=== PATIENT | female | born 1935 | race Caucasian/White ===

== ENCOUNTER 2017-03-03 17:16 | Inpatient (IN) | payer OTHER ==
[2017-03-03] MEDS ORDERED: SODIUM CHLORIDE 1,000 ML IV STA ×2 (17:24→17:39)
--- NOTE | 2017-03-03 17:29 | PDOC ---
History of Present Illness - General History Source: Patient Exam Limitations: No Limitations - History of Present Illness Initial Comments: 03/03/17 17:52 The patient is an 81 year old female with a significant pmhx Diabetes, CAD, COPD (uses BiPap at night), Asthma, CHF, HTN, HLD, seizures, who presents to the ED sent from [facility] with complaint of fever, diaphoresis, tachycardia and unresponsive. Patient was found to have 103 F fever at the [place] where she was given tylenol. Patient was found to have BG of 88 and 1 IM injection of Glucagon was administered by EMS. Patient still has a fever while in the ED PCP - Dr. Rey <Marquita Mercer - Last Filed: 03/03/17 21:07> - General History Source: EMS, Care Home Records, Old Records Exam Limitations: Dementia <Sharon Guadalupe - Last Filed: 03/09/17 08:47> - General Stated Complaint: PAIN Past History <Marquita Mercer - Last Filed: 03/03/17 21:07> - Past Medical History Anemia: No Asthma: Yes Cancer: No Cardiac Disorders: Yes (CAD) CVA: Yes (2006, TIA) COPD: Yes (uses BIPAP at night) CHF: Yes Dementia: No Diabetes: Yes GI Disorders: Yes (OBESITY) Disorders: No HTN: Yes Hypercholesterolemia: Yes Liver Disease: No Seizures: Yes Thyroid Disease: No - Surgical History Abdominal Surgery: Yes Appendectomy: Yes Cardiac Surgery: Yes (STENTS X 8.) Cholecystectomy: No Lung Surgery: No Neurologic Surgery: Yes Orthopedic Surgery: Yes - Immunization History Td Vaccination: (unknown) TDAP Vaccination: (unknown) Immunization Up to Date: (unknown) - Psycho/Social/Smoking Cessation Hx Anxiety: No Suicidal Ideation: No Smoking Status: No Smoking History: Never smoked Have you smoked in the past 12 months: No Number of Cigarettes Smoked Daily: 0 Cigars Per Day: 0 Hx Alcohol Use: No Drug/Substance Use Hx: No Substance Use Type: None Hx Substance Use Treatment: No <Sharon Guadalupe - Last Filed: 03/09/17 08:47> - Past Medical History Allergies/Adverse Reactions: Allergies Allergy/AdvReac Type Severity Reaction Status Date / Time iodine [Iodine] Allergy Severe Swelling Verified 03/03/17 17:36 aspirin Allergy Mild ABD PAIN Verified 03/03/17 17:36 Home Medications: Ambulatory Orders Aa/Hydrolyzed Collagen, Whey [Lps 15-30 Liquid] 960 ml PO DAILY 03/03/17 Amlodipine Besylate 5 mg PO BID 03/03/17 Atorvastatin Ca [Lipitor] 20 mg PO HS 03/03/17 Carvedilol [Coreg -] 25 mg PO BID 03/03/17 Clonidine-Tts 0.3MG/24Hr Patch [Yunujylr-Ltj-1] 1 patch NR WEEKLY 03/03/17 Cyanocobalamin (Vitamin B-12) [Vitamin B12] 2,500 mcg PO DAILY 03/03/17 Docusate Sodium [Colace -] 300 mg PO BID 03/03/17 Donepezil HCl [Aricept -] 5 mg PO DAILY 03/03/17 Duloxetine HCl [Cymbalta -] 30 mg PO DAILY 03/03/17 Enoxaparin [Lovenox -] 40 mg SQ DAILY 03/03/17 Folic Acid - 400 mcg PO DAILY 03/03/17 Furosemide [Lasix] 40 mg PO DAILY 03/03/17 Insulin (Levemir) [Levemir Vial] 12 unit SQ DAILY 03/03/17 Insulin Regular [NOVOLIN R VIAL *IVPUSH / ER / ICU Only*] 0 units SQ BIDAC 03/03 Isosorbide Mononitrate [Isosorbide Mononitrate ER] 60 mg PO HS 03/03/17 Magnesium Oxide [Mag-Ox -] 400 mg PO BID 03/03/17 Nystatin Cream [Mycostatin] 1 applic TP BID 03/03/17 Omeprazole 40 mg PO DAILY 03/03/17 Ondansetron HCl [Zofran] 4 mg PO TID PRN 03/03/17 Oxycodone HCl 5 mg PO Q4HWA PRN 03/03/17 Ranolazine [Ranexa] 500 mg PO BID 03/03/17 Valsartan [Diovan] 80 mg PO DAILY 03/03/17 Review of Systems - Review of Systems Able to Perform ROS?: Yes Comments:: 03/03/17 18:25 Unable to obtain due to mental status. <Marquita Mercer - Last Filed: 03/03/17 21:07> *Physical Exam - Vital Signs Last Vital Signs Temp Pulse Resp BP Pulse Ox 102.4 F H 84 18 160/66 94 L 03/03/17 17:37 03/03/17 17:37 03/03/17 17:37 03/03/17 17:37 03/03/17 17:37 - Physical Exam Comments: 03/03/17 18:26 GENERAL: The patient is in no acute distress. HEAD: Normal with no signs of trauma. EYES: PERRLA, EOMI, sclera anicteric, conjunctiva clear. ENT: Ears normal, nares patent, oropharynx clear without exudates. Moist mucous membranes. NECK: Normal range of motion, supple without lymphadenopathy, JVD, or masses. LUNGS: Breath sounds equal, clear to auscultation bilaterally. No wheezes, and no crackles. HEART: (+)Regular rate and rhythm murmur 3/6 aortic position, normal S1 and S2, rub or gallop. ABDOMEN: (+)RUQ tenderness. Soft, normoactive bowel sounds. No guarding, no rebound. EXTREMITIES: Normal range of motion, no edema. No clubbing or cyanosis. No erythema, or tenderness. NEUROLOGICAL: Cranial nerves II through XII grossly intact. Normal speech. No focal neurological deficits. MUSCULOSKELETAL: Back nontender to palpation, no CVA tenderness SKIN: No skin breakdown no abscess. Warm, Dry, normal turgor, no rashes or lesions noted. <Marquita Mercer - Last Filed: 03/03/17 21:07> Heart Score/ECG Review #1 ECG reviewed & interpreted by me at: 19:06 03/03/17 19:06 Twelve-lead EKG was performed and reviewed by me. There is normal sinus rhythm with a normal rate of 79 bpm. Left axis deviation. The intervals are normal - pr:156ms, QRS:92ms, QTc:440ms. There are no ST elevations or depressions. T wave flattening <Sharon Guadalupe - Last Filed: 03/09/17 08:47> ED Treatment Course - LABORATORY CBC & Chemistry Diagram: 03/03/17 17:40 03/03/17 17:40 - RADIOLOGY Radiology Studies Ordered: 03/03/17 21:07 THIS IS A PRELIMINARY REPORT FROM IMAGING CENTER MANAGER FINDINGS: The liver is of uniform echogenicity without biliary ductal dilatation , mass or cystic change. It measures 18.1 cm in greatest dimension. A fluid filled gallbladder is present in the right upper quadrant without evidence of cholelithiasis or gallbladder wall thickening. A solitary 0.4 cm echogenic mucosal polyp is seen within the gallbladder. The common bile duct measured 0.3 cm in diameter which is within normal limits. The pancreas demonstrates uniform echogenicity without ductal dilatation, mass or cystic change. The right kidney is not measured. A 3.0 cm simple anechoic cyst was seen centrally. IMPRESSION Limited abdominal ultrasound by prescription. Hepatomegaly. No liver masses. No evidence of cholelithiasis. The gallbladder demonstrates a small echogenic polyp. No follow-up required. No gallbladder wall thickening or biliary ductal dilatation. THIS DOCUMENT HAS BEEN ELECTRONICALLY SIGNED Ayan Aldana M.D. <Marquita Mercer - Last Filed: 03/03/17 21:07> - LABORATORY CBC & Chemistry Diagram: 03/08/17 08:26 03/08/17 08:26 - RADIOLOGY Radiology Studies Ordered: Category Date Time Status CHEST X-RAY PORTABLE* [RAD] Stat Radiology 03/03/17 17:24 Ordered <Sharon Guadalupe - Last Filed: 03/09/17 08:47> Medical Decision Making - Critical Care Time Total Critical Care Time (minutes): 35 Critical Care Statement: The care of this patient involved high complexity decision making to prevent further life threatening deterioration of the patient 's condition and/or to evalute & treat vital organ system(s) failure or risk of failure. - Medical Decision Making 03/03/17 17:27 This pateint is an 81 year old female with significant PMH of Diabetes, CAD, COPD (uses BiPap at night), Asthma, CHF, HTN, HLD, seizures, who presents to ED from [facility] due to altered mentation Pt was found to have a fever of 103 at 3pm Given tylenol Found at 5pm unresponsive and tachycardiac EMS called PT was diaphoretic, tachycardiac Fingerstick 88 Pt given Glucagon Pt more responsive now Will do Sepsis orderset given history of fever 03/03/17 18:41 Rectal temp 102 Will give tylenol IV ( states that she doesn't normally take motrin) Laboratory Tests 03/03/17 03/03/17 03/03/17 17:40 17:40 17:40 WBC 23.9 H D Hgb 16.3 H D Hct 52.0 H D Plt Count 162 D Neutrophils % 79.0 Lymphocytes % 6.0 L D INR 1.20 H Sodium Potassium Chloride Carbon Dioxide BUN Creatinine Random Glucose Creatine Kinase Troponin I Ur Leukocyte Esterase Trace H Urine RBC 27 Urine WBC 99 03/03/17 17:40 WBC Hgb Hct Plt Count Neutrophils % Lymphocytes % INR Sodium 136 Potassium 3.5 D Chloride 97 L D Carbon Dioxide 28 D BUN 13 D Creatinine 0.8 Random Glucose 162 H D Creatine Kinase 16 L Troponin I < 0.02 Ur Leukocyte Esterase Urine RBC Urine WBC WBC elevated Hemoconcentrated Lactate Nml UA (+) Will give Zosyn RUQ tenderness, pt going to US to eval GB 03/03/17 18:[address] Can not scan with contrast Will do CT non contrast 03/03/17 18:45 03/03/17 21:28 US demonstrates no gall bladder wall thickening, no PCCF, no stoned (+) gall bladder polyp Pt hemodynamically stable No fever now case reviewed with Dr rey Will admit to Med Surg CT pending <Sharon Guadalupe - Last Filed: 03/09/17 08:47> *DC/Admit/Observation/Transfer - Attestations Scribe Attestion: 03/03/17 17:53 Documentation prepared by ROSIBEL Astorga, acting as medical records auditor for Sharon Guadalupe MD. <Marquita Mercer - Last Filed: 03/03/17 21:07> - Discharge Dispostion Admit: Yes <Sharon Guadalupe - Last Filed: 03/09/17 08:47> Diagnosis at time of Disposition: UTI (urinary tract infection) Qualifiers: Urinary tract infection type: site unspecified Hematuria presence: without hematuria Qualified Code(s): N39.0 - Urinary tract infection, site not specified Fever Qualifiers: Fever type: due to other condition Qualified Code(s): R50.81 - Fever presenting with conditions classified elsewhere - Discharge Dispostion Condition at time of disposition: Stable - Referrals
[2017-03-03] MEDS ORDERED: ACETAMINOPHEN 1000 MG/100 ML VIAL (NON FORMULARY) IVPB ONE (17:39)
[2017-03-03 17:40] VITALS: BMI 25.6
[2017-03-03 17:55] LABS: MCH 21.4 pg (25.7-33.7); MCHC 31.3 g/dl (32.0-36.0); MEAN CELL VOLUME 68.5 fl (80-96); MEAN PLT VOLUME 10.1 fl (7.5-11.1); RDW 17.3 % (11.6-15.6); WHITE BLOOD COUNT 23.9 K/mm3 (4.0-10.0)
[2017-03-03 17:57] LABS: URINE APPEARANCE CLOUDY; URINE BILIRUBIN NEGATIVE (NEGATIVE); URINE COLOR AMBER; URINE GLUCOSE (UA) 2+ (NEGATIVE); URINE KETONE NEGATIVE (NEGATIVE); URINE NITRITE NEGATIVE (NEGATIVE); URINE UROBILINOGEN NEGATIVE E.U./dl (0.2-1.0)
[2017-03-03 17:58] LABS: URINE BLOOD 1+ (NEGATIVE); URINE LEUK ESTERASE TRACE (NEGATIVE); URINE PROTEIN 3+ (NEGATIVE)
[2017-03-03 18:01] LABS: URINE BACTERIA FEW /hpf (NONE SEEN); URINE HYALINE CAST 5 /lpf; URINE MUCUS RARE; URINE RBC 27 /hpf (0-3); URINE WBC 99 /hpf (3-5); YEAST FEW
[2017-03-03 18:09] LABS: INR 1.2 (0.82-1.09); PROTHROMBIN TIME (PATIENT) 13.2 SEC (9.98-11.88)
[2017-03-03] MEDS ORDERED: ACETAMINOPHEN INJECTION 100 ML IVPB ONE (18:09)
[2017-03-03 18:11] LABS: ACTIVATED PTT 44.5 SECONDS (26.9-34.4)
[2017-03-03 18:22] LABS: ALBUMIN 1.8 g/dl (3.4-5.0); ANION GAP 11 (8-16); BILIRUBIN,TOTAL 0.4 mg/dL (0.2-1.0); CO2 28 mmol/L (21-32); CREATININE 0.8 mg/dL (0.55-1.02); GLUCOSE,RANDOM 162 mg/dL (74-106); SGOT/AST 13 U/L (15-37); SGPT/ALT 13 U/L (12-78); TOT PROT 5.9 g/dl (6.4-8.2)
[2017-03-03 18:24] LABS: ALK PHOS 85 U/L (45-117); TROPONIN I < 0.02 ng/ml (0.00-0.05)
[2017-03-03 18:27] LABS: VENOUS BLOOD GAS HCO3 27.4 meq/L (19-25); VENOUS PH 7.4 (7.32-7.42)
[2017-03-03 18:31] LABS: PLATELET COUNT 162 K/MM3 (134-434); PLATELET ESTIMATE DECREASED (NORMAL)
[2017-03-03 18:32] LABS: ANISOCYTOSIS 1+; MICROCYTOSIS 1+; PLATELET COMMENT2 FEW LARGE PLTS
[2017-03-03] MEDS ORDERED: PIPERACILLIN/TAZOB 4.5 GM 4.5 GM in DEXTROSE 5%-WATER - 100 ML IVPB ONE (18:44)
[2017-03-03] MEDS ORDERED: PIPERACILLIN/TAZOB 3.375 GM 50 ML IVPB ONE (18:45)
[2017-03-03] MEDS ORDERED: PIPERACILLIN/TAZOB 4.5 GM 100 ML IVPB ONE (18:52)
[2017-03-03] MEDS ORDERED: ONDANSETRON 4 MG TABLET PO PRN (23:20)
[2017-03-03] MEDS ORDERED: PATIENT'S OWN MEDICATION (NON-FORMULARY) (Oxycodone Hcl [Oxycodone Hcl] 5 MG) PO PRN (23:20)
[2017-03-03] MEDS ORDERED: ACETAMINOPHEN 325 MG TABLET (FP) PO PRN (23:26)
[2017-03-03] MEDS ORDERED: ALBUTEROL SO4 0.083% IH SOL 2.5 MG/3 ML VIAL.NEB. NEB PRN (23:26)
[2017-03-04] MEDS: PIPERACILLIN/TAZOB 3.375 GM/50 ML PRE-DOCKED IVPB SCH ×2 (01:28→10:07)
[2017-03-04] MEDS ORDERED: PIPERACILLIN/TAZOB 3.375 GM/50 ML PRE-DOCKED IVPB SCH (02:00)
[2017-03-04] MEDS: INSULIN SLIDING SCALE (NOVOLOG) 1 VIAL SQ SCH ×4 (06:27→21:38)
[2017-03-04] MEDS: INSULIN DETEMIR 100 UNITS/ML MDV SQ SCH (06:28)
[2017-03-04] MEDS ORDERED: INSULIN (NOVOLOG) ASPART 100 UNITS/ML 10ML VIAL ONE ×2 (06:29→17:11)
[2017-03-04 08:11] LABS: BASOPHIL 0.1 % (0-2.0); MCH 21.7 pg (25.7-33.7); MCHC 31.1 g/dl (32.0-36.0); MEAN CELL VOLUME 69.7 fl (80-96); MEAN PLT VOLUME 9.1 fl (7.5-11.1); RDW 18.2 % (11.6-15.6); WHITE BLOOD COUNT 26.8 K/mm3 (4.0-10.0)
[2017-03-04 08:20] LABS: ALBUMIN 1.6 g/dl (3.4-5.0); ANION GAP 11 (8-16); CO2 28 mmol/L (21-32); GLUCOSE,RANDOM 160 mg/dL (74-106)
[2017-03-04 08:22] LABS: ALK PHOS 80 U/L (45-117); AMYLASE 18 U/L (25-115); BILIRUBIN,TOTAL 0.4 mg/dL (0.2-1.0); CREATININE 0.8 mg/dL (0.55-1.02); SGOT/AST 13 U/L (15-37); SGPT/ALT 12 U/L (12-78); TOT PROT 5.3 g/dl (6.4-8.2)
[2017-03-04 09:35] LABS: PLATELET COMMENT2 FEW LARGE PLTS; PLATELET COUNT 126 K/MM3 (134-434); PLATELET ESTIMATE ADEQUATE (NORMAL)
[2017-03-04] MEDS ORDERED: PT OWN MED DRAWER 7, Y5N ONE (09:54)
[2017-03-04] MEDS: amLODIPine BESYLATE 10 MG TABLET (FP) PO SCH (10:07)
[2017-03-04] MEDS: DULoxetine HCL 30 MG CAPSULE.DR (FP) PO SCH (10:07)
[2017-03-04] MEDS: DONEPEZIL HCL 5 MG TABLET (FP) PO SCH (10:07)
[2017-03-04] MEDS: CARVEDILOL 25 MG TABLET (FP) PO SCH ×2 (10:07→21:27)
[2017-03-04] MEDS: PANTOPRAZOLE 40 MG TABLET (FP) PO SCH (10:07)
[2017-03-04] MEDS: ENOXAPARIN NA (PORCINE) 40 MG/0.4 ML DISP.SYRIN SQ SCH (10:07)
[2017-03-04] MEDS: FUROSEMIDE 40 MG TABLET (FP) PO SCH (10:07)
[2017-03-04] MEDS: RANOLAZINE E.R. 500 MG TABLET (FP) PO SCH ×2 (10:07→21:38)
--- NOTE | 2017-03-04 10:15 | EKG ---
Test Reason : Blood Pressure : / mmHG Vent. Rate : 079 BPM Atrial Rate : 079 BPM P-R Int : 156 ms QRS Dur : 092 ms QT Int : 384 ms P-R-T Axes : 023 -65 033 degrees QTc Int : 440 ms NORMAL SINUS RHYTHM LEFT AXIS DEVIATION POSSIBLE ANTEROLATERAL INFARCT , AGE UNDETERMINED ABNORMAL ECG Confirmed by JANNETTE KHALIL MD ([id number]) on 03/04/2017 10:14:52 AM Referred By: Confirmed By:JANNETTE KHALIL MD
--- NOTE | 2017-03-04 12:55 | CONSULT ---
Consult Consult Specialty:: infectious diseases Referred by:: Reason for Consultation:: bacteremia,fever - History of Present Illness Chief Complaint: dysuria ,pain while urinating History of Present Illness: 81 year old female with a significant pmhx Diabetes, CAD, COPD (uses BiPap at night), Asthma, CHF, HTN, HLD, seizures, who is admitted from [facility] with complaint of fever, diaphoresis, tachycardia and unresponsive. Patient was found to have 103 F fever at the OR where she was given tylenol. Patient was found to have BG of 88 and 1 IM injection of Glucagon was administered by EMS. 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) Cardio/Vascular: Yes: CAD (s/p multiple prior PCI's--last oct 2013 MICHAEL to mLAD ( prior stents patent)), HTN, Hyperlipdemia Pulmonary: Yes: COPD Renal/: Yes: Renal Inusuff ...: No Endocrine: Yes: Diabetes Mellitus, Other (obesity) - Past Surgical History Past Surgical History: Yes: Appendectomy, Stent - Alcohol/Substance Use Hx Alcohol Use: No History of Substance Use: reports: None - Smoking History Smoking history: Never smoked Have you smoked in the past 12 months: No Aproximately how many cigarettes per day: 0 - Social History Usual Living Arrangement: With Spouse ADL: Family Assistance History of Recent Travel: No Home Medications - Allergies Allergies/Adverse Reactions: Allergies Allergy/AdvReac Type Severity Reaction Status Date / Time iodine [Iodine] Allergy Severe Swelling Verified 03/03/17 17:36 aspirin Allergy Mild ABD PAIN Verified 03/03/17 17:36 - Home Medications Home Medications: Ambulatory Orders Aa/Hydrolyzed Collagen, Whey [Lps 15-30 Liquid] 960 ml PO DAILY 03/03/17 Amlodipine Besylate 5 mg PO BID 03/03/17 Atorvastatin Ca [Lipitor] 20 mg PO HS 03/03/17 Carvedilol [Coreg -] 25 mg PO BID 03/03/17 Clonidine-Tts 0.3MG/24Hr Patch [Glyzsndo-Ypu-3] 1 patch NR WEEKLY 03/03/17 Cyanocobalamin (Vitamin B-12) [Vitamin B12] 2,500 mcg PO DAILY 03/03/17 Docusate Sodium [Colace -] 300 mg PO BID 03/03/17 Donepezil HCl [Aricept -] 5 mg PO DAILY 03/03/17 Duloxetine HCl [Cymbalta -] 30 mg PO DAILY 03/03/17 Enoxaparin [Lovenox -] 40 mg SQ DAILY 03/03/17 Folic Acid - 400 mcg PO DAILY 03/03/17 Furosemide [Lasix] 40 mg PO DAILY 03/03/17 Insulin (Levemir) [Levemir Vial] 12 unit SQ DAILY 03/03/17 Insulin Regular [NOVOLIN R VIAL *IVPUSH / ER / ICU Only*] 0 units SQ BIDAC 03/03 Isosorbide Mononitrate [Isosorbide Mononitrate ER] 60 mg PO HS 03/03/17 Magnesium Oxide [Mag-Ox -] 400 mg PO BID 03/03/17 Nystatin Cream [Mycostatin] 1 applic TP BID 03/03/17 Omeprazole 40 mg PO DAILY 03/03/17 Ondansetron HCl [Zofran] 4 mg PO TID PRN 03/03/17 Oxycodone HCl 5 mg PO Q4HWA PRN 03/03/17 Ranolazine [Ranexa] 500 mg PO BID 03/03/17 Valsartan [Diovan] 80 mg PO DAILY 03/03/17 Review of Systems - Review of Systems Constitutional: reports: Fever, Other Eyes: reports: No Symptoms HENT: reports: No Symptoms Neck: reports: No Symptoms Cardiovascular: reports: No Symptoms Respiratory: reports: No Symptoms Gastrointestinal: reports: No Symptoms Genitourinary: reports: Dysuria, Urgency, Other (burning in urine) Musculoskeletal: reports: No Symptoms Integumentary: reports: No Symptoms Neurological: reports: Weakness, Other Endocrine: reports: No Symptoms Hematology/Lymphatic: reports: No Symptoms Psychiatric: reports: No Symptoms Physical Exam Vital Signs: Vital Signs Temperature 99.1 F 03/04/17 10:00 Pulse Rate 77 03/04/17 10:00 Respiratory Rate 20 03/04/17 10:00 Blood Pressure 157/70 03/04/17 10:00 O2 Sat by Pulse Oximetry (%) 96 03/04/17 09:00 Constitutional: Yes: No Distress, Calm Eyes: Yes: Conjunctiva Clear HENT: Yes: Atraumatic Neck: Yes: Supple Cardiovascular: Yes: S1, S2 Respiratory: Yes: Regular, CTA Bilaterally Gastrointestinal: Yes: Normal Bowel Sounds, Soft Renal/: Yes: Other (suprapubic tenderness). No: CVA Tenderness - Left, CVA Tenderness - Right Musculoskeletal: Yes: WNL Extremities: Yes: WNL Neurological: Yes: Alert Psychiatric: Yes: Alert Labs: CBC, BMP 03/04/17 06:45 03/04/17 06:45 Imaging - Results Chest X-ray: Report Reviewed, Image Reviewed Cat Scan: Image Reviewed Ultrasound: Image Reviewed Assessment/Plan after looking at the patient i have a strong suspicion that urine is the cause of her bacteremia blood cx are positive geo wait for urine cx to be back ct scan images seen await for the results of that and the ultrasound uti bacteremia gm negative frequency fever ams leukocytosis sepsis plan started on zosyn will trend the wbc if going will switch abx await for ct scan result and u/s results hydration monitor blood sugar
[2017-03-04] MEDS: cloNIDine-TTS 0.3 MG /24 HRS PATCH.TDWK TD SCH (13:43)
--- NOTE | 2017-03-04 14:40 | CON.GI ---
Consult Consult Specialty:: GI Referred by:: Dr Rey Reason for Consultation:: Nausea and vomiting with fever and leukocytosis - History of Present Illness Chief Complaint: Nausea and vomiting History of Present Illness: 81 F with h/o DM, CAD, COPD, on BIPAP at home, CHF, HTN, HLD admitted from [facility] with N/V and abdominal pain. D/W Dr Rey who tells me that the N/V has been going on for some time. On arrival to ER the patient had temp of 103, and was tachy and poorly responsive. 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) Cardio/Vascular: Yes: CAD (s/p multiple prior PCI's--last oct 2013 MICHAEL to mLAD ( prior stents patent)), HTN, Hyperlipdemia Pulmonary: Yes: COPD Renal/: Yes: Renal Inusuff ...: No Endocrine: Yes: Diabetes Mellitus, Other (obesity) - Past Surgical History Past Surgical History: Yes: Appendectomy, Stent - Alcohol/Substance Use Hx Alcohol Use: No History of Substance Use: reports: None - Smoking History Smoking history: Never smoked Have you smoked in the past 12 months: No Aproximately how many cigarettes per day: 0 - Social History Usual Living Arrangement: With Spouse ADL: Family Assistance History of Recent Travel: No Home Medications - Allergies Allergies/Adverse Reactions: Allergies Allergy/AdvReac Type Severity Reaction Status Date / Time iodine [Iodine] Allergy Severe Swelling Verified 03/03/17 17:36 aspirin Allergy Mild ABD PAIN Verified 03/03/17 17:36 - Home Medications Home Medications: Ambulatory Orders Aa/Hydrolyzed Collagen, Whey [Lps 15-30 Liquid] 960 ml PO DAILY 03/03/17 Amlodipine Besylate 5 mg PO BID 03/03/17 Atorvastatin Ca [Lipitor] 20 mg PO HS 03/03/17 Carvedilol [Coreg -] 25 mg PO BID 03/03/17 Clonidine-Tts 0.3MG/24Hr Patch [Qcyavnah-Erc-8] 1 patch NR WEEKLY 03/03/17 Cyanocobalamin (Vitamin B-12) [Vitamin B12] 2,500 mcg PO DAILY 03/03/17 Docusate Sodium [Colace -] 300 mg PO BID 03/03/17 Donepezil HCl [Aricept -] 5 mg PO DAILY 03/03/17 Duloxetine HCl [Cymbalta -] 30 mg PO DAILY 03/03/17 Enoxaparin [Lovenox -] 40 mg SQ DAILY 03/03/17 Folic Acid - 400 mcg PO DAILY 03/03/17 Furosemide [Lasix] 40 mg PO DAILY 03/03/17 Insulin (Levemir) [Levemir Vial] 12 unit SQ DAILY 03/03/17 Insulin Regular [NOVOLIN R VIAL *IVPUSH / ER / ICU Only*] 0 units SQ BIDAC 03/03 Isosorbide Mononitrate [Isosorbide Mononitrate ER] 60 mg PO HS 03/03/17 Magnesium Oxide [Mag-Ox -] 400 mg PO BID 03/03/17 Nystatin Cream [Mycostatin] 1 applic TP BID 03/03/17 Omeprazole 40 mg PO DAILY 03/03/17 Ondansetron HCl [Zofran] 4 mg PO TID PRN 03/03/17 Oxycodone HCl 5 mg PO Q4HWA PRN 03/03/17 Ranolazine [Ranexa] 500 mg PO BID 03/03/17 Valsartan [Diovan] 80 mg PO DAILY 03/03/17 Physical Exam-GI Vital Signs: Vital Signs Temperature 99.1 F 03/04/17 10:00 Pulse Rate 77 03/04/17 10:00 Respiratory Rate 20 03/04/17 10:00 Blood Pressure 157/70 03/04/17 10:00 O2 Sat by Pulse Oximetry (%) 96 03/04/17 09:00 Constitutional: Yes: Well Nourished Respiratory: Yes: CTA Bilaterally Gastrointestinal Inspection: Yes: WNL ...Auscultate: Yes: Hyperactive Bowel Sounds ...Palpate: Yes: Soft, Tenderness (mild diffuse) Labs: CBC, BMP 03/04/17 06:45 03/04/17 06:45 INR, PTT INR 1.20 (0.82-1.09) H 03/03/17 17:40 Imaging - Results Cat Scan: Image Reviewed (Await official reading) Assessment/Plan Patient with abdominal pain, N/V for an extended period of time and leukocytosis R/O intragastric problem Will sched EGD likely Tues after medical clearance Would keep NPO Leukocytosis worrisome Cont recommended ab rx
[2017-03-04] MEDS ORDERED: DEXTROSE 5%-0.45% SALINE 1,000 ML IV SCH (15:00)
--- NOTE | 2017-03-04 16:07 | HP ---
Admitting History and Physical - Primary Care Physician PCP: Alexys Rey - Admission Chief Complaint: Fever, vomiting, abdominal pain History of Present Illness: 81 year old female with significant past medical history of hypertension, hyperlipidemia, Diabetes, CAD, COPD (uses BiPap at night), Asthma, CHF, seizures , admitted from [facility] with complaint of fever, vomiting, abdominal pain, diaphoresis, tachycardia and unresponsiveness. Patient was found to have fever of 103 at the [place] where she was given tylenol. Patient was also found to have BG of 88 and 1 IM injection of Glucagon was administered by EMS. Patient has been having 1-2 episodes of vomiting with abdominal pain per week for last 2-3 weeks. She was scheduled to see GI soon. Gives h/o burning of urine for last few days. Denies chest pain, shortness of breath, palpitation or dizziness. 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: Yes: CVA, Dementia (mild) Cardiovascular: Yes: CAD (s/p multiple prior PCI's--last oct 2013 MICHAEL to mLAD ( prior stents patent)), HTN, Hyperlipdemia Pulmonary: Yes: COPD Renal/: Yes: Renal Inusuff ...: No Heme/Onc: Yes: Anemia, Other (MDS) Endocrine: Yes: Diabetes Mellitus, Other (obesity) - Past Surgical History Past Surgical History: Yes: Appendectomy, Stent - Smoking History Smoking history: Never smoked Have you smoked in the past 12 months: No Aproximately how many cigarettes per day: 0 - Alcohol/Substance Use Hx Alcohol Use: No History of Substance Use: reports: None - Social History ADL: Family Assistance History of Recent Travel: No Home Medications - Allergies Allergies/Adverse Reactions: Allergies Allergy/AdvReac Type Severity Reaction Status Date / Time iodine [Iodine] Allergy Severe Swelling Verified 03/03/17 17:36 aspirin Allergy Mild ABD PAIN Verified 03/03/17 17:36 - Home Medications Home Medications: Ambulatory Orders Aa/Hydrolyzed Collagen, Whey [Lps 15-30 Liquid] 960 ml PO DAILY 03/03/17 Amlodipine Besylate 5 mg PO BID 03/03/17 Atorvastatin Ca [Lipitor] 20 mg PO HS 03/03/17 Carvedilol [Coreg -] 25 mg PO BID 03/03/17 Clonidine-Tts 0.3MG/24Hr Patch [[id number]] 1 patch NR WEEKLY 03/03/17 Cyanocobalamin (Vitamin B-12) [Vitamin B12] 2,500 mcg PO DAILY 03/03/17 Docusate Sodium [Colace -] 300 mg PO BID 03/03/17 Donepezil HCl [Aricept -] 5 mg PO DAILY 03/03/17 Duloxetine HCl [Cymbalta -] 30 mg PO DAILY 03/03/17 Enoxaparin [Lovenox -] 40 mg SQ DAILY 03/03/17 Folic Acid - 400 mcg PO DAILY 03/03/17 Furosemide [Lasix] 40 mg PO DAILY 03/03/17 Insulin (Levemir) [Levemir Vial] 12 unit SQ DAILY 03/03/17 Insulin Regular [NOVOLIN R VIAL *IVPUSH / ER / ICU Only*] 0 units SQ BIDAC 03/03 Isosorbide Mononitrate [Isosorbide Mononitrate ER] 60 mg PO HS 03/03/17 Magnesium Oxide [Mag-Ox -] 400 mg PO BID 03/03/17 Nystatin Cream [Mycostatin] 1 applic TP BID 03/03/17 Omeprazole 40 mg PO DAILY 03/03/17 Ondansetron HCl [Zofran] 4 mg PO TID PRN 03/03/17 Oxycodone HCl 5 mg PO Q4HWA PRN 03/03/17 Ranolazine [Ranexa] 500 mg PO BID 03/03/17 Valsartan [Diovan] 80 mg PO DAILY 03/03/17 Review of Systems - Review of Systems Constitutional: reports: Lethargy Eyes: reports: No Symptoms HENT: reports: No Symptoms Neck: reports: No Symptoms Cardiovascular: reports: No Symptoms Respiratory: reports: No Symptoms Gastrointestinal: reports: Abdominal Pain, Nausea, Vomiting Genitourinary: reports: Burning Musculoskeletal: reports: No Symptoms Integumentary: reports: No Symptoms Neurological: reports: Confusion Endocrine: reports: No Symptoms Hematology/Lymphatic: reports: No Symptoms Psychiatric: reports: No Symptoms Physical Examination Vital Signs: Vital Signs Temperature 98.7 F 03/04/17 14:00 Pulse Rate 77 03/04/17 14:00 Respiratory Rate 20 03/04/17 14:00 Blood Pressure 139/58 03/04/17 14:00 O2 Sat by Pulse Oximetry (%) 96 03/04/17 09:00 Constitutional: Yes: Mild Distress Eyes: Yes: Conjunctiva Clear, EOM Intact HENT: Yes: Atraumatic, Normocephalic Cardiovascular: Yes: Regular Rate and Rhythm, S1, S2 Respiratory: Yes: Regular, CTA Bilaterally Gastrointestinal: Yes: Tenderness (Generalized) ...Rectal Exam: Yes: Deferred Renal/: Yes: WNL Musculoskeletal: Yes: WNL Extremities: Yes: WNL Edema: No Peripheral Pulses WNL: Yes Neurological: Yes: Alert, Oriented ...Motor Strength: WNL Psychiatric: Yes: Alert, Oriented Labs: CBC, BMP 03/04/17 06:45 03/04/17 06:45 Imaging - Results Chest X-ray: Report Reviewed Cat Scan: Pending Ultrasound: Pending EKG: Report Reviewed Problem List - Problems (1) Leukocytosis Assessment/Plan: Blood cultures growing gram negative organism Most likely from genitourinary source. Continue zosyn. ID consult appreciated. Code(s): D72.829 - ELEVATED WHITE BLOOD CELL COUNT, UNSPECIFIED (2) UTI (urinary tract infection) Assessment/Plan: Blood cultures growing gram negative. Continue zosyn. ABx as per ID Code(s): N39.0 - URINARY TRACT INFECTION, SITE NOT SPECIFIED Qualifiers: Urinary tract infection type: site unspecified Hematuria presence: without hematuria Qualified Code(s): N39.0 - Urinary tract infection, site not specified (3) Gram-negative bacteremia Assessment/Plan: As mentioned above. Continue zosyn. Code(s): R78.81 - BACTEREMIA (4) Diabetes Assessment/Plan: Reasonable control. 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 Continue current medications. Code(s): I10 - ESSENTIAL (PRIMARY) HYPERTENSION (6) Hyperlipidemia Assessment/Plan: Stable. Continue atorvastatin 20 mg daily. Code(s): E78.5 - HYPERLIPIDEMIA, UNSPECIFIED (7) COPD (chronic obstructive pulmonary disease) Assessment/Plan: Stable. Continue inhaled bronchodilators. Code(s): J44.9 - CHRONIC OBSTRUCTIVE PULMONARY DISEASE, UNSPECIFIED (8) CHF (congestive heart failure) Assessment/Plan: Stable. BNP elevated. Continue lasix 40 mg daily. Monitor lytes. Code(s): I50.9 - HEART FAILURE, UNSPECIFIED
[2017-03-04] MEDS: PIPERACILLIN/TAZOB 3.375 GM 50 ML IVPB SCH (17:15)
[2017-03-04] MEDS ORDERED: POTASSIUM CHLORIDE TABS 20 MEQ TABLET.ER (FP) PO ONE (18:09)
[2017-03-04] MEDS: ATORVASTATIN CA 20 MG TABLET (FP) PO SCH (21:27)
[2017-03-04] MEDS: DOCUSATE SODIUM 100 MG CAPSULE (FP) PO SCH (21:27)
[2017-03-04] MEDS: ISOSORBIDE MONONITRATE 60 MG TAB.SR.24H (FP) PO SCH (21:27)
[2017-03-05] MEDS: PIPERACILLIN/TAZOB 3.375 GM 50 ML IVPB SCH ×3 (01:26→17:48)
[2017-03-05] MEDS: INSULIN SLIDING SCALE (NOVOLOG) 1 VIAL SQ SCH ×4 (06:33→21:27)
[2017-03-05] MEDS: INSULIN DETEMIR 100 UNITS/ML MDV SQ SCH (06:34)
[2017-03-05 07:13] LABS: MCH 21.5 pg (25.7-33.7); MCHC 30.9 g/dl (32.0-36.0); MEAN CELL VOLUME 69.4 fl (80-96); MEAN PLT VOLUME 9.6 fl (7.5-11.1); PLATELET COUNT 120 K/MM3 (134-434); RDW 17.4 % (11.6-15.6); WHITE BLOOD COUNT 28.2 K/mm3 (4.0-10.0)
[2017-03-05 07:38] LABS: ALBUMIN 1.4 g/dl (3.4-5.0); ANION GAP 9 (8-16); CALCIUM 8.7 mg/dL (8.5-10.1); CO2 28 mmol/L (21-32); CREATININE 1.1 mg/dL (0.55-1.02); GLUCOSE,RANDOM 264 mg/dL (74-106); SGOT/AST 10 U/L (15-37); SGPT/ALT 11 U/L (12-78)
[2017-03-05 07:40] LABS: ALK PHOS 78 U/L (45-117); BILIRUBIN,TOTAL 0.6 mg/dL (0.2-1.0); TOT PROT 4.9 g/dl (6.4-8.2)
[2017-03-05] MEDS: ENOXAPARIN NA (PORCINE) 40 MG/0.4 ML DISP.SYRIN SQ SCH (10:01)
[2017-03-05] MEDS: RANOLAZINE E.R. 500 MG TABLET (FP) PO SCH ×2 (10:09→21:27)
[2017-03-05] MEDS: DULoxetine HCL 30 MG CAPSULE.DR (FP) PO SCH (10:09)
[2017-03-05] MEDS: amLODIPine BESYLATE 10 MG TABLET (FP) PO SCH (10:09)
[2017-03-05] MEDS: PANTOPRAZOLE 40 MG TABLET (FP) PO SCH (10:09)
[2017-03-05] MEDS: DONEPEZIL HCL 5 MG TABLET (FP) PO SCH (10:09)
[2017-03-05] MEDS: FUROSEMIDE 40 MG TABLET (FP) PO SCH (10:09)
[2017-03-05] MEDS: CARVEDILOL 25 MG TABLET (FP) PO SCH ×2 (10:09→21:26)
[2017-03-05 11:33] LABS: ANISOCYTOSIS 2+; MICROCYTOSIS 2+; PLATELET COMMENT2 NO CLUMPING NOTED; PLATELET COMMENT3 NO CLOTTING DETECTED; PLATELET ESTIMATE SLT DECREASED (NORMAL); POIKILOCYTOSIS 2+; POLYCHROMASIA 1+
--- NOTE | 2017-03-05 14:56 | PN ---
Physical Exam: SUBJECTIVE: Patient seen and examined for Dr. Rey/Varun OBJECTIVE: Vital Signs Period Temp Pulse Resp BP Sys/Bishop Pulse Ox Last 24 Hr 98.4 F-100.5 F 80-84 20-20 127-133/65-85 96-96 GENERAL: The patient is awake, alert, and fully oriented, in no acute distress. HEAD: Normal with no signs of trauma. NECK: Trachea midline, full range of motion, supple. LUNGS: Breath sounds equal, clear to auscultation bilaterally, no wheezes, no crackles, no accessory muscle use. HEART: Regular rate and rhythm, S1, S2 without murmur, rub or gallop. ABDOMEN: Soft, nontender, nondistended, normoactive bowel sounds, no guarding, no rebound, no hepatosplenomegaly, no masses. EXTREMITIES: 2+ pulses, warm, well-perfused, no edema. NEUROLOGICAL: Cranial nerves II through XII grossly intact. Normal speech, gait not observed. SKIN: Warm, dry, normal turgor, no rashes or lesions noted Laboratory Results - last 24 hr 03/04/17 03/04/17 03/05/17 16:43 21:35 05:35 WBC RBC Hgb Hct MCV MCHC RDW Plt Count MPV Neutrophils % Lymphocytes % Monocytes % Band Neutrophils Reactive Lymphocytes Platelet Estimate Platelet Comment Polychromasia Poikilocytosis Anisocytosis Microcytosis Sodium Potassium Chloride Carbon Dioxide Anion Gap BUN Creatinine Creat Clearance w eGFR POC Glucometer 258 295 261 Random Glucose Calcium Total Bilirubin AST ALT Alkaline Phosphatase Total Protein Albumin 03/05/17 03/05/17 03/05/17 06:20 06:20 11:46 WBC 28.2 H RBC 6.50 H Hgb 13.9 D Hct 45.1 MCV 69.4 L MCHC 30.9 L RDW 17.4 H Plt Count 120 L MPV 9.6 Neutrophils % 80.0 Lymphocytes % 4.0 L Monocytes % 8.0 Band Neutrophils 4.0 Reactive Lymphocytes 4 D Platelet Estimate Slt decreased Platelet Comment No clumping noted Polychromasia 1+ Poikilocytosis 2+ Anisocytosis 2+ Microcytosis 2+ Sodium 132 L Potassium 4.1 D Chloride 95 L Carbon Dioxide 28 Anion Gap 9 BUN 25 H D Creatinine 1.1 H D Creat Clearance w eGFR 47.43 POC Glucometer 251 Random Glucose 264 H D Calcium 8.7 Total Bilirubin 0.6 D AST 10 L D ALT 11 L Alkaline Phosphatase 78 Total Protein 4.9 L Albumin 1.4 L Active Medications Generic Name Dose Route Start Last Admin Trade Name Freq PRN Reason Stop Dose Admin Acetaminophen 650 mg 03/03/17 23:26 Tylenol - PO Q6H PRN FEVER OR PAIN Albuterol Sulfate 1 amp 03/03/17 23:26 Ventolin 0.083% Nebulizer Soln - NEB Q6H PRN SHORT OF BREATH/WHEEZING Amlodipine Besylate 10 mg 03/04/17 10:00 03/05/17 10:09 Norvasc - PO 10 mg DAILY JOSE Administration Atorvastatin Calcium 20 mg 03/04/17 22:00 03/04/17 21:27 Lipitor - PO 20 mg HS JOSE Administration Carvedilol 25 mg 03/04/17 10:00 03/05/17 10:09 Coreg - PO 25 mg BID JOSE Administration Clonidine HCl 0.3 mg 03/04/17 10:00 03/04/17 13:43 Catapres Tts Patch - TD 0.3 mg Q7D@1000 JOSE Administration Docusate Sodium 300 mg 03/04/17 22:00 03/04/17 21:27 Colace - PO 300 mg HS JOSE Administration Donepezil HCl 5 mg 03/04/17 10:00 03/05/17 10:09 Aricept - PO 5 mg DAILY JOSE Administration Duloxetine HCl 30 mg 03/04/17 10:00 03/05/17 10:09 Cymbalta - PO 30 mg DAILY JOSE Administration Enoxaparin Sodium 40 mg 03/04/17 10:00 03/05/17 10:01 Lovenox - SQ 40 mg DAILY JOSE Administration Furosemide 40 mg 03/04/17 10:00 03/05/17 10:09 Lasix - PO 40 mg DAILY JOSE Administration Piperacillin Sod/Tazobactam Sod 50 mls @ 100 mls/hr 03/04/17 18:00 03/05/17 10: 01 Zosyn 3.375gm Ivpb (Pre-Docked) IVPB 100 mls/hr Q8H-IV JOSE Administration Protocol Insulin Aspart 1 vial 03/04/17 07:00 03/05/17 12:01 Novolog Vial Sliding Scale - SQ 6 units ACHS JOSE Administration Protocol Insulin Detemir 12 units 03/04/17 07:00 03/05/17 06:34 Levemir Vial SQ 12 units DAILY@0700 JOSE Administration Isosorbide Mononitrate 60 mg 03/04/17 22:00 03/04/17 21:27 Imdur - PO 60 mg HS JOSE Administration Ondansetron HCl 4 mg 03/03/17 23:20 Zofran - PO Q8H PRN NAUSEA Pantoprazole Sodium 40 mg 03/04/17 10:00 03/05/17 10:09 Protonix - PO 40 mg DAILY JOSE Administration Ranolazine 500 mg 03/04/17 10:00 03/05/17 10:09 Ranexa - PO 500 mg BID JOSE Administration ASSESSMENT/PLAN: This 81 yr old male with leukocytosis, UTI, 1. Leukocytosis ? UTI -continue zosyn -follow ID recommendations -tylenol for fever as needed -follow up with blood culture 2. early cholecystitis on CT -follow up with GI consult -continue with ABT -Full liquid diabetic diet 3. CHF -cont Lasix -strict I and O 4. GI/DVT ppx 5. DM -continue with FS -continue with levemir Problem List - Problems (1) UTI (urinary tract infection) Code(s): N39.0 - URINARY TRACT INFECTION, SITE NOT SPECIFIED Qualifiers: Urinary tract infection type: site unspecified Hematuria presence: without hematuria Qualified Code(s): N39.0 - Urinary tract infection, site not specified (2) Leukocytosis Code(s): D72.829 - ELEVATED WHITE BLOOD CELL COUNT, UNSPECIFIED Visit type - Emergency Visit Emergency Visit: No - New Patient This patient is new to me today: Yes Date on this admission: 03/05/17 - Critical Care Critical Care patient: No - Discharge Referral Referred to [facility] Med P.C.: No
[2017-03-05] MEDS: DEXTROSE 5%-0.45% SALINE 1,000 ML IV SCH (16:25)
--- NOTE | 2017-03-05 18:01 | PN ---
Progress Note, Physician History of Present Illness: patient doing well feeling better - Current Medication List Current Medications: Active Medications Acetaminophen (Tylenol -) 650 mg PO Q6H PRN PRN Reason: FEVER OR PAIN Albuterol Sulfate (Ventolin 0.083% Nebulizer Soln -) 1 amp NEB Q6H PRN PRN Reason: SHORT OF BREATH/WHEEZING Amlodipine Besylate (Norvasc -) 10 mg PO DAILY [facility] Last Admin: 03/05/17 10:09 Dose: 10 mg Atorvastatin Calcium (Lipitor -) 20 mg PO HS [facility] Last Admin: 03/04/17 21:27 Dose: 20 mg Carvedilol (Coreg -) 25 mg PO BID [facility] Last Admin: 03/05/17 10:09 Dose: 25 mg Clonidine HCl (Catapres Tts Patch -) 0.3 mg TD Q7D@1000 [facility] Last Admin: 03/04/17 13:43 Dose: 0.3 mg Docusate Sodium (Colace -) 300 mg PO HS [facility] Last Admin: 03/04/17 21:27 Dose: 300 mg Donepezil HCl (Aricept -) 5 mg PO DAILY [facility] Last Admin: 03/05/17 10:09 Dose: 5 mg Duloxetine HCl (Cymbalta -) 30 mg PO DAILY [facility] Last Admin: 03/05/17 10:09 Dose: 30 mg Enoxaparin Sodium (Lovenox -) 40 mg SQ DAILY [facility] Last Admin: 03/05/17 10:01 Dose: 40 mg Furosemide (Lasix -) 40 mg PO DAILY [facility] Last Admin: 03/05/17 10:09 Dose: 40 mg Piperacillin Sod/Tazobactam Sod (Zosyn 3.375gm Ivpb (Pre-Docked)) 50 mls @ 100 mls/hr IVPB Q8H-IV JOSE PRN Reason: Protocol Last Admin: 03/05/17 17:48 Dose: 100 mls/hr Dextrose/Sodium Chloride (D5-1/2ns -) 1,000 mls @ 75 mls/hr IV ASDIR [facility] Last Admin: 03/05/17 16:25 Dose: 75 mls/hr Insulin Aspart (Novolog Vial Sliding Scale -) 1 vial SQ ACHS JOSE PRN Reason: Protocol Last Admin: 03/05/17 16:59 Dose: 6 units Isosorbide Mononitrate (Imdur -) 60 mg PO HS [facility] Last Admin: 03/04/17 21:27 Dose: 60 mg Ondansetron HCl (Zofran -) 4 mg PO Q8H PRN PRN Reason: NAUSEA Pantoprazole Sodium (Protonix -) 40 mg PO DAILY [facility] Last Admin: 03/05/17 10:09 Dose: 40 mg Ranolazine (Ranexa -) 500 mg PO BID [facility] Last Admin: 03/05/17 10:09 Dose: 500 mg - Objective Vital Signs: Vital Signs Temperature 98.8 F 03/05/17 14:50 Pulse Rate 71 03/05/17 15:45 Respiratory Rate 18 03/05/17 15:45 Blood Pressure 133/49 03/05/17 15:45 O2 Sat by Pulse Oximetry (%) 96 03/05/17 09:00 Constitutional: Yes: No Distress, Calm Cardiovascular: Yes: Regular Rate and Rhythm Respiratory: Yes: Regular, CTA Bilaterally Gastrointestinal: Yes: Normal Bowel Sounds, Soft Musculoskeletal: Yes: WNL Extremities: Yes: WNL Neurological: Yes: Alert Psychiatric: Yes: Alert Labs: CBC, BMP 03/05/17 06:20 03/05/17 06:20 INR, PTT INR 1.20 (0.82-1.09) H 03/03/17 17:40 Assessment/Plan uti bacteremia gm negative frequency fever ams leukocytosis sepsis patient showing improvement plan continue zosyn repeat blood cx tomorrow
--- NOTE | 2017-03-05 19:30 | PN ---
GI Progress Note Subjective: no nausea and vomiting, has gram negative bacteremia associated with WBC of 28, 000 - Objective Vital Signs: Vital Signs Temperature 98.8 F 03/05/17 14:50 Pulse Rate 71 03/05/17 15:45 Respiratory Rate 18 03/05/17 15:45 Blood Pressure 133/49 03/05/17 15:45 O2 Sat by Pulse Oximetry (%) 96 03/05/17 09:00 Constitutional: Well Nourished Eyes: Yes: Conjunctiva Clear HENT: Yes: Atraumatic Neck: Yes: Supple Cardiovascular: Yes: Regular Rate and Rhythm Respiratory: Yes: CTA Bilaterally ...Palpate: Yes: Firm/Rigid, Soft, Splenomegaly, Tenderness, Epigastium. No: Guarding, Hepatomegaly, Mass, Pulsatile Mass, Tenderness Labs: CBC, BMP 03/05/17 06:20 03/05/17 06:20 INR, PTT INR 1.20 (0.82-1.09) H 03/03/17 17:40 Problem List - Problems (1) Gastroparesis Assessment/Plan: R>continue Protonix 40mg daily Reglan 5mg 30 min ac Code(s): K31.84 - GASTROPARESIS
[2017-03-05] MEDS: ISOSORBIDE MONONITRATE 60 MG TAB.SR.24H (FP) PO SCH (21:26)
[2017-03-05] MEDS: DOCUSATE SODIUM 100 MG CAPSULE (FP) PO SCH (21:26)
[2017-03-05] MEDS: ATORVASTATIN CA 20 MG TABLET (FP) PO SCH (21:26)
[2017-03-06] MEDS: PIPERACILLIN/TAZOB 3.375 GM 50 ML IVPB SCH ×3 (02:37→17:33)
[2017-03-06] MEDS: METOCLOPRAMIDE HCL 10 MG TABLET (FP) PO SCH ×3 (06:07→16:24)
[2017-03-06] MEDS: DEXTROSE 5%-0.45% SALINE 1,000 ML IV SCH (06:09)
[2017-03-06] MEDS: INSULIN SLIDING SCALE (NOVOLOG) 1 VIAL SQ SCH ×4 (06:27→21:55)
[2017-03-06 08:06] LABS: MCH 21.6 pg (25.7-33.7); MCHC 31.4 g/dl (32.0-36.0); MEAN CELL VOLUME 68.7 fl (80-96); MEAN PLT VOLUME 9.7 fl (7.5-11.1); PLATELET COUNT 128 K/MM3 (134-434); RDW 17.5 % (11.6-15.6); WHITE BLOOD COUNT 21.4 K/mm3 (4.0-10.0)
[2017-03-06 08:34] LABS: INR 1.09 (0.82-1.09)
[2017-03-06 10:24] LABS: HYPOCHROMIA 1+; MICROCYTOSIS 1+; PLATELET ESTIMATE SLT DECREASED (NORMAL)
[2017-03-06] MEDS: RANOLAZINE E.R. 500 MG TABLET (FP) PO SCH ×2 (10:32→21:56)
[2017-03-06] MEDS: DONEPEZIL HCL 5 MG TABLET (FP) PO SCH (10:32)
[2017-03-06] MEDS: PANTOPRAZOLE 40 MG TABLET (FP) PO SCH (10:32)
[2017-03-06] MEDS: DULoxetine HCL 30 MG CAPSULE.DR (FP) PO SCH (10:32)
[2017-03-06] MEDS: FUROSEMIDE 40 MG TABLET (FP) PO SCH (10:32)
[2017-03-06] MEDS: amLODIPine BESYLATE 10 MG TABLET (FP) PO SCH (10:32)
[2017-03-06] MEDS: CARVEDILOL 25 MG TABLET (FP) PO SCH ×2 (10:32→21:56)
[2017-03-06] MEDS: ENOXAPARIN NA (PORCINE) 40 MG/0.4 ML DISP.SYRIN SQ SCH (10:33)
[2017-03-06 10:58] LABS: ALBUMIN 1.2 g/dl (3.4-5.0); ANION GAP 9 (8-16); BILIRUBIN,TOTAL 0.3 mg/dL (0.2-1.0); CALCIUM 8.6 mg/dL (8.5-10.1); CO2 27 mmol/L (21-32); CREATININE 1.2 mg/dL (0.55-1.02); SGOT/AST 12 U/L (15-37); SGPT/ALT 11 U/L (12-78); TOT PROT 4.7 g/dl (6.4-8.2)
[2017-03-06 10:59] LABS: ALK PHOS 87 U/L (45-117)
[2017-03-06 11:13] LABS: GLUCOSE,RANDOM 356 mg/dL (74-106)
[2017-03-06] MEDS ORDERED: INSULIN (NOVOLOG) ASPART 100 UNITS/ML 10ML VIAL ONE ×2 (11:47→21:53)
--- NOTE | 2017-03-06 15:13 | PN ---
Physical Exam: SUBJECTIVE: Patient seen and examined Pt still reports mils abdominal discomfort,denies N/V/D, fever, chills, cp, sob or palpitations. OBJECTIVE: Vital Signs Period Temp Pulse Resp BP Sys/Bishop Pulse Ox Last 24 Hr 98.5 F-99.6 F 69-90 18-20 125-153/48-75 96-97 GENERAL: The patient is awake, alert, and fully oriented, in no acute distress. HEAD: Normal with no signs of trauma. EYES: PERRL, extranuclear movements intact, sclera anicteric, conjunctiva clear. No ptosis. ENT: Ears normal, nares patent, oropharynx clear without exudates, moist mucous membranes. NECK: Trachea midline, full range of motion, supple. LUNGS: Breath sounds equal, clear to auscultation bilaterally, no wheezes, no crackles, no accessory muscle use. HEART: Regular rate and rhythm, S1, S2 without murmur, rub or gallop. ABDOMEN: Soft, + RUQ and epigastric tenderness nondistended, normoactive bowel sounds, no guarding, no rebound, no hepatosplenomegaly, no masses. EXTREMITIES: 2+ pulses, warm, well-perfused, 1+ edema RLE NEUROLOGICAL: Cranial nerves II through XII grossly intact. Normal speech, gait not observed. PSYCH: Normal mood, normal affect. SKIN: Warm, dry, normal turgor, no rashes or lesions noted Laboratory Results - last 24 hr 03/05/17 03/05/17 03/06/17 16:55 21:24 05:32 WBC RBC Hgb Hct MCV MCHC RDW Plt Count MPV Platelet Estimate Platelet Comment Hypochromic-Microcytic Microcytosis INR Sodium Potassium Chloride Carbon Dioxide Anion Gap BUN Creatinine Creat Clearance w eGFR POC Glucometer 267 334 285 Random Glucose Calcium Total Bilirubin AST ALT Alkaline Phosphatase Total Protein Albumin 03/06/17 03/06/17 03/06/17 07:00 07:00 07:00 WBC 21.4 H RBC 6.10 H Hgb 13.2 Hct 41.9 MCV 68.7 L MCHC 31.4 L RDW 17.5 H Plt Count 128 L MPV 9.7 Platelet Estimate Slt decreased Platelet Comment Mod large plts Hypochromic-Microcytic 1+ Microcytosis 1+ INR 1.09 Sodium Cancelled Potassium Cancelled Chloride Cancelled Carbon Dioxide Cancelled Anion Gap Cancelled BUN Cancelled Creatinine Cancelled Creat Clearance w eGFR Cancelled POC Glucometer Random Glucose Cancelled Calcium Cancelled Total Bilirubin Cancelled AST Cancelled ALT Cancelled Alkaline Phosphatase Cancelled Total Protein Cancelled Albumin Cancelled 03/06/17 03/06/17 10:21 12:00 WBC RBC Hgb Hct MCV MCHC RDW Plt Count MPV Platelet Estimate Platelet Comment Hypochromic-Microcytic Microcytosis INR Sodium 131 L Potassium 3.9 Chloride 95 L Carbon Dioxide 27 Anion Gap 9 BUN 26 H Creatinine 1.2 H Creat Clearance w eGFR 42.90 POC Glucometer 359 Random Glucose 356 H* D Calcium 8.6 Total Bilirubin 0.3 D AST 12 L ALT 11 L Alkaline Phosphatase 87 Total Protein 4.7 L Albumin 1.2 L Active Medications Generic Name Dose Route Start Last Admin Trade Name Freq PRN Reason Stop Dose Admin Acetaminophen 650 mg 03/03/17 23:26 Tylenol - PO Q6H PRN FEVER OR PAIN Albuterol Sulfate 1 amp 03/03/17 23:26 Ventolin 0.083% Nebulizer Soln - NEB Q6H PRN SHORT OF BREATH/WHEEZING Amlodipine Besylate 10 mg 03/04/17 10:00 03/06/17 10:32 Norvasc - PO 10 mg DAILY JOSE Administration Atorvastatin Calcium 20 mg 03/04/17 22:00 03/05/17 21:26 Lipitor - PO 20 mg HS JOSE Administration Carvedilol 25 mg 03/04/17 10:00 03/06/17 10:32 Coreg - PO 25 mg BID JOSE Administration Clonidine HCl 0.3 mg 03/04/17 10:00 03/04/17 13:43 Catapres Tts Patch - TD 0.3 mg Q7D@1000 JOSE Administration Docusate Sodium 300 mg 03/04/17 22:00 03/05/17 21:26 Colace - PO 300 mg HS JOSE Administration Donepezil HCl 5 mg 03/04/17 10:00 03/06/17 10:32 Aricept - PO 5 mg DAILY JOSE Administration Duloxetine HCl 30 mg 03/04/17 10:00 03/06/17 10:32 Cymbalta - PO 30 mg DAILY JOSE Administration Enoxaparin Sodium 40 mg 03/04/17 10:00 03/06/17 10:33 Lovenox - SQ 40 mg DAILY JOSE Administration Furosemide 40 mg 03/04/17 10:00 03/06/17 10:32 Lasix - PO 40 mg DAILY JOSE Administration Piperacillin Sod/Tazobactam Sod 50 mls @ 100 mls/hr 03/04/17 18:00 03/06/17 10: 32 Zosyn 3.375gm Ivpb (Pre-Docked) IVPB 100 mls/hr Q8H-IV JOSE Administration Protocol Insulin Aspart 1 vial 03/04/17 07:00 03/06/17 12:03 Novolog Vial Sliding Scale - SQ 10 units ACHS JOSE Administration Protocol Isosorbide Mononitrate 60 mg 03/04/17 22:00 03/05/17 21:26 Imdur - PO 60 mg HS JOSE Administration Metoclopramide HCl 5 mg 03/06/17 07:00 03/06/17 11:56 Reglan - PO 5 mg TIDAC JOSE Administration Ondansetron HCl 4 mg 03/03/17 23:20 Zofran - PO Q8H PRN NAUSEA Pantoprazole Sodium 40 mg 03/04/17 10:00 03/06/17 10:32 Protonix - PO 40 mg DAILY JOSE Administration Ranolazine 500 mg 03/04/17 10:00 03/06/17 10:32 Ranexa - PO 500 mg BID JOSE Administration ASSESSMENT/PLAN: This is an 81 year old female with significant past medical history of hypertension, hyperlipidemia, Diabetes, CAD, COPD (uses BiPap at night), Asthma , CHF, seizures, admitted from [facility] with complaint of fever, vomiting, abdominal pain, diaphoresis, tachycardia and unresponsiveness. Patient was found to have fever of 103 at the [place] where she was given tylenol. Patient was also found to have BG of 88 and 1 IM injection of Glucagon was administered by EMS. * Leukocytosis,likely secondary to UTI vs cholecystitis -Blood cultures growing gram negative organism -Continue zosyn. -ID consult appreciated. - Rpt BC pending - afebrile now, leukocytosis slowly trending down *UTI - Urine culture positive -Continue zosyn. ABx as per ID * Diabetes- BS uncontrolled - will restart on Levemir - will cont on Insulin sliding scale - diabetic diet - FS AC& HS * Abdominal pain , N/V - GI input appreciated - will cont on PPI, Reglan - will cont on Full liquid diet - LFT's -wnl *Hypertension- BP stable -Continue current medications. *Hyperlipidemia -Continue atorvastatin 20 mg daily. *COPD - stable - uses BIPAP at night Continue inhaled bronchodilators. *CHF- stable -BNP elevated. -Continue lasix 40 mg daily - daily weight and monitor I&O's * Hyponatremia ? due to diuretic use - will check urine and serum osmolality - will f/u on Crew Leader Gluing * VTE prophylaxis - Lovenox *GI prophylaxis - PPI Dispo: DC back to [place] once medically stable Visit type - Emergency Visit Emergency Visit: Yes ED Registration Date: 03/03/17 Care time: The patient presented to the Emergency Department on the above date and was hospitalized for further evaluation of their emergent condition. - New Patient This patient is new to me today: Yes Date on this admission: 03/06/17 - Critical Care Critical Care patient: No
--- NOTE | 2017-03-06 16:37 | PN ---
Progress Note, Physician History of Present Illness: patient doing well feeling better much more awake grand daughter in the room - Current Medication List Current Medications: Active Medications Acetaminophen (Tylenol -) 650 mg PO Q6H PRN PRN Reason: FEVER OR PAIN Albuterol Sulfate (Ventolin 0.083% Nebulizer Soln -) 1 amp NEB Q6H PRN PRN Reason: SHORT OF BREATH/WHEEZING Amlodipine Besylate (Norvasc -) 10 mg PO DAILY [facility] Last Admin: 03/06/17 10:32 Dose: 10 mg Atorvastatin Calcium (Lipitor -) 20 mg PO HS [facility] Last Admin: 03/05/17 21:26 Dose: 20 mg Carvedilol (Coreg -) 25 mg PO BID [facility] Last Admin: 03/06/17 10:32 Dose: 25 mg Clonidine HCl (Catapres Tts Patch -) 0.3 mg TD Q7D@1000 [facility] Last Admin: 03/04/17 13:43 Dose: 0.3 mg Docusate Sodium (Colace -) 300 mg PO HS [facility] Last Admin: 03/05/17 21:26 Dose: 300 mg Donepezil HCl (Aricept -) 5 mg PO DAILY [facility] Last Admin: 03/06/17 10:32 Dose: 5 mg Duloxetine HCl (Cymbalta -) 30 mg PO DAILY [facility] Last Admin: 03/06/17 10:32 Dose: 30 mg Enoxaparin Sodium (Lovenox -) 40 mg SQ DAILY [facility] Last Admin: 03/06/17 10:33 Dose: 40 mg Furosemide (Lasix -) 40 mg PO DAILY [facility] Last Admin: 03/06/17 10:32 Dose: 40 mg Piperacillin Sod/Tazobactam Sod (Zosyn 3.375gm Ivpb (Pre-Docked)) 50 mls @ 100 mls/hr IVPB Q8H-IV [facility] PRN Reason: Protocol Last Admin: 03/06/17 10:32 Dose: 100 mls/hr Insulin Aspart (Novolog Vial Sliding Scale -) 1 vial SQ ACHS [facility] PRN Reason: Protocol Last Admin: 03/06/17 16:31 Dose: 10 units Insulin Detemir (Levemir Vial) 10 units SQ BID [facility] Isosorbide Mononitrate (Imdur -) 60 mg PO HS [facility] Last Admin: 03/05/17 21:26 Dose: 60 mg Metoclopramide HCl (Reglan -) 5 mg PO TIDAC [facility] Last Admin: 03/06/17 16:24 Dose: 5 mg Ondansetron HCl (Zofran -) 4 mg PO Q8H PRN PRN Reason: NAUSEA Pantoprazole Sodium (Protonix -) 40 mg PO DAILY [facility] Last Admin: 03/06/17 10:32 Dose: 40 mg Ranolazine (Ranexa -) 500 mg PO BID [facility] Last Admin: 03/06/17 10:32 Dose: 500 mg - Objective Vital Signs: Vital Signs Temperature 99.1 F 03/06/17 14:00 Pulse Rate 75 03/06/17 14:00 Respiratory Rate 20 03/06/17 14:00 Blood Pressure 126/54 03/06/17 14:00 O2 Sat by Pulse Oximetry (%) 97 03/06/17 09:00 Constitutional: Yes: No Distress, Calm Cardiovascular: Yes: Regular Rate and Rhythm Respiratory: Yes: Regular, CTA Bilaterally Gastrointestinal: Yes: Normal Bowel Sounds, Soft Musculoskeletal: Yes: WNL Extremities: Yes: WNL Neurological: Yes: Alert, Other Psychiatric: Yes: Alert Labs: CBC, BMP 03/06/17 07:00 03/06/17 10:21 INR, PTT INR 1.09 (0.82-1.09) 03/06/17 07:00 Assessment/Plan uti bacteremia gm negative frequency fever ams leukocytosis sepsis improving plan continue zosyn repeat cx noted continue supportive measures rest as per primary
[2017-03-06] MEDS: INSULIN DETEMIR 100 UNITS/ML MDV SQ SCH (21:55)
[2017-03-06] MEDS: ATORVASTATIN CA 20 MG TABLET (FP) PO SCH (21:56)
[2017-03-06] MEDS: ISOSORBIDE MONONITRATE 60 MG TAB.SR.24H (FP) PO SCH (21:56)
[2017-03-06] MEDS: DOCUSATE SODIUM 100 MG CAPSULE (FP) PO SCH (21:56)
[2017-03-07] MEDS: PIPERACILLIN/TAZOB 3.375 GM 50 ML IVPB SCH ×3 (01:52→17:21)
[2017-03-07] MEDS: INSULIN SLIDING SCALE (NOVOLOG) 1 VIAL SQ SCH ×4 (06:09→22:04)
[2017-03-07] MEDS: METOCLOPRAMIDE HCL 10 MG TABLET (FP) PO SCH ×3 (06:09→16:08)
[2017-03-07] MEDS ORDERED: INSULIN (NOVOLOG) ASPART 100 UNITS/ML 10ML VIAL ONE ×3 (06:22→15:59)
[2017-03-07 07:09] LABS: MCH 21.9 pg (25.7-33.7); MCHC 31.6 g/dl (32.0-36.0); MEAN CELL VOLUME 69.2 fl (80-96); MEAN PLT VOLUME 9.7 fl (7.5-11.1); PLATELET COUNT 152 K/MM3 (134-434); RDW 17.4 % (11.6-15.6); WHITE BLOOD COUNT 17.6 K/mm3 (4.0-10.0)
[2017-03-07 07:40] LABS: ANION GAP 8 (8-16); CALCIUM 8.7 mg/dL (8.5-10.1); CO2 29 mmol/L (21-32); CREATININE 1.1 mg/dL (0.55-1.02); GLUCOSE,RANDOM 253 mg/dL (74-106)
[2017-03-07] MEDS: INSULIN DETEMIR 100 UNITS/ML MDV SQ SCH ×2 (10:07→22:03)
[2017-03-07] MEDS: DULoxetine HCL 30 MG CAPSULE.DR (FP) PO SCH (10:07)
[2017-03-07] MEDS: PANTOPRAZOLE 40 MG TABLET (FP) PO SCH (10:08)
[2017-03-07] MEDS: FUROSEMIDE 40 MG TABLET (FP) PO SCH (10:08)
[2017-03-07] MEDS: amLODIPine BESYLATE 10 MG TABLET (FP) PO SCH (10:08)
[2017-03-07] MEDS: DONEPEZIL HCL 5 MG TABLET (FP) PO SCH (10:08)
[2017-03-07] MEDS: RANOLAZINE E.R. 500 MG TABLET (FP) PO SCH ×2 (10:08→22:04)
[2017-03-07] MEDS: ENOXAPARIN NA (PORCINE) 40 MG/0.4 ML DISP.SYRIN SQ SCH (10:09)
[2017-03-07] MEDS: CARVEDILOL 25 MG TABLET (FP) PO SCH ×2 (10:09→22:04)
[2017-03-07 11:00] LABS: METAMYELOCYTE 2 % (0-2)
[2017-03-07 11:02] LABS: ANISOCYTOSIS 2+; HYPOCHROMIA 1+; MICROCYTOSIS 1+; TARGET CELLS FEW
--- NOTE | 2017-03-07 15:18 | PN ---
Progress Note, Physician History of Present Illness: stable much better - Current Medication List Current Medications: Active Medications Acetaminophen (Tylenol -) 650 mg PO Q6H PRN PRN Reason: FEVER OR PAIN Albuterol Sulfate (Ventolin 0.083% Nebulizer Soln -) 1 amp NEB Q6H PRN PRN Reason: SHORT OF BREATH/WHEEZING Amlodipine Besylate (Norvasc -) 10 mg PO DAILY [facility] Last Admin: 03/07/17 10:08 Dose: 10 mg Atorvastatin Calcium (Lipitor -) 20 mg PO HS [facility] Last Admin: 03/06/17 21:56 Dose: 20 mg Carvedilol (Coreg -) 25 mg PO BID [facility] Last Admin: 03/07/17 10:09 Dose: 25 mg Clonidine HCl (Catapres Tts Patch -) 0.3 mg TD Q7D@1000 [facility] Last Admin: 03/04/17 13:43 Dose: 0.3 mg Docusate Sodium (Colace -) 300 mg PO HS [facility] Last Admin: 03/06/17 21:56 Dose: 300 mg Donepezil HCl (Aricept -) 5 mg PO DAILY [facility] Last Admin: 03/07/17 10:08 Dose: 5 mg Duloxetine HCl (Cymbalta -) 30 mg PO DAILY [facility] Last Admin: 03/07/17 10:07 Dose: 30 mg Enoxaparin Sodium (Lovenox -) 40 mg SQ DAILY [facility] Last Admin: 03/07/17 10:09 Dose: 40 mg Furosemide (Lasix -) 40 mg PO DAILY [facility] Last Admin: 03/07/17 10:08 Dose: 40 mg Piperacillin Sod/Tazobactam Sod (Zosyn 3.375gm Ivpb (Pre-Docked)) 50 mls @ 100 mls/hr IVPB Q8H-IV [facility] PRN Reason: Protocol Last Admin: 03/07/17 10:09 Dose: 100 mls/hr Insulin Aspart (Novolog Vial Sliding Scale -) 1 vial SQ ACHS [facility] PRN Reason: Protocol Last Admin: 03/07/17 11:23 Dose: 6 units Insulin Detemir (Levemir Vial) 10 units SQ BID [facility] Last Admin: 03/07/17 10:07 Dose: 10 units Isosorbide Mononitrate (Imdur -) 60 mg PO HS [facility] Last Admin: 03/06/17 21:56 Dose: 60 mg Metoclopramide HCl (Reglan -) 5 mg PO TIDAC [facility] Last Admin: 03/07/17 11:23 Dose: 5 mg Ondansetron HCl (Zofran -) 4 mg PO Q8H PRN PRN Reason: NAUSEA Pantoprazole Sodium (Protonix -) 40 mg PO DAILY [facility] Last Admin: 03/07/17 10:08 Dose: 40 mg Ranolazine (Ranexa -) 500 mg PO BID [facility] Last Admin: 03/07/17 10:08 Dose: 500 mg - Objective Vital Signs: Vital Signs Temperature 99.4 F 03/07/17 13:36 Pulse Rate 79 03/07/17 13:36 Respiratory Rate 20 03/07/17 08:00 Blood Pressure 144/66 03/07/17 13:36 O2 Sat by Pulse Oximetry (%) 97 03/07/17 09:00 Constitutional: Yes: No Distress, Calm Cardiovascular: Yes: Regular Rate and Rhythm Respiratory: Yes: Regular, CTA Bilaterally Gastrointestinal: Yes: Normal Bowel Sounds, Soft Musculoskeletal: Yes: WNL Extremities: Yes: WNL Neurological: Yes: Alert Psychiatric: Yes: Alert, Other Labs: CBC, BMP 03/07/17 06:15 03/07/17 06:15 INR, PTT INR 1.09 (0.82-1.09) 03/06/17 07:00 Assessment/Plan uti bacteremia gm negative frequency fever ams leukocytosis sepsis improving plan continue zosyn supportive measures
--- NOTE | 2017-03-07 15:28 | PN ---
Progress Note, Physician Chief Complaint: Mrs Hampton complains of difficulty swallowing but minimal. No cp, sob, n/v. - Current Medication List Current Medications: Active Medications Acetaminophen (Tylenol -) 650 mg PO Q6H PRN PRN Reason: FEVER OR PAIN Albuterol Sulfate (Ventolin 0.083% Nebulizer Soln -) 1 amp NEB Q6H PRN PRN Reason: SHORT OF BREATH/WHEEZING Amlodipine Besylate (Norvasc -) 10 mg PO DAILY [facility] Last Admin: 03/07/17 10:08 Dose: 10 mg Atorvastatin Calcium (Lipitor -) 20 mg PO HS [facility] Last Admin: 03/06/17 21:56 Dose: 20 mg Carvedilol (Coreg -) 25 mg PO BID [facility] Last Admin: 03/07/17 10:09 Dose: 25 mg Clonidine HCl (Catapres Tts Patch -) 0.3 mg TD Q7D@1000 [facility] Last Admin: 03/04/17 13:43 Dose: 0.3 mg Docusate Sodium (Colace -) 300 mg PO HS [facility] Last Admin: 03/06/17 21:56 Dose: 300 mg Donepezil HCl (Aricept -) 5 mg PO DAILY [facility] Last Admin: 03/07/17 10:08 Dose: 5 mg Duloxetine HCl (Cymbalta -) 30 mg PO DAILY [facility] Last Admin: 03/07/17 10:07 Dose: 30 mg Enoxaparin Sodium (Lovenox -) 40 mg SQ DAILY [facility] Last Admin: 03/07/17 10:09 Dose: 40 mg Furosemide (Lasix -) 40 mg PO DAILY [facility] Last Admin: 03/07/17 10:08 Dose: 40 mg Piperacillin Sod/Tazobactam Sod (Zosyn 3.375gm Ivpb (Pre-Docked)) 50 mls @ 100 mls/hr IVPB Q8H-IV [facility] PRN Reason: Protocol Last Admin: 03/07/17 10:09 Dose: 100 mls/hr Insulin Aspart (Novolog Vial Sliding Scale -) 1 vial SQ ACHS [facility] PRN Reason: Protocol Last Admin: 03/07/17 11:23 Dose: 6 units Insulin Detemir (Levemir Vial) 10 units SQ BID [facility] Last Admin: 03/07/17 10:07 Dose: 10 units Isosorbide Mononitrate (Imdur -) 60 mg PO HS [facility] Last Admin: 03/06/17 21:56 Dose: 60 mg Metoclopramide HCl (Reglan -) 5 mg PO TIDAC [facility] Last Admin: 03/07/17 11:23 Dose: 5 mg Ondansetron HCl (Zofran -) 4 mg PO Q8H PRN PRN Reason: NAUSEA Pantoprazole Sodium (Protonix -) 40 mg PO DAILY [facility] Last Admin: 03/07/17 10:08 Dose: 40 mg Ranolazine (Ranexa -) 500 mg PO BID [facility] Last Admin: 03/07/17 10:08 Dose: 500 mg - Objective Vital Signs: Vital Signs Temperature 99.4 F 03/07/17 13:36 Pulse Rate 79 03/07/17 13:36 Respiratory Rate 20 03/07/17 08:00 Blood Pressure 144/66 03/07/17 13:36 O2 Sat by Pulse Oximetry (%) 97 03/07/17 09:00 Constitutional: Yes: No Distress, Calm, Obese Cardiovascular: Yes: Regular Rate and Rhythm. No: Gallop, Murmur, Rub Respiratory: Yes: Regular, CTA Bilaterally. No: Rales, Rhonchi, Wheezes Gastrointestinal: Yes: Normal Bowel Sounds, Soft. No: Distention, Tenderness Extremities: Yes: WNL Edema: No Labs: CBC, BMP 03/07/17 06:15 03/07/17 06:15 INR, PTT INR 1.09 (0.82-1.09) 03/06/17 07:00 Problem List - Problems (1) Gram-negative bacteremia Assessment/Plan: -secondary to UTI -blood cultures growing klebsiella -ID following -continue zosyn Code(s): R78.81 - BACTEREMIA (2) UTI (urinary tract infection) Assessment/Plan: -as above Code(s): N39.0 - URINARY TRACT INFECTION, SITE NOT SPECIFIED Qualifiers: Urinary tract infection type: site unspecified Hematuria presence: without hematuria Qualified Code(s): N39.0 - Urinary tract infection, site not specified (3) COPD (chronic obstructive pulmonary disease) Assessment/Plan: -not in exacerbation -continue albuterol Code(s): J44.9 - CHRONIC OBSTRUCTIVE PULMONARY DISEASE, UNSPECIFIED (4) Hyperlipidemia Assessment/Plan: -continue lipitor Code(s): E78.5 - HYPERLIPIDEMIA, UNSPECIFIED (5) Hypertension Assessment/Plan: -controlled -continue coreg, clonidine, and imdur Code(s): I10 - ESSENTIAL (PRIMARY) HYPERTENSION (6) Diabetes Assessment/Plan: -continue levemir and SSI -may need adjustment Code(s): E11.9 - TYPE 2 DIABETES MELLITUS WITHOUT COMPLICATIONS Qualifiers: Diabetes mellitus type: type 2 Diabetes mellitus complication status: without complication Diabetes mellitus exterminator termite insulin use: with skilled nursing use Qualified Code(s): E11.9 - Type 2 diabetes mellitus without complications (7) CHF (congestive heart failure) Assessment/Plan: -continue lasix Code(s): I50.9 - HEART FAILURE, UNSPECIFIED Qualifiers: Congestive heart failure type: systolic Congestive heart failure chronicity: chronic Qualified Code(s): I50.22 - Chronic systolic ( congestive) heart failure (8) Gastroparesis Assessment/Plan: -continue reglan -will need EGD for difficulty swallowing after infection clears Code(s): K31.84 - GASTROPARESIS
[2017-03-07] MEDS: ATORVASTATIN CA 20 MG TABLET (FP) PO SCH (22:04)
[2017-03-07] MEDS: DOCUSATE SODIUM 100 MG CAPSULE (FP) PO SCH (22:04)
[2017-03-07] MEDS: ISOSORBIDE MONONITRATE 60 MG TAB.SR.24H (FP) PO SCH (22:04)
[2017-03-08] MEDS: PIPERACILLIN/TAZOB 3.375 GM 50 ML IVPB SCH ×3 (01:45→17:19)
[2017-03-08] MEDS: INSULIN SLIDING SCALE (NOVOLOG) 1 VIAL SQ SCH ×4 (06:09→21:10)
[2017-03-08] MEDS: METOCLOPRAMIDE HCL 10 MG TABLET (FP) PO SCH ×3 (06:10→16:08)
[2017-03-08 08:40] LABS: MCH 21.7 pg (25.7-33.7); MCHC 31.4 g/dl (32.0-36.0); MEAN CELL VOLUME 69.1 fl (80-96); MEAN PLT VOLUME 9.6 fl (7.5-11.1); PLATELET COUNT 172 K/MM3 (134-434); WHITE BLOOD COUNT 18.8 K/mm3 (4.0-10.0)
[2017-03-08 09:06] LABS: ANION GAP 9 (8-16); CALCIUM 9.1 mg/dL (8.5-10.1); CO2 28 mmol/L (21-32); CREATININE 0.7 mg/dL (0.55-1.02); GLUCOSE,RANDOM 85 mg/dL (74-106); MAGNESIUM 1.7 mg/dL (1.8-2.4); PHOSPHOROUS 2.2 mg/dL (2.5-4.9)
[2017-03-08 09:56] LABS: ANISOCYTOSIS 1+; METAMYELOCYTE 1 % (0-2); PLATELET COMMENT2 FEW GIANT PLTS; PLATELET ESTIMATE a (NORMAL)
[2017-03-08] MEDS ORDERED: PT OWN MED DRAWER 7, Y5N ONE (10:19)
[2017-03-08] MEDS: ENOXAPARIN NA (PORCINE) 40 MG/0.4 ML DISP.SYRIN SQ SCH (10:22)
[2017-03-08] MEDS: DONEPEZIL HCL 5 MG TABLET (FP) PO SCH (10:22)
[2017-03-08] MEDS: DULoxetine HCL 30 MG CAPSULE.DR (FP) PO SCH (10:22)
[2017-03-08] MEDS: RANOLAZINE E.R. 500 MG TABLET (FP) PO SCH ×2 (10:22→21:09)
[2017-03-08] MEDS: amLODIPine BESYLATE 10 MG TABLET (FP) PO SCH (10:22)
[2017-03-08] MEDS: PANTOPRAZOLE 40 MG TABLET (FP) PO SCH (10:23)
[2017-03-08] MEDS: FUROSEMIDE 40 MG TABLET (FP) PO SCH (10:23)
[2017-03-08] MEDS: CARVEDILOL 25 MG TABLET (FP) PO SCH ×2 (10:24→21:09)
[2017-03-08] MEDS: INSULIN DETEMIR 100 UNITS/ML MDV SQ SCH ×2 (10:24→21:09)
--- NOTE | 2017-03-08 14:29 | PN ---
Progress Note, Physician History of Present Illness: stable no new issues - Current Medication List Current Medications: Active Medications Acetaminophen (Tylenol -) 650 mg PO Q6H PRN PRN Reason: FEVER OR PAIN Albuterol Sulfate (Ventolin 0.083% Nebulizer Soln -) 1 amp NEB Q6H PRN PRN Reason: SHORT OF BREATH/WHEEZING Amlodipine Besylate (Norvasc -) 10 mg PO DAILY [facility] Last Admin: 03/08/17 10:22 Dose: 10 mg Atorvastatin Calcium (Lipitor -) 20 mg PO HS [facility] Last Admin: 03/07/17 22:04 Dose: 20 mg Carvedilol (Coreg -) 25 mg PO BID [facility] Last Admin: 03/08/17 10:24 Dose: 25 mg Clonidine HCl (Catapres Tts Patch -) 0.3 mg TD Q7D@1000 [facility] Last Admin: 03/04/17 13:43 Dose: 0.3 mg Docusate Sodium (Colace -) 300 mg PO HS [facility] Last Admin: 03/07/17 22:04 Dose: 300 mg Donepezil HCl (Aricept -) 5 mg PO DAILY [facility] Last Admin: 03/08/17 10:22 Dose: 5 mg Duloxetine HCl (Cymbalta -) 30 mg PO DAILY [facility] Last Admin: 03/08/17 10:22 Dose: 30 mg Enoxaparin Sodium (Lovenox -) 40 mg SQ DAILY [facility] Last Admin: 03/08/17 10:22 Dose: 40 mg Furosemide (Lasix -) 40 mg PO DAILY [facility] Last Admin: 03/08/17 10:23 Dose: 40 mg Piperacillin Sod/Tazobactam Sod (Zosyn 3.375gm Ivpb (Pre-Docked)) 50 mls @ 100 mls/hr IVPB Q8H-IV [facility] PRN Reason: Protocol Last Admin: 03/08/17 10:23 Dose: 100 mls/hr Insulin Aspart (Novolog Vial Sliding Scale -) 1 vial SQ ACHS [facility] PRN Reason: Protocol Last Admin: 03/08/17 10:23 Dose: Not Given Insulin Detemir (Levemir Vial) 10 units SQ BID [facility] Last Admin: 03/08/17 10:24 Dose: 10 units Isosorbide Mononitrate (Imdur -) 60 mg PO HS [facility] Last Admin: 03/07/17 22:04 Dose: 60 mg Metoclopramide HCl (Reglan -) 5 mg PO TIDAC [facility] Last Admin: 03/08/17 10:23 Dose: 5 mg Ondansetron HCl (Zofran -) 4 mg PO Q8H PRN PRN Reason: NAUSEA Pantoprazole Sodium (Protonix -) 40 mg PO DAILY [facility] Last Admin: 03/08/17 10:23 Dose: 40 mg Ranolazine (Ranexa -) 500 mg PO BID [facility] Last Admin: 03/08/17 10:22 Dose: 500 mg - Objective Vital Signs: Vital Signs Temperature 99.3 F 03/08/17 13:02 Pulse Rate 84 03/08/17 13:02 Respiratory Rate 20 03/08/17 13:02 Blood Pressure 154/63 03/08/17 13:02 O2 Sat by Pulse Oximetry (%) 97 03/07/17 21:00 Constitutional: Yes: No Distress, Calm Eyes: Yes: Conjunctiva Clear Neck: Yes: Supple Cardiovascular: Yes: Regular Rate and Rhythm Respiratory: Yes: Regular, CTA Bilaterally Gastrointestinal: Yes: Normal Bowel Sounds, Soft Musculoskeletal: Yes: WNL Extremities: Yes: Other Neurological: Yes: Alert, Other Psychiatric: Yes: Other Labs: CBC, BMP 03/08/17 08:26 03/08/17 08:26 INR, PTT INR 1.09 (0.82-1.09) 03/06/17 07:00 Assessment/Plan uti bacteremia gm negative frequency fever ams leukocytosis sepsis improving plan continue zosyn supportive measures will complete 7 days of abx repeat cx negative
[2017-03-08] MEDS ORDERED: MAGNESIUM SULF 50% (8.12 MEQ/2 ML-1 GM VIAL) IVPB ONE (14:42)
--- NOTE | 2017-03-08 16:23 | PN ---
Progress Note, Physician Chief Complaint: Mrs Hampton says she is doing well today. No cp, sob, n/v. Says she is not having trouble swallowing. - Current Medication List Current Medications: Active Medications Acetaminophen (Tylenol -) 650 mg PO Q6H PRN PRN Reason: FEVER OR PAIN Albuterol Sulfate (Ventolin 0.083% Nebulizer Soln -) 1 amp NEB Q6H PRN PRN Reason: SHORT OF BREATH/WHEEZING Amlodipine Besylate (Norvasc -) 10 mg PO DAILY [facility] Last Admin: 03/08/17 10:22 Dose: 10 mg Atorvastatin Calcium (Lipitor -) 20 mg PO HS [facility] Last Admin: 03/07/17 22:04 Dose: 20 mg Carvedilol (Coreg -) 25 mg PO BID [facility] Last Admin: 03/08/17 10:24 Dose: 25 mg Clonidine HCl (Catapres Tts Patch -) 0.3 mg TD Q7D@1000 [facility] Last Admin: 03/04/17 13:43 Dose: 0.3 mg Docusate Sodium (Colace -) 300 mg PO HS [facility] Last Admin: 03/07/17 22:04 Dose: 300 mg Donepezil HCl (Aricept -) 5 mg PO DAILY [facility] Last Admin: 03/08/17 10:22 Dose: 5 mg Duloxetine HCl (Cymbalta -) 30 mg PO DAILY [facility] Last Admin: 03/08/17 10:22 Dose: 30 mg Enoxaparin Sodium (Lovenox -) 40 mg SQ DAILY [facility] Last Admin: 03/08/17 10:22 Dose: 40 mg Furosemide (Lasix -) 40 mg PO DAILY [facility] Last Admin: 03/08/17 10:23 Dose: 40 mg Piperacillin Sod/Tazobactam Sod (Zosyn 3.375gm Ivpb (Pre-Docked)) 50 mls @ 100 mls/hr IVPB Q8H-IV [facility] PRN Reason: Protocol Last Admin: 03/08/17 10:23 Dose: 100 mls/hr Insulin Aspart (Novolog Vial Sliding Scale -) 1 vial SQ ACHS [facility] PRN Reason: Protocol Last Admin: 03/08/17 10:23 Dose: Not Given Insulin Detemir (Levemir Vial) 10 units SQ BID [facility] Last Admin: 03/08/17 10:24 Dose: 10 units Isosorbide Mononitrate (Imdur -) 60 mg PO HS [facility] Last Admin: 03/07/17 22:04 Dose: 60 mg Metoclopramide HCl (Reglan -) 5 mg PO TIDAC [facility] Last Admin: 03/08/17 16:08 Dose: 5 mg Nystatin (Nystatin Oral Suspension -) 500,000 units PO Q6HPO [facility] Ondansetron HCl (Zofran -) 4 mg PO Q8H PRN PRN Reason: NAUSEA Pantoprazole Sodium (Protonix -) 40 mg PO DAILY [facility] Last Admin: 03/08/17 10:23 Dose: 40 mg Ranolazine (Ranexa -) 500 mg PO BID [facility] Last Admin: 03/08/17 10:22 Dose: 500 mg - Objective Vital Signs: Vital Signs Temperature 99.3 F 03/08/17 13:02 Pulse Rate 84 03/08/17 13:02 Respiratory Rate 20 03/08/17 13:02 Blood Pressure 154/63 03/08/17 13:02 O2 Sat by Pulse Oximetry (%) 97 03/07/17 21:00 Constitutional: Yes: Well Nourished, No Distress, Calm HENT: Yes: Other (beefy red tongue with white plaques) Cardiovascular: Yes: Regular Rate and Rhythm. No: Gallop, Murmur, Rub Respiratory: Yes: Regular, CTA Bilaterally. No: Rales, Rhonchi, Wheezes Gastrointestinal: Yes: Normal Bowel Sounds, Soft. No: Distention, Tenderness Extremities: Yes: WNL Edema: No Labs: CBC, BMP 03/08/17 08:26 03/08/17 08:26 INR, PTT INR 1.09 (0.82-1.09) 03/06/17 07:00 Problem List - Problems (1) Gram-negative bacteremia Code(s): R78.81 - BACTEREMIA (2) UTI (urinary tract infection) Code(s): N39.0 - URINARY TRACT INFECTION, SITE NOT SPECIFIED Qualifiers: Urinary tract infection type: site unspecified Hematuria presence: without hematuria Qualified Code(s): N39.0 - Urinary tract infection, site not specified (3) COPD (chronic obstructive pulmonary disease) Code(s): J44.9 - CHRONIC OBSTRUCTIVE PULMONARY DISEASE, UNSPECIFIED (4) Hyperlipidemia Code(s): E78.5 - HYPERLIPIDEMIA, UNSPECIFIED (5) Hypertension Code(s): I10 - ESSENTIAL (PRIMARY) HYPERTENSION (6) Diabetes Code(s): E11.9 - TYPE 2 DIABETES MELLITUS WITHOUT COMPLICATIONS Qualifiers: Diabetes mellitus type: type 2 Diabetes mellitus complication status: without complication Diabetes mellitus long term care phlebotomist insulin use: with long term care phlebotomist use Qualified Code(s): E11.9 - Type 2 diabetes mellitus without complications (7) CHF (congestive heart failure) Code(s): I50.9 - HEART FAILURE, UNSPECIFIED Qualifiers: Congestive heart failure type: systolic Congestive heart failure chronicity: chronic Qualified Code(s): I50.22 - Chronic systolic ( congestive) heart failure (8) Gastroparesis Code(s): K31.84 - GASTROPARESIS Assessment/Plan (1) Gram-negative bacteremia Assessment/Plan: -case d/w Dr Martinez -continue zosyn for 7 days total -day 4 Code(s): R78.81 - BACTEREMIA (2) UTI (urinary tract infection) Assessment/Plan: -cause of sepsis -as above Code(s): N39.0 - URINARY TRACT INFECTION, SITE NOT SPECIFIED Qualifiers: Urinary tract infection type: site unspecified Hematuria presence: without hematuria Qualified Code(s): N39.0 - Urinary tract infection, site not specified (3) COPD (chronic obstructive pulmonary disease) Assessment/Plan: -not in exacerbation -continue albuterol Code(s): J44.9 - CHRONIC OBSTRUCTIVE PULMONARY DISEASE, UNSPECIFIED (4) Hyperlipidemia Assessment/Plan: -continue lipitor Code(s): E78.5 - HYPERLIPIDEMIA, UNSPECIFIED (5) Hypertension Assessment/Plan: -controlled -continue coreg, clonidine, and imdur Code(s): I10 - ESSENTIAL (PRIMARY) HYPERTENSION (6) Diabetes Assessment/Plan: -continue levemir and SSI -controlled Code(s): E11.9 - TYPE 2 DIABETES MELLITUS WITHOUT COMPLICATIONS Qualifiers: Diabetes mellitus type: type 2 Diabetes mellitus complication status: without complication Diabetes mellitus long term care phlebotomist insulin use: with long term care phlebotomist use Qualified Code(s): E11.9 - Type 2 diabetes mellitus without complications (7) CHF (congestive heart failure) Assessment/Plan: -continue lasix Code(s): I50.9 - HEART FAILURE, UNSPECIFIED Qualifiers: Congestive heart failure type: systolic Congestive heart failure chronicity: chronic Qualified Code(s): I50.22 - Chronic systolic ( congestive) heart failure (8) Gastroparesis Assessment/Plan: -continue reglan -will need EGD for difficulty swallowing after infection clears Code(s): K31.84 - GASTROPARESIS (9) Thrush -start nystatin swish and swallow -observe if it improves swallowing -day 1
[2017-03-08] MEDS: NYSTATIN 500,000 UNITS/5 ML SUSPENSION PO SCH (17:18)
[2017-03-08] MEDS: ATORVASTATIN CA 20 MG TABLET (FP) PO SCH (21:08)
[2017-03-08] MEDS: DOCUSATE SODIUM 100 MG CAPSULE (FP) PO SCH (21:08)
[2017-03-08] MEDS: ISOSORBIDE MONONITRATE 60 MG TAB.SR.24H (FP) PO SCH (21:09)
[2017-03-08] MEDS: NAPH,MB-DB/K PH,MBDB POWDER PACKET PO SCH (21:09)
[2017-03-09] MEDS: NYSTATIN 500,000 UNITS/5 ML SUSPENSION PO SCH ×5 (00:34→23:20)
[2017-03-09] MEDS: PIPERACILLIN/TAZOB 3.375 GM 50 ML IVPB SCH ×3 (02:35→17:08)
[2017-03-09] MEDS: METOCLOPRAMIDE HCL 10 MG TABLET (FP) PO SCH ×3 (06:04→17:06)
[2017-03-09] MEDS: INSULIN SLIDING SCALE (NOVOLOG) 1 VIAL SQ SCH ×4 (06:34→21:48)
[2017-03-09] MEDS ORDERED: INSULIN (NOVOLOG) ASPART 100 UNITS/ML 10ML VIAL ONE ×2 (06:41→17:16)
[2017-03-09 08:47] LABS: MCH 21.6 pg (25.7-33.7); MEAN CELL VOLUME 69.7 fl (80-96); MEAN PLT VOLUME 9.6 fl (7.5-11.1); PLATELET COUNT 210 K/MM3 (134-434); RDW 17.8 % (11.6-15.6); WHITE BLOOD COUNT 18.3 K/mm3 (4.0-10.0)
[2017-03-09 09:06] LABS: ANION GAP 8 (8-16); CALCIUM 9.1 mg/dL (8.5-10.1); CO2 30 mmol/L (21-32); GLUCOSE,RANDOM 97 mg/dL (74-106)
[2017-03-09 09:09] LABS: CREATININE 0.6 mg/dL (0.55-1.02); PHOSPHOROUS 2.3 mg/dL (2.5-4.9)
[2017-03-09] MEDS: FUROSEMIDE 40 MG TABLET (FP) PO SCH (10:18)
[2017-03-09] MEDS: amLODIPine BESYLATE 10 MG TABLET (FP) PO SCH (10:18)
[2017-03-09] MEDS: PANTOPRAZOLE 40 MG TABLET (FP) PO SCH (10:18)
[2017-03-09] MEDS: DULoxetine HCL 30 MG CAPSULE.DR (FP) PO SCH (10:18)
[2017-03-09] MEDS: RANOLAZINE E.R. 500 MG TABLET (FP) PO SCH ×2 (10:18→21:47)
[2017-03-09] MEDS: CARVEDILOL 25 MG TABLET (FP) PO SCH ×2 (10:18→21:47)
[2017-03-09] MEDS: DONEPEZIL HCL 5 MG TABLET (FP) PO SCH (10:18)
[2017-03-09] MEDS: NAPH,MB-DB/K PH,MBDB POWDER PACKET PO SCH ×2 (10:19→21:48)
[2017-03-09] MEDS: INSULIN DETEMIR 100 UNITS/ML MDV SQ SCH ×2 (10:19→21:48)
[2017-03-09 10:23] LABS: METAMYELOCYTE 2 % (0-2)
[2017-03-09 10:24] LABS: PLATELET ESTIMATE ADEQUATE (NORMAL)
[2017-03-09] MEDS: ENOXAPARIN NA (PORCINE) 40 MG/0.4 ML DISP.SYRIN SQ SCH (11:39)
--- NOTE | 2017-03-09 14:57 | PN ---
Progress Note, Physician History of Present Illness: patient very sleepy was awake in the morning - Current Medication List Current Medications: Active Medications Acetaminophen (Tylenol -) 650 mg PO Q6H PRN PRN Reason: FEVER OR PAIN Albuterol Sulfate (Ventolin 0.083% Nebulizer Soln -) 1 amp NEB Q6H PRN PRN Reason: SHORT OF BREATH/WHEEZING Amlodipine Besylate (Norvasc -) 10 mg PO DAILY [facility] Last Admin: 03/09/17 10:18 Dose: 10 mg Atorvastatin Calcium (Lipitor -) 20 mg PO HS [facility] Last Admin: 03/08/17 21:08 Dose: 20 mg Carvedilol (Coreg -) 25 mg PO BID [facility] Last Admin: 03/09/17 10:18 Dose: 25 mg Clonidine HCl (Catapres Tts Patch -) 0.3 mg TD Q7D@1000 [facility] Last Admin: 03/04/17 13:43 Dose: 0.3 mg Docusate Sodium (Colace -) 300 mg PO HS [facility] Last Admin: 03/08/17 21:08 Dose: 300 mg Donepezil HCl (Aricept -) 5 mg PO DAILY [facility] Last Admin: 03/09/17 10:18 Dose: 5 mg Duloxetine HCl (Cymbalta -) 30 mg PO DAILY [facility] Last Admin: 03/09/17 10:18 Dose: 30 mg Enoxaparin Sodium (Lovenox -) 40 mg SQ DAILY [facility] Last Admin: 03/09/17 11:39 Dose: 40 mg Furosemide (Lasix -) 40 mg PO DAILY [facility] Last Admin: 03/09/17 10:18 Dose: 40 mg Piperacillin Sod/Tazobactam Sod (Zosyn 3.375gm Ivpb (Pre-Docked)) 50 mls @ 100 mls/hr IVPB Q8H-IV [facility] PRN Reason: Protocol Last Admin: 03/09/17 10:18 Dose: 100 mls/hr Insulin Aspart (Novolog Vial Sliding Scale -) 1 vial SQ ACHS [facility] PRN Reason: Protocol Last Admin: 03/09/17 11:37 Dose: 2 units Insulin Detemir (Levemir Vial) 10 units SQ BID [facility] Last Admin: 03/09/17 10:19 Dose: 10 units Isosorbide Mononitrate (Imdur -) 60 mg PO HS [facility] Last Admin: 03/08/17 21:09 Dose: 60 mg Metoclopramide HCl (Reglan -) 5 mg PO TIDAC [facility] Last Admin: 03/09/17 10:18 Dose: 5 mg Nystatin (Nystatin Oral Suspension -) 500,000 units PO Q6HPO [facility] Last Admin: 03/09/17 11:39 Dose: 500,000 units Ondansetron HCl (Zofran -) 4 mg PO Q8H PRN PRN Reason: NAUSEA Pantoprazole Sodium (Protonix -) 40 mg PO DAILY [facility] Last Admin: 03/09/17 10:18 Dose: 40 mg Potassium Phos/Sodium Phos (Phos-Nak Packet -) 1 packet PO BID [facility] Last Admin: 03/09/17 10:19 Dose: 1 packet Ranolazine (Ranexa -) 500 mg PO BID [facility] Last Admin: 03/09/17 10:18 Dose: 500 mg - Objective Vital Signs: Vital Signs Temperature 98.8 F 03/09/17 13:41 Pulse Rate 84 03/09/17 13:41 Respiratory Rate 18 03/09/17 13:41 Blood Pressure 152/73 03/09/17 13:41 O2 Sat by Pulse Oximetry (%) 97 03/09/17 09:00 Constitutional: Yes: No Distress, Calm Cardiovascular: Yes: Regular Rate and Rhythm Respiratory: Yes: Regular, CTA Bilaterally Gastrointestinal: Yes: Normal Bowel Sounds, Soft Musculoskeletal: Yes: Other Extremities: Yes: Other (bilateral lymph edema) Neurological: Yes: Alert, Other Labs: CBC, BMP 03/09/17 08:15 03/09/17 08:15 INR, PTT INR 1.09 (0.82-1.09) 03/06/17 07:00 Assessment/Plan uti bacteremia gm negative frequency fever ams leukocytosis sepsis improving plan continue zosyn supportive measures once 7 days are done can stop abx repeat cx negative
--- NOTE | 2017-03-09 15:02 | PN ---
Progress Note, Physician Chief Complaint: Mrs Hampton is sleeping today and difficult to arouse. When she wakes up is very groggy and unable to give subjective - Current Medication List Current Medications: Active Medications Acetaminophen (Tylenol -) 650 mg PO Q6H PRN PRN Reason: FEVER OR PAIN Albuterol Sulfate (Ventolin 0.083% Nebulizer Soln -) 1 amp NEB Q6H PRN PRN Reason: SHORT OF BREATH/WHEEZING Amlodipine Besylate (Norvasc -) 10 mg PO DAILY [facility] Last Admin: 03/09/17 10:18 Dose: 10 mg Atorvastatin Calcium (Lipitor -) 20 mg PO HS [facility] Last Admin: 03/08/17 21:08 Dose: 20 mg Carvedilol (Coreg -) 25 mg PO BID [facility] Last Admin: 03/09/17 10:18 Dose: 25 mg Clonidine HCl (Catapres Tts Patch -) 0.3 mg TD Q7D@1000 [facility] Last Admin: 03/04/17 13:43 Dose: 0.3 mg Docusate Sodium (Colace -) 300 mg PO HS [facility] Last Admin: 03/08/17 21:08 Dose: 300 mg Donepezil HCl (Aricept -) 5 mg PO DAILY [facility] Last Admin: 03/09/17 10:18 Dose: 5 mg Duloxetine HCl (Cymbalta -) 30 mg PO DAILY [facility] Last Admin: 03/09/17 10:18 Dose: 30 mg Enoxaparin Sodium (Lovenox -) 40 mg SQ DAILY [facility] Last Admin: 03/09/17 11:39 Dose: 40 mg Furosemide (Lasix -) 40 mg PO DAILY [facility] Last Admin: 03/09/17 10:18 Dose: 40 mg Piperacillin Sod/Tazobactam Sod (Zosyn 3.375gm Ivpb (Pre-Docked)) 50 mls @ 100 mls/hr IVPB Q8H-IV JOSE PRN Reason: Protocol Last Admin: 03/09/17 10:18 Dose: 100 mls/hr Insulin Aspart (Novolog Vial Sliding Scale -) 1 vial SQ ACHS JOSE PRN Reason: Protocol Last Admin: 03/09/17 11:37 Dose: 2 units Insulin Detemir (Levemir Vial) 10 units SQ BID [facility] Last Admin: 03/09/17 10:19 Dose: 10 units Isosorbide Mononitrate (Imdur -) 60 mg PO HS [facility] Last Admin: 03/08/17 21:09 Dose: 60 mg Metoclopramide HCl (Reglan -) 5 mg PO TIDAC [facility] Last Admin: 03/09/17 10:18 Dose: 5 mg Nystatin (Nystatin Oral Suspension -) 500,000 units PO Q6HPO [facility] Last Admin: 03/09/17 11:39 Dose: 500,000 units Ondansetron HCl (Zofran -) 4 mg PO Q8H PRN PRN Reason: NAUSEA Pantoprazole Sodium (Protonix -) 40 mg PO DAILY [facility] Last Admin: 03/09/17 10:18 Dose: 40 mg Potassium Phos/Sodium Phos (Phos-Nak Packet -) 1 packet PO BID [facility] Last Admin: 03/09/17 10:19 Dose: 1 packet Ranolazine (Ranexa -) 500 mg PO BID [facility] Last Admin: 03/09/17 10:18 Dose: 500 mg - Objective Vital Signs: Vital Signs Temperature 98.8 F 03/09/17 13:41 Pulse Rate 84 03/09/17 13:41 Respiratory Rate 18 03/09/17 13:41 Blood Pressure 152/73 03/09/17 13:41 O2 Sat by Pulse Oximetry (%) 97 03/09/17 09:00 Constitutional: Yes: No Distress, Other (lethargic) Cardiovascular: Yes: Regular Rate and Rhythm. No: Gallop, Murmur, Rub Respiratory: Yes: Regular, CTA Bilaterally. No: Rales, Rhonchi, Wheezes Gastrointestinal: Yes: Normal Bowel Sounds, Soft. No: Distention, Tenderness Extremities: Yes: WNL Edema: No Labs: CBC, BMP 03/09/17 08:15 03/09/17 08:15 INR, PTT INR 1.09 (0.82-1.09) 03/06/17 07:00 Problem List - Problems (1) Gram-negative bacteremia Code(s): R78.81 - BACTEREMIA (2) UTI (urinary tract infection) Code(s): N39.0 - URINARY TRACT INFECTION, SITE NOT SPECIFIED Qualifiers: Urinary tract infection type: site unspecified Hematuria presence: without hematuria Qualified Code(s): N39.0 - Urinary tract infection, site not specified (3) COPD (chronic obstructive pulmonary disease) Code(s): J44.9 - CHRONIC OBSTRUCTIVE PULMONARY DISEASE, UNSPECIFIED (4) Hyperlipidemia Code(s): E78.5 - HYPERLIPIDEMIA, UNSPECIFIED (5) Hypertension Code(s): I10 - ESSENTIAL (PRIMARY) HYPERTENSION (6) Diabetes Code(s): E11.9 - TYPE 2 DIABETES MELLITUS WITHOUT COMPLICATIONS Qualifiers: Diabetes mellitus type: type 2 Diabetes mellitus complication status: without complication Diabetes mellitus shelter insulin use: with termite control technician use Qualified Code(s): E11.9 - Type 2 diabetes mellitus without complications (7) CHF (congestive heart failure) Code(s): I50.9 - HEART FAILURE, UNSPECIFIED Qualifiers: Congestive heart failure type: systolic Congestive heart failure chronicity: chronic Qualified Code(s): I50.22 - Chronic systolic ( congestive) heart failure (8) Gastroparesis Code(s): K31.84 - GASTROPARESIS Assessment/Plan (1) Gram-negative bacteremia Assessment/Plan: -case d/w Dr Martinez -continue zosyn for 7 days total -day 5 Code(s): R78.81 - BACTEREMIA (2) UTI (urinary tract infection) Assessment/Plan: -cause of sepsis -as above Code(s): N39.0 - URINARY TRACT INFECTION, SITE NOT SPECIFIED Qualifiers: Urinary tract infection type: site unspecified Hematuria presence: without hematuria Qualified Code(s): N39.0 - Urinary tract infection, site not specified (3) COPD (chronic obstructive pulmonary disease) Assessment/Plan: -not in exacerbation -continue albuterol Code(s): J44.9 - CHRONIC OBSTRUCTIVE PULMONARY DISEASE, UNSPECIFIED (4) Hyperlipidemia Assessment/Plan: -continue lipitor Code(s): E78.5 - HYPERLIPIDEMIA, UNSPECIFIED (5) Hypertension Assessment/Plan: -controlled -continue coreg, clonidine, and imdur Code(s): I10 - ESSENTIAL (PRIMARY) HYPERTENSION (6) Diabetes Assessment/Plan: -continue levemir and SSI -controlled Code(s): E11.9 - TYPE 2 DIABETES MELLITUS WITHOUT COMPLICATIONS Qualifiers: Diabetes mellitus type: type 2 Diabetes mellitus complication status: without complication Diabetes mellitus shelter insulin use: with termite control technician use Qualified Code(s): E11.9 - Type 2 diabetes mellitus without complications (7) CHF (congestive heart failure) Assessment/Plan: -continue lasix Code(s): I50.9 - HEART FAILURE, UNSPECIFIED Qualifiers: Congestive heart failure type: systolic Congestive heart failure chronicity: chronic Qualified Code(s): I50.22 - Chronic systolic ( congestive) heart failure (8) Gastroparesis Assessment/Plan: -continue reglan -will need EGD for difficulty swallowing after infection clears Code(s): K31.84 - GASTROPARESIS (9) Thrush -start nystatin swish and swallow -observe if it improves swallowing -day 2 (10) Lethargy -monitor, do not want patient to begin to -PT consult, attempt to keep patient more active
[2017-03-09] MEDS: ISOSORBIDE MONONITRATE 60 MG TAB.SR.24H (FP) PO SCH (21:47)
[2017-03-09] MEDS: ATORVASTATIN CA 20 MG TABLET (FP) PO SCH (21:47)
[2017-03-09] MEDS: DOCUSATE SODIUM 100 MG CAPSULE (FP) PO SCH (21:47)
[2017-03-10] MEDS: PIPERACILLIN/TAZOB 3.375 GM 50 ML IVPB SCH ×3 (02:43→17:12)
[2017-03-10] MEDS: NYSTATIN 500,000 UNITS/5 ML SUSPENSION PO SCH ×3 (06:14→17:12)
[2017-03-10] MEDS: METOCLOPRAMIDE HCL 10 MG TABLET (FP) PO SCH ×3 (06:14→17:13)
[2017-03-10] MEDS: INSULIN SLIDING SCALE (NOVOLOG) 1 VIAL SQ SCH ×4 (06:14→21:35)
[2017-03-10] MEDS: CARVEDILOL 25 MG TABLET (FP) PO SCH ×2 (09:36→21:30)
[2017-03-10] MEDS: amLODIPine BESYLATE 10 MG TABLET (FP) PO SCH (09:36)
[2017-03-10] MEDS: FUROSEMIDE 40 MG TABLET (FP) PO SCH (09:36)
[2017-03-10] MEDS: PANTOPRAZOLE 40 MG TABLET (FP) PO SCH (09:36)
[2017-03-10] MEDS: DULoxetine HCL 30 MG CAPSULE.DR (FP) PO SCH (09:36)
[2017-03-10] MEDS: DONEPEZIL HCL 5 MG TABLET (FP) PO SCH (09:36)
[2017-03-10] MEDS: RANOLAZINE E.R. 500 MG TABLET (FP) PO SCH ×2 (09:36→21:30)
[2017-03-10] MEDS: INSULIN DETEMIR 100 UNITS/ML MDV SQ SCH ×2 (09:37→21:31)
[2017-03-10] MEDS: ENOXAPARIN NA (PORCINE) 40 MG/0.4 ML DISP.SYRIN SQ SCH (09:37)
[2017-03-10] MEDS: NAPH,MB-DB/K PH,MBDB POWDER PACKET PO SCH ×2 (09:38→21:30)
[2017-03-10] MEDS ORDERED: INSULIN (NOVOLOG) ASPART 100 UNITS/ML 10ML VIAL ONE ×2 (11:34→22:37)
--- NOTE | 2017-03-10 13:17 | PN ---
Physical Exam: SUBJECTIVE: Patient seen and examined at the bedside. Resting comfortable without any distress but easy to arouse. WBC trending downward. OBJECTIVE: Constitutional: Yes: Well Nourished, No Distress, Calm HENT: Yes: Other (beefy red tongue with white plaques continues) Cardiovascular: Yes: Regular Rate and Rhythm. No: Gallop, Murmur, Rub Respiratory: Yes: Regular, CTA Bilaterally. No: Rales, Rhonchi, Wheezes Gastrointestinal: Yes: Normal Bowel Sounds, Soft. No: Distention, Tenderness Extremities: Yes: WNL Edema: No Labs: Vital Signs Period Temp Pulse Resp BP Sys/Bishop Pulse Ox Last 24 Hr 98.4 F-99.1 F 69-84 18-21 137-152/68-74 97-99 Laboratory Results - last 24 hr 03/09/17 03/09/17 03/10/17 17:12 20:56 05:20 POC Glucometer 199 200 143 03/10/17 11:32 POC Glucometer 263 Active Medications Generic Name Dose Route Start Last Admin Trade Name Freq PRN Reason Stop Dose Admin Acetaminophen 650 mg 03/03/17 23:26 Tylenol - PO Q6H PRN FEVER OR PAIN Albuterol Sulfate 1 amp 03/03/17 23:26 Ventolin 0.083% Nebulizer Soln - NEB Q6H PRN SHORT OF BREATH/WHEEZING Amlodipine Besylate 10 mg 03/04/17 10:00 03/10/17 09:36 Norvasc - PO 10 mg DAILY JOSE Administration Atorvastatin Calcium 20 mg 03/04/17 22:00 03/09/17 21:47 Lipitor - PO 20 mg HS JOSE Administration Carvedilol 25 mg 03/04/17 10:00 03/10/17 09:36 Coreg - PO 25 mg BID JOSE Administration Clonidine HCl 0.3 mg 03/04/17 10:00 03/04/17 13:43 Catapres Tts Patch - TD 0.3 mg Q7D@1000 JOSE Administration Docusate Sodium 300 mg 03/04/17 22:00 03/09/17 21:47 Colace - PO 300 mg HS JOSE Administration Donepezil HCl 5 mg 03/04/17 10:00 03/10/17 09:36 Aricept - PO 5 mg DAILY JOSE Administration Duloxetine HCl 30 mg 03/04/17 10:00 03/10/17 09:36 Cymbalta - PO 30 mg DAILY [facility] Administration Enoxaparin Sodium 40 mg 03/04/17 10:00 03/10/17 09:37 Lovenox - SQ 40 mg DAILY [facility] Administration Furosemide 40 mg 03/04/17 10:00 03/10/17 09:36 Lasix - PO 40 mg DAILY [facility] Administration Piperacillin Sod/Tazobactam Sod 50 mls @ 100 mls/hr 03/04/17 18:00 03/10/17 09: 37 Zosyn 3.375gm Ivpb (Pre-Docked) IVPB 100 mls/hr Q8H-IV JOSE Administration Protocol Insulin Aspart 1 vial 03/04/17 07:00 03/10/17 11:38 Novolog Vial Sliding Scale - SQ 6 units ACHS JOSE Administration Protocol Insulin Detemir 10 units 03/06/17 22:00 03/10/17 09:37 Levemir Vial SQ 10 units BID JOSE Administration Isosorbide Mononitrate 60 mg 03/04/17 22:00 03/09/17 21:47 Imdur - PO 60 mg HS JOSE Administration Metoclopramide HCl 5 mg 03/06/17 07:00 03/10/17 11:38 Reglan - PO 5 mg TIDAC JOSE Administration Nystatin 500,000 units 03/08/17 18:00 03/10/17 11:38 Nystatin Oral Suspension - PO 500,000 units Q6HPO JOSE Administration Ondansetron HCl 4 mg 03/03/17 23:20 Zofran - PO Q8H PRN NAUSEA Pantoprazole Sodium 40 mg 03/04/17 10:00 03/10/17 09:36 Protonix - PO 40 mg DAILY [facility] Administration Potassium Phos/Sodium Phos 1 packet 03/08/17 22:00 03/10/17 09:38 Phos-Nak Packet - PO 1 packet BID JOSE Administration Ranolazine 500 mg 03/04/17 10:00 03/10/17 09:36 Ranexa - PO 500 mg BID JOSE Administration ASSESSMENT/PLAN: Problem List - Problems (1) UTI (urinary tract infection) Assessment/Plan: -appreciate ID following pt -continuing zosyn -wbc trending down Code(s): N39.0 - URINARY TRACT INFECTION, SITE NOT SPECIFIED Qualifiers: Urinary tract infection type: site unspecified Hematuria presence: without hematuria Qualified Code(s): N39.0 - Urinary tract infection, site not specified (2) Leukocytosis Assessment/Plan: -trending down on ABT Code(s): D72.829 - ELEVATED WHITE BLOOD CELL COUNT, UNSPECIFIED (3) Diabetes Assessment/Plan: -continue full liquid diabetic diet -weigh pt -strict i and o -fingerstick with sliding scale Code(s): E11.9 - TYPE 2 DIABETES MELLITUS WITHOUT COMPLICATIONS Qualifiers: Diabetes mellitus type: type 2 Diabetes mellitus complication status: without complication Diabetes mellitus long term care administrator insulin use: with long term care administrator use Qualified Code(s): E11.9 - Type 2 diabetes mellitus without complications (4) Prophylactic measure Assessment/Plan: -DVT/GI ppx Lovenox protonix Code(s): Z29.9 - ENCOUNTER FOR PROPHYLACTIC MEASURES, UNSPECIFIED Visit type - Emergency Visit Emergency Visit: No - New Patient This patient is new to me today: No - Critical Care Critical Care patient: No - Discharge Referral Referred to [facility] Med P.C.: No
--- NOTE | 2017-03-10 13:51 | PN ---
Progress Note, Physician History of Present Illness: patient more awake talking with her family - Current Medication List Current Medications: Active Medications Acetaminophen (Tylenol -) 650 mg PO Q6H PRN PRN Reason: FEVER OR PAIN Albuterol Sulfate (Ventolin 0.083% Nebulizer Soln -) 1 amp NEB Q6H PRN PRN Reason: SHORT OF BREATH/WHEEZING Amlodipine Besylate (Norvasc -) 10 mg PO DAILY [facility] Last Admin: 03/10/17 09:36 Dose: 10 mg Atorvastatin Calcium (Lipitor -) 20 mg PO HS [facility] Last Admin: 03/09/17 21:47 Dose: 20 mg Carvedilol (Coreg -) 25 mg PO BID [facility] Last Admin: 03/10/17 09:36 Dose: 25 mg Clonidine HCl (Catapres Tts Patch -) 0.3 mg TD Q7D@1000 [facility] Last Admin: 03/04/17 13:43 Dose: 0.3 mg Docusate Sodium (Colace -) 300 mg PO HS [facility] Last Admin: 03/09/17 21:47 Dose: 300 mg Donepezil HCl (Aricept -) 5 mg PO DAILY [facility] Last Admin: 03/10/17 09:36 Dose: 5 mg Duloxetine HCl (Cymbalta -) 30 mg PO DAILY [facility] Last Admin: 03/10/17 09:36 Dose: 30 mg Enoxaparin Sodium (Lovenox -) 40 mg SQ DAILY [facility] Last Admin: 03/10/17 09:37 Dose: 40 mg Furosemide (Lasix -) 40 mg PO DAILY [facility] Last Admin: 03/10/17 09:36 Dose: 40 mg Piperacillin Sod/Tazobactam Sod (Zosyn 3.375gm Ivpb (Pre-Docked)) 50 mls @ 100 mls/hr IVPB Q8H-IV JOSE PRN Reason: Protocol Last Admin: 03/10/17 09:37 Dose: 100 mls/hr Insulin Aspart (Novolog Vial Sliding Scale -) 1 vial SQ ACHS [facility] PRN Reason: Protocol Last Admin: 03/10/17 11:38 Dose: 6 units Insulin Detemir (Levemir Vial) 10 units SQ BID [facility] Last Admin: 03/10/17 09:37 Dose: 10 units Isosorbide Mononitrate (Imdur -) 60 mg PO HS [facility] Last Admin: 03/09/17 21:47 Dose: 60 mg Metoclopramide HCl (Reglan -) 5 mg PO TIDAC [facility] Last Admin: 03/10/17 11:38 Dose: 5 mg Nystatin (Nystatin Oral Suspension -) 500,000 units PO Q6HPO [facility] Last Admin: 03/10/17 11:38 Dose: 500,000 units Ondansetron HCl (Zofran -) 4 mg PO Q8H PRN PRN Reason: NAUSEA Pantoprazole Sodium (Protonix -) 40 mg PO DAILY [facility] Last Admin: 03/10/17 09:36 Dose: 40 mg Potassium Phos/Sodium Phos (Phos-Nak Packet -) 1 packet PO BID [facility] Last Admin: 03/10/17 09:38 Dose: 1 packet Ranolazine (Ranexa -) 500 mg PO BID [facility] Last Admin: 03/10/17 09:36 Dose: 500 mg - Objective Vital Signs: Vital Signs Temperature 98.4 F 03/10/17 12:00 Pulse Rate 84 03/10/17 12:00 Respiratory Rate 20 03/10/17 12:00 Blood Pressure 137/74 03/10/17 12:00 O2 Sat by Pulse Oximetry (%) 99 03/10/17 09:00 Constitutional: Yes: No Distress, Calm Respiratory: Yes: Regular, CTA Bilaterally Gastrointestinal: Yes: Normal Bowel Sounds, Soft Musculoskeletal: Yes: WNL Extremities: Yes: WNL Neurological: Yes: Alert Psychiatric: Yes: Alert Labs: CBC, BMP 03/09/17 08:15 03/09/17 08:15 INR, PTT INR 1.09 (0.82-1.09) 03/06/17 07:00 Assessment/Plan uti bacteremia gm negative frequency fever ams leukocytosis sepsis improving plan continue zosyn supportive measures patient stable
[2017-03-10 16:29] LABS: BASOPHIL 0.5 % (0-2.0); EOSINOPHIL 0.3 % (0-4.5); MCH 21.5 pg (25.7-33.7); MCHC 30.7 g/dl (32.0-36.0); MEAN CELL VOLUME 69.9 fl (80-96); MEAN PLT VOLUME 10.3 fl (7.5-11.1); NEUTROPHILS 74.6 % (42.8-82.8); PLATELET COUNT 291 K/MM3 (134-434); RDW 17.6 % (11.6-15.6); WHITE BLOOD COUNT 15.4 K/mm3 (4.0-10.0)
[2017-03-10 18:03] LABS: ANION GAP 8 (8-16); CALCIUM 8.9 mg/dL (8.5-10.1); CO2 31 mmol/L (21-32); CREATININE 0.7 mg/dL (0.55-1.02); GLUCOSE,RANDOM 292 mg/dL (74-106); PHOSPHOROUS 2.4 mg/dL (2.5-4.9)
[2017-03-10 18:24] LABS: MAGNESIUM 1.7 mg/dL (1.8-2.4)
[2017-03-10] MEDS: DOCUSATE SODIUM 100 MG CAPSULE (FP) PO SCH (21:30)
[2017-03-10] MEDS: ATORVASTATIN CA 20 MG TABLET (FP) PO SCH (21:30)
[2017-03-10] MEDS: ISOSORBIDE MONONITRATE 60 MG TAB.SR.24H (FP) PO SCH (21:30)
[2017-03-10] MEDS ORDERED: INSULIN DETEMIR 100 UNITS/ML MDV SQ ONE (22:37)
[2017-03-11] MEDS: NYSTATIN 500,000 UNITS/5 ML SUSPENSION PO SCH ×4 (01:00→17:47)
[2017-03-11] MEDS: PIPERACILLIN/TAZOB 3.375 GM 50 ML IVPB SCH ×3 (01:42→17:47)
[2017-03-11] MEDS: INSULIN SLIDING SCALE (NOVOLOG) 1 VIAL SQ SCH ×4 (06:19→21:48)
[2017-03-11] MEDS: METOCLOPRAMIDE HCL 10 MG TABLET (FP) PO SCH ×3 (06:20→17:47)
[2017-03-11 09:36] LABS: MCH 21.8 pg (25.7-33.7); MCHC 31.6 g/dl (32.0-36.0); MEAN CELL VOLUME 69.1 fl (80-96); MEAN PLT VOLUME 9.8 fl (7.5-11.1); PLATELET COUNT 323 K/MM3 (134-434); RDW 18.1 % (11.6-15.6); WHITE BLOOD COUNT 18.2 K/mm3 (4.0-10.0)
[2017-03-11] MEDS: FUROSEMIDE 40 MG TABLET (FP) PO SCH (09:56)
[2017-03-11] MEDS: RANOLAZINE E.R. 500 MG TABLET (FP) PO SCH ×2 (09:56→21:47)
[2017-03-11] MEDS: CARVEDILOL 25 MG TABLET (FP) PO SCH ×2 (09:57→21:47)
[2017-03-11] MEDS: ENOXAPARIN NA (PORCINE) 40 MG/0.4 ML DISP.SYRIN SQ SCH (09:57)
[2017-03-11] MEDS: amLODIPine BESYLATE 10 MG TABLET (FP) PO SCH (09:57)
[2017-03-11] MEDS: INSULIN DETEMIR 100 UNITS/ML MDV SQ SCH ×2 (09:57→21:47)
[2017-03-11] MEDS: DULoxetine HCL 30 MG CAPSULE.DR (FP) PO SCH (09:57)
[2017-03-11] MEDS: PANTOPRAZOLE 40 MG TABLET (FP) PO SCH (09:57)
[2017-03-11] MEDS: NAPH,MB-DB/K PH,MBDB POWDER PACKET PO SCH ×2 (09:58→21:48)
[2017-03-11] MEDS: DONEPEZIL HCL 5 MG TABLET (FP) PO SCH (09:59)
[2017-03-11 10:05] LABS: ALBUMIN 1.5 g/dl (3.4-5.0); ANION GAP 7 (8-16); BILIRUBIN,TOTAL 0.3 mg/dL (0.2-1.0); CALCIUM 9.2 mg/dL (8.5-10.1); CO2 32 mmol/L (21-32); CREATININE 0.7 mg/dL (0.55-1.02); GLUCOSE,RANDOM 97 mg/dL (74-106); PHOSPHOROUS 2.8 mg/dL (2.5-4.9); SGOT/AST 16 U/L (15-37); SGPT/ALT 9 U/L (12-78); TOT PROT 5.9 g/dl (6.4-8.2)
[2017-03-11 10:07] LABS: ALK PHOS 94 U/L (45-117)
[2017-03-11 11:06] LABS: ANISOCYTOSIS 1+; HYPOCHROMIA 1+; METAMYELOCYTE 1 % (0-2); PLATELET COMMENT2 FEW GIANT PLTS; PLATELET ESTIMATE ADEQUATE (NORMAL)
[2017-03-11 11:07] LABS: MICROCYTOSIS 1+
[2017-03-11] MEDS: cloNIDine-TTS 0.3 MG /24 HRS PATCH.TDWK TD SCH (11:15)
[2017-03-11] MEDS ORDERED: INSULIN DETEMIR 100 UNITS/ML MDV SQ ONE (11:23)
--- NOTE | 2017-03-11 16:15 | PN ---
Physical Exam: Hospitalist covering for Dr. Bond SUBJECTIVE: Patient seen and examined. Opens eyes to voice but not at all verbally responsive. OBJECTIVE: Hospital day #8 for this 81 year old female with a history of HTN, HLD, IDDM, CAD, COPD/asthma (uses BiPap at night), CHF, dementia, and seizures, admitted from [facility] on 03/03 with fever, tachycardia, and unresponsiveness, preceded by several days of n/v. Blood and urine cultures + Klebsiella pneumoniae. Vital Signs Period Temp Pulse Resp BP Sys/Bishop Pulse Ox Last 24 Hr 97.7 F-99.3 F 70-84 20-20 149-159/68-84 98-99 GENERAL: The patient is sleeping but arousable, in no acute distress. HEAD: Normal with no signs of trauma. EYES: PERRL, extraocular movements intact, sclera anicteric, conjunctiva clear. No ptosis. ENT: Ears normal, nares patent, oropharynx clear without exudates, moist mucous membranes. NECK: Trachea midline, full range of motion, supple. LUNGS: Breath sounds equal, clear to auscultation bilaterally, no wheezes, no crackles, no accessory muscle use. HEART: Regular rate and rhythm, S1, S2 without murmur, rub or gallop. ABDOMEN: Soft, nontender, nondistended, normoactive bowel sounds, no guarding, no rebound, no hepatosplenomegaly, no masses. EXTREMITIES: 2+ pulses, warm, well-perfused, no edema. NEUROLOGICAL: Cranial nerves II through XII grossly intact. Nonverbal, gait not observed. SKIN: Warm, dry, normal turgor, no rashes or lesions noted Laboratory Results - last 24 hr 03/10/17 03/10/17 03/10/17 16:21 16:30 16:52 WBC 15.4 H RBC 6.11 H Hgb 13.1 Hct 42.7 MCV 69.9 L MCHC 30.7 L RDW 17.6 H Plt Count 291 D MPV 10.3 Neutrophils % 74.6 Lymphocytes % 11.5 D Monocytes % 13.1 H Eosinophils % 0.3 D Basophils % 0.5 Band Neutrophils Metamyelocytes Myelocytes Platelet Estimate Platelet Comment Hypochromic-Microcytic Anisocytosis Microcytosis Sodium 139 Potassium 4.7 D Chloride 100 Carbon Dioxide 31 Anion Gap 8 BUN 12 Creatinine 0.7 Creat Clearance w eGFR POC Glucometer 267 Random Glucose 292 H D Calcium 8.9 Phosphorus 2.4 L Magnesium 1.7 L Total Bilirubin AST ALT Alkaline Phosphatase Total Protein Albumin 03/10/17 03/11/17 03/11/17 21:01 06:03 09:00 WBC 18.2 H RBC 6.48 H Hgb 14.1 Hct 44.7 MCV 69.1 L MCHC 31.6 L RDW 18.1 H Plt Count 323 MPV 9.8 Neutrophils % 70.0 Lymphocytes % 10.0 Monocytes % 11.0 H Eosinophils % 2.0 D Basophils % Band Neutrophils 5.0 D Metamyelocytes 1 D Myelocytes 1 D Platelet Estimate Adequate Platelet Comment Few giant plts Hypochromic-Microcytic 1+ Anisocytosis 1+ Microcytosis 1+ Sodium Potassium Chloride Carbon Dioxide Anion Gap BUN Creatinine Creat Clearance w eGFR POC Glucometer 231 96 Random Glucose Calcium Phosphorus Magnesium Total Bilirubin AST ALT Alkaline Phosphatase Total Protein Albumin 03/11/17 03/11/17 09:00 11:27 WBC RBC Hgb Hct MCV MCHC RDW Plt Count MPV Neutrophils % Lymphocytes % Monocytes % Eosinophils % Basophils % Band Neutrophils Metamyelocytes Myelocytes Platelet Estimate Platelet Comment Hypochromic-Microcytic Anisocytosis Microcytosis Sodium 141 Potassium 4.3 Chloride 102 Carbon Dioxide 32 Anion Gap 7 L BUN 9 D Creatinine 0.7 Creat Clearance w eGFR > 60 POC Glucometer 127 Random Glucose 97 D Calcium 9.2 Phosphorus 2.8 Magnesium Total Bilirubin 0.3 AST 16 D ALT 9 L Alkaline Phosphatase 94 Total Protein 5.9 L D Albumin 1.5 L D Active Medications Generic Name Dose Route Start Last Admin Trade Name Garyq PRN Reason Stop Dose Admin Acetaminophen 650 mg 03/03/17 23:26 Tylenol - PO Q6H PRN FEVER OR PAIN Albuterol Sulfate 1 amp 03/03/17 23:26 Ventolin 0.083% Nebulizer Soln - NEB Q6H PRN SHORT OF BREATH/WHEEZING Amlodipine Besylate 10 mg 03/04/17 10:00 03/11/17 09:57 Norvasc - PO 10 mg DAILY JOSE Administration Atorvastatin Calcium 20 mg 03/04/17 22:00 03/10/17 21:30 Lipitor - PO 20 mg HS JOSE Administration Carvedilol 25 mg 03/04/17 10:00 03/11/17 09:57 Coreg - PO 25 mg BID JOSE Administration Clonidine HCl 0.3 mg 03/04/17 10:00 03/11/17 11:15 Catapres Tts Patch - TD 0.3 mg Q7D@1000 JOSE Administration Docusate Sodium 300 mg 03/04/17 22:00 03/10/17 21:30 Colace - PO 300 mg HS JOSE Administration Donepezil HCl 5 mg 03/04/17 10:00 03/11/17 09:59 Aricept - PO 5 mg DAILY JOSE Administration Duloxetine HCl 30 mg 03/04/17 10:00 03/11/17 09:57 Cymbalta - PO 30 mg DAILY [facility]SE Administration Enoxaparin Sodium 40 mg 03/04/17 10:00 03/11/17 09:57 Lovenox - SQ 40 mg DAILY JOSE Administration Furosemide 40 mg 03/04/17 10:00 03/11/17 09:56 Lasix - PO 40 mg DAILY JOSE Administration Piperacillin Sod/Tazobactam Sod 50 mls @ 100 mls/hr 03/04/17 18:00 03/11/17 09: 56 Zosyn 3.375gm Ivpb (Pre-Docked) IVPB 100 mls/hr Q8H-IV JOSE Administration Protocol Insulin Aspart 1 vial 03/04/17 07:00 03/11/17 11:28 Novolog Vial Sliding Scale - SQ Not Given ACHS [facility] Protocol Insulin Detemir 10 units 03/06/17 22:00 03/11/17 09:57 Levemir Vial SQ 10 units BID JOSE Administration Isosorbide Mononitrate 60 mg 03/04/17 22:00 03/10/17 21:30 Imdur - PO 60 mg HS JOSE Administration Metoclopramide HCl 5 mg 03/06/17 07:00 03/11/17 11:28 Reglan - PO 5 mg TIDAC JOSE Administration Nystatin 500,000 units 03/08/17 18:00 03/11/17 11:28 Nystatin Oral Suspension - PO 500,000 units Q6HPO JOSE Administration Ondansetron HCl 4 mg 03/03/17 23:20 Zofran - PO Q8H PRN NAUSEA Pantoprazole Sodium 40 mg 03/04/17 10:00 03/11/17 09:57 Protonix - PO 40 mg DAILY JOSE Administration Potassium Phos/Sodium Phos 1 packet 03/08/17 22:00 03/11/17 09:58 Phos-Nak Packet - PO 1 packet BID JOSE Administration Ranolazine 500 mg 03/04/17 10:00 03/11/17 09:56 Ranexa - PO 500 mg BID JOSE Administration ASSESSMENT/PLAN: 81 year old female with sepsis secondary to Klebsiella pneumoniae UTI/bacteremia. 1. UTI/bacteremia -Continuing Zosyn, consider narrowing as per sensitivity -Afebrile since 03/04 -WBC has trended down form arrival but remains elevated at 18.2 2. N/v -Likely secondary to gastroparesis -Continue Reglan -For EGD when infection cleared 3. HTN -Sightly above goal -Continue Norvasc, Lasix, Coreg, Clonidine -Follow 4. HLD -Continue Atorvastatin 5. DM -Tolerating full liquid diabetic diet -FSACHS -ISS, Levemir 6. Hypothyroidism -Continue Synthroid 7. Dementia -Continue Aricept 8. COPD -No active issues -Albuterol nebs prn 9. CAD -No active issues -Continue Ranexa, Isosorbide 10. Ppx -Lovenox DISPO: Requires inpatient services (3) Diabetes Assessment/Plan: -continue full liquid diabetic diet -weigh pt -strict i and o -fingerstick with sliding scale Code(s): E11.9 - TYPE 2 DIABETES MELLITUS WITHOUT COMPLICATIONS Qualifiers: Diabetes mellitus type: type 2 Diabetes mellitus complication status: without complication Diabetes mellitus intermediate teacher insulin use: with shelter use Qualified Code(s): E11.9 - Type 2 diabetes mellitus without complications (4) Prophylactic measure Assessment/Plan: -DVT/GI ppx Lovenox protonix Code(s): Z29.9 - ENCOUNTER FOR PROPHYLACTIC MEASURES, UNSPECIFIED Visit type - Emergency Visit Emergency Visit: Yes ED Registration Date: 03/03/17 Care time: The patient presented to the Emergency Department on the above date and was hospitalized for further evaluation of their emergent condition. - New Patient This patient is new to me today: Yes Date on this admission: 03/11/17 - Critical Care Critical Care patient: No - Discharge Referral Referred to [facility] Med P.C.: No
[2017-03-11] MEDS: ISOSORBIDE MONONITRATE 60 MG TAB.SR.24H (FP) PO SCH (21:47)
[2017-03-11] MEDS: ATORVASTATIN CA 20 MG TABLET (FP) PO SCH (21:47)
[2017-03-11] MEDS: DOCUSATE SODIUM 100 MG CAPSULE (FP) PO SCH (21:47)
[2017-03-12] MEDS: NYSTATIN 500,000 UNITS/5 ML SUSPENSION PO SCH ×4 (00:16→18:09)
[2017-03-12] MEDS: PIPERACILLIN/TAZOB 3.375 GM/50 ML PRE-DOCKED IVPB SCH ×3 (03:20→18:09)
[2017-03-12] MEDS: INSULIN SLIDING SCALE (NOVOLOG) 1 VIAL SQ SCH ×4 (06:05→22:13)
[2017-03-12] MEDS: METOCLOPRAMIDE HCL 10 MG TABLET (FP) PO SCH ×3 (06:13→16:21)
[2017-03-12 08:52] LABS: ANION GAP 7 (8-16); CALCIUM 9.2 mg/dL (8.5-10.1); CO2 34 mmol/L (21-32); CREATININE 0.6 mg/dL (0.55-1.02); GLUCOSE,RANDOM 110 mg/dL (74-106); MAGNESIUM 1.5 mg/dL (1.8-2.4)
[2017-03-12 08:59] LABS: MCH 21.8 pg (25.7-33.7); MCHC 31.3 g/dl (32.0-36.0); MEAN CELL VOLUME 69.6 fl (80-96); MEAN PLT VOLUME 9.6 fl (7.5-11.1); PLATELET COUNT 323 K/MM3 (134-434); RDW 17.6 % (11.6-15.6)
[2017-03-12] MEDS: ENOXAPARIN NA (PORCINE) 40 MG/0.4 ML DISP.SYRIN SQ SCH (10:46)
[2017-03-12] MEDS: CARVEDILOL 25 MG TABLET (FP) PO SCH ×2 (10:46→22:12)
[2017-03-12] MEDS: DONEPEZIL HCL 5 MG TABLET (FP) PO SCH (10:47)
[2017-03-12] MEDS: RANOLAZINE E.R. 500 MG TABLET (FP) PO SCH ×2 (10:47→22:12)
[2017-03-12] MEDS: NAPH,MB-DB/K PH,MBDB POWDER PACKET PO SCH ×2 (10:47→22:13)
[2017-03-12] MEDS: INSULIN DETEMIR 100 UNITS/ML MDV SQ SCH ×2 (10:47→22:13)
[2017-03-12] MEDS: amLODIPine BESYLATE 10 MG TABLET (FP) PO SCH (10:47)
[2017-03-12] MEDS: PANTOPRAZOLE 40 MG TABLET (FP) PO SCH (10:47)
[2017-03-12] MEDS: FUROSEMIDE 40 MG TABLET (FP) PO SCH (10:47)
[2017-03-12] MEDS: DULoxetine HCL 30 MG CAPSULE.DR (FP) PO SCH (10:47)
--- NOTE | 2017-03-12 11:34 | PN ---
Progress Note, Physician Chief Complaint: Mrs Hampton says she is feeling better today. Is not having trouble swallowing. No cp, sob, n/v. RN says tolerating diet, but on liquid diet still. - Current Medication List Current Medications: Active Medications Acetaminophen (Tylenol -) 650 mg PO Q6H PRN PRN Reason: FEVER OR PAIN Last Admin: 03/11/17 21:54 Dose: 650 mg Albuterol Sulfate (Ventolin 0.083% Nebulizer Soln -) 1 amp NEB Q6H PRN PRN Reason: SHORT OF BREATH/WHEEZING Amlodipine Besylate (Norvasc -) 10 mg PO DAILY [facility] Last Admin: 03/12/17 10:47 Dose: 10 mg Atorvastatin Calcium (Lipitor -) 20 mg PO HS [facility] Last Admin: 03/11/17 21:47 Dose: 20 mg Carvedilol (Coreg -) 25 mg PO BID [facility] Last Admin: 03/12/17 10:46 Dose: 25 mg Clonidine HCl (Catapres Tts Patch -) 0.3 mg TD Q7D@1000 [facility] Last Admin: 03/11/17 11:15 Dose: 0.3 mg Docusate Sodium (Colace -) 300 mg PO HS [facility] Last Admin: 03/11/17 21:47 Dose: 300 mg Donepezil HCl (Aricept -) 5 mg PO DAILY [facility] Last Admin: 03/12/17 10:47 Dose: 5 mg Duloxetine HCl (Cymbalta -) 30 mg PO DAILY [facility] Last Admin: 03/12/17 10:47 Dose: 30 mg Enoxaparin Sodium (Lovenox -) 40 mg SQ DAILY [facility] Last Admin: 03/12/17 10:46 Dose: 40 mg Furosemide (Lasix -) 40 mg PO DAILY [facility] Last Admin: 03/12/17 10:47 Dose: 40 mg Insulin Aspart (Novolog Vial Sliding Scale -) 1 vial SQ ACHS [facility] PRN Reason: Protocol Last Admin: 03/12/17 06:05 Dose: Not Given Insulin Detemir (Levemir Vial) 10 units SQ BID [facility] Last Admin: 03/12/17 10:47 Dose: 10 units Isosorbide Mononitrate (Imdur -) 60 mg PO HS [facility] Last Admin: 03/11/17 21:47 Dose: 60 mg Metoclopramide HCl (Reglan -) 5 mg PO TIDAC [facility] Last Admin: 03/12/17 10:47 Dose: 5 mg Nystatin (Nystatin Oral Suspension -) 500,000 units PO Q6HPO [facility] Last Admin: 03/12/17 05:31 Dose: 500,000 units Ondansetron HCl (Zofran -) 4 mg PO Q8H PRN PRN Reason: NAUSEA Pantoprazole Sodium (Protonix -) 40 mg PO DAILY [facility] Last Admin: 03/12/17 10:47 Dose: 40 mg Piperacillin Sod/Tazobactam Sod (Zosyn 3.375gm Ivpb (Pre-Docked)) 3.375 gm IVPB Q8H-IV [facility] PRN Reason: Protocol Last Admin: 03/12/17 10:47 Dose: 3.375 gm Potassium Phos/Sodium Phos (Phos-Nak Packet -) 1 packet PO BID [facility] Last Admin: 03/12/17 10:47 Dose: 1 packet Ranolazine (Ranexa -) 500 mg PO BID [facility] Last Admin: 03/12/17 10:47 Dose: 500 mg - Objective Vital Signs: Vital Signs Temperature 98.1 F 03/12/17 10:00 Pulse Rate 78 03/12/17 10:00 Respiratory Rate 20 03/12/17 10:00 Blood Pressure 178/75 03/12/17 10:00 O2 Sat by Pulse Oximetry (%) 98 03/11/17 21:00 Constitutional: Yes: Well Nourished, No Distress, Calm Cardiovascular: Yes: Regular Rate and Rhythm. No: Gallop, Murmur, Rub Respiratory: Yes: Regular, CTA Bilaterally. No: Rales, Rhonchi, Wheezes Gastrointestinal: Yes: Normal Bowel Sounds, Soft. No: Distention, Tenderness Extremities: Yes: WNL Edema: No Labs: CBC, BMP 03/12/17 08:45 03/12/17 07:25 INR, PTT INR 1.09 (0.82-1.09) 03/06/17 07:00 Problem List - Problems (1) Gram-negative bacteremia Code(s): R78.81 - BACTEREMIA (2) UTI (urinary tract infection) Code(s): N39.0 - URINARY TRACT INFECTION, SITE NOT SPECIFIED Qualifiers: Urinary tract infection type: site unspecified Hematuria presence: without hematuria Qualified Code(s): N39.0 - Urinary tract infection, site not specified (3) COPD (chronic obstructive pulmonary disease) Code(s): J44.9 - CHRONIC OBSTRUCTIVE PULMONARY DISEASE, UNSPECIFIED (4) Hyperlipidemia Code(s): E78.5 - HYPERLIPIDEMIA, UNSPECIFIED (5) Hypertension Code(s): I10 - ESSENTIAL (PRIMARY) HYPERTENSION (6) Diabetes Code(s): E11.9 - TYPE 2 DIABETES MELLITUS WITHOUT COMPLICATIONS Qualifiers: Diabetes mellitus type: type 2 Diabetes mellitus complication status: without complication Diabetes mellitus rodent exterminator insulin use: with rodent exterminator use Qualified Code(s): E11.9 - Type 2 diabetes mellitus without complications (7) CHF (congestive heart failure) Code(s): I50.9 - HEART FAILURE, UNSPECIFIED Qualifiers: Congestive heart failure type: systolic Congestive heart failure chronicity: chronic Qualified Code(s): I50.22 - Chronic systolic ( congestive) heart failure (8) Gastroparesis Code(s): K31.84 - GASTROPARESIS Assessment/Plan (1) Gram-negative bacteremia Assessment/Plan: -on zosyn -still with leukocytosis -day 8 of zosyn -will defer to Dr Martinez about further antibiotics Code(s): R78.81 - BACTEREMIA (2) UTI (urinary tract infection) Assessment/Plan: -cause of sepsis -as above Code(s): N39.0 - URINARY TRACT INFECTION, SITE NOT SPECIFIED Qualifiers: Urinary tract infection type: site unspecified Hematuria presence: without hematuria Qualified Code(s): N39.0 - Urinary tract infection, site not specified (3) COPD (chronic obstructive pulmonary disease) Assessment/Plan: -not in exacerbation -continue albuterol Code(s): J44.9 - CHRONIC OBSTRUCTIVE PULMONARY DISEASE, UNSPECIFIED (4) Hyperlipidemia Assessment/Plan: -continue lipitor Code(s): E78.5 - HYPERLIPIDEMIA, UNSPECIFIED (5) Hypertension Assessment/Plan: -elevated -will monitor, if still consistently elevated will add another agent -continue coreg, clonidine, imdur, and lasix -consider adding ACEI or ARB to regimen Code(s): I10 - ESSENTIAL (PRIMARY) HYPERTENSION (6) Diabetes Assessment/Plan: -continue levemir and SSI -controlled Code(s): E11.9 - TYPE 2 DIABETES MELLITUS WITHOUT COMPLICATIONS Qualifiers: Diabetes mellitus type: type 2 Diabetes mellitus complication status: without complication Diabetes mellitus senior living insulin use: with senior living use Qualified Code(s): E11.9 - Type 2 diabetes mellitus without complications (7) CHF (congestive heart failure) Assessment/Plan: -continue lasix Code(s): I50.9 - HEART FAILURE, UNSPECIFIED Qualifiers: Congestive heart failure type: systolic Congestive heart failure chronicity: chronic Qualified Code(s): I50.22 - Chronic systolic ( congestive) heart failure (8) Gastroparesis Assessment/Plan: -patient without complaint -will advance diet and see how she tolerates Code(s): K31.84 - GASTROPARESIS (9) Thrush -patient no longer complaining of difficulty swallowing -will advance diet -if tolerates, may be able to avoid EGD -day 5 (10) Hypomagnesemia -replete
[2017-03-12] MEDS ORDERED: INSULIN (NOVOLOG) ASPART 100 UNITS/ML 10ML VIAL ONE ×3 (11:52→22:06)
--- NOTE | 2017-03-12 12:58 | PN ---
Progress Note, Physician History of Present Illness: patient more awake awake and alert - Current Medication List Current Medications: Active Medications Acetaminophen (Tylenol -) 650 mg PO Q6H PRN PRN Reason: FEVER OR PAIN Last Admin: 03/11/17 21:54 Dose: 650 mg Albuterol Sulfate (Ventolin 0.083% Nebulizer Soln -) 1 amp NEB Q6H PRN PRN Reason: SHORT OF BREATH/WHEEZING Amlodipine Besylate (Norvasc -) 10 mg PO DAILY [facility] Last Admin: 03/12/17 10:47 Dose: 10 mg Atorvastatin Calcium (Lipitor -) 20 mg PO HS [facility] Last Admin: 03/11/17 21:47 Dose: 20 mg Carvedilol (Coreg -) 25 mg PO BID [facility] Last Admin: 03/12/17 10:46 Dose: 25 mg Clonidine HCl (Catapres Tts Patch -) 0.3 mg TD Q7D@1000 [facility] Last Admin: 03/11/17 11:15 Dose: 0.3 mg Docusate Sodium (Colace -) 300 mg PO HS [facility] Last Admin: 03/11/17 21:47 Dose: 300 mg Donepezil HCl (Aricept -) 5 mg PO DAILY [facility] Last Admin: 03/12/17 10:47 Dose: 5 mg Duloxetine HCl (Cymbalta -) 30 mg PO DAILY [facility] Last Admin: 03/12/17 10:47 Dose: 30 mg Enoxaparin Sodium (Lovenox -) 40 mg SQ DAILY [facility] Last Admin: 03/12/17 10:46 Dose: 40 mg Furosemide (Lasix -) 40 mg PO DAILY [facility] Last Admin: 03/12/17 10:47 Dose: 40 mg Insulin Aspart (Novolog Vial Sliding Scale -) 1 vial SQ ACHS [facility] PRN Reason: Protocol Last Admin: 03/12/17 11:55 Dose: 6 units Insulin Detemir (Levemir Vial) 10 units SQ BID [facility] Last Admin: 03/12/17 10:47 Dose: 10 units Isosorbide Mononitrate (Imdur -) 60 mg PO HS [facility] Last Admin: 03/11/17 21:47 Dose: 60 mg Magnesium Sulfate (Magnesium Sulfate) 2 gm IVPB ONCE ONE Stop: 03/12/17 13:01 Metoclopramide HCl (Reglan -) 5 mg PO TIDAC [facility] Last Admin: 03/12/17 10:47 Dose: 5 mg Nystatin (Nystatin Oral Suspension -) 500,000 units PO Q6HPO [facility] Last Admin: 03/12/17 11:57 Dose: 500,000 units Ondansetron HCl (Zofran -) 4 mg PO Q8H PRN PRN Reason: NAUSEA Pantoprazole Sodium (Protonix -) 40 mg PO DAILY [facility] Last Admin: 03/12/17 10:47 Dose: 40 mg Piperacillin Sod/Tazobactam Sod (Zosyn 3.375gm Ivpb (Pre-Docked)) 3.375 gm IVPB Q8H-IV [facility] PRN Reason: Protocol Last Admin: 03/12/17 10:47 Dose: 3.375 gm Potassium Phos/Sodium Phos (Phos-Nak Packet -) 1 packet PO BID [facility] Last Admin: 03/12/17 10:47 Dose: 1 packet Ranolazine (Ranexa -) 500 mg PO BID [facility] Last Admin: 03/12/17 10:47 Dose: 500 mg - Objective Vital Signs: Vital Signs Temperature 98.1 F 03/12/17 10:00 Pulse Rate 78 03/12/17 10:00 Respiratory Rate 20 03/12/17 10:00 Blood Pressure 178/75 03/12/17 10:00 O2 Sat by Pulse Oximetry (%) 98 03/11/17 21:00 Constitutional: Yes: No Distress, Calm Cardiovascular: Yes: Regular Rate and Rhythm Respiratory: Yes: Regular, CTA Bilaterally Gastrointestinal: Yes: Normal Bowel Sounds, Soft Musculoskeletal: Yes: WNL Extremities: Yes: WNL Integumentary: Yes: WNL Neurological: Yes: Alert, Oriented Psychiatric: Yes: Alert, Oriented Labs: CBC, BMP 03/12/17 08:45 03/12/17 07:25 INR, PTT INR 1.09 (0.82-1.09) 03/06/17 07:00 Assessment/Plan uti bacteremia gm negative frequency fever ams leukocytosis sepsis improving plan continue zosyn supportive measures patient stable wbc still on the higher side can stop zosyn after 7 days
[2017-03-12] MEDS ORDERED: MAGNESIUM SULF 50% (8.12 MEQ/2 ML-1 GM VIAL) IVPB ONE (13:00)
[2017-03-12 14:12] LABS: ANISOCYTOSIS 1+; PLATELET ESTIMATE ADEQUATE (NORMAL); TARGET CELLS FEW
[2017-03-12] MEDS: ATORVASTATIN CA 20 MG TABLET (FP) PO SCH (22:12)
[2017-03-12] MEDS: ISOSORBIDE MONONITRATE 60 MG TAB.SR.24H (FP) PO SCH (22:12)
[2017-03-12] MEDS: DOCUSATE SODIUM 100 MG CAPSULE (FP) PO SCH (22:12)
[2017-03-13] MEDS: NYSTATIN 500,000 UNITS/5 ML SUSPENSION PO SCH ×4 (00:10→17:22)
[2017-03-13] MEDS: PIPERACILLIN/TAZOB 3.375 GM/50 ML PRE-DOCKED IVPB SCH ×3 (01:51→17:22)
[2017-03-13] MEDS: METOCLOPRAMIDE HCL 10 MG TABLET (FP) PO SCH ×3 (06:11→17:21)
[2017-03-13] MEDS: INSULIN SLIDING SCALE (NOVOLOG) 1 VIAL SQ SCH ×4 (06:22→22:26)
[2017-03-13 09:22] LABS: ANION GAP 7 (8-16); CALCIUM 8.7 mg/dL (8.5-10.1); CO2 30 mmol/L (21-32); GLUCOSE,RANDOM 84 mg/dL (74-106)
[2017-03-13 09:25] LABS: CREATININE 0.6 mg/dL (0.55-1.02)
[2017-03-13] MEDS: INSULIN DETEMIR 100 UNITS/ML MDV SQ SCH ×2 (10:11→22:26)
[2017-03-13] MEDS: ENOXAPARIN NA (PORCINE) 40 MG/0.4 ML DISP.SYRIN SQ SCH (10:13)
[2017-03-13] MEDS: NAPH,MB-DB/K PH,MBDB POWDER PACKET PO SCH ×2 (10:14→22:27)
[2017-03-13] MEDS: amLODIPine BESYLATE 10 MG TABLET (FP) PO SCH (10:14)
[2017-03-13] MEDS: DONEPEZIL HCL 5 MG TABLET (FP) PO SCH (10:14)
[2017-03-13] MEDS: DULoxetine HCL 30 MG CAPSULE.DR (FP) PO SCH (10:14)
[2017-03-13] MEDS: CARVEDILOL 25 MG TABLET (FP) PO SCH ×2 (10:14→22:26)
[2017-03-13] MEDS: RANOLAZINE E.R. 500 MG TABLET (FP) PO SCH ×2 (10:14→22:26)
[2017-03-13] MEDS: FUROSEMIDE 40 MG TABLET (FP) PO SCH (10:14)
[2017-03-13] MEDS: PANTOPRAZOLE 40 MG TABLET (FP) PO SCH (10:14)
[2017-03-13 11:07] LABS: MCH 21.5 pg (25.7-33.7); MEAN CELL VOLUME 69.2 fl (80-96); MEAN PLT VOLUME 9.8 fl (7.5-11.1); PLATELET COUNT 366 K/MM3 (134-434); WHITE BLOOD COUNT 18.9 K/mm3 (4.0-10.0)
[2017-03-13 11:41] LABS: METAMYELOCYTE 5 % (0-2)
[2017-03-13] MEDS ORDERED: INSULIN (NOVOLOG) ASPART 100 UNITS/ML 10ML VIAL ONE ×2 (11:41→17:04)
[2017-03-13 11:42] LABS: ANISOCYTOSIS 1+; MICROCYTOSIS 1+; PLATELET ESTIMATE ADEQUATE (NORMAL)
[2017-03-13 13:03] LABS: MAGNESIUM 1.8 mg/dL (1.8-2.4)
--- NOTE | 2017-03-13 13:36 | PN ---
Progress Note, Physician Chief Complaint: Mrs Hampton says she is feeling good today. Says she is not having trouble swallowing, no pain. No cp, sob, n/v. Spoke with RN who says patient has decreased intake but is not having difficulty swallowing or complaining of pain. - Current Medication List Current Medications: Active Medications Acetaminophen (Tylenol -) 650 mg PO Q6H PRN PRN Reason: FEVER OR PAIN Last Admin: 03/11/17 21:54 Dose: 650 mg Albuterol Sulfate (Ventolin 0.083% Nebulizer Soln -) 1 amp NEB Q6H PRN PRN Reason: SHORT OF BREATH/WHEEZING Amlodipine Besylate (Norvasc -) 10 mg PO DAILY [facility] Last Admin: 03/13/17 10:14 Dose: 10 mg Atorvastatin Calcium (Lipitor -) 20 mg PO HS [facility] Last Admin: 03/12/17 22:12 Dose: 20 mg Carvedilol (Coreg -) 25 mg PO BID [facility] Last Admin: 03/13/17 10:14 Dose: 25 mg Clonidine HCl (Catapres Tts Patch -) 0.3 mg TD Q7D@1000 [facility] Last Admin: 03/11/17 11:15 Dose: 0.3 mg Docusate Sodium (Colace -) 300 mg PO HS [facility] Last Admin: 03/12/17 22:12 Dose: 300 mg Donepezil HCl (Aricept -) 5 mg PO DAILY [facility] Last Admin: 03/13/17 10:14 Dose: 5 mg Duloxetine HCl (Cymbalta -) 30 mg PO DAILY [facility] Last Admin: 03/13/17 10:14 Dose: 30 mg Enoxaparin Sodium (Lovenox -) 40 mg SQ DAILY [facility] Last Admin: 03/13/17 10:13 Dose: 40 mg Furosemide (Lasix -) 40 mg PO DAILY [facility] Last Admin: 03/13/17 10:14 Dose: 40 mg Insulin Aspart (Novolog Vial Sliding Scale -) 1 vial SQ ACHS [facility] PRN Reason: Protocol Last Admin: 03/13/17 11:50 Dose: 2 units Insulin Detemir (Levemir Vial) 10 units SQ BID [facility] Last Admin: 03/13/17 10:11 Dose: 10 units Isosorbide Mononitrate (Imdur -) 60 mg PO HS [facility] Last Admin: 03/12/17 22:12 Dose: 60 mg Metoclopramide HCl (Reglan -) 5 mg PO TIDAC [facility] Last Admin: 03/13/17 11:00 Dose: 5 mg Nystatin (Nystatin Oral Suspension -) 500,000 units PO Q6HPO [facility] Last Admin: 03/13/17 06:11 Dose: 500,000 units Ondansetron HCl (Zofran -) 4 mg PO Q8H PRN PRN Reason: NAUSEA Pantoprazole Sodium (Protonix -) 40 mg PO DAILY [facility] Last Admin: 03/13/17 10:14 Dose: 40 mg Piperacillin Sod/Tazobactam Sod (Zosyn 3.375gm Ivpb (Pre-Docked)) 3.375 gm IVPB Q8H-IV [facility] PRN Reason: Protocol Last Admin: 03/13/17 10:12 Dose: 3.375 gm Potassium Phos/Sodium Phos (Phos-Nak Packet -) 1 packet PO BID [facility] Last Admin: 03/13/17 10:14 Dose: 1 packet Ranolazine (Ranexa -) 500 mg PO BID [facility] Last Admin: 03/13/17 10:14 Dose: 500 mg - Objective Vital Signs: Vital Signs Temperature 98.8 F 03/13/17 10:00 Pulse Rate 80 03/13/17 10:00 Respiratory Rate 20 03/13/17 10:00 Blood Pressure 159/100 03/13/17 10:00 O2 Sat by Pulse Oximetry (%) 97 03/12/17 21:00 Constitutional: Yes: Well Nourished, No Distress, Calm Cardiovascular: Yes: Regular Rate and Rhythm. No: Gallop, Murmur, Rub Respiratory: Yes: Regular, CTA Bilaterally. No: Rales, Rhonchi, Wheezes Gastrointestinal: Yes: Normal Bowel Sounds, Soft. No: Distention, Tenderness Extremities: Yes: WNL Edema: No Labs: CBC, BMP 03/13/17 09:05 03/13/17 07:20 INR, PTT INR 1.09 (0.82-1.09) 03/06/17 07:00 Problem List - Problems (1) Gram-negative bacteremia Code(s): R78.81 - BACTEREMIA (2) UTI (urinary tract infection) Code(s): N39.0 - URINARY TRACT INFECTION, SITE NOT SPECIFIED Qualifiers: Urinary tract infection type: site unspecified Hematuria presence: without hematuria Qualified Code(s): N39.0 - Urinary tract infection, site not specified (3) COPD (chronic obstructive pulmonary disease) Code(s): J44.9 - CHRONIC OBSTRUCTIVE PULMONARY DISEASE, UNSPECIFIED (4) Hyperlipidemia Code(s): E78.5 - HYPERLIPIDEMIA, UNSPECIFIED (5) Hypertension Code(s): I10 - ESSENTIAL (PRIMARY) HYPERTENSION (6) Diabetes Code(s): E11.9 - TYPE 2 DIABETES MELLITUS WITHOUT COMPLICATIONS Qualifiers: Diabetes mellitus type: type 2 Diabetes mellitus complication status: without complication Diabetes mellitus terminal gauger supervisor insulin use: with mcc use Qualified Code(s): E11.9 - Type 2 diabetes mellitus without complications (7) CHF (congestive heart failure) Code(s): I50.9 - HEART FAILURE, UNSPECIFIED Qualifiers: Congestive heart failure type: systolic Congestive heart failure chronicity: chronic Qualified Code(s): I50.22 - Chronic systolic ( congestive) heart failure (8) Gastroparesis Code(s): K31.84 - GASTROPARESIS Assessment/Plan (1) Gram-negative bacteremia Assessment/Plan: -on zosyn -still with leukocytosis -day 9 of zosyn -will defer to Dr Martinez about further antibiotics Code(s): R78.81 - BACTEREMIA (2) UTI (urinary tract infection) Assessment/Plan: -cause of sepsis -as above Code(s): N39.0 - URINARY TRACT INFECTION, SITE NOT SPECIFIED Qualifiers: Urinary tract infection type: site unspecified Hematuria presence: without hematuria Qualified Code(s): N39.0 - Urinary tract infection, site not specified (3) COPD (chronic obstructive pulmonary disease) Assessment/Plan: -not in exacerbation -continue albuterol Code(s): J44.9 - CHRONIC OBSTRUCTIVE PULMONARY DISEASE, UNSPECIFIED (4) Hyperlipidemia Assessment/Plan: -continue lipitor Code(s): E78.5 - HYPERLIPIDEMIA, UNSPECIFIED (5) Hypertension Assessment/Plan: -elevated but stable -will monitor, if still consistently elevated will add another agent -continue coreg, clonidine, imdur, and lasix -consider adding ACEI or ARB to regimen if elevates Code(s): I10 - ESSENTIAL (PRIMARY) HYPERTENSION (6) Diabetes Assessment/Plan: -continue levemir and SSI -controlled Code(s): E11.9 - TYPE 2 DIABETES MELLITUS WITHOUT COMPLICATIONS Qualifiers: Diabetes mellitus type: type 2 Diabetes mellitus complication status: without complication Diabetes mellitus terminal gauger supervisor insulin use: with terminal gauger supervisor use Qualified Code(s): E11.9 - Type 2 diabetes mellitus without complications (7) CHF (congestive heart failure) Assessment/Plan: -continue lasix Code(s): I50.9 - HEART FAILURE, UNSPECIFIED Qualifiers: Congestive heart failure type: systolic Congestive heart failure chronicity: chronic Qualified Code(s): I50.22 - Chronic systolic ( congestive) heart failure (8) Gastroparesis Assessment/Plan: -tolerating soft diet Code(s): K31.84 - GASTROPARESIS (9) Thrush -patient no longer complaining of difficulty swallowing -tolerating diet -day 6 (10) Hypomagnesemia -repleted
[2017-03-13] MEDS: DOCUSATE SODIUM 100 MG CAPSULE (FP) PO SCH (22:26)
[2017-03-13] MEDS: ATORVASTATIN CA 20 MG TABLET (FP) PO SCH (22:26)
[2017-03-13] MEDS: ISOSORBIDE MONONITRATE 60 MG TAB.SR.24H (FP) PO SCH (22:26)
[2017-03-14] MEDS: NYSTATIN 500,000 UNITS/5 ML SUSPENSION PO SCH ×4 (01:29→18:40)
[2017-03-14] MEDS: PIPERACILLIN/TAZOB 3.375 GM/50 ML PRE-DOCKED IVPB SCH ×2 (01:30→09:18)
[2017-03-14] MEDS: METOCLOPRAMIDE HCL 10 MG TABLET (FP) PO SCH ×3 (06:13→16:45)
[2017-03-14] MEDS: INSULIN SLIDING SCALE (NOVOLOG) 1 VIAL SQ SCH ×4 (06:14→21:32)
[2017-03-14 09:13] LABS: MCH 21.9 pg (25.7-33.7); MCHC 31.7 g/dl (32.0-36.0); MEAN PLT VOLUME 9.6 fl (7.5-11.1); RDW 18.2 % (11.6-15.6); WHITE BLOOD COUNT 19.1 K/mm3 (4.0-10.0)
[2017-03-14] MEDS: CARVEDILOL 25 MG TABLET (FP) PO SCH ×2 (09:19→21:27)
[2017-03-14] MEDS: DULoxetine HCL 30 MG CAPSULE.DR (FP) PO SCH (09:19)
[2017-03-14] MEDS: DONEPEZIL HCL 5 MG TABLET (FP) PO SCH (09:19)
[2017-03-14] MEDS: INSULIN DETEMIR 100 UNITS/ML MDV SQ SCH ×2 (09:20→21:27)
[2017-03-14] MEDS: ENOXAPARIN NA (PORCINE) 40 MG/0.4 ML DISP.SYRIN SQ SCH (09:20)
[2017-03-14] MEDS: FUROSEMIDE 40 MG TABLET (FP) PO SCH (09:20)
[2017-03-14] MEDS: PANTOPRAZOLE 40 MG TABLET (FP) PO SCH (09:21)
[2017-03-14] MEDS: NAPH,MB-DB/K PH,MBDB POWDER PACKET PO SCH ×2 (09:21→21:28)
[2017-03-14] MEDS: amLODIPine BESYLATE 10 MG TABLET (FP) PO SCH (09:21)
[2017-03-14] MEDS: RANOLAZINE E.R. 500 MG TABLET (FP) PO SCH ×2 (09:22→21:27)
[2017-03-14 11:27] LABS: PLATELET COUNT 378 K/MM3 (134-434)
[2017-03-14 11:29] LABS: PLATELET ESTIMATE ADEQUATE (NORMAL)
[2017-03-14 11:30] LABS: ANISOCYTOSIS 1+; HYPOCHROMIA 2+; OVALOCYTES FEW; POIKILOCYTOSIS 2+; TARGET CELLS 1+
--- NOTE | 2017-03-14 12:26 | PN ---
Progress Note, Physician Chief Complaint: Mrs Hampton says she is feeling a little better today. Denies cp, sob, n/v. Cannot explain if she is feeling bad. - Current Medication List Current Medications: Active Medications Acetaminophen (Tylenol -) 650 mg PO Q6H PRN PRN Reason: FEVER OR PAIN Last Admin: 03/11/17 21:54 Dose: 650 mg Amlodipine Besylate (Norvasc -) 10 mg PO DAILY [facility] Last Admin: 03/14/17 09:21 Dose: 10 mg Atorvastatin Calcium (Lipitor -) 20 mg PO HS [facility] Last Admin: 03/13/17 22:26 Dose: 20 mg Carvedilol (Coreg -) 25 mg PO BID [facility] Last Admin: 03/14/17 09:19 Dose: 25 mg Clonidine HCl (Catapres Tts Patch -) 0.3 mg TD Q7D@1000 [facility] Last Admin: 03/11/17 11:15 Dose: 0.3 mg Docusate Sodium (Colace -) 300 mg PO HS [facility] Last Admin: 03/13/17 22:26 Dose: 300 mg Donepezil HCl (Aricept -) 5 mg PO DAILY [facility] Last Admin: 03/14/17 09:19 Dose: 5 mg Duloxetine HCl (Cymbalta -) 30 mg PO DAILY [facility] Last Admin: 03/14/17 09:19 Dose: 30 mg Enoxaparin Sodium (Lovenox -) 40 mg SQ DAILY [facility] Last Admin: 03/14/17 09:20 Dose: 40 mg Furosemide (Lasix -) 40 mg PO DAILY [facility] Last Admin: 03/14/17 09:20 Dose: 40 mg Insulin Aspart (Novolog Vial Sliding Scale -) 1 vial SQ ACHS [facility] PRN Reason: Protocol Last Admin: 03/14/17 11:56 Dose: 2 units Insulin Detemir (Levemir Vial) 10 units SQ BID [facility] Last Admin: 03/14/17 09:20 Dose: 10 units Isosorbide Mononitrate (Imdur -) 60 mg PO HS [facility] Last Admin: 03/13/17 22:26 Dose: 60 mg Metoclopramide HCl (Reglan -) 5 mg PO TIDAC [facility] Last Admin: 03/14/17 11:57 Dose: 5 mg Nystatin (Nystatin Oral Suspension -) 500,000 units PO Q6HPO [facility] Last Admin: 03/14/17 12:19 Dose: 500,000 units Ondansetron HCl (Zofran -) 4 mg PO Q8H PRN PRN Reason: NAUSEA Pantoprazole Sodium (Protonix -) 40 mg PO DAILY [facility] Last Admin: 03/14/17 09:21 Dose: 40 mg Potassium Phos/Sodium Phos (Phos-Nak Packet -) 1 packet PO BID [facility] Last Admin: 03/14/17 09:21 Dose: 1 packet Ranolazine (Ranexa -) 500 mg PO BID [facility] Last Admin: 03/14/17 09:22 Dose: 500 mg - Objective Vital Signs: Vital Signs Temperature 98.3 F 03/14/17 09:46 Pulse Rate 78 03/14/17 09:46 Respiratory Rate 18 03/14/17 09:46 Blood Pressure 198/86 03/14/17 09:46 O2 Sat by Pulse Oximetry (%) 97 03/12/17 21:00 Constitutional: Yes: Well Nourished, No Distress, Calm Cardiovascular: Yes: Regular Rate and Rhythm. No: Gallop, Murmur, Rub Respiratory: Yes: Regular, CTA Bilaterally. No: Rales, Rhonchi, Wheezes Gastrointestinal: Yes: Normal Bowel Sounds, Soft. No: Distention, Tenderness Extremities: Yes: WNL Edema: No Labs: CBC, BMP 03/14/17 08:35 03/13/17 07:20 INR, PTT INR 1.09 (0.82-1.09) 03/06/17 07:00 Problem List - Problems (1) Gram-negative bacteremia Code(s): R78.81 - BACTEREMIA (2) UTI (urinary tract infection) Code(s): N39.0 - URINARY TRACT INFECTION, SITE NOT SPECIFIED Qualifiers: Urinary tract infection type: site unspecified Hematuria presence: without hematuria Qualified Code(s): N39.0 - Urinary tract infection, site not specified (3) COPD (chronic obstructive pulmonary disease) Code(s): J44.9 - CHRONIC OBSTRUCTIVE PULMONARY DISEASE, UNSPECIFIED (4) Hyperlipidemia Code(s): E78.5 - HYPERLIPIDEMIA, UNSPECIFIED (5) Hypertension Code(s): I10 - ESSENTIAL (PRIMARY) HYPERTENSION (6) Diabetes Code(s): E11.9 - TYPE 2 DIABETES MELLITUS WITHOUT COMPLICATIONS Qualifiers: Diabetes mellitus type: type 2 Diabetes mellitus complication status: without complication Diabetes mellitus longterm insulin use: with longterm use Qualified Code(s): E11.9 - Type 2 diabetes mellitus without complications (7) CHF (congestive heart failure) Code(s): I50.9 - HEART FAILURE, UNSPECIFIED Qualifiers: Congestive heart failure type: systolic Congestive heart failure chronicity: chronic Qualified Code(s): I50.22 - Chronic systolic ( congestive) heart failure (8) Gastroparesis Code(s): K31.84 - GASTROPARESIS Assessment/Plan (1) Gram-negative bacteremia Assessment/Plan: -will stop zosyn today -repeat blood cultures negative so far -ID following Code(s): R78.81 - BACTEREMIA (2) UTI (urinary tract infection) Assessment/Plan: -cause of sepsis -as above Code(s): N39.0 - URINARY TRACT INFECTION, SITE NOT SPECIFIED Qualifiers: Urinary tract infection type: site unspecified Hematuria presence: without hematuria Qualified Code(s): N39.0 - Urinary tract infection, site not specified (3) COPD (chronic obstructive pulmonary disease) Assessment/Plan: -not in exacerbation -continue albuterol Code(s): J44.9 - CHRONIC OBSTRUCTIVE PULMONARY DISEASE, UNSPECIFIED (4) Hyperlipidemia Assessment/Plan: -continue lipitor Code(s): E78.5 - HYPERLIPIDEMIA, UNSPECIFIED (5) Hypertension Assessment/Plan: -was elevated this am, but before receiving medications -will follow up, do not want to bottom out blood pressure -will monitor, if still consistently elevated will add another agent -continue coreg, clonidine, imdur, and lasix -consider adding ACEI or ARB to regimen if elevates Code(s): I10 - ESSENTIAL (PRIMARY) HYPERTENSION (6) Diabetes Assessment/Plan: -continue levemir and SSI -controlled Code(s): E11.9 - TYPE 2 DIABETES MELLITUS WITHOUT COMPLICATIONS Qualifiers: Diabetes mellitus type: type 2 Diabetes mellitus complication status: without complication Diabetes mellitus terminal operations supervisor insulin use: with longterm use Qualified Code(s): E11.9 - Type 2 diabetes mellitus without complications (7) CHF (congestive heart failure) Assessment/Plan: -continue lasix Code(s): I50.9 - HEART FAILURE, UNSPECIFIED Qualifiers: Congestive heart failure type: systolic Congestive heart failure chronicity: chronic Qualified Code(s): I50.22 - Chronic systolic ( congestive) heart failure (8) Gastroparesis Assessment/Plan: -tolerating soft diet Code(s): K31.84 - GASTROPARESIS (9) Thrush -patient no longer complaining of difficulty swallowing -tolerating diet -day 7 -can stop after final dose today (10) Hypomagnesemia -repleted Dispo -possible discharge tomorrow
--- NOTE | 2017-03-14 14:31 | PN ---
Progress Note, Physician History of Present Illness: stable no complaints - Current Medication List Current Medications: Active Medications Acetaminophen (Tylenol -) 650 mg PO Q6H PRN PRN Reason: FEVER OR PAIN Last Admin: 03/11/17 21:54 Dose: 650 mg Amlodipine Besylate (Norvasc -) 10 mg PO DAILY [facility] Last Admin: 03/14/17 09:21 Dose: 10 mg Atorvastatin Calcium (Lipitor -) 20 mg PO HS [facility] Last Admin: 03/13/17 22:26 Dose: 20 mg Carvedilol (Coreg -) 25 mg PO BID [facility] Last Admin: 03/14/17 09:19 Dose: 25 mg Clonidine HCl (Catapres Tts Patch -) 0.3 mg TD Q7D@1000 [facility] Last Admin: 03/11/17 11:15 Dose: 0.3 mg Docusate Sodium (Colace -) 300 mg PO HS [facility] Last Admin: 03/13/17 22:26 Dose: 300 mg Donepezil HCl (Aricept -) 5 mg PO DAILY [facility] Last Admin: 03/14/17 09:19 Dose: 5 mg Duloxetine HCl (Cymbalta -) 30 mg PO DAILY [facility] Last Admin: 03/14/17 09:19 Dose: 30 mg Enoxaparin Sodium (Lovenox -) 40 mg SQ DAILY [facility] Last Admin: 03/14/17 09:20 Dose: 40 mg Furosemide (Lasix -) 40 mg PO DAILY [facility] Last Admin: 03/14/17 09:20 Dose: 40 mg Insulin Aspart (Novolog Vial Sliding Scale -) 1 vial SQ ACHS [facility] PRN Reason: Protocol Last Admin: 03/14/17 11:56 Dose: 2 units Insulin Detemir (Levemir Vial) 10 units SQ BID [facility] Last Admin: 03/14/17 09:20 Dose: 10 units Isosorbide Mononitrate (Imdur -) 60 mg PO HS [facility] Last Admin: 03/13/17 22:26 Dose: 60 mg Metoclopramide HCl (Reglan -) 5 mg PO TIDAC [facility] Last Admin: 03/14/17 11:57 Dose: 5 mg Nystatin (Nystatin Oral Suspension -) 500,000 units PO Q6HPO [facility] Last Admin: 03/14/17 12:19 Dose: 500,000 units Ondansetron HCl (Zofran -) 4 mg PO Q8H PRN PRN Reason: NAUSEA Pantoprazole Sodium (Protonix -) 40 mg PO DAILY [facility] Last Admin: 03/14/17 09:21 Dose: 40 mg Potassium Phos/Sodium Phos (Phos-Nak Packet -) 1 packet PO BID [facility] Last Admin: 03/14/17 09:21 Dose: 1 packet Ranolazine (Ranexa -) 500 mg PO BID [facility] Last Admin: 03/14/17 09:22 Dose: 500 mg - Objective Vital Signs: Vital Signs Temperature 98.3 F 03/14/17 09:46 Pulse Rate 78 03/14/17 09:46 Respiratory Rate 18 03/14/17 09:46 Blood Pressure 198/86 03/14/17 09:46 O2 Sat by Pulse Oximetry (%) 97 03/12/17 21:00 Constitutional: Yes: No Distress, Calm Respiratory: Yes: Regular, CTA Bilaterally Gastrointestinal: Yes: Normal Bowel Sounds, Soft Musculoskeletal: Yes: Other Extremities: Yes: Other Neurological: Yes: Alert, Oriented Psychiatric: Yes: Alert Labs: CBC, BMP 03/14/17 08:35 03/13/17 07:20 INR, PTT INR 1.09 (0.82-1.09) 03/06/17 07:00 Assessment/Plan uti bacteremia gm negative frequency fever ams leukocytosis sepsis improving plan continue zosyn supportive measures patient stable wbc increasing i am going to add iv flagyl and see
[2017-03-14] MEDS: METRONIDAZOLE 500 MG PREMIXED 100 ML IVPB SCH ×2 (16:36→19:13)
[2017-03-14] MEDS ORDERED: INSULIN DETEMIR 100 UNITS/ML MDV SQ ONE (19:39)
[2017-03-14] MEDS ORDERED: INSULIN (NOVOLOG) ASPART 100 UNITS/ML 10ML VIAL ONE ×2 (19:39→21:31)
[2017-03-14] MEDS: ISOSORBIDE MONONITRATE 60 MG TAB.SR.24H (FP) PO SCH (21:27)
[2017-03-14] MEDS: ATORVASTATIN CA 20 MG TABLET (FP) PO SCH (21:27)
[2017-03-14] MEDS: DOCUSATE SODIUM 100 MG CAPSULE (FP) PO SCH (21:27)
[2017-03-15] MEDS: NYSTATIN 500,000 UNITS/5 ML SUSPENSION PO SCH ×3 (00:20→12:00)
[2017-03-15] MEDS: METRONIDAZOLE 500 MG PREMIXED 100 ML IVPB SCH ×3 (01:33→17:36)
[2017-03-15] MEDS: METOCLOPRAMIDE HCL 10 MG TABLET (FP) PO SCH ×3 (06:01→17:36)
[2017-03-15] MEDS: INSULIN SLIDING SCALE (NOVOLOG) 1 VIAL SQ SCH ×4 (06:02→21:31)
[2017-03-15] MEDS: amLODIPine BESYLATE 10 MG TABLET (FP) PO SCH (11:17)
[2017-03-15] MEDS: ENOXAPARIN NA (PORCINE) 40 MG/0.4 ML DISP.SYRIN SQ SCH (11:17)
[2017-03-15] MEDS: PANTOPRAZOLE 40 MG TABLET (FP) PO SCH (11:17)
[2017-03-15] MEDS: FUROSEMIDE 40 MG TABLET (FP) PO SCH (11:18)
[2017-03-15] MEDS: NAPH,MB-DB/K PH,MBDB POWDER PACKET PO SCH ×2 (11:18→21:31)
[2017-03-15] MEDS: RANOLAZINE E.R. 500 MG TABLET (FP) PO SCH ×2 (11:18→21:30)
[2017-03-15] MEDS: DONEPEZIL HCL 5 MG TABLET (FP) PO SCH (11:19)
[2017-03-15] MEDS: CARVEDILOL 25 MG TABLET (FP) PO SCH ×2 (11:19→21:30)
[2017-03-15] MEDS: DULoxetine HCL 30 MG CAPSULE.DR (FP) PO SCH (11:19)
[2017-03-15] MEDS: INSULIN DETEMIR 100 UNITS/ML MDV SQ SCH ×2 (11:23→21:30)
--- NOTE | 2017-03-15 16:02 | PN ---
Progress Note, Physician Chief Complaint: Mrs Hampton complains of pain in her knees, began after PT moved her around. No cp, sob, n/v. Tolerating diet. - Current Medication List Current Medications: Active Medications Acetaminophen (Tylenol -) 650 mg PO Q6H PRN PRN Reason: FEVER OR PAIN Last Admin: 03/11/17 21:54 Dose: 650 mg Amlodipine Besylate (Norvasc -) 10 mg PO DAILY [facility] Last Admin: 03/15/17 11:17 Dose: 10 mg Atorvastatin Calcium (Lipitor -) 20 mg PO HS [facility] Last Admin: 03/14/17 21:27 Dose: 20 mg Carvedilol (Coreg -) 25 mg PO BID [facility] Last Admin: 03/15/17 11:19 Dose: 25 mg Clonidine HCl (Catapres Tts Patch -) 0.3 mg TD Q7D@1000 [facility] Last Admin: 03/11/17 11:15 Dose: 0.3 mg Docusate Sodium (Colace -) 300 mg PO HS [facility] Last Admin: 03/14/17 21:27 Dose: 300 mg Donepezil HCl (Aricept -) 5 mg PO DAILY [facility] Last Admin: 03/15/17 11:19 Dose: 5 mg Duloxetine HCl (Cymbalta -) 30 mg PO DAILY [facility] Last Admin: 03/15/17 11:19 Dose: 30 mg Enoxaparin Sodium (Lovenox -) 40 mg SQ DAILY [facility] Last Admin: 03/15/17 11:17 Dose: 40 mg Furosemide (Lasix -) 40 mg PO DAILY [facility] Last Admin: 03/15/17 11:18 Dose: 40 mg Metronidazole (Flagyl 500mg Premixed Ivpb -) 100 mls @ 100 mls/hr IVPB Q8H-IV [facility] Last Admin: 03/15/17 11:17 Dose: 100 mls/hr Insulin Aspart (Novolog Vial Sliding Scale -) 1 vial SQ ACHS [facility] PRN Reason: Protocol Last Admin: 03/15/17 11:52 Dose: 4 units Insulin Detemir (Levemir Vial) 10 units SQ BID [facility] Last Admin: 03/15/17 11:23 Dose: 10 units Isosorbide Mononitrate (Imdur -) 60 mg PO HS [facility] Last Admin: 03/14/17 21:27 Dose: 60 mg Metoclopramide HCl (Reglan -) 5 mg PO TIDAC [facility] Last Admin: 03/15/17 11:18 Dose: 5 mg Nystatin (Nystatin Oral Suspension -) 500,000 units PO Q6HPO [facility] Last Admin: 03/15/17 12:00 Dose: 500,000 units Ondansetron HCl (Zofran -) 4 mg PO Q8H PRN PRN Reason: NAUSEA Pantoprazole Sodium (Protonix -) 40 mg PO DAILY [facility] Last Admin: 03/15/17 11:17 Dose: 40 mg Potassium Phos/Sodium Phos (Phos-Nak Packet -) 1 packet PO BID [facility] Last Admin: 03/15/17 11:18 Dose: 1 packet Ranolazine (Ranexa -) 500 mg PO BID [facility] Last Admin: 03/15/17 11:18 Dose: 500 mg - Objective Vital Signs: Vital Signs Temperature 99.1 F 03/15/17 14:27 Pulse Rate 85 03/15/17 14:27 Respiratory Rate 20 03/15/17 14:27 Blood Pressure 154/67 03/15/17 14:27 O2 Sat by Pulse Oximetry (%) 96 03/14/17 20:23 Constitutional: Yes: Well Nourished, No Distress, Calm Cardiovascular: Yes: Regular Rate and Rhythm. No: Gallop, Murmur, Rub Respiratory: Yes: Regular, CTA Bilaterally. No: Rales, Rhonchi, Wheezes Gastrointestinal: Yes: Normal Bowel Sounds, Soft. No: Distention, Tenderness Extremities: Yes: WNL Edema: No Labs: CBC, BMP 03/14/17 08:35 03/13/17 07:20 INR, PTT INR 1.09 (0.82-1.09) 03/06/17 07:00 Problem List - Problems (1) Gram-negative bacteremia Code(s): R78.81 - BACTEREMIA (2) UTI (urinary tract infection) Code(s): N39.0 - URINARY TRACT INFECTION, SITE NOT SPECIFIED Qualifiers: Urinary tract infection type: site unspecified Hematuria presence: without hematuria Qualified Code(s): N39.0 - Urinary tract infection, site not specified (3) COPD (chronic obstructive pulmonary disease) Code(s): J44.9 - CHRONIC OBSTRUCTIVE PULMONARY DISEASE, UNSPECIFIED (4) Hyperlipidemia Code(s): E78.5 - HYPERLIPIDEMIA, UNSPECIFIED (5) Hypertension Code(s): I10 - ESSENTIAL (PRIMARY) HYPERTENSION (6) Diabetes Code(s): E11.9 - TYPE 2 DIABETES MELLITUS WITHOUT COMPLICATIONS Qualifiers: Diabetes mellitus type: type 2 Diabetes mellitus complication status: without complication Diabetes mellitus halfway insulin use: with halfway use Qualified Code(s): E11.9 - Type 2 diabetes mellitus without complications (7) CHF (congestive heart failure) Code(s): I50.9 - HEART FAILURE, UNSPECIFIED Qualifiers: Congestive heart failure type: systolic Congestive heart failure chronicity: chronic Qualified Code(s): I50.22 - Chronic systolic ( congestive) heart failure (8) Gastroparesis Code(s): K31.84 - GASTROPARESIS Assessment/Plan (1) Gram-negative bacteremia Assessment/Plan: -repeat cultures negative Code(s): R78.81 - BACTEREMIA (2) UTI (urinary tract infection) Assessment/Plan: -cultures currently negative Code(s): N39.0 - URINARY TRACT INFECTION, SITE NOT SPECIFIED Qualifiers: Urinary tract infection type: site unspecified Hematuria presence: without hematuria Qualified Code(s): N39.0 - Urinary tract infection, site not specified (3) COPD (chronic obstructive pulmonary disease) Assessment/Plan: -not in exacerbation -continue albuterol Code(s): J44.9 - CHRONIC OBSTRUCTIVE PULMONARY DISEASE, UNSPECIFIED (4) Hyperlipidemia Assessment/Plan: -continue lipitor Code(s): E78.5 - HYPERLIPIDEMIA, UNSPECIFIED (5) Hypertension Assessment/Plan: -was elevated this am, but before receiving medications -will follow up, do not want to bottom out blood pressure -will monitor, if still consistently elevated will add another agent -continue coreg, clonidine, imdur, and lasix -will write to give antihypertensives at 8am Code(s): I10 - ESSENTIAL (PRIMARY) HYPERTENSION (6) Diabetes Assessment/Plan: -continue levemir and SSI -controlled Code(s): E11.9 - TYPE 2 DIABETES MELLITUS WITHOUT COMPLICATIONS Qualifiers: Diabetes mellitus type: type 2 Diabetes mellitus complication status: without complication Diabetes mellitus halfway insulin use: with 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 terminal 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 Qualified Code(s): E11.9 - Type 2 diabetes mellitus without complications (7) CHF (congestive heart failure) Assessment/Plan: -continue lasix Code(s): I50.9 - HEART FAILURE, UNSPECIFIED Qualifiers: Congestive heart failure type: systolic Congestive heart failure chronicity: chronic Qualified Code(s): I50.22 - Chronic systolic ( congestive) heart failure (8) Gastroparesis Assessment/Plan: -tolerating soft diet Code(s): K31.84 - GASTROPARESIS (9) Thrush -patient no longer complaining of difficulty swallowing -tolerating diet -day 7 -fully treated (10) Leukocytosis -remains elevated, but unclear source -patient does not appear septic -zosyn stopped since finished 7 day course per ID note, however yesterday wrote to continue -will defer to ID about restarting zosyn -IV flagyl added, monitor
--- NOTE | 2017-03-15 16:57 | PN ---
Progress Note, Physician History of Present Illness: stable no new issues worked with pt some knee pain - Current Medication List Current Medications: Active Medications Acetaminophen (Tylenol -) 650 mg PO Q6H PRN PRN Reason: FEVER OR PAIN Last Admin: 03/11/17 21:54 Dose: 650 mg Amlodipine Besylate (Norvasc -) 10 mg PO DAILY [facility] Last Admin: 03/15/17 11:17 Dose: 10 mg Atorvastatin Calcium (Lipitor -) 20 mg PO HS [facility] Last Admin: 03/14/17 21:27 Dose: 20 mg Carvedilol (Coreg -) 25 mg PO BID [facility] Last Admin: 03/15/17 11:19 Dose: 25 mg Clonidine HCl (Catapres Tts Patch -) 0.3 mg TD Q7D@1000 [facility] Last Admin: 03/11/17 11:15 Dose: 0.3 mg Docusate Sodium (Colace -) 300 mg PO HS [facility] Last Admin: 03/14/17 21:27 Dose: 300 mg Donepezil HCl (Aricept -) 5 mg PO DAILY [facility] Last Admin: 03/15/17 11:19 Dose: 5 mg Duloxetine HCl (Cymbalta -) 30 mg PO DAILY [facility] Last Admin: 03/15/17 11:19 Dose: 30 mg Enoxaparin Sodium (Lovenox -) 40 mg SQ DAILY [facility] Last Admin: 03/15/17 11:17 Dose: 40 mg Furosemide (Lasix -) 40 mg PO DAILY [facility] Last Admin: 03/15/17 11:18 Dose: 40 mg Metronidazole (Flagyl 500mg Premixed Ivpb -) 100 mls @ 100 mls/hr IVPB Q8H-IV [facility] Last Admin: 03/15/17 11:17 Dose: 100 mls/hr Insulin Aspart (Novolog Vial Sliding Scale -) 1 vial SQ ACHS [facility] PRN Reason: Protocol Last Admin: 03/15/17 11:52 Dose: 4 units Insulin Detemir (Levemir Vial) 10 units SQ BID [facility] Last Admin: 03/15/17 11:23 Dose: 10 units Isosorbide Mononitrate (Imdur -) 60 mg PO HS [facility] Last Admin: 03/14/17 21:27 Dose: 60 mg Metoclopramide HCl (Reglan -) 5 mg PO TIDAC [facility] Last Admin: 03/15/17 11:18 Dose: 5 mg Ondansetron HCl (Zofran -) 4 mg PO Q8H PRN PRN Reason: NAUSEA Pantoprazole Sodium (Protonix -) 40 mg PO DAILY [facility] Last Admin: 03/15/17 11:17 Dose: 40 mg Potassium Phos/Sodium Phos (Phos-Nak Packet -) 1 packet PO BID [facility] Last Admin: 03/15/17 11:18 Dose: 1 packet Ranolazine (Ranexa -) 500 mg PO BID [facility] Last Admin: 03/15/17 11:18 Dose: 500 mg - Objective Vital Signs: Vital Signs Temperature 99.1 F 03/15/17 14:27 Pulse Rate 85 03/15/17 14:27 Respiratory Rate 20 03/15/17 14:27 Blood Pressure 154/67 03/15/17 14:27 O2 Sat by Pulse Oximetry (%) 100 03/15/17 09:00 Constitutional: Yes: No Distress, Calm Cardiovascular: Yes: Regular Rate and Rhythm Respiratory: Yes: Regular, CTA Bilaterally Musculoskeletal: Yes: WNL Extremities: Yes: WNL Neurological: Yes: Alert, Other Psychiatric: Yes: Other Labs: CBC, BMP 03/14/17 08:35 03/13/17 07:20 INR, PTT INR 1.09 (0.82-1.09) 03/06/17 07:00 Assessment/Plan uti bacteremia gm negative frequency fever ams leukocytosis sepsis improving plan continue to monitor off zosyn supportive measures patient stable will check wbc tomorrow
[2017-03-15] MEDS: ATORVASTATIN CA 20 MG TABLET (FP) PO SCH (21:30)
[2017-03-15] MEDS: DOCUSATE SODIUM 100 MG CAPSULE (FP) PO SCH (21:30)
[2017-03-15] MEDS: ISOSORBIDE MONONITRATE 60 MG TAB.SR.24H (FP) PO SCH (21:30)
[2017-03-16] MEDS: METRONIDAZOLE 500 MG PREMIXED 100 ML IVPB SCH ×3 (02:39→17:43)
[2017-03-16] MEDS: INSULIN SLIDING SCALE (NOVOLOG) 1 VIAL SQ SCH ×4 (05:59→21:22)
[2017-03-16] MEDS: METOCLOPRAMIDE HCL 10 MG TABLET (FP) PO SCH ×3 (06:03→17:43)
[2017-03-16 08:13] LABS: MCH 21.9 pg (25.7-33.7); MCHC 31.2 g/dl (32.0-36.0); MEAN PLT VOLUME 10.1 fl (7.5-11.1); PLATELET COUNT 409 K/MM3 (134-434); RDW 18.8 % (11.6-15.6); WHITE BLOOD COUNT 18.1 K/mm3 (4.0-10.0)
[2017-03-16 08:23] LABS: ANION GAP 7 (8-16); CALCIUM 8.8 mg/dL (8.5-10.1); CO2 32 mmol/L (21-32); CREATININE 0.6 mg/dL (0.55-1.02); GLUCOSE,RANDOM 97 mg/dL (74-106); MAGNESIUM 1.5 mg/dL (1.8-2.4); PHOSPHOROUS 2.5 mg/dL (2.5-4.9)
[2017-03-16] MEDS: PANTOPRAZOLE 40 MG TABLET (FP) PO SCH (11:15)
[2017-03-16] MEDS: DULoxetine HCL 30 MG CAPSULE.DR (FP) PO SCH (11:15)
[2017-03-16] MEDS: DONEPEZIL HCL 5 MG TABLET (FP) PO SCH (11:15)
[2017-03-16] MEDS: CARVEDILOL 25 MG TABLET (FP) PO SCH ×2 (11:15→21:22)
[2017-03-16] MEDS: FUROSEMIDE 40 MG TABLET (FP) PO SCH (11:15)
[2017-03-16] MEDS: amLODIPine BESYLATE 10 MG TABLET (FP) PO SCH (11:15)
[2017-03-16] MEDS: ENOXAPARIN NA (PORCINE) 40 MG/0.4 ML DISP.SYRIN SQ SCH (11:16)
[2017-03-16] MEDS: RANOLAZINE E.R. 500 MG TABLET (FP) PO SCH ×2 (11:16→21:21)
[2017-03-16] MEDS: NAPH,MB-DB/K PH,MBDB POWDER PACKET PO SCH ×2 (11:16→21:22)
[2017-03-16] MEDS: INSULIN DETEMIR 100 UNITS/ML MDV SQ SCH ×2 (11:17→21:22)
[2017-03-16] MEDS ORDERED: INSULIN DETEMIR 100 UNITS/ML MDV SQ ONE (11:25)
--- NOTE | 2017-03-16 11:59 | PN ---
Progress Note, Physician Chief Complaint: Mrs Hampton is without complaint today. No cp, sob, n/v. - Current Medication List Current Medications: Active Medications Acetaminophen (Tylenol -) 650 mg PO Q6H PRN PRN Reason: FEVER OR PAIN Last Admin: 03/11/17 21:54 Dose: 650 mg Amlodipine Besylate (Norvasc -) 10 mg PO DAILY [facility] Last Admin: 03/16/17 11:15 Dose: 10 mg Atorvastatin Calcium (Lipitor -) 20 mg PO HS [facility] Last Admin: 03/15/17 21:30 Dose: 20 mg Carvedilol (Coreg -) 25 mg PO BID [facility] Last Admin: 03/16/17 11:15 Dose: 25 mg Clonidine HCl (Catapres Tts Patch -) 0.3 mg TD Q7D@1000 [facility] Last Admin: 03/11/17 11:15 Dose: 0.3 mg Docusate Sodium (Colace -) 300 mg PO HS [facility] Last Admin: 03/15/17 21:30 Dose: 300 mg Donepezil HCl (Aricept -) 5 mg PO DAILY [facility] Last Admin: 03/16/17 11:15 Dose: 5 mg Duloxetine HCl (Cymbalta -) 30 mg PO DAILY [facility] Last Admin: 03/16/17 11:15 Dose: 30 mg Enoxaparin Sodium (Lovenox -) 40 mg SQ DAILY [facility] Last Admin: 03/16/17 11:16 Dose: 40 mg Furosemide (Lasix -) 40 mg PO DAILY [facility] Last Admin: 03/16/17 11:15 Dose: 40 mg Metronidazole (Flagyl 500mg Premixed Ivpb -) 100 mls @ 100 mls/hr IVPB Q8H-IV [facility] Last Admin: 03/16/17 11:15 Dose: 100 mls/hr Insulin Aspart (Novolog Vial Sliding Scale -) 1 vial SQ ACHS [facility] PRN Reason: Protocol Last Admin: 03/16/17 05:59 Dose: Not Given Insulin Detemir (Levemir Vial) 10 units SQ BID [facility] Last Admin: 03/16/17 11:17 Dose: 10 units Isosorbide Mononitrate (Imdur -) 60 mg PO HS [facility] Last Admin: 03/15/17 21:30 Dose: 60 mg Metoclopramide HCl (Reglan -) 5 mg PO TIDAC [facility] Last Admin: 03/16/17 11:15 Dose: 5 mg Ondansetron HCl (Zofran -) 4 mg PO Q8H PRN PRN Reason: NAUSEA Pantoprazole Sodium (Protonix -) 40 mg PO DAILY [facility] Last Admin: 03/16/17 11:15 Dose: 40 mg Potassium Phos/Sodium Phos (Phos-Nak Packet -) 1 packet PO BID [facility] Last Admin: 03/16/17 11:16 Dose: 1 packet Ranolazine (Ranexa -) 500 mg PO BID [facility] Last Admin: 03/16/17 11:16 Dose: 500 mg - Objective Vital Signs: Vital Signs Temperature 98.2 F 03/16/17 05:43 Pulse Rate 66 03/16/17 05:43 Respiratory Rate 18 03/16/17 05:43 Blood Pressure 150/67 03/16/17 05:43 O2 Sat by Pulse Oximetry (%) 96 03/15/17 21:00 Constitutional: Yes: Well Nourished, No Distress, Calm Cardiovascular: Yes: Regular Rate and Rhythm. No: Gallop, Murmur, Rub Respiratory: Yes: Regular, CTA Bilaterally. No: Rales, Rhonchi, Wheezes Gastrointestinal: Yes: Normal Bowel Sounds, Soft. No: Distention, Tenderness Extremities: Yes: WNL Edema: No Labs: CBC, BMP 03/16/17 06:50 03/16/17 06:50 INR, PTT INR 1.09 (0.82-1.09) 03/06/17 07:00 Problem List - Problems (1) Gram-negative bacteremia Code(s): R78.81 - BACTEREMIA (2) UTI (urinary tract infection) Code(s): N39.0 - URINARY TRACT INFECTION, SITE NOT SPECIFIED Qualifiers: Urinary tract infection type: site unspecified Hematuria presence: without hematuria Qualified Code(s): N39.0 - Urinary tract infection, site not specified (3) COPD (chronic obstructive pulmonary disease) Code(s): J44.9 - CHRONIC OBSTRUCTIVE PULMONARY DISEASE, UNSPECIFIED (4) Hyperlipidemia Code(s): E78.5 - HYPERLIPIDEMIA, UNSPECIFIED (5) Hypertension Code(s): I10 - ESSENTIAL (PRIMARY) HYPERTENSION (6) Diabetes Code(s): E11.9 - TYPE 2 DIABETES MELLITUS WITHOUT COMPLICATIONS Qualifiers: Diabetes mellitus type: type 2 Diabetes mellitus complication status: without complication Diabetes mellitus 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-term insulin 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: with 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 Qualified Code(s): E11.9 - Type 2 diabetes mellitus without complications (7) CHF (congestive heart failure) Code(s): I50.9 - HEART FAILURE, UNSPECIFIED Qualifiers: Congestive heart failure type: systolic Congestive heart failure chronicity: chronic Qualified Code(s): I50.22 - Chronic systolic ( congestive) heart failure (8) Gastroparesis Code(s): K31.84 - GASTROPARESIS Assessment/Plan (1) Gram-negative bacteremia Assessment/Plan: -repeat cultures negative Code(s): R78.81 - BACTEREMIA (2) UTI (urinary tract infection) Assessment/Plan: -cultures currently negative Code(s): N39.0 - URINARY TRACT INFECTION, SITE NOT SPECIFIED Qualifiers: Urinary tract infection type: site unspecified Hematuria presence: without hematuria Qualified Code(s): N39.0 - Urinary tract infection, site not specified (3) COPD (chronic obstructive pulmonary disease) Assessment/Plan: -not in exacerbation -continue albuterol Code(s): J44.9 - CHRONIC OBSTRUCTIVE PULMONARY DISEASE, UNSPECIFIED (4) Hyperlipidemia Assessment/Plan: -continue lipitor Code(s): E78.5 - HYPERLIPIDEMIA, UNSPECIFIED (5) Hypertension Assessment/Plan: -controlled today -continue current management -if SBP elevates above 159, will add another agent Code(s): I10 - ESSENTIAL (PRIMARY) HYPERTENSION (6) Diabetes Assessment/Plan: -continue levemir and SSI -controlled Code(s): E11.9 - TYPE 2 DIABETES MELLITUS WITHOUT COMPLICATIONS Qualifiers: Diabetes mellitus type: type 2 Diabetes mellitus complication status: without complication Diabetes mellitus long-term insulin use: with long-term use Qualified Code(s): E11.9 - Type 2 diabetes mellitus without complications (7) CHF (congestive heart failure) Assessment/Plan: -continue lasix Code(s): I50.9 - HEART FAILURE, UNSPECIFIED Qualifiers: Congestive heart failure type: systolic Congestive heart failure chronicity: chronic Qualified Code(s): I50.22 - Chronic systolic ( congestive) heart failure (8) Gastroparesis Assessment/Plan: -tolerating soft diet Code(s): K31.84 - GASTROPARESIS (9) Thrush -fully treated (10) Leukocytosis -remains elevated, but unclear source -possible leukomoid reaction -continue IV flagyl -ID following
[2017-03-16] MEDS ORDERED: INSULIN (NOVOLOG) ASPART 100 UNITS/ML 10ML VIAL ONE (12:06)
[2017-03-16 12:23] LABS: METAMYELOCYTE 1 % (0-2); PLATELET ESTIMATE ADEQUATE (NORMAL)
[2017-03-16 12:29] LABS: HYPOCHROMIA 2+; TARGET CELLS 1+
[2017-03-16] MEDS ORDERED: MAGNESIUM SULF 50% (8.12 MEQ/2 ML-1 GM VIAL) IVPB ONE (12:30)
--- NOTE | 2017-03-16 14:24 | PN ---
Progress Note, Physician History of Present Illness: clinically patient is doing well no new issues - Current Medication List Current Medications: Active Medications Acetaminophen (Tylenol -) 650 mg PO Q6H PRN PRN Reason: FEVER OR PAIN Last Admin: 03/11/17 21:54 Dose: 650 mg Amlodipine Besylate (Norvasc -) 10 mg PO DAILY [facility] Last Admin: 03/16/17 11:15 Dose: 10 mg Atorvastatin Calcium (Lipitor -) 20 mg PO HS [facility] Last Admin: 03/15/17 21:30 Dose: 20 mg Carvedilol (Coreg -) 25 mg PO BID [facility] Last Admin: 03/16/17 11:15 Dose: 25 mg Clonidine HCl (Catapres Tts Patch -) 0.3 mg TD Q7D@1000 [facility] Last Admin: 03/11/17 11:15 Dose: 0.3 mg Docusate Sodium (Colace -) 300 mg PO HS [facility] Last Admin: 03/15/17 21:30 Dose: 300 mg Donepezil HCl (Aricept -) 5 mg PO DAILY [facility] Last Admin: 03/16/17 11:15 Dose: 5 mg Duloxetine HCl (Cymbalta -) 30 mg PO DAILY [facility] Last Admin: 03/16/17 11:15 Dose: 30 mg Enoxaparin Sodium (Lovenox -) 40 mg SQ DAILY [facility] Last Admin: 03/16/17 11:16 Dose: 40 mg Furosemide (Lasix -) 40 mg PO DAILY [facility] Last Admin: 03/16/17 11:15 Dose: 40 mg Metronidazole (Flagyl 500mg Premixed Ivpb -) 100 mls @ 100 mls/hr IVPB Q8H-IV [facility] Last Admin: 03/16/17 11:15 Dose: 100 mls/hr Insulin Aspart (Novolog Vial Sliding Scale -) 1 vial SQ ACHS [facility] PRN Reason: Protocol Last Admin: 03/16/17 12:24 Dose: 2 units Insulin Detemir (Levemir Vial) 10 units SQ BID [facility] Last Admin: 03/16/17 11:17 Dose: 10 units Isosorbide Mononitrate (Imdur -) 60 mg PO HS [facility] Last Admin: 03/15/17 21:30 Dose: 60 mg Metoclopramide HCl (Reglan -) 5 mg PO TIDAC [facility] Last Admin: 03/16/17 11:15 Dose: 5 mg Ondansetron HCl (Zofran -) 4 mg PO Q8H PRN PRN Reason: NAUSEA Pantoprazole Sodium (Protonix -) 40 mg PO DAILY [facility] Last Admin: 03/16/17 11:15 Dose: 40 mg Potassium Phos/Sodium Phos (Phos-Nak Packet -) 1 packet PO BID [facility] Last Admin: 03/16/17 11:16 Dose: 1 packet Ranolazine (Ranexa -) 500 mg PO BID [facility] Last Admin: 03/16/17 11:16 Dose: 500 mg - Objective Vital Signs: Vital Signs Temperature 98.2 F 03/16/17 05:43 Pulse Rate 66 03/16/17 05:43 Respiratory Rate 18 03/16/17 05:43 Blood Pressure 150/67 03/16/17 05:43 O2 Sat by Pulse Oximetry (%) 96 03/15/17 21:00 Constitutional: Yes: No Distress, Calm Cardiovascular: Yes: Regular Rate and Rhythm Respiratory: Yes: Regular, CTA Bilaterally Gastrointestinal: Yes: Soft Musculoskeletal: Yes: WNL Extremities: Yes: WNL Neurological: Yes: Alert, Oriented Psychiatric: Yes: Alert, Oriented Labs: CBC, BMP 03/16/17 06:50 03/16/17 06:50 INR, PTT INR 1.09 (0.82-1.09) 03/06/17 07:00 Assessment/Plan uti bacteremia gm negative frequency fever ams leukocytosis sepsis improving plan continue current mgmt patients high wbc might be leukmoid reaction clinically patient is stable rest as per primary if patients wbc remains stable then can switch to oral flagyl for couple of days
[2017-03-16] MEDS: DOCUSATE SODIUM 100 MG CAPSULE (FP) PO SCH (21:21)
[2017-03-16] MEDS: ATORVASTATIN CA 20 MG TABLET (FP) PO SCH (21:21)
[2017-03-16] MEDS: ISOSORBIDE MONONITRATE 60 MG TAB.SR.24H (FP) PO SCH (21:22)
[2017-03-17] MEDS: METRONIDAZOLE 500 MG PREMIXED 100 ML IVPB SCH ×3 (02:39→17:26)
[2017-03-17] MEDS: INSULIN SLIDING SCALE (NOVOLOG) 1 VIAL SQ SCH ×4 (06:12→21:46)
[2017-03-17] MEDS: METOCLOPRAMIDE HCL 10 MG TABLET (FP) PO SCH ×3 (06:23→17:26)
--- NOTE | 2017-03-17 08:35 | PN ---
Progress Note (short form) - Note Progress Note: PATIENT RESTING COMFORTABLY IN BED . IN NO DISTRESS / ON I.V AB. ID FOLLOWUP APPRECIATED ++[email or web address] . Selected Entries 03/17/17 06:00 Temperature 98.6 F Pulse Rate 71 Respiratory 18 Rate Blood Pressure 145/67 Blood Pressure 93 Mean Laboratory Tests 03/16/17 03/16/17 03/17/17 06:50 06:50 06:11 WBC 18.1 H RBC 6.18 H Hgb 13.5 Hct 43.3 Plt Count 409 Sodium 141 Potassium 4.1 Chloride 102 Carbon Dioxide 32 Anion Gap 7 L BUN 10 Creatinine 0.6 POC Glucometer 143 Calcium 8.8 Phosphorus 2.5 Magnesium 1.5 L P/E <> AWAKE / NO DISTRESS HEENT <> NECK SUPPLE / CAROTIDS 2 + COR <> S 1 S 2 NO M / NO G CHEST <> FEW SCATTERED RHONCHI ABD <> SOFT NONTENDER EXT <> NO CALF TENDERNESS. IMP : UTI COPD HTN HYPERLIPIDEMIA DIABETES CHF ASHD LEUKOCYTOSIS PLAN : CONTINUE IV AB PER ID FOLLOW LABS. MONITOR CBC . MONITOR LYTES. CONTINUE CARDIAC MEDS. MONITOR BGMS. NO CHANGE IN MEDS.
[2017-03-17 09:04] LABS: BASOPHIL 0.6 % (0-2.0); EOSINOPHIL 0.3 % (0-4.5); MCH 21.8 pg (25.7-33.7); MCHC 31.2 g/dl (32.0-36.0); MEAN PLT VOLUME 10.2 fl (7.5-11.1); NEUTROPHILS 76.4 % (42.8-82.8); PLATELET COUNT 441 K/MM3 (134-434); RDW 18.2 % (11.6-15.6); WHITE BLOOD COUNT 14.7 K/mm3 (4.0-10.0)
[2017-03-17 09:28] LABS: ANION GAP 7 (8-16); CALCIUM 8.8 mg/dL (8.5-10.1); CO2 32 mmol/L (21-32); GLUCOSE,RANDOM 213 mg/dL (74-106); MAGNESIUM 1.8 mg/dL (1.8-2.4)
[2017-03-17 09:29] LABS: CREATININE 0.6 mg/dL (0.55-1.02)
[2017-03-17] MEDS: amLODIPine BESYLATE 10 MG TABLET (FP) PO SCH (10:22)
[2017-03-17] MEDS: RANOLAZINE E.R. 500 MG TABLET (FP) PO SCH ×2 (10:22→21:45)
[2017-03-17] MEDS: FUROSEMIDE 40 MG TABLET (FP) PO SCH (10:22)
[2017-03-17] MEDS: PANTOPRAZOLE 40 MG TABLET (FP) PO SCH (10:22)
[2017-03-17] MEDS: DONEPEZIL HCL 5 MG TABLET (FP) PO SCH (10:22)
[2017-03-17] MEDS: DULoxetine HCL 30 MG CAPSULE.DR (FP) PO SCH (10:22)
[2017-03-17] MEDS: INSULIN DETEMIR 100 UNITS/ML MDV SQ SCH ×2 (10:23→21:46)
[2017-03-17] MEDS: NAPH,MB-DB/K PH,MBDB POWDER PACKET PO SCH ×2 (10:23→21:47)
[2017-03-17] MEDS: ENOXAPARIN NA (PORCINE) 40 MG/0.4 ML DISP.SYRIN SQ SCH (10:26)
[2017-03-17] MEDS: CARVEDILOL 25 MG TABLET (FP) PO SCH ×2 (10:27→21:45)
[2017-03-17] MEDS ORDERED: INSULIN DETEMIR 100 UNITS/ML MDV SQ ONE (10:35)
[2017-03-17] MEDS ORDERED: INSULIN (NOVOLOG) ASPART 100 UNITS/ML 10ML VIAL ONE (17:20)
--- NOTE | 2017-03-17 17:25 | PN ---
Progress Note, Physician History of Present Illness: stable awake and doing well wbc has decreased - Current Medication List Current Medications: Active Medications Acetaminophen (Tylenol -) 650 mg PO Q6H PRN PRN Reason: FEVER OR PAIN Last Admin: 03/11/17 21:54 Dose: 650 mg Amlodipine Besylate (Norvasc -) 10 mg PO DAILY [facility] Last Admin: 03/17/17 10:22 Dose: 10 mg Atorvastatin Calcium (Lipitor -) 20 mg PO HS [facility] Last Admin: 03/16/17 21:21 Dose: 20 mg Carvedilol (Coreg -) 25 mg PO BID [facility] Last Admin: 03/17/17 10:27 Dose: 25 mg Clonidine HCl (Catapres Tts Patch -) 0.3 mg TD Q7D@1000 [facility] Last Admin: 03/11/17 11:15 Dose: 0.3 mg Docusate Sodium (Colace -) 300 mg PO HS [facility] Last Admin: 03/16/17 21:21 Dose: 300 mg Donepezil HCl (Aricept -) 5 mg PO DAILY [facility] Last Admin: 03/17/17 10:22 Dose: 5 mg Duloxetine HCl (Cymbalta -) 30 mg PO DAILY [facility] Last Admin: 03/17/17 10:22 Dose: 30 mg Enoxaparin Sodium (Lovenox -) 40 mg SQ DAILY [facility] Last Admin: 03/17/17 10:26 Dose: 40 mg Furosemide (Lasix -) 40 mg PO DAILY [facility] Last Admin: 03/17/17 10:22 Dose: 40 mg Metronidazole (Flagyl 500mg Premixed Ivpb -) 100 mls @ 100 mls/hr IVPB Q8H-IV [facility] Last Admin: 03/17/17 10:22 Dose: 100 mls/hr Insulin Aspart (Novolog Vial Sliding Scale -) 1 vial SQ ACHS [facility] PRN Reason: Protocol Last Admin: 03/17/17 11:30 Dose: 4 units Insulin Detemir (Levemir Vial) 10 units SQ BID [facility] Last Admin: 03/17/17 10:23 Dose: 10 units Isosorbide Mononitrate (Imdur -) 60 mg PO HS [facility] Last Admin: 03/16/17 21:22 Dose: 60 mg Metoclopramide HCl (Reglan -) 5 mg PO TIDAC [facility] Last Admin: 03/17/17 10:22 Dose: 5 mg Ondansetron HCl (Zofran -) 4 mg PO Q8H PRN PRN Reason: NAUSEA Pantoprazole Sodium (Protonix -) 40 mg PO DAILY [facility] Last Admin: 03/17/17 10:22 Dose: 40 mg Potassium Phos/Sodium Phos (Phos-Nak Packet -) 1 packet PO BID [facility] Last Admin: 03/17/17 10:23 Dose: 1 packet Ranolazine (Ranexa -) 500 mg PO BID [facility] Last Admin: 03/17/17 10:22 Dose: 500 mg - Objective Vital Signs: Vital Signs Temperature 98.3 F 03/17/17 15:48 Pulse Rate 75 03/17/17 15:48 Respiratory Rate 18 03/17/17 15:48 Blood Pressure 120/64 03/17/17 15:48 O2 Sat by Pulse Oximetry (%) 98 03/17/17 09:00 Constitutional: Yes: No Distress, Calm Cardiovascular: Yes: Regular Rate and Rhythm Respiratory: Yes: Regular, CTA Bilaterally Gastrointestinal: Yes: Normal Bowel Sounds, Soft Musculoskeletal: Yes: WNL Extremities: Yes: Other Edema: LLE: Trace, RLE: Trace Neurological: Yes: Alert, Oriented Psychiatric: Yes: Alert, Oriented Labs: CBC, BMP 03/17/17 07:45 03/17/17 07:45 INR, PTT INR 1.09 (0.82-1.09) 03/06/17 07:00 Assessment/Plan uti bacteremia gm negative frequency fever ams leukocytosis sepsis improving plan wbc trending down continue current mgmt
[2017-03-17] MEDS: ATORVASTATIN CA 20 MG TABLET (FP) PO SCH (21:45)
[2017-03-17] MEDS: DOCUSATE SODIUM 100 MG CAPSULE (FP) PO SCH (21:45)
[2017-03-17] MEDS: ISOSORBIDE MONONITRATE 60 MG TAB.SR.24H (FP) PO SCH (21:45)
[2017-03-18] MEDS: METRONIDAZOLE 500 MG PREMIXED 100 ML IVPB SCH ×3 (01:50→18:05)
[2017-03-18] MEDS: INSULIN SLIDING SCALE (NOVOLOG) 1 VIAL SQ SCH ×4 (06:19→21:53)
[2017-03-18] MEDS: METOCLOPRAMIDE HCL 10 MG TABLET (FP) PO SCH ×3 (06:19→18:07)
--- NOTE | 2017-03-18 08:32 | PN ---
Progress Note (short form) - Note Progress Note: PATIENT EATING BREAKFAST . COMFORTABLE . DENIES ANY CP / SOB / ABDOMINAL PAIN. Selected Entries Selected Entries 03/18/17 06:00 Temperature 98.3 F Pulse Rate 69 Respiratory 16 Rate Blood Pressure 151/73 Weight 138 lb 1.6 oz Laboratory Tests P/E <> ALERT / NO RESPIRATORY / NO CARDIAC DISTRESS HEENT <> NECK SUPPLE / CAROTIDS 2 + / NO BRUITS. COR <> S 1 S 2 NO MURMURS / NO GALLOPS / NSR. CHEST <> CLEAR P & A . ABD <> SOFT NONTENDER EXT <> NO CALF TENDERNESS / NO STASIS EDEMA. IMP : UTI LEUKOCYTOSIS COPD HTN HYPERLIPIDEMIA DIABETES CHF ASHD PLAN : PER I.D. <> I.V. FLAGYL CBC PENDING . YESTERDAY WBC DOWN 14 . CARDIAC STABLE <> SAME MEDS. CONTINUE TO MONITOR BGMS.
[2017-03-18 08:39] LABS: MCH 22.1 pg (25.7-33.7); MCHC 31.4 g/dl (32.0-36.0); MEAN CELL VOLUME 70.4 fl (80-96); MEAN PLT VOLUME 9.9 fl (7.5-11.1); PLATELET COUNT 410 K/MM3 (134-434); RDW 18.7 % (11.6-15.6); WHITE BLOOD COUNT 14.2 K/mm3 (4.0-10.0)
[2017-03-18 09:07] LABS: ALBUMIN 1.7 g/dl (3.4-5.0); ALK PHOS 80 U/L (45-117); ANION GAP 7 (8-16); BILIRUBIN,TOTAL 0.2 mg/dL (0.2-1.0); CALCIUM 8.6 mg/dL (8.5-10.1); CO2 32 mmol/L (21-32); CREATININE 0.6 mg/dL (0.55-1.02); GLUCOSE,RANDOM 114 mg/dL (74-106); SGOT/AST 16 U/L (15-37); SGPT/ALT 10 U/L (12-78); TOT PROT 5.5 g/dl (6.4-8.2)
[2017-03-18] MEDS: CARVEDILOL 25 MG TABLET (FP) PO SCH ×2 (10:19→21:56)
[2017-03-18] MEDS: PANTOPRAZOLE 40 MG TABLET (FP) PO SCH (10:19)
[2017-03-18] MEDS: amLODIPine BESYLATE 10 MG TABLET (FP) PO SCH (10:20)
[2017-03-18] MEDS: DONEPEZIL HCL 5 MG TABLET (FP) PO SCH (10:20)
[2017-03-18] MEDS: INSULIN DETEMIR 100 UNITS/ML MDV SQ SCH ×2 (10:20→21:54)
[2017-03-18] MEDS: FUROSEMIDE 40 MG TABLET (FP) PO SCH (10:22)
[2017-03-18] MEDS: ENOXAPARIN NA (PORCINE) 40 MG/0.4 ML DISP.SYRIN SQ SCH (10:22)
[2017-03-18] MEDS: NAPH,MB-DB/K PH,MBDB POWDER PACKET PO SCH ×2 (10:23→21:56)
[2017-03-18] MEDS: DULoxetine HCL 30 MG CAPSULE.DR (FP) PO SCH (10:24)
[2017-03-18] MEDS: RANOLAZINE E.R. 500 MG TABLET (FP) PO SCH ×2 (10:26→21:56)
[2017-03-18 11:08] LABS: PLATELET ESTIMATE ADEQUATE (NORMAL)
[2017-03-18] MEDS: cloNIDine-TTS 0.3 MG /24 HRS PATCH.TDWK TD SCH (12:39)
--- NOTE | 2017-03-18 16:21 | PN ---
Progress Note, Physician History of Present Illness: patient doing well awake and alert daughter in room - Current Medication List Current Medications: Active Medications Acetaminophen (Tylenol -) 650 mg PO Q6H PRN PRN Reason: FEVER OR PAIN Last Admin: 03/11/17 21:54 Dose: 650 mg Amlodipine Besylate (Norvasc -) 10 mg PO DAILY [facility] Last Admin: 03/18/17 10:20 Dose: 10 mg Atorvastatin Calcium (Lipitor -) 20 mg PO HS [facility] Last Admin: 03/17/17 21:45 Dose: 20 mg Carvedilol (Coreg -) 25 mg PO BID [facility] Last Admin: 03/18/17 10:19 Dose: 25 mg Clonidine HCl (Catapres Tts Patch -) 0.3 mg TD Q7D@1000 [facility] Last Admin: 03/18/17 12:39 Dose: 0.3 mg Docusate Sodium (Colace -) 300 mg PO HS [facility] Last Admin: 03/17/17 21:45 Dose: 300 mg Donepezil HCl (Aricept -) 5 mg PO DAILY [facility] Last Admin: 03/18/17 10:20 Dose: 5 mg Duloxetine HCl (Cymbalta -) 30 mg PO DAILY [facility] Last Admin: 03/18/17 10:24 Dose: 30 mg Enoxaparin Sodium (Lovenox -) 40 mg SQ DAILY [facility] Last Admin: 03/18/17 10:22 Dose: 40 mg Furosemide (Lasix -) 40 mg PO DAILY [facility] Last Admin: 03/18/17 10:22 Dose: 40 mg Metronidazole (Flagyl 500mg Premixed Ivpb -) 100 mls @ 100 mls/hr IVPB Q8H-IV [facility] Last Admin: 03/18/17 10:20 Dose: 100 mls/hr Insulin Aspart (Novolog Vial Sliding Scale -) 1 vial SQ ACHS [facility] PRN Reason: Protocol Last Admin: 03/18/17 12:40 Dose: 4 units Insulin Detemir (Levemir Vial) 10 units SQ BID [facility] Last Admin: 03/18/17 10:20 Dose: 10 units Isosorbide Mononitrate (Imdur -) 60 mg PO HS [facility] Last Admin: 03/17/17 21:45 Dose: 60 mg Metoclopramide HCl (Reglan -) 5 mg PO TIDAC [facility] Last Admin: 03/18/17 10:19 Dose: 5 mg Ondansetron HCl (Zofran -) 4 mg PO Q8H PRN PRN Reason: NAUSEA Pantoprazole Sodium (Protonix -) 40 mg PO DAILY [facility] Last Admin: 03/18/17 10:19 Dose: 40 mg Potassium Phos/Sodium Phos (Phos-Nak Packet -) 1 packet PO BID [facility] Last Admin: 03/18/17 10:23 Dose: 1 packet Ranolazine (Ranexa -) 500 mg PO BID [facility] Last Admin: 03/18/17 10:26 Dose: 500 mg - Objective Vital Signs: Vital Signs Temperature 98.1 F 03/18/17 14:54 Pulse Rate 70 03/18/17 14:54 Respiratory Rate 16 03/18/17 14:54 Blood Pressure 152/65 03/18/17 14:54 O2 Sat by Pulse Oximetry (%) 98 03/18/17 09:00 Constitutional: Yes: No Distress, Calm Cardiovascular: Yes: Regular Rate and Rhythm Respiratory: Yes: Regular, CTA Bilaterally Gastrointestinal: Yes: Normal Bowel Sounds, Soft Musculoskeletal: Yes: WNL Extremities: Yes: Other Edema: LLE: Trace, RLE: Trace Integumentary: Yes: WNL Neurological: Yes: Alert, Oriented Psychiatric: Yes: Alert Labs: CBC, BMP 03/18/17 07:50 03/18/17 06:30 INR, PTT INR 1.09 (0.82-1.09) 03/06/17 07:00 Assessment/Plan uti bacteremia gm negative frequency fever ams leukocytosis sepsis improving plan wbc trending down we can switch to oral falgyl when ready to discharge i will give her a total of 14 days of flagyl orally we will continue to monitor wbc physio
[2017-03-18] MEDS: DOCUSATE SODIUM 100 MG CAPSULE (FP) PO SCH (21:56)
[2017-03-18] MEDS: ISOSORBIDE MONONITRATE 60 MG TAB.SR.24H (FP) PO SCH (21:56)
[2017-03-18] MEDS: ATORVASTATIN CA 20 MG TABLET (FP) PO SCH (21:56)
[2017-03-18] MEDS ORDERED: NYSTATIN 100,000 UNIT/GM TOPICAL CREAM 15 GM TUBE TP SCH (23:45)
[2017-03-19] MEDS: METRONIDAZOLE 500 MG PREMIXED 100 ML IVPB SCH ×3 (01:40→18:06)
[2017-03-19] MEDS: METOCLOPRAMIDE HCL 10 MG TABLET (FP) PO SCH ×3 (06:08→17:20)
[2017-03-19] MEDS: INSULIN SLIDING SCALE (NOVOLOG) 1 VIAL SQ SCH ×4 (06:08→21:19)
[2017-03-19] MEDS: NYSTATIN 100,000 UNIT/GM TOPICAL CREAM 15 GM TUBE TP SCH ×2 (11:19→21:20)
[2017-03-19] MEDS: FUROSEMIDE 40 MG TABLET (FP) PO SCH (11:32)
[2017-03-19] MEDS: amLODIPine BESYLATE 10 MG TABLET (FP) PO SCH (11:33)
[2017-03-19] MEDS: PANTOPRAZOLE 40 MG TABLET (FP) PO SCH (11:33)
[2017-03-19] MEDS: DULoxetine HCL 30 MG CAPSULE.DR (FP) PO SCH (11:33)
[2017-03-19] MEDS: RANOLAZINE E.R. 500 MG TABLET (FP) PO SCH ×2 (11:33→21:19)
[2017-03-19] MEDS: DONEPEZIL HCL 5 MG TABLET (FP) PO SCH (11:33)
[2017-03-19] MEDS: CARVEDILOL 25 MG TABLET (FP) PO SCH ×2 (11:33→21:19)
[2017-03-19] MEDS: ENOXAPARIN NA (PORCINE) 40 MG/0.4 ML DISP.SYRIN SQ SCH (11:34)
[2017-03-19] MEDS: INSULIN DETEMIR 100 UNITS/ML MDV SQ SCH ×2 (11:34→21:19)
[2017-03-19] MEDS: NAPH,MB-DB/K PH,MBDB POWDER PACKET PO SCH ×2 (11:35→21:19)
[2017-03-19] MEDS ORDERED: INSULIN (NOVOLOG) ASPART 100 UNITS/ML 10ML VIAL ONE (11:39)
--- NOTE | 2017-03-19 13:41 | PN ---
Progress Note, Physician Chief Complaint: Mrs Hampton is without complaint today. No cp, sob, n/v. - Current Medication List Current Medications: Active Medications Acetaminophen (Tylenol -) 650 mg PO Q6H PRN PRN Reason: FEVER OR PAIN Last Admin: 03/11/17 21:54 Dose: 650 mg Amlodipine Besylate (Norvasc -) 10 mg PO DAILY [facility] Last Admin: 03/19/17 11:33 Dose: 10 mg Atorvastatin Calcium (Lipitor -) 20 mg PO HS [facility] Last Admin: 03/18/17 21:56 Dose: 20 mg Carvedilol (Coreg -) 25 mg PO BID [facility] Last Admin: 03/19/17 11:33 Dose: 25 mg Clonidine HCl (Catapres Tts Patch -) 0.3 mg TD Q7D@1000 [facility] Last Admin: 03/18/17 12:39 Dose: 0.3 mg Docusate Sodium (Colace -) 300 mg PO HS [facility] Last Admin: 03/18/17 21:56 Dose: 300 mg Donepezil HCl (Aricept -) 5 mg PO DAILY [facility] Last Admin: 03/19/17 11:33 Dose: 5 mg Duloxetine HCl (Cymbalta -) 30 mg PO DAILY [facility] Last Admin: 03/19/17 11:33 Dose: 30 mg Enoxaparin Sodium (Lovenox -) 40 mg SQ DAILY [facility] Last Admin: 03/19/17 11:34 Dose: 40 mg Furosemide (Lasix -) 40 mg PO DAILY [facility] Last Admin: 03/19/17 11:32 Dose: 40 mg Metronidazole (Flagyl 500mg Premixed Ivpb -) 100 mls @ 100 mls/hr IVPB Q8H-IV [facility] Last Admin: 03/19/17 11:34 Dose: 100 mls/hr Insulin Aspart (Novolog Vial Sliding Scale -) 1 vial SQ ACHS [facility] PRN Reason: Protocol Last Admin: 03/19/17 11:51 Dose: 2 units Insulin Detemir (Levemir Vial) 10 units SQ BID [facility] Last Admin: 03/19/17 11:34 Dose: 10 units Isosorbide Mononitrate (Imdur -) 60 mg PO HS [facility] Last Admin: 03/18/17 21:56 Dose: 60 mg Metoclopramide HCl (Reglan -) 5 mg PO TIDAC [facility] Last Admin: 03/19/17 11:33 Dose: 5 mg Nystatin (Mycostatin Cream -) 1 applic TP BID [facility] Ondansetron HCl (Zofran -) 4 mg PO Q8H PRN PRN Reason: NAUSEA Pantoprazole Sodium (Protonix -) 40 mg PO DAILY [facility] Last Admin: 03/19/17 11:33 Dose: 40 mg Potassium Phos/Sodium Phos (Phos-Nak Packet -) 1 packet PO BID [facility] Last Admin: 03/19/17 11:35 Dose: 1 packet Ranolazine (Ranexa -) 500 mg PO BID [facility] Last Admin: 03/19/17 11:33 Dose: 500 mg - Objective Vital Signs: Vital Signs Temperature 97.7 F 03/19/17 08:48 Pulse Rate 71 03/19/17 08:48 Respiratory Rate 16 03/19/17 08:48 Blood Pressure 197/71 03/19/17 08:48 O2 Sat by Pulse Oximetry (%) 96 03/18/17 21:00 Constitutional: Yes: Well Nourished, No Distress, Calm Cardiovascular: Yes: Regular Rate and Rhythm. No: Gallop, Murmur, Rub Respiratory: Yes: Regular, CTA Bilaterally. No: Rales, Rhonchi, Wheezes Gastrointestinal: Yes: Normal Bowel Sounds, Soft. No: Distention, Tenderness Extremities: Yes: WNL Edema: No Labs: CBC, BMP 03/18/17 07:50 03/18/17 06:30 INR, PTT INR 1.09 (0.82-1.09) 03/06/17 07:00 Problem List - Problems (1) Gram-negative bacteremia Code(s): R78.81 - BACTEREMIA (2) UTI (urinary tract infection) Code(s): N39.0 - URINARY TRACT INFECTION, SITE NOT SPECIFIED Qualifiers: Urinary tract infection type: site unspecified Hematuria presence: without hematuria Qualified Code(s): N39.0 - Urinary tract infection, site not specified (3) COPD (chronic obstructive pulmonary disease) Code(s): J44.9 - CHRONIC OBSTRUCTIVE PULMONARY DISEASE, UNSPECIFIED (4) Hyperlipidemia Code(s): E78.5 - HYPERLIPIDEMIA, UNSPECIFIED (5) Hypertension Code(s): I10 - ESSENTIAL (PRIMARY) HYPERTENSION (6) Diabetes Code(s): E11.9 - TYPE 2 DIABETES MELLITUS WITHOUT COMPLICATIONS Qualifiers: Diabetes mellitus type: type 2 Diabetes mellitus complication status: without complication Diabetes mellitus hyster driver insulin use: with hyster driver use Qualified Code(s): E11.9 - Type 2 diabetes mellitus without complications (7) CHF (congestive heart failure) Code(s): I50.9 - HEART FAILURE, UNSPECIFIED Qualifiers: Congestive heart failure type: systolic Congestive heart failure chronicity: chronic Qualified Code(s): I50.22 - Chronic systolic ( congestive) heart failure (8) Gastroparesis Code(s): K31.84 - GASTROPARESIS Assessment/Plan (1) Gram-negative bacteremia Assessment/Plan: -repeat cultures negative Code(s): R78.81 - BACTEREMIA (2) UTI (urinary tract infection) Assessment/Plan: -cultures currently negative Code(s): N39.0 - URINARY TRACT INFECTION, SITE NOT SPECIFIED Qualifiers: Urinary tract infection type: site unspecified Hematuria presence: without hematuria Qualified Code(s): N39.0 - Urinary tract infection, site not specified (3) COPD (chronic obstructive pulmonary disease) Assessment/Plan: -not in exacerbation -continue albuterol Code(s): J44.9 - CHRONIC OBSTRUCTIVE PULMONARY DISEASE, UNSPECIFIED (4) Hyperlipidemia Assessment/Plan: -continue lipitor Code(s): E78.5 - HYPERLIPIDEMIA, UNSPECIFIED (5) Hypertension Assessment/Plan: -elevated today -will change hypertensive medications to 0800 -if remains elevated, may need to add another agent Code(s): I10 - ESSENTIAL (PRIMARY) HYPERTENSION (6) Diabetes Assessment/Plan: -continue levemir and SSI -controlled Code(s): E11.9 - TYPE 2 DIABETES MELLITUS WITHOUT COMPLICATIONS Qualifiers: Diabetes mellitus type: type 2 Diabetes mellitus complication status: without complication Diabetes mellitus prison insulin use: with hyster driver use Qualified Code(s): E11.9 - Type 2 diabetes mellitus without complications (7) CHF (congestive heart failure) Assessment/Plan: -continue lasix Code(s): I50.9 - HEART FAILURE, UNSPECIFIED Qualifiers: Congestive heart failure type: systolic Congestive heart failure chronicity: chronic Qualified Code(s): I50.22 - Chronic systolic ( congestive) heart failure (8) Gastroparesis Assessment/Plan: -tolerating soft diet Code(s): K31.84 - GASTROPARESIS (9) Thrush -fully treated (10) Leukocytosis -case d/w ID -continue IV flagyl -plan to transition to oral when ready for discharge
--- NOTE | 2017-03-19 14:25 | PN ---
Progress Note, Physician History of Present Illness: patient says she does not feel as good as yesterday clinically stable - Current Medication List Current Medications: Active Medications Acetaminophen (Tylenol -) 650 mg PO Q6H PRN PRN Reason: FEVER OR PAIN Last Admin: 03/11/17 21:54 Dose: 650 mg Amlodipine Besylate (Norvasc -) 10 mg PO DAILY [facility] Last Admin: 03/19/17 11:33 Dose: 10 mg Atorvastatin Calcium (Lipitor -) 20 mg PO HS [facility] Last Admin: 03/18/17 21:56 Dose: 20 mg Carvedilol (Coreg -) 25 mg PO BID [facility] Last Admin: 03/19/17 11:33 Dose: 25 mg Clonidine HCl (Catapres Tts Patch -) 0.3 mg TD Q7D@1000 [facility] Last Admin: 03/18/17 12:39 Dose: 0.3 mg Docusate Sodium (Colace -) 300 mg PO HS [facility] Last Admin: 03/18/17 21:56 Dose: 300 mg Donepezil HCl (Aricept -) 5 mg PO DAILY [facility] Last Admin: 03/19/17 11:33 Dose: 5 mg Duloxetine HCl (Cymbalta -) 30 mg PO DAILY [facility] Last Admin: 03/19/17 11:33 Dose: 30 mg Enoxaparin Sodium (Lovenox -) 40 mg SQ DAILY [facility] Last Admin: 03/19/17 11:34 Dose: 40 mg Furosemide (Lasix -) 40 mg PO DAILY [facility] Last Admin: 03/19/17 11:32 Dose: 40 mg Metronidazole (Flagyl 500mg Premixed Ivpb -) 100 mls @ 100 mls/hr IVPB Q8H-IV [facility] Last Admin: 03/19/17 11:34 Dose: 100 mls/hr Insulin Aspart (Novolog Vial Sliding Scale -) 1 vial SQ ACHS [facility] PRN Reason: Protocol Last Admin: 03/19/17 11:51 Dose: 2 units Insulin Detemir (Levemir Vial) 10 units SQ BID [facility] Last Admin: 03/19/17 11:34 Dose: 10 units Isosorbide Mononitrate (Imdur -) 60 mg PO HS [facility] Last Admin: 03/18/17 21:56 Dose: 60 mg Metoclopramide HCl (Reglan -) 5 mg PO TIDAC [facility] Last Admin: 03/19/17 11:33 Dose: 5 mg Nystatin (Mycostatin Cream -) 1 applic TP BID [facility] Ondansetron HCl (Zofran -) 4 mg PO Q8H PRN PRN Reason: NAUSEA Pantoprazole Sodium (Protonix -) 40 mg PO DAILY [facility] Last Admin: 03/19/17 11:33 Dose: 40 mg Potassium Phos/Sodium Phos (Phos-Nak Packet -) 1 packet PO BID [facility] Last Admin: 03/19/17 11:35 Dose: 1 packet Ranolazine (Ranexa -) 500 mg PO BID [facility] Last Admin: 03/19/17 11:33 Dose: 500 mg - Objective Vital Signs: Vital Signs Temperature 97.7 F 03/19/17 08:48 Pulse Rate 71 03/19/17 08:48 Respiratory Rate 16 03/19/17 08:48 Blood Pressure 197/71 03/19/17 08:48 O2 Sat by Pulse Oximetry (%) 96 03/18/17 21:00 Constitutional: Yes: No Distress, Calm Cardiovascular: Yes: Regular Rate and Rhythm Respiratory: Yes: Regular, CTA Bilaterally Gastrointestinal: Yes: Normal Bowel Sounds, Soft Musculoskeletal: Yes: WNL Extremities: Yes: Other Neurological: Yes: Alert, Oriented Psychiatric: Yes: Alert, Oriented Labs: CBC, BMP 03/18/17 07:50 03/18/17 06:30 INR, PTT INR 1.09 (0.82-1.09) 03/06/17 07:00 Assessment/Plan uti bacteremia gm negative frequency fever ams leukocytosis sepsis improving plan continue current mgmt rest as per primary
[2017-03-19] MEDS: DOCUSATE SODIUM 100 MG CAPSULE (FP) PO SCH (21:18)
[2017-03-19] MEDS: ISOSORBIDE MONONITRATE 60 MG TAB.SR.24H (FP) PO SCH (21:19)
[2017-03-19] MEDS: ATORVASTATIN CA 20 MG TABLET (FP) PO SCH (21:19)
[2017-03-20] MEDS: METRONIDAZOLE 500 MG PREMIXED 100 ML IVPB SCH ×3 (01:12→17:15)
[2017-03-20] MEDS: METOCLOPRAMIDE HCL 10 MG TABLET (FP) PO SCH ×3 (06:08→16:44)
[2017-03-20] MEDS: INSULIN SLIDING SCALE (NOVOLOG) 1 VIAL SQ SCH ×4 (06:08→21:55)
[2017-03-20] MEDS ORDERED: INSULIN (NOVOLOG) ASPART 100 UNITS/ML 10ML VIAL ONE ×2 (06:32→11:54)
[2017-03-20 07:26] LABS: MCH 22.1 pg (25.7-33.7); MCHC 31.4 g/dl (32.0-36.0); MEAN CELL VOLUME 70.3 fl (80-96); MEAN PLT VOLUME 9.7 fl (7.5-11.1); PLATELET COUNT 397 K/MM3 (134-434); RDW 18.8 % (11.6-15.6); WHITE BLOOD COUNT 14.7 K/mm3 (4.0-10.0)
[2017-03-20 07:50] LABS: ANION GAP 9 (8-16); CALCIUM 8.5 mg/dL (8.5-10.1); CO2 30 mmol/L (21-32); GLUCOSE,RANDOM 112 mg/dL (74-106); MAGNESIUM 1.5 mg/dL (1.8-2.4)
[2017-03-20 07:51] LABS: CREATININE 0.6 mg/dL (0.55-1.02); PHOSPHOROUS 2.5 mg/dL (2.5-4.9)
--- NOTE | 2017-03-20 07:59 | PN ---
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 I.D NOTE APPRECIATED . SHE REMAINS ON IV FLAGYL WITH LEUKOCYTOSIS. Selected Entries Selected Entries 03/20/17 06:24 Temperature 98.5 F Pulse Rate 70 Respiratory 18 Rate Blood Pressure 132/77 Laboratory Tests 03/20/17 06:05 WBC 14.7 H RBC 5.81 H Hgb 12.8 Hct 40.8 Plt Count 397 Laboratory Tests P/E <> AWAKE / NO RESPIRATORY DISTRESS HEENT <> NECK SUPPLE / CAROTIDS 2 + COR <> S 1 S 2 NO M / NO G CHEST <>CLEAR P & A . ABD <> SOFT NONTENDER / NO REBOUND / NO GUARDING EXT <> NO CALF TENDERNESS. IMP : UTI COPD HTN HYPERLIPIDEMIA DIABETES CHF ASHD LEUKOCYTOSIS PLAN : CONTINUE IV FLAGYL PER I.D . FOLLOW CBC . CARDIAC STABLE . CONTINUE SAME CARDIAC MEDS.
[2017-03-20] MEDS ORDERED: MAGNESIUM SULF 50% (8.12 MEQ/2 ML-1 GM VIAL) IVPB ONE (09:00)
[2017-03-20] MEDS: PANTOPRAZOLE 40 MG TABLET (FP) PO SCH (10:22)
[2017-03-20] MEDS: FUROSEMIDE 40 MG TABLET (FP) PO SCH (10:22)
[2017-03-20] MEDS: RANOLAZINE E.R. 500 MG TABLET (FP) PO SCH ×2 (10:22→21:54)
[2017-03-20] MEDS: CARVEDILOL 25 MG TABLET (FP) PO SCH ×2 (10:22→21:54)
[2017-03-20] MEDS: DULoxetine HCL 30 MG CAPSULE.DR (FP) PO SCH (10:22)
[2017-03-20] MEDS: amLODIPine BESYLATE 10 MG TABLET (FP) PO SCH (10:22)
[2017-03-20] MEDS: DONEPEZIL HCL 5 MG TABLET (FP) PO SCH (10:23)
[2017-03-20] MEDS: INSULIN DETEMIR 100 UNITS/ML MDV SQ SCH ×2 (10:23→21:56)
[2017-03-20] MEDS: NAPH,MB-DB/K PH,MBDB POWDER PACKET PO SCH ×2 (10:23→21:54)
[2017-03-20] MEDS: ENOXAPARIN NA (PORCINE) 40 MG/0.4 ML DISP.SYRIN SQ SCH (11:42)
[2017-03-20] MEDS: NYSTATIN 100,000 UNIT/GM TOPICAL CREAM 15 GM TUBE TP SCH ×2 (11:42→21:56)
[2017-03-20 12:10] LABS: ANISOCYTOSIS 1+; METAMYELOCYTE 1 % (0-2); PLATELET COMMENT2 MOD GIANT PLTS; PLATELET ESTIMATE ADEQUATE (NORMAL)
[2017-03-20] MEDS: DOCUSATE SODIUM 100 MG CAPSULE (FP) PO SCH (21:54)
[2017-03-20] MEDS: ISOSORBIDE MONONITRATE 60 MG TAB.SR.24H (FP) PO SCH (21:54)
[2017-03-20] MEDS: ATORVASTATIN CA 20 MG TABLET (FP) PO SCH (21:54)
[2017-03-21] MEDS: METRONIDAZOLE 500 MG PREMIXED 100 ML IVPB SCH ×2 (01:25→10:52)
[2017-03-21] MEDS ORDERED: DEXTROSE 50%-WATER - 25 GM/50 ML VIAL IVPUSH ONE (05:42)
[2017-03-21] MEDS ORDERED: DEXTROSE 50%-WATER 50 ML DISP.SYRIN ONE (05:44)
--- NOTE | 2017-03-21 05:44 | HOSP ---
Subjective - Review of Symptoms Subjective: BS 44, No symtpoms Dextrose 50 IV push Physical Examination Vital Signs: Vital Signs Temperature 98.8 F 03/20/17 21:51 Pulse Rate 69 03/20/17 21:51 Respiratory Rate 20 03/20/17 21:51 Blood Pressure 170/75 03/20/17 21:51 O2 Sat by Pulse Oximetry (%) 96 03/20/17 21:00 Labs: CBC, BMP 03/20/17 06:05 03/20/17 06:05
[2017-03-21] MEDS: INSULIN SLIDING SCALE (NOVOLOG) 1 VIAL SQ SCH ×4 (06:05→22:19)
[2017-03-21] MEDS: METOCLOPRAMIDE HCL 10 MG TABLET (FP) PO SCH ×3 (06:06→17:00)
[2017-03-21] MEDS ORDERED: PT OWN MED DRAWER 7, Y5N ONE (10:35)
[2017-03-21] MEDS: INSULIN DETEMIR 100 UNITS/ML MDV SQ SCH ×2 (10:51→22:17)
[2017-03-21] MEDS: RANOLAZINE E.R. 500 MG TABLET (FP) PO SCH ×2 (10:52→22:16)
[2017-03-21] MEDS: CARVEDILOL 25 MG TABLET (FP) PO SCH ×2 (10:52→22:16)
[2017-03-21] MEDS: DONEPEZIL HCL 5 MG TABLET (FP) PO SCH (10:52)
[2017-03-21] MEDS: DULoxetine HCL 30 MG CAPSULE.DR (FP) PO SCH (10:52)
[2017-03-21] MEDS: NAPH,MB-DB/K PH,MBDB POWDER PACKET PO SCH ×2 (10:53→22:19)
[2017-03-21] MEDS: FUROSEMIDE 40 MG TABLET (FP) PO SCH (10:53)
[2017-03-21] MEDS: NYSTATIN 100,000 UNIT/GM TOPICAL CREAM 15 GM TUBE TP SCH ×2 (10:53→22:17)
[2017-03-21] MEDS: PANTOPRAZOLE 40 MG TABLET (FP) PO SCH (10:54)
--- NOTE | 2017-03-21 13:24 | PN ---
Progress Note, Physician Chief Complaint: Mrs Hampton says she is not feeling good today, hurting all over. Otherwise cannot give further subjective - Current Medication List Current Medications: Active Medications Acetaminophen (Tylenol -) 650 mg PO Q6H PRN PRN Reason: FEVER OR PAIN Last Admin: 03/11/17 21:54 Dose: 650 mg Amlodipine Besylate (Norvasc -) 10 mg PO DAILY [facility] Last Admin: 03/20/17 10:22 Dose: 10 mg Atorvastatin Calcium (Lipitor -) 20 mg PO HS [facility] Last Admin: 03/20/17 21:54 Dose: 20 mg Carvedilol (Coreg -) 25 mg PO BID [facility] Last Admin: 03/21/17 10:52 Dose: 25 mg Clonidine HCl (Catapres Tts Patch -) 0.3 mg TD Q7D@1000 [facility] Last Admin: 03/18/17 12:39 Dose: 0.3 mg Docusate Sodium (Colace -) 300 mg PO [facility] Last Admin: 03/20/17 21:54 Dose: 300 mg Donepezil HCl (Aricept -) 5 mg PO DAILY [facility] Last Admin: 03/21/17 10:52 Dose: 5 mg Duloxetine HCl (Cymbalta -) 30 mg PO DAILY [facility] Last Admin: 03/21/17 10:52 Dose: 30 mg Enoxaparin Sodium (Lovenox -) 40 mg SQ DAILY [facility] Last Admin: 03/20/17 11:42 Dose: 40 mg Furosemide (Lasix -) 40 mg PO DAILY [facility] Last Admin: 03/21/17 10:53 Dose: 40 mg Insulin Aspart (Novolog Vial Sliding Scale -) 1 vial SQ [facility] PRN Reason: Protocol Last Admin: 03/21/17 06:05 Dose: Not Given Insulin Detemir (Levemir Vial) 10 units SQ BID [facility] Last Admin: 03/21/17 10:51 Dose: 10 units Isosorbide Mononitrate (Imdur -) 60 mg PO [facility] Last Admin: 03/20/17 21:54 Dose: 60 mg Metoclopramide HCl (Reglan -) 5 mg PO TIDAC [facility] Last Admin: 03/21/17 10:52 Dose: 5 mg Metronidazole (Flagyl -) 500 mg PO TID [facility] Nystatin (Mycostatin Cream -) 1 applic TP BID [facility] Last Admin: 03/21/17 10:53 Dose: 1 applic Ondansetron HCl (Zofran -) 4 mg PO Q8H PRN PRN Reason: NAUSEA Pantoprazole Sodium (Protonix -) 40 mg PO DAILY [facility] Last Admin: 03/21/17 10:54 Dose: 40 mg Potassium Phos/Sodium Phos (Phos-Nak Packet -) 1 packet PO BID [facility] Last Admin: 03/21/17 10:53 Dose: 1 packet Ranolazine (Ranexa -) 500 mg PO BID [facility] Last Admin: 03/21/17 10:52 Dose: 500 mg - Objective Vital Signs: Vital Signs Temperature 97.0 F L 03/21/17 08:52 Pulse Rate 65 03/21/17 08:52 Respiratory Rate 16 03/21/17 08:52 Blood Pressure 187/75 03/21/17 08:52 O2 Sat by Pulse Oximetry (%) 96 03/20/17 21:00 Constitutional: Yes: No Distress, Calm, Obese Cardiovascular: Yes: Regular Rate and Rhythm. No: Gallop, Murmur, Rub Respiratory: Yes: Regular, CTA Bilaterally. No: Rales, Rhonchi, Wheezes Gastrointestinal: Yes: Normal Bowel Sounds, Soft. No: Distention, Tenderness Extremities: Yes: WNL Edema: No Labs: CBC, BMP 03/20/17 06:05 03/21/17 06:00 INR, PTT INR 1.09 (0.82-1.09) 03/06/17 07:00 Problem List - Problems (1) Gram-negative bacteremia Code(s): R78.81 - BACTEREMIA (2) UTI (urinary tract infection) Code(s): N39.0 - URINARY TRACT INFECTION, SITE NOT SPECIFIED Qualifiers: Urinary tract infection type: site unspecified Hematuria presence: without hematuria Qualified Code(s): N39.0 - Urinary tract infection, site not specified (3) COPD (chronic obstructive pulmonary disease) Code(s): J44.9 - CHRONIC OBSTRUCTIVE PULMONARY DISEASE, UNSPECIFIED (4) Hyperlipidemia Code(s): E78.5 - HYPERLIPIDEMIA, UNSPECIFIED (5) Hypertension Code(s): I10 - ESSENTIAL (PRIMARY) HYPERTENSION (6) Diabetes Code(s): E11.9 - TYPE 2 DIABETES MELLITUS WITHOUT COMPLICATIONS Qualifiers: Diabetes mellitus type: type 2 Diabetes mellitus complication status: without complication Diabetes mellitus mcfp insulin use: with adjunct faculty for medical terminology use Qualified Code(s): E11.9 - Type 2 diabetes mellitus without complications (7) CHF (congestive heart failure) Code(s): I50.9 - HEART FAILURE, UNSPECIFIED Qualifiers: Congestive heart failure type: systolic Congestive heart failure chronicity: chronic Qualified Code(s): I50.22 - Chronic systolic ( congestive) heart failure (8) Gastroparesis Code(s): K31.84 - GASTROPARESIS Assessment/Plan (1) Gram-negative bacteremia Assessment/Plan: -repeat cultures negative Code(s): R78.81 - BACTEREMIA (2) UTI (urinary tract infection) Assessment/Plan: -cultures currently negative Code(s): N39.0 - URINARY TRACT INFECTION, SITE NOT SPECIFIED Qualifiers: Urinary tract infection type: site unspecified Hematuria presence: without hematuria Qualified Code(s): N39.0 - Urinary tract infection, site not specified (3) COPD (chronic obstructive pulmonary disease) Assessment/Plan: -not in exacerbation -continue albuterol Code(s): J44.9 - CHRONIC OBSTRUCTIVE PULMONARY DISEASE, UNSPECIFIED (4) Hyperlipidemia Assessment/Plan: -continue lipitor Code(s): E78.5 - HYPERLIPIDEMIA, UNSPECIFIED (5) Hypertension Assessment/Plan: -elevated today -add lisinopril Code(s): I10 - ESSENTIAL (PRIMARY) HYPERTENSION (6) Diabetes Assessment/Plan: -continue levemir and SSI -had episode of hypoglycemia this am -monitor Code(s): E11.9 - TYPE 2 DIABETES MELLITUS WITHOUT COMPLICATIONS Qualifiers: Diabetes mellitus type: type 2 Diabetes mellitus complication status: without complication Diabetes mellitus mcfp insulin use: with adjunct faculty for medical terminology use Qualified Code(s): E11.9 - Type 2 diabetes mellitus without complications (7) CHF (congestive heart failure) Assessment/Plan: -continue lasix Code(s): I50.9 - HEART FAILURE, UNSPECIFIED Qualifiers: Congestive heart failure type: systolic Congestive heart failure chronicity: chronic Qualified Code(s): I50.22 - Chronic systolic ( congestive) heart failure (8) Gastroparesis Assessment/Plan: -tolerating soft diet Code(s): K31.84 - GASTROPARESIS (9) Thrush -fully treated (10) Leukocytosis -change to oral flagyl today -if tolerates, discharge tomorrow
[2017-03-21] MEDS: ENOXAPARIN NA (PORCINE) 40 MG/0.4 ML DISP.SYRIN SQ SCH (14:34)
--- NOTE | 2017-03-21 15:25 | PN ---
Progress Note, Physician History of Present Illness: events noted patient became hypoglycemic still a little bit lethargic looks comfortable - Current Medication List Current Medications: Active Medications Acetaminophen (Tylenol -) 650 mg PO Q6H PRN PRN Reason: FEVER OR PAIN Last Admin: 03/11/17 21:54 Dose: 650 mg Amlodipine Besylate (Norvasc -) 10 mg PO DAILY [facility] Last Admin: 03/20/17 10:22 Dose: 10 mg Atorvastatin Calcium (Lipitor -) 20 mg PO HS [facility] Last Admin: 03/20/17 21:54 Dose: 20 mg Carvedilol (Coreg -) 25 mg PO BID [facility] Last Admin: 03/21/17 10:52 Dose: 25 mg Clonidine HCl (Catapres Tts Patch -) 0.3 mg TD Q7D@1000 [facility] Last Admin: 03/18/17 12:39 Dose: 0.3 mg Docusate Sodium (Colace -) 300 mg PO HS [facility] Last Admin: 03/20/17 21:54 Dose: 300 mg Donepezil HCl (Aricept -) 5 mg PO DAILY [facility] Last Admin: 03/21/17 10:52 Dose: 5 mg Duloxetine HCl (Cymbalta -) 30 mg PO DAILY [facility] Last Admin: 03/21/17 10:52 Dose: 30 mg Enoxaparin Sodium (Lovenox -) 40 mg SQ DAILY [facility] Last Admin: 03/21/17 14:34 Dose: Not Given Furosemide (Lasix -) 40 mg PO DAILY [facility] Last Admin: 03/21/17 10:53 Dose: 40 mg Insulin Aspart (Novolog Vial Sliding Scale -) 1 vial SQ ACHS [facility] PRN Reason: Protocol Last Admin: 03/21/17 11:34 Dose: Not Given Insulin Detemir (Levemir Vial) 10 units SQ BID [facility] Last Admin: 03/21/17 10:51 Dose: 10 units Isosorbide Mononitrate (Imdur -) 60 mg PO HS [facility] Last Admin: 03/20/17 21:54 Dose: 60 mg Metoclopramide HCl (Reglan -) 5 mg PO TIDAC [facility] Last Admin: 03/21/17 10:52 Dose: 5 mg Metronidazole (Flagyl -) 500 mg PO TID [facility] Nystatin (Mycostatin Cream -) 1 applic TP BID [facility] Last Admin: 03/21/17 10:53 Dose: 1 applic Ondansetron HCl (Zofran -) 4 mg PO Q8H PRN PRN Reason: NAUSEA Pantoprazole Sodium (Protonix -) 40 mg PO DAILY [facility] Last Admin: 03/21/17 10:54 Dose: 40 mg Potassium Phos/Sodium Phos (Phos-Nak Packet -) 1 packet PO BID [facility] Last Admin: 03/21/17 10:53 Dose: 1 packet Ranolazine (Ranexa -) 500 mg PO BID [facility] Last Admin: 03/21/17 10:52 Dose: 500 mg - Objective Vital Signs: Vital Signs Temperature 98.5 F 03/21/17 14:38 Pulse Rate 69 03/21/17 14:38 Respiratory Rate 16 03/21/17 14:38 Blood Pressure 188/73 03/21/17 14:38 O2 Sat by Pulse Oximetry (%) 96 03/20/17 21:00 Constitutional: Yes: No Distress, Calm Cardiovascular: Yes: Regular Rate and Rhythm, S1, S2 Respiratory: Yes: Regular, CTA Bilaterally Gastrointestinal: Yes: Normal Bowel Sounds, Soft Musculoskeletal: Yes: Other Edema: LLE: 1+, RLE: 1+ Neurological: Yes: Lethargy Psychiatric: Yes: Other Labs: CBC, BMP 03/20/17 06:05 03/21/17 06:00 INR, PTT INR 1.09 (0.82-1.09) 03/06/17 07:00 Assessment/Plan uti bacteremia gm negative frequency fever ams leukocytosis sepsis improving plan patient to continue flagyl rest continue to monitor
[2017-03-21] MEDS: amLODIPine BESYLATE 10 MG TABLET (FP) PO SCH (15:58)
[2017-03-21] MEDS: metroNIDAZOLE 250 MG TABLET PO SCH ×2 (15:58→22:16)
[2017-03-21] MEDS: LISINOPRIL 10 MG TABLET (FP) PO SCH (17:39)
[2017-03-21] MEDS: DOCUSATE SODIUM 100 MG CAPSULE (FP) PO SCH (22:16)
[2017-03-21] MEDS: ISOSORBIDE MONONITRATE 60 MG TAB.SR.24H (FP) PO SCH (22:16)
[2017-03-21] MEDS: ATORVASTATIN CA 20 MG TABLET (FP) PO SCH (22:16)
[2017-03-22] MEDS: METOCLOPRAMIDE HCL 10 MG TABLET (FP) PO SCH ×2 (06:12→10:11)
[2017-03-22] MEDS: INSULIN SLIDING SCALE (NOVOLOG) 1 VIAL SQ SCH ×2 (06:13→11:16)
[2017-03-22] MEDS: metroNIDAZOLE 250 MG TABLET PO SCH ×2 (06:13→13:43)
[2017-03-22 06:55] LABS: MCH 22.3 pg (25.7-33.7); MCHC 31.7 g/dl (32.0-36.0); MEAN CELL VOLUME 70.4 fl (80-96); MEAN PLT VOLUME 9.9 fl (7.5-11.1); PLATELET COUNT 403 K/MM3 (134-434); RDW 19.6 % (11.6-15.6); WHITE BLOOD COUNT 15.1 K/mm3 (4.0-10.0)
[2017-03-22 07:18] LABS: ANION GAP 7 (8-16); CALCIUM 8.6 mg/dL (8.5-10.1); CO2 33 mmol/L (21-32); CREATININE 0.6 mg/dL (0.55-1.02); GLUCOSE,RANDOM 124 mg/dL (74-106); MAGNESIUM 1.6 mg/dL (1.8-2.4); PHOSPHOROUS 2.8 mg/dL (2.5-4.9)
[2017-03-22 08:44] LABS: ANISOCYTOSIS 1+; MICROCYTOSIS 1+; PLATELET COMMENT2 NO CLOTTING DETECTED; PLATELET COMMENT3 FEW GIANT PLTS; PLATELET ESTIMATE SLT INCREASED (NORMAL); POIKILOCYTOSIS 1+; POLYCHROMASIA 1+; SMUDGE CELLS FEW
[2017-03-22] MEDS ORDERED: PT OWN MED DRAWER 7, Y5N ONE (09:41)
[2017-03-22] MEDS: PANTOPRAZOLE 40 MG TABLET (FP) PO SCH (10:11)
[2017-03-22] MEDS: DULoxetine HCL 30 MG CAPSULE.DR (FP) PO SCH (10:12)
[2017-03-22] MEDS: NAPH,MB-DB/K PH,MBDB POWDER PACKET PO SCH (10:12)
[2017-03-22] MEDS: LISINOPRIL 10 MG TABLET (FP) PO SCH (10:12)
[2017-03-22] MEDS: DONEPEZIL HCL 5 MG TABLET (FP) PO SCH (10:12)
[2017-03-22] MEDS: amLODIPine BESYLATE 10 MG TABLET (FP) PO SCH (10:12)
[2017-03-22] MEDS: FUROSEMIDE 40 MG TABLET (FP) PO SCH (10:12)
[2017-03-22] MEDS: RANOLAZINE E.R. 500 MG TABLET (FP) PO SCH (10:12)
[2017-03-22] MEDS: CARVEDILOL 25 MG TABLET (FP) PO SCH (10:12)
[2017-03-22] MEDS: NYSTATIN 100,000 UNIT/GM TOPICAL CREAM 15 GM TUBE TP SCH (10:13)
[2017-03-22] MEDS ORDERED: INSULIN (NOVOLOG) ASPART 100 UNITS/ML 10ML VIAL ONE (11:15)
[2017-03-22] MEDS: INSULIN DETEMIR 100 UNITS/ML MDV SQ SCH (11:23)
--- NOTE | 2017-03-22 12:42 | DS ---
Physical Examination Vital Signs: Vital Signs Temperature 98.2 F 03/22/17 08:23 Pulse Rate 62 03/22/17 08:23 Respiratory Rate 18 03/22/17 08:23 Blood Pressure 145/60 03/22/17 08:23 O2 Sat by Pulse Oximetry (%) 96 03/21/17 21:00 Constitutional: Yes: Well Nourished, No Distress, Calm Cardiovascular: Yes: Regular Rate and Rhythm. No: Gallop, Murmur, Rub Respiratory: Yes: Regular, CTA Bilaterally. No: Rales, Rhonchi, Wheezes Gastrointestinal: Yes: Normal Bowel Sounds, Soft. No: Distention, Tenderness Extremities: Yes: WNL Edema: No Labs: CBC, BMP 03/22/17 05:50 03/22/17 05:50 Discharge Summary Reason For Visit: URINARY TRACT INFECTION, FEVER Current Active Problems CHF (congestive heart failure) (Acute) COPD (chronic obstructive pulmonary disease) (Acute) Fever (Acute) Gastroparesis (Acute) Gram-negative bacteremia (Acute) Hyperlipidemia (Acute) Hypertension (Acute) Leukocytosis (Acute) Prophylactic measure (Acute) UTI (urinary tract infection) (Acute) Hospital Course: (1) Gram-negative bacteremia Code(s): R78.81 - BACTEREMIA (2) UTI (urinary tract infection) Code(s): N39.0 - URINARY TRACT INFECTION, SITE NOT SPECIFIED Qualifiers: Urinary tract infection type: site unspecified Hematuria presence: without hematuria Qualified Code(s): N39.0 - Urinary tract infection, site not specified (3) COPD (chronic obstructive pulmonary disease) Code(s): J44.9 - CHRONIC OBSTRUCTIVE PULMONARY DISEASE, UNSPECIFIED (4) Hyperlipidemia Code(s): E78.5 - HYPERLIPIDEMIA, UNSPECIFIED (5) Hypertension Code(s): I10 - ESSENTIAL (PRIMARY) HYPERTENSION (6) Diabetes Code(s): E11.9 - TYPE 2 DIABETES MELLITUS WITHOUT COMPLICATIONS Qualifiers: Diabetes mellitus type: type 2 Diabetes mellitus complication status: without complication Diabetes mellitus intermediate frame tender insulin use: with intermediate frame tender use Qualified Code(s): E11.9 - Type 2 diabetes mellitus without complications (7) CHF (congestive heart failure) Code(s): I50.9 - HEART FAILURE, UNSPECIFIED Qualifiers: Congestive heart failure type: systolic Congestive heart failure chronicity: chronic Qualified Code(s): I50.22 - Chronic systolic ( congestive) heart failure (8) Gastroparesis Code(s): K31.84 - GASTROPARESIS (9) Thrush (10) Leukocytosis Mrs Hampton is a very pleasant 81 year old female who came in with UTI causing sepsis/gram negative bacteremia. She was admitted and seen by ID. She finished a full course of antibiotics. She still had leukocytosis and was transitioned to flagyl. She tolerated this well and should be continued for 7 days at the SNF. She was having pain on swallowing and was found to have thrush, she finished a full course of nystatin and this resolved. Currently she is doing well and is without complaint. She is safe for discharge back to SNF. 37 minutes spent in preparation of this discharge Condition: Stable - Instructions Diet, Activity, Other Instructions: diabetic soft diet. Up with assistance, further activity per PT at SNF. Continue flagyl for 7 days Referrals: Thee Martinez MD [Staff Physician] - Alexys Rey MD [Primary Care Provider] - Disposition: HALFWAY FACILITY - Home Medications Comprehensive Discharge Medication List: Ambulatory Orders Aa/Hydrolyzed Collagen, Whey [Lps 15-30 Liquid] 960 ml PO DAILY 03/03/17 Amlodipine Besylate 5 mg PO BID 03/03/17 Atorvastatin Ca [Lipitor] 20 mg PO HS 03/03/17 Carvedilol [Coreg -] 25 mg PO BID 03/03/17 Clonidine-Tts 0.3MG/24Hr Patch [Gwlohkyk-Trt-4] 1 patch NR WEEKLY 03/03/17 Cyanocobalamin (Vitamin B-12) [Vitamin B12] 2,500 mcg PO DAILY 03/03/17 Docusate Sodium [Colace -] 300 mg PO BID 03/03/17 Donepezil HCl [Aricept -] 5 mg PO DAILY 03/03/17 Duloxetine HCl [Cymbalta -] 30 mg PO DAILY 03/03/17 Enoxaparin [Lovenox -] 40 mg SQ DAILY 03/03/17 Folic Acid - 400 mcg PO DAILY 03/03/17 Furosemide [Lasix] 40 mg PO DAILY 03/03/17 Insulin (Levemir) [Levemir Vial] 12 unit SQ DAILY 03/03/17 Insulin Regular [Novolin R Vial -] 0 units SQ BIDAC 03/03/17 Isosorbide Mononitrate [Isosorbide Mononitrate ER] 60 mg PO HS 03/03/17 Magnesium Oxide [Mag-Ox -] 400 mg PO BID 03/03/17 Nystatin Cream [Mycostatin Cream -] 1 applic TP BID 03/03/17 Omeprazole 40 mg PO DAILY 03/03/17 Ondansetron HCl [Zofran] 4 mg PO TID PRN 03/03/17 Ranolazine [Ranexa] 500 mg PO BID 03/03/17 Valsartan [Diovan] 80 mg PO DAILY 03/03/17 Metoclopramide HCl [Reglan -] 5 mg PO TIDAC tablet 03/22/17 Metronidazole [Flagyl -] 500 mg PO TID tablet 03/22/17
[2017-03-22] MEDS: ENOXAPARIN NA (PORCINE) 40 MG/0.4 ML DISP.SYRIN SQ SCH (13:42)
[2017-03-22 13:49] VITALS: BP 135/59; PULSE 64; TEMP 97.9
--- NOTE | 2017-03-22 16:35 | PN ---
Progress Note, Physician History of Present Illness: events noted patient became hypoglycemic still a little bit lethargic looks comfortable - Objective Vital Signs: Vital Signs Temperature 97.9 F 03/22/17 13:48 Pulse Rate 64 03/22/17 13:48 Respiratory Rate 18 03/22/17 08:23 Blood Pressure 135/59 03/22/17 13:48 O2 Sat by Pulse Oximetry (%) 97 03/22/17 09:00 Constitutional: Yes: No Distress, Calm Cardiovascular: Yes: Regular Rate and Rhythm Respiratory: Yes: Regular, CTA Bilaterally Gastrointestinal: Yes: Normal Bowel Sounds, Soft Neurological: Yes: Alert, Oriented Psychiatric: Yes: Alert Labs: CBC, BMP 03/22/17 05:50 03/22/17 05:50 INR, PTT INR 1.09 (0.82-1.09) 03/06/17 07:00 Assessment/Plan uti bacteremia gm negative frequency fever ams leukocytosis sepsis improving plan patient to continue flagyl as planned rest continue to monitor
== END 2017-03-22 16:30 | DRG 872 ==
LOC: JER 17:16 → JERBED 22:24 → J6S 03-04 00:05
PROVIDERS: ADMIT Internal Medicine Geriatric Medicine; ATTEND Registered Nurse Emergency
DX: A41.9 Sepsis, unspecified organism (principal); N39.0 Urinary tract infection, site not specified; E87.1 Hypo-osmolality and hyponatremia; I50.22 Chronic systolic (congestive) heart failure; E78.5 Hyperlipidemia, unspecified; J44.9 Chronic obstructive pulmonary disease, unspecified; B37.9 Candidiasis, unspecified; R56.9 Unspecified convulsions; I25.10 Atherosclerotic heart disease of native coronary artery without angina pectoris; Z95.5 Presence of coronary angioplasty implant and graft; K82.4 Cholesterolosis of gallbladder; Z86.73 Personal history of transient ischemic attack (TIA), and cerebral infarction without residual deficits; F03.90 Unspecified dementia, unspecified severity, without behavioral disturbance, psychotic disturbance, mood disturbance, and anxiety; E11.43 Type 2 diabetes mellitus with diabetic autonomic (poly)neuropathy; K31.84 Gastroparesis; E11.65 Type 2 diabetes mellitus with hyperglycemia; Z79.4 Long term (current) use of insulin; D72.829 Elevated white blood cell count, unspecified; I11.0 Hypertensive heart disease with heart failure; B96.1 Klebsiella pneumoniae [K. pneumoniae] as the cause of diseases classified elsewhere; E83.42 Hypomagnesemia
CPT/HCPCS: 36415; 71010-TC; 74176-TC; 76705-TC; 80048; 80053; 81003; 81015; 82150; 82550; 82803; 82947; 83605; 83690; 83735; 83880; 83930; 84100; 84484; 85025; 85027; 85610; 85730; 86850; 86900; 86901; 87040; 87086; 87186; 87324; 87449; 93005; 93010; 93306-TC; 97116-GP; 97161-GP; 99283-25

== ENCOUNTER 2019-02-08 19:59 | Emergency (ER) | payer OTHER | END 2019-02-09 00:02 | disposition home or self-care (01) | LOC: JER 02-09 00:02 | DX: S40.012A Contusion of left shoulder, initial encounter (principal); M13.812 Other specified arthritis, left shoulder; W18.39XA Other fall on same level, initial encounter; Y93.89 Activity, other specified; Y92.128 Other place in nursing home as the place of occurrence of the external cause; Y99.8 Other external cause status; I25.10 Atherosclerotic heart disease of native coronary artery without angina pectoris; I11.0 Hypertensive heart disease with heart failure; I50.9 Heart failure, unspecified; J45.909 Unspecified asthma, uncomplicated; J44.9 Chronic obstructive pulmonary disease, unspecified; G40.909 Epilepsy, unspecified, not intractable, without status epilepticus; Z99.89 Dependence on other enabling machines and devices ==

== ENCOUNTER 2019-05-04 17:18 | Inpatient (IN) | payer OTHER ==
[2019-05-04 18:18] LABS: BASO % 0.9 % (0-2.0); EOS % 0.1 % (0-4.5); HEMATOCRIT 48.5 % (32.4-45.2); HEMOGLOBIN 15.2 GM/dL (10.7-15.3); LYMPH % 6.8 % (8-40); MCH 23.3 pg (25.7-33.7); MCHC 31.3 g/dl (32.0-36.0); MEAN CELL VOLUME 74.3 fl (80-96); MEAN PLT VOLUME 10.1 fl (7.5-11.1); MONO % 6.8 % (3.8-10.2); NEUT % 85.4 % (42.8-82.8); PLATELET COUNT 166 K/MM3 (134-434); RBC 6.52 M/mm3 (3.60-5.2); RDW 19.8 % (11.6-15.6)
[2019-05-04 18:37] LABS: INR 0.99 (0.83-1.09); PROTHROMBIN TIME (PATIENT) 11.7 SEC (9.7-13.0)
[2019-05-04 18:39] LABS: ACTIVATED PTT 54.4 SECONDS (25.2-36.5)
[2019-05-04 18:41] LABS: PH,URINE 6.5 (5.0-8.0); URINE APPEARANCE Clear; URINE BILIRUBIN Negative (NEGATIVE); URINE COLOR Yellow; URINE GLUCOSE (UA) Trace (NEGATIVE); URINE KETONE Negative (NEGATIVE); URINE LEUK ESTERASE 3+ (NEGATIVE); URINE NITRITE Negative (NEGATIVE); URINE PROTEIN 3+ (NEGATIVE); URINE UROBILINOGEN 0.2 mg/dL (0.2-1.0)
[2019-05-04] MEDS ORDERED: morphine CARPU-JECT 2 MG/1 ML DISP.SYRIN IVPUSH ONE (18:42)
[2019-05-04] MEDS ORDERED: MORPHINE SULFATE 2 MG/ML VIAL ONE (18:46)
[2019-05-04 18:55] LABS: EPI CELLS 12.1 /HPF (0-5/HPF); HYALINE CASTS 63.2 /lpf (0-8); URINE BACTERIA 4096 /hpf (NEGATIVE); URINE RBC 18.1 /hpf (0-4); URINE WBC 1454.3 /hpf (0-5)
[2019-05-04 18:58] LABS: ALBUMIN 2.3 g/dl (3.4-5.0); BILIRUBIN,TOTAL 0.5 mg/dL (0.2-1); BLOOD UREA NITROGEN 34.6 mg/dL (7-18); CALCIUM 9.2 mg/dL (8.5-10.1); CREATININE 1.4 mg/dL (0.55-1.3); TOT PROT 6.7 g/dl (6.4-8.2)
--- NOTE | 2019-05-04 19:00 | PDOC ---
History of Present Illness - General Chief Complaint: Revisit,Radiology Variance Stated Complaint: LEFT SHOULDER FRACTURE Time Seen by Provider: 05/04/19 17:39 - History of Present Illness Initial Comments: 05/04/19 18:40 83f from [facility] with pmh HTN, HLD, CAD, COPD, CHF, Asthma, Seizure and dementia found with severe L shoulder pain, found to have L humeral neck fracture on xray. [facility] vitals: 121/72 63 14 97.5F 98% Was given Tylenol 650mg at 3:30PM Not DNR... According to [place], family opted to discontinue order. Patient is laying in bed, not responding appropriately, right leg is externally rotated. Past History - Past Medical History Allergies/Adverse Reactions: Allergies Allergy/AdvReac Type Severity Reaction Status Date / Time iodine [Iodine] Allergy Severe Swelling Verified 02/08/19 22:03 aspirin Allergy Mild ABD PAIN Verified 02/08/19 22:03 Home Medications: Ambulatory Orders Aa/Hydrolyzed Collagen, Whey [Lps 15-30 Liquid] 960 ml PO DAILY 03/03/17 Amlodipine Besylate 5 mg PO BID 03/03/17 Atorvastatin Ca [Lipitor] 20 mg PO HS 03/03/17 Carvedilol [Coreg -] 25 mg PO BID 03/03/17 Clonidine-Tts 0.3MG/24Hr Patch [Mhhzgvwv-Awj-2] 1 patch NR WEEKLY 03/03/17 Cyanocobalamin (Vitamin B-12) [Vitamin B12] 2,500 mcg PO DAILY 03/03/17 Docusate Sodium [Colace -] 300 mg PO BID 03/03/17 Donepezil HCl [Aricept -] 5 mg PO DAILY 03/03/17 Duloxetine HCl [Cymbalta -] 30 mg PO DAILY 03/03/17 Enoxaparin [Lovenox -] 40 mg SQ DAILY 03/03/17 Folic Acid - 400 mcg PO DAILY 03/03/17 Furosemide [Lasix] 40 mg PO DAILY 03/03/17 Insulin (Levemir) [Levemir Vial] 12 unit SQ DAILY 03/03/17 Insulin Regular [Novolin R Vial -] 0 units SQ BIDAC 03/03/17 Isosorbide Mononitrate [Isosorbide Mononitrate ER] 60 mg PO HS 03/03/17 Magnesium Oxide [Mag-Ox -] 400 mg PO BID 03/03/17 Nystatin Cream [Mycostatin Cream -] 1 applic TP BID 03/03/17 Omeprazole 40 mg PO DAILY 03/03/17 Ondansetron HCl [Zofran] 4 mg PO TID PRN 03/03/17 Ranolazine [Ranexa] 500 mg PO BID 03/03/17 Valsartan [Diovan] 80 mg PO DAILY 03/03/17 Metoclopramide HCl [Reglan -] 5 mg PO TIDAC tablet 03/22/17 metroNIDAZOLE [Flagyl -] 500 mg PO TID tablet 03/22/17 Anemia: No Asthma: Yes Cancer: No Cardiac Disorders: Yes (CAD) CVA: Yes (2006, TIA) COPD: Yes (uses BIPAP at night) CHF: Yes Dementia: No Diabetes: Yes GI Disorders: Yes Disorders: No HTN: Yes Hypercholesterolemia: Yes Liver Disease: No Seizures: Yes Thyroid Disease: No - Surgical History Abdominal Surgery: Yes Appendectomy: Yes Cardiac Surgery: Yes (STENTS X 8.) Cholecystectomy: No Lung Surgery: No Neurologic Surgery: Yes Orthopedic Surgery: Yes - Immunization History Td Vaccination: (unknown) TDAP Vaccination: (unknown) Immunization Up to Date: (unknown) - Suicide/Smoking/Psychosocial Hx Smoking Status: No Smoking History: Never smoked Have you smoked in the past 12 months: No Number of Cigarettes Smoked Daily: 0 Cigars Per Day: 0 Information on smoking cessation initiated: No Hx Alcohol Use: No Drug/Substance Use Hx: No Substance Use Type: None Hx Substance Use Treatment: No Review of Systems - Review of Systems Able to Perform ROS?: No (Exquisitely Demented) *Physical Exam - Vital Signs Last Vital Signs Temp Pulse Resp BP Pulse Ox 97.7 F 67 16 145/53 L 100 05/04/19 17:25 05/04/19 17:25 05/04/19 17:25 05/04/19 17:25 05/04/19 17:25 - Physical Exam General Appearance: Yes: Nourished, Appropriately Dressed. No: Apparent Distress HEENT: positive: EOMI, AILYN, Normal ENT Inspection Respiratory/Chest: positive: Lungs Clear, Normal Breath Sounds. negative: Chest Tender, Respiratory Distress Cardiovascular: positive: Regular Rhythm, Regular Rate, S1, S2 Gastrointestinal/Abdominal: positive: Normal Bowel Sounds, Flat, Soft. negative : Tender Extremity: positive: Other (tender, painful ROM of the left shoulder and right hip. ) Integumentary: positive: Normal Color, Dry, Warm Neurologic: positive: Confused, Disoriented. negative: Fully Oriented ED Treatment Course - LABORATORY CBC & Chemistry Diagram: 05/04/19 18:08 05/04/19 18:08 - ADDITIONAL ORDERS Additional order review: Laboratory Results 05/04/19 18:08 PT with INR 11.70 INR 0.99 PTT (Actin FS) 54.4 H 05/04/19 18:08 RBC 6.52 H MCV 74.3 L MCHC 31.3 L RDW 19.8 H MPV 10.1 Neutrophils % 85.4 H Lymphocytes % 6.8 L D Monocytes % 6.8 Eosinophils % 0.1 D Basophils % 0.9 - RADIOLOGY Radiology Studies Ordered: Category Date Time Status CHEST PA & LAT [RAD] Stat Radiology 05/04/19 17:51 Ordered HIP & PELVIS-RIGHT [RAD] Stat Radiology 05/04/19 18:38 Ordered HUMERUS-LEFT [RAD] Stat Radiology 05/04/19 17:49 Ordered SHOULDER-LEFT [RAD] Stat Radiology 05/04/19 17:49 Ordered Medical Decision Making - Medical Decision Making 05/04/19 19:11 83f from [facility] with diagnoses left shoulder fracture, suspected right hip fracture and UTI. Patient has UTi on UA, will treat with Ceftriaxone, previous culture grew Klebsiella sensitive to it. Elevated WBC Pending Xrays, shoulder and hip, head and cervical neck. Admission to med surg very likely. 05/04/19 19:17 Patient signed out to Dr. Krueger. *DC/Admit/Observation/Transfer Diagnosis at time of Disposition: Unwitnessed fall, UTI (urinary tract infection) - Referrals - Patient Instructions - Post Discharge Activity
--- NOTE | 2019-05-04 19:12 | PDOC ---
Documentation entered by Suzie John SCRIBE, acting as scribe for Donta Pappas MD. Donta Pappas MD: This documentation has been prepared by the Alvaro rm Sammi, SCRIBE, under my direction and personally reviewed by me in its entirety. I confirm that the documentation accurately reflects all work, treatment, procedures, and medical decision making performed by me. Attending Attestation - Resident Resident Name: Shaq Valdovinos - ED Attending Attestation I have performed the following: I have examined & evaluated the patient, The case was reviewed & discussed with the resident, I agree w/resident's findings & plan, Exceptions are as noted - HPI HPI: 05/04/19 18:26 The patient is an 83 year old female, with a significant PMH of dementia, HTN, COPD, CHF, asthma, seizure, who presents to the emergency department from [facility] for evaluation of left upper extremity pain s/p unwitnessed fall. [facility] reports taking xrays and noticing a left humerus fracture. The patient is a poor historian due to the dementia, notes that sh ehas pain in the L arm and R leg, but does not remember falling. denies any current cp, headache, back pain, numbnes/tingling/weakness. Allergies: iodine, aspirin - Physicial Exam PE: 05/04/19 20:01 GENERAL: The patient is awake, alert, oriented x 1 (knows self and that she is in hospital but unable to name hospital) HEAD: Normocephalic, atraumatic. EYES: extraocular movements intact, sclera anicteric, conjunctiva clear. ENT: Normal voice, Moist mucous membranes. NECK: Normal range of motion, supple LUNGS: Breath sounds equal, clear to auscultation bilaterally. No wheezes, no rhonchi, no rales. HEART: Regular rate and rhythm ABDOMEN: Soft, nontender, No guarding, no rebound. EXTREMITIES: +ttp on LUE, sensation intact throughout and symmetric on UE, + pain with ROM of RLE, more discomfort iwth rom of R knee NEUROLOGICAL: No facial assymetry, Normal speech, PSYCH: Normal mood, normal affect. SKIN: Warm, Dry, normal turgor, - Medical Decision Making 05/04/19 20:05 xrays of hip/knee, shoulder/humerus will ck basic labs due to limited history 05/04/19 20:08 p0ts labs reviewed noted for significant leukcotysos, likely from UTI 05/05/19 01:43 pts imaging reviewed humerus noted for surgical neck fx -pt was placed in a sling earlier knee xray, hip/pelvis neg for acute fx geo ladmit for further mangement of uti/fx Heart Score/ECG Review - ECG Impressions Comment:: 05/04/19 20:17 Twelve-lead EKG was performed and reviewed by me. There is normal sinus rhythm with a normal rate. rate of 71 left anterior fascicular block
--- NOTE | 2019-05-04 19:22 | PDOC ---
*Physical Exam - Vital Signs Last Vital Signs Temp Pulse Resp BP Pulse Ox 97.7 F 67 16 145/53 L 100 05/04/19 17:25 05/04/19 17:25 05/04/19 17:25 05/04/19 17:25 05/04/19 17:25 - Physical Exam Respiratory/Chest: positive: Lungs Clear, Normal Breath Sounds. negative: Respiratory Distress, Decreased Breath Sounds Cardiovascular: positive: Regular Rhythm, Regular Rate Gastrointestinal/Abdominal: positive: Normal Bowel Sounds, Soft ED Treatment Course - LABORATORY CBC & Chemistry Diagram: 05/04/19 18:08 05/04/19 18:08 - ADDITIONAL ORDERS Additional order review: Laboratory Results 05/04/19 05/04/19 05/04/19 18:25 18:08 18:08 PT with INR INR PTT (Actin FS) Sodium 134 L Potassium 5.0 Chloride 100 Carbon Dioxide 27 Anion Gap 7 L BUN 34.6 H Creatinine 1.4 H Est GFR (CKD-EPI)AfAm 39.61 Est GFR (CKD-EPI)NonAf 34.18 Random Glucose 122 H Calcium 9.2 Total Bilirubin 0.5 AST 34 ALT 17 Alkaline Phosphatase 114 Troponin I < 0.02 Total Protein 6.7 Albumin 2.3 L Urine Color Yellow Urine Appearance Clear Urine pH 6.5 D Ur Specific [place] 1.025 Urine Protein 3+ H Urine Glucose (UA) Trace Urine Ketones Negative Urine Blood 2+ H Urine Nitrite Negative Urine Bilirubin Negative Urine Urobilinogen 0.2 Ur Leukocyte Esterase 3+ H Urine WBC (Auto) 1454.3 Urine RBC (Auto) 18.1 Urine Casts (Auto) 63.2 U Epithel Cells (Auto) 12.1 Urine Bacteria (Auto) 4096 05/04/19 18:08 PT with INR 11.70 INR 0.99 PTT (Actin FS) 54.4 H Sodium Potassium Chloride Carbon Dioxide Anion Gap BUN Creatinine Est GFR (CKD-EPI)AfAm Est GFR (CKD-EPI)NonAf Random Glucose Calcium Total Bilirubin AST ALT Alkaline Phosphatase Troponin I Total Protein Albumin Urine Color Urine Appearance Urine pH Ur Specific [place] Urine Protein Urine Glucose (UA) Urine Ketones Urine Blood Urine Nitrite Urine Bilirubin Urine Urobilinogen Ur Leukocyte Esterase Urine WBC (Auto) Urine RBC (Auto) Urine Casts (Auto) U Epithel Cells (Auto) Urine Bacteria (Auto) 05/04/19 18:08 RBC 6.52 H MCV 74.3 L MCHC 31.3 L RDW 19.8 H MPV 10.1 Neutrophils % 85.4 H Lymphocytes % 6.8 L D Monocytes % 6.8 Eosinophils % 0.1 D Basophils % 0.9 Medical Decision Making - Medical Decision Making 05/04/19 19:18 Signed out to me by Dr. Valdovinos. Patient is a resident at [facility] and has history of severe dementia. Sent to ED for concern broken shoulder. Per physical exam, high concern for R hip fracture as well given external rotation and pain with movement. XR of L shoulder/humerus , CXR, and pelvis XR pending. CT head and neck ordered for concern traumatic fall given other injuries. UA shows UTI, started on ceftriaxone given prior sensitivities. Greatly elevated WBC consistent with this as well. EKG pending. Given multiple injuries and UTI, low threshold for admission for fractures and florid UTI management. Ordered XR R knee for further evaluation of her leg injury. 05/04/19 22:19 CXR grossly normal. XR L shoulder and humerus shows a humeral surgical neck fracture, displacement hard to quantify with existing imaging. Pelvic XR shows IM nail with femoral head screw in place, no obvious signs of new fractures or deformities. Patient resting comfortably in bed. 05/05/19 02:[address] Ray with Aleah. *DC/Admit/Observation/Transfer Diagnosis at time of Disposition: Unwitnessed fall, UTI (urinary tract infection) Humerus surgical neck fracture Qualifiers: Encounter type: initial encounter Fracture type: closed Laterality: left - Discharge Dispostion Decision to Admit order: Yes - Referrals - Patient Instructions - Post Discharge Activity
[2019-05-04 19:48] LABS: ANISOCYTOSIS 2+; MACROCYTOSIS 1+; PLATELET ESTIMATE NORMAL; TARGET CELLS 1+
[2019-05-04] MEDS ORDERED: CEFTRIAXONE 1 GM/50 ML BAG ONE (20:16)
[2019-05-04] MEDS ORDERED: CEFTRIAXONE 1,000 MG in DEXTROSE 5%-WATER - 50 ML IVPB ONE (20:16)
--- NOTE | 2019-05-05 02:50 | PN ---
Teaching Attending Note Name of Resident: Aleah Vail ATTENDING PHYSICIAN STATEMENT I saw and evaluated the patient. I reviewed the resident's note and discussed the case with the resident. I agree with the resident's findings and plan as documented. SUBJECTIVE: Patient is an 83 year old woman with a PMH of Dementia, HTN, COPD, CHF, Asthma and Seizure, who presents to the ER from [facility] for evaluation of left upper extremity pain after an unwitnessed fall. [facility] reports taking xrays and noticing a left humerus fracture. The patient is a poor historian due to the dementia. Notes that she has pain in the L arm and R leg, but does not remember falling. Denies any current chest pain, dysuria, headache, back pain, numbness, tingling or weakness. OBJECTIVE: Alert Vital Signs Period Temp Pulse Resp BP Sys/Bishop Pulse Ox Last 24 Hr 97.6 F-97.7 F 67-75 16-17 145-188/53-81 95-100 HEENT: No Jaundice, eye redness or discharge, PERRLA, EOMI. Normocephalic, atraumatic. External ears are normal and hearing is grossly intact. No nasal discharge. Neck: Supple, nontender. No palpable adenopathy or thyromegaly. No JVD Chest: Good effort. Clear to auscultation and percussion. Heart: Regular. No S3, rub or murmur Abdomen: Not distended, soft, nontender and no HSM. No rebound or guarding. Normal bowel sounds. Ext: Peripheral pulses intact. Left shoulder tender and left arm in a sling. Right leg shorter and externally rotated. Tender right hip. No leg edema. Skin: Warm and dry. No petechiae, rash or ecchymosis. Neuro: Alert. Oriented to place. CN 2-12 grossly intact. Sensation grossly intact in all four extremities. Psych: Appropriate mood and affect. Current Medications Generic Name Dose Route Start Last Admin Trade Name Freq PRN Reason Stop Dose Admin Acetaminophen 650 mg 05/05/19 04:09 Tylenol - PO Q4H PRN PAIN Amlodipine Besylate 5 mg 05/05/19 10:00 Norvasc - PO BID JOSE Atorvastatin Calcium 20 mg 05/05/19 22:00 Lipitor - PO HS JOSE Carvedilol 25 mg 05/05/19 10:00 Coreg - PO BID JOSE Donepezil HCl 5 mg 05/05/19 10:00 Aricept - PO DAILY JOSE Duloxetine HCl 30 mg 05/05/19 10:00 Cymbalta - PO DAILY JOSE Sodium Chloride 1,000 mls @ 42 mls/hr 05/05/19 04:15 Normal Saline - IV ASDIR JOSE Piperacillin Sod/Tazobactam 50 mls @ 100 mls/hr 05/05/19 04:19 Sod 3.375 gm/ Dextrose IVPB Q6H-IV JOSE Protocol Piperacillin Sod/Tazobactam 50 mls @ 100 mls/hr 05/05/19 10:00 Sod 3.375 gm/ Dextrose IVPB 05/06/19 02:29 Q8H-IV JOSE Insulin Aspart 0 vial 05/05/19 07:00 Novolog Vial Sliding Scale - SQ ACHS JOSE Protocol Home Medications Medication Instructions Recorded Aa/Hydrolyzed Collagen, Whey [Lps 960 ml PO DAILY 03/03/17 15-30 Liquid] Amlodipine Besylate 5 mg PO BID 03/03/17 Atorvastatin Ca [Lipitor] 20 mg PO HS 03/03/17 Carvedilol [Coreg -] 25 mg PO BID 03/03/17 Clonidine-Tts 0.3MG/24Hr Patch 1 patch NR WEEKLY 03/03/17 [[id number]] Cyanocobalamin (Vitamin B-12) 2,500 mcg PO DAILY 03/03/17 [Vitamin B12] Docusate Sodium [Colace -] 300 mg PO BID 03/03/17 Donepezil HCl [Aricept -] 5 mg PO DAILY 03/03/17 Duloxetine HCl [Cymbalta -] 30 mg PO DAILY 03/03/17 Enoxaparin [Lovenox -] 40 mg SQ DAILY 03/03/17 Folic Acid - 400 mcg PO DAILY 03/03/17 Furosemide [Lasix] 40 mg PO DAILY 03/03/17 Insulin (Levemir) [Levemir Vial] 12 unit SQ DAILY 03/03/17 Insulin Regular [Novolin R Vial -] 0 units SQ BIDAC 03/03/17 Isosorbide Mononitrate [Isosorbide 60 mg PO HS 03/03/17 Mononitrate ER] Magnesium Oxide [Mag-Ox -] 400 mg PO BID 03/03/17 Nystatin Cream [Mycostatin Cream -] 1 applic TP BID 03/03/17 Omeprazole 40 mg PO DAILY 03/03/17 Ondansetron HCl [Zofran] 4 mg PO TID PRN 03/03/17 Ranolazine [Ranexa] 500 mg PO BID 03/03/17 Valsartan [Diovan] 80 mg PO DAILY 03/03/17 Metoclopramide HCl [Reglan -] 5 mg PO TIDAC tablet 03/22/17 metroNIDAZOLE [Flagyl -] 500 mg PO TID tablet 03/22/17 Abnormal Lab Results 05/04/19 05/04/19 05/04/19 18:08 18:08 18:08 WBC 23.0 H RBC 6.52 H Hct 48.5 H D MCV 74.3 L MCH 23.3 L MCHC 31.3 L RDW 19.8 H Absolute Neuts (auto) 19.6 H Neutrophils % 85.4 H Neutrophils % (Manual) 88.8 H Lymphocytes % 6.8 L D Lymphocytes % (Manual) 4.1 L PTT (Actin FS) 54.4 H Sodium 134 L Anion Gap 7 L BUN 34.6 H Creatinine 1.4 H Random Glucose 122 H Albumin 2.3 L Urine Protein Urine Blood Ur Leukocyte Esterase 05/04/19 18:25 WBC RBC Hct MCV MCH MCHC RDW Absolute Neuts (auto) Neutrophils % Neutrophils % (Manual) Lymphocytes % Lymphocytes % (Manual) PTT (Actin FS) Sodium Anion Gap BUN Creatinine Random Glucose Albumin Urine Protein 3+ H Urine Blood 2+ H Ur Leukocyte Esterase 3+ H ASSESSMENT AND PLAN: 1. UTI/Fall - Fall may be a consequence of encephalopathy due to UTI. No acute pathology on head CT and CXR. Xray shows left humerus fracture. Will get CT of right hip to rule out fracture and consult Ortho. Get lactic acid level, EKG and treat healthcare-associated UTI with Zosyn. Implement strict fall precautions. Consult ID. 2. Hypoalbuminemia - Possibly due to combined effects of proteinuria, malnutrition and inflammation associated with comorbid chronic conditions. Will ensure adequate dietary protein intake and also consult auto mechanic supervisor. 3. DM For now, we will hold the home diabetes drugs and implement sliding scale insulin regimen. Provide comprehensive diabetes care with patient teaching and counseling about the importance of adherence to prescribed diabetes regimen, euglycemia, eye care and foot care. 4. CKD with superimposed CYN - Has features of dehydration and hemoconcentration. Will hold lasix and hydrate gently and monitor urine output. Avoid nephrotoxic agents such as NSAIDS, aminoglycosides, contrast dyes and certain Alternative medicine products. 5. Uncontrolled hypertension - Restart suitable outpatient antihypertensive drugs when clinically appropriate. Revise regimen to ensure [id number] excellent BP control and counselor camp patient on the injurious effects of uncontrolled hypertension. Nonpharmacologic measures to control hypertension like weight loss, salt restriction and exercise discussed. Importance of adherence to treatment regimen and attainment of normotension emphasized. 6. DVT prophylaxis - SCD for now since she may be going for surgery. 7. Advance directives - Full code
[2019-05-05] MEDS ORDERED: SODIUM CHLORIDE 1,000 ML IV SCH (04:15)
[2019-05-05] MEDS ORDERED: PIPERACILLIN/TAZOB 3.375 GM 3.375 GM in DEXTROSE 5%-WATER - 50 ML IVPB SCH ×2 (04:19→10:00)
--- NOTE | 2019-05-05 06:00 | HP ---
CHIEF COMPLAINT: left upper extremity pain s/p fall PCP: HISTORY OF PRESENT ILLNESS: 83 y/o F, pmh of dementia, htn, dm, hld, cad, COPD, is BIBA from [facility] to the ED for upper left extremity pain s/p fall. Pt has dementia and is a poor historian. As per ED, pt's arm was put in a sling and transported to the ED. As per ED, pt's UA came back positive for UTI and was started on Ceftriaxone. Pt has a history of k[place]se[place] sensitive to ceftriaxone. Pt denies fevers, chills, n/v, sob, headaches, chest pain, abdominal pain, dysuria, melena. ER course was notable for: (1) UCx-pending (2) CT head negative (3) Ceftriaxone 1gm given Recent Travel: n/a PAST MEDICAL HISTORY: dementia, htn, dm, hld, cad, COPD on bipap PAST SURGICAL HISTORY: right hip surgery Social History: Smoking: n/a Alcohol: n/a Drugs: n/a Family History: Allergies iodine [Iodine] Allergy (Severe, Verified 02/08/19 22:03) Swelling aspirin Allergy (Mild, Verified 02/08/19 22:03) ABD PAIN HOME MEDICATIONS: Home Medications Medication Instructions Recorded Aa/Hydrolyzed Collagen, Whey [Lps 960 ml PO DAILY 03/03/17 15-30 Liquid] Amlodipine Besylate 5 mg PO BID 03/03/17 Atorvastatin Ca [Lipitor] 20 mg PO HS 03/03/17 Carvedilol [Coreg -] 25 mg PO BID 03/03/17 Clonidine-Tts 0.3MG/24Hr Patch 1 patch NR WEEKLY 03/03/17 [[id number]-9] Cyanocobalamin (Vitamin B-12) 2,500 mcg PO DAILY 03/03/17 [Vitamin B12] Docusate Sodium [Colace -] 300 mg PO BID 03/03/17 Donepezil HCl [Aricept -] 5 mg PO DAILY 03/03/17 Duloxetine HCl [Cymbalta -] 30 mg PO DAILY 03/03/17 Enoxaparin [Lovenox -] 40 mg SQ DAILY 03/03/17 Folic Acid - 400 mcg PO DAILY 03/03/17 Furosemide [Lasix] 40 mg PO DAILY 03/03/17 Insulin (Levemir) [Levemir Vial] 12 unit SQ DAILY 03/03/17 Insulin Regular [Novolin R Vial -] 0 units SQ BIDAC 03/03/17 Isosorbide Mononitrate [Isosorbide 60 mg PO HS 03/03/17 Mononitrate ER] Magnesium Oxide [Mag-Ox -] 400 mg PO BID 03/03/17 Nystatin Cream [Mycostatin Cream -] 1 applic TP BID 03/03/17 Omeprazole 40 mg PO DAILY 03/03/17 Ondansetron HCl [Zofran] 4 mg PO TID PRN 03/03/17 Ranolazine [Ranexa] 500 mg PO BID 03/03/17 Valsartan [Diovan] 80 mg PO DAILY 03/03/17 Metoclopramide HCl [Reglan -] 5 mg PO TIDAC tablet 03/22/17 metroNIDAZOLE [Flagyl -] 500 mg PO TID tablet 03/22/17 REVIEW OF SYSTEMS CONSTITUTIONAL: Absent: fever, chills, diaphoresis, HEENT: Absent: eye pain, visual changes CARDIOVASCULAR: Absent: chest pain, syncope, RESPIRATORY: Absent: cough, shortness of breath GASTROINTESTINAL: Absent: abdominal pain, nausea, vomiting, diarrhea, GENITOURINARY: Absent: dysuria, MUSCULOSKELETAL: Absent: back pain, neck pain NEUROLOGIC: Absent: headache, bladder or bowel incontinence PHYSICAL EXAMINATION Vital Signs - 24 hr Last Vital Signs Temp Pulse Resp BP Pulse Ox 97.6 F 74 16 156/67 95 05/05/19 03:37 05/05/19 04:30 05/05/19 04:30 05/05/19 04:30 05/05/19 04:30 GENERAL: AOx1, does not remember her name or what happened. Not in acute distress EYES: Pupils equal, round and reactive to light, extraocular movements intact, EARS, NOSE, THROAT: oropharynx clear without exudates. Moist mucous membranes. NECK: supple without lymphadenopathy, JVD, or masses. LUNGS: Breath sounds equal, clear to auscultation bilaterally. No wheezes, and no crackles. HEART: Irregular rhythm, normal S1 and S2 without murmur, rub or gallop. ABDOMEN: Soft, nontender, not distended, normoactive bowel sounds, no guarding, no rebound, no masses. UPPER EXTREMITIES: 2+ pulses, warm, well-perfused. No cyanosis. No peripheral edema. LOWER EXTREMITIES: 2+ pulses, warm, well-perfused. No peripheral edema. NEUROLOGICAL: Unable to perform, pt confused PSYCHIATRIC: Cooperative. Good eye contact. Laboratory Results - last 24 hr CBC, BMP 05/04/19 18:08 05/04/19 18:08 ASSESSMENT/PLAN: 83 y/o F, pmh of dementia, htn, dm, hld, cad, COPD, is BIBA to the ED for upper left extremity pain s/p fall #Fall 2/ to UTI UA positive for infxn WBC elevated Switch abx to Zosyn-Stat - for coverage of healthcare associated infxn due to pt 's stay at [facility] f/u UCx for more targeted abx therapy Lactic acid ordered F/u labs Trend WBC count IVF NS at 42 #Left extremity pain X-ray shows fracture at neck of the left humerus pain control w/ Tylenol for now If pt c/o of pain- consider alternative consult ortho #Right hip fracture Right hip is external rotated X-ray evident for possible fracture CT right hip- f/u results Consult Ortho #CAD New EKG ordered- f/u- for irregular rhythm or rate #HLD continue home meds- atorvastatin #HTN continue home meds-Carvedilol, amlodipine #DM BGM ACHS ISS #Alzheimer continue home meds- Donepezil #DVT ppx SCDs FEN: NPO Dispo: f/u white count and UCx, pain control, f/u ortho for intervention Visit type - Emergency Visit Emergency Visit: Yes ED Registration Date: 05/05/19 Care time: The patient presented to the Emergency Department on the above date and was hospitalized for further evaluation of their emergent condition. - New Patient This patient is new to me today: Yes Date on this admission: 05/05/19 - Critical Care Critical Care patient: No ATTENDING PHYSICIAN STATEMENT I saw and evaluated the patient. I reviewed the resident's note and discussed the case with the resident. I agree with the resident's findings and plan as documented. SUBJECTIVE: OBJECTIVE: ASSESSMENT AND PLAN:
[2019-05-05] MEDS ORDERED: INSULIN SLIDING SCALE (NOVOLOG) 1 VIAL SQ SCH (07:00)
--- NOTE | 2019-05-05 07:17 | PN ---
Physical Exam: SUBJECTIVE: Patient seen and examined presented from residential , left shoulder in sling , right LE externally rotated , alerto oriented x2 place and self , not able to provide story OBJECTIVE: Vital Signs Period Temp Pulse Resp BP Sys/Bishop Pulse Ox Last 24 Hr 97.6 F-97.7 F 67-75 16-17 145-188/53-81 95-100 GENERAL: AOx2, in NAD EYES: LEV, EOMI , extraocular movements intact, NECK: supple LUNGS: Breath sounds equal, clear to auscultation bilaterally. No wheezes, and no crackles. HEART: Irregular rhythm, normal S1 and S2 without murmur, rub or gallop. ABDOMEN: Soft, ND.NT , normoactive bowel sounds, UPPER EXTREMITIES: 2+ pulses, warm, well-perfused. No cyanosis. No peripheral edema. LOWER EXTREMITIES: 2+ pulses, warm, well-perfused. No peripheral edema. right LE externally rotated and shorter than left NEUROLOGICAL: Unable to perform, pt confused PSYCHIATRIC: Cooperative. Laboratory Results - last 24 hr 05/04/19 05/04/19 05/04/19 18:08 18:08 18:08 WBC 23.0 H RBC 6.52 H Hgb 15.2 Hct 48.5 H D MCV 74.3 L MCH 23.3 L MCHC 31.3 L RDW 19.8 H Plt Count 166 D MPV 10.1 Absolute Neuts (auto) 19.6 H Total Counted 100 Neutrophils % 85.4 H Neutrophils % (Manual) 88.8 H Band Neutrophils % 3.0 Lymphocytes % 6.8 L D Lymphocytes % (Manual) 4.1 L Monocytes % 6.8 Monocytes % (Manual) 4 Eosinophils % 0.1 D Eosinophils % (Manual) 0.0 Basophils % 0.9 Basophils % (Manual) 0.0 Myelocytes % (Man) 0 Promyelocytes % (Man) 0 Blast Cells % (Manual) 0 Nucleated RBC % 0 Metamyelocytes 0 Hypochromia 1+ Platelet Estimate Normal Platelet Comment Polychromasia 1+ Poikilocytosis 1+ Anisocytosis 2+ Microcytosis 1+ Macrocytosis 1+ Spherocytes 1+ Target Cells 1+ PT with INR 11.70 INR 0.99 PTT (Actin FS) 54.4 H Sodium 134 L Potassium 5.0 Chloride 100 Carbon Dioxide 27 Anion Gap 7 L BUN 34.6 H Creatinine 1.4 H Est GFR (CKD-EPI)AfAm 39.61 Est GFR (CKD-EPI)NonAf 34.18 Random Glucose 122 H Calcium 9.2 Total Bilirubin 0.5 AST 34 ALT 17 Alkaline Phosphatase 114 Troponin I Total Protein 6.7 Albumin 2.3 L Urine Color Urine Appearance Urine pH Ur Specific [place] Urine Protein Urine Glucose (UA) Urine Ketones Urine Blood Urine Nitrite Urine Bilirubin Urine Urobilinogen Ur Leukocyte Esterase Urine WBC (Auto) Urine RBC (Auto) Urine Casts (Auto) U Epithel Cells (Auto) Urine Bacteria (Auto) Blood Type Antibody Screen 05/04/19 05/04/19 05/04/19 18:08 18:08 18:25 WBC RBC Hgb Hct MCV MCH MCHC RDW Plt Count MPV Absolute Neuts (auto) Total Counted Neutrophils % Neutrophils % (Manual) Band Neutrophils % Lymphocytes % Lymphocytes % (Manual) Monocytes % Monocytes % (Manual) Eosinophils % Eosinophils % (Manual) Basophils % Basophils % (Manual) Myelocytes % (Man) Promyelocytes % (Man) Blast Cells % (Manual) Nucleated RBC % Metamyelocytes Hypochromia Platelet Estimate Platelet Comment Polychromasia Poikilocytosis Anisocytosis Microcytosis Macrocytosis Spherocytes Target Cells PT with INR INR PTT (Actin FS) Sodium Potassium Chloride Carbon Dioxide Anion Gap BUN Creatinine Est GFR (CKD-EPI)AfAm Est GFR (CKD-EPI)NonAf Random Glucose Calcium Total Bilirubin AST ALT Alkaline Phosphatase Troponin I < 0.02 Total Protein Albumin Urine Color Yellow Urine Appearance Clear Urine pH 6.5 D Ur Specific [place] 1.025 Urine Protein 3+ H Urine Glucose (UA) Trace Urine Ketones Negative Urine Blood 2+ H Urine Nitrite Negative Urine Bilirubin Negative Urine Urobilinogen 0.2 Ur Leukocyte Esterase 3+ H Urine WBC (Auto) 1454.3 Urine RBC (Auto) 18.1 Urine Casts (Auto) 63.2 U Epithel Cells (Auto) 12.1 Urine Bacteria (Auto) 4096 Blood Type O POSITIVE Antibody Screen Negative Active Medications Generic Name Dose Route Start Last Admin Trade Name Freq PRN Reason Stop Dose Admin Acetaminophen 650 mg 05/05/19 04:09 Tylenol - PO Q4H PRN PAIN Amlodipine Besylate 5 mg 05/05/19 10:00 Norvasc - PO BID JOSE Atorvastatin Calcium 20 mg 05/05/19 22:00 Lipitor - PO HS JOSE Carvedilol 25 mg 05/05/19 10:00 Coreg - PO BID JOSE Donepezil HCl 5 mg 05/05/19 10:00 Aricept - PO DAILY JOSE Duloxetine HCl 30 mg 05/05/19 10:00 Cymbalta - PO DAILY JOSE Sodium Chloride 1,000 mls @ 42 mls/hr 05/05/19 04:15 05/05/19 05:15 Normal Saline - IV 42 mls/hr ASDIR JOSE Administration Piperacillin Sod/Tazobactam 50 mls @ 100 mls/hr 05/05/19 04:19 Sod 3.375 gm/ Dextrose IVPB Q6H-IV JOSE Protocol Piperacillin Sod/Tazobactam 50 mls @ 100 mls/hr 05/05/19 10:00 Sod 3.375 gm/ Dextrose IVPB 05/06/19 02:29 Q8H-IV JOSE Insulin Aspart 0 vial 05/05/19 07:00 Novolog Vial Sliding Scale - SQ ACHS JOSE Protocol CBC, BMP 05/05/19 10:45 05/05/19 10:45 ASSESSMENT/PLAN: 83 y/o F, pmh of dementia, htn, dm, hld, cad, COPD, is BIBA to the ED for upper left extremity pain s/p fall #Fall 2/2 syncope 2/2 to UTI * UA positive for infiction n,WBC elevated * IV ceftriaxone * f/u UCx for more targeted abx therapy * IVF NS at 75 cc/hr # left humerus fx * X-ray shows fracture at neck of the left humerus * pain control w/ Tylenol for now * consult ortho recommend sling for now #Right hip fracture * Right hip is external rotated and shorter than left LE * X-ray evident for possible fracture * CT right hip reviewd * Consult Ortho Dr Hughes, follow recommendation #CAD * No EKG changes * stable * cont ranexa #HLD * continue atorvastatin #HTN * continue Carvedilol, amlodipine #DM * BGM ACHS * ISS #Alzheimer * continue home meds- Donepezil #DVT ppx * SCDs * Hep TID SQ # FEN: Dysphagia puree diet * Dispo:M/S * f/u white count and UCx, pain control, * f/u ortho recommendations # DNR/DNI discussed with Daughter Betty priest witnessed by Dr Mesa. Visit type - Emergency Visit Emergency Visit: Yes ED Registration Date: 05/05/19 Care time: The patient presented to the Emergency Department on the above date and was hospitalized for further evaluation of their emergent condition. - New Patient This patient is new to me today: Yes Date on this admission: 05/05/19 - Critical Care Critical Care patient: No ATTENDING PHYSICIAN STATEMENT I saw and evaluated the patient. I reviewed the resident's note and discussed the case with the resident. I agree with the resident's findings and plan as documented. SUBJECTIVE: OBJECTIVE: ASSESSMENT AND PLAN:
[2019-05-05] MEDS ORDERED: PIPERACILLIN/TAZOBACTAM 3.375 GM VIAL IVPB ONE (09:20)
[2019-05-05] MEDS ORDERED: DEXTROSE 5%-WATER - 50 ML IVPB ONE ×2 (09:20→13:14)
[2019-05-05] MEDS: DONEPEZIL HCL 5 MG TABLET (FP) PO SCH (10:27)
[2019-05-05] MEDS: CARVEDILOL 25 MG TABLET (FP) PO SCH ×2 (10:27→21:48)
[2019-05-05] MEDS: DULoxetine HCL 30 MG CAPSULE.DR PO SCH (10:27)
[2019-05-05] MEDS: amLODIPine BESYLATE 5 MG TABLET (FP) PO SCH ×2 (10:27→21:48)
--- NOTE | 2019-05-05 10:55 | EKG ---
Test Reason : Blood Pressure : / mmHG Vent. Rate : 076 BPM Atrial Rate : 076 BPM P-R Int : 170 ms QRS Dur : 092 ms QT Int : 400 ms P-R-T Axes : 054 -56 055 degrees QTc Int : 450 ms NORMAL SINUS RHYTHM INCOMPLETE RIGHT BUNDLE BRANCH BLOCK LEFT ANTERIOR FASCICULAR BLOCK CANNOT RULE OUT INFERIOR INFARCT (CITED ON OR BEFORE 04-MAY-2019) ABNORMAL ECG WHEN COMPARED WITH ECG OF 04-MAY-2019 19:47, INCOMPLETE RIGHT BUNDLE BRANCH BLOCK IS NOW PRESENT Confirmed by ADAM LOPEZ MD ([id number]) on 05/05/2019 10:54:35 AM Referred By: Confirmed By:ADAM LOPEZ MD
--- NOTE | 2019-05-05 11:07 | EKG ---
Test Reason : Blood Pressure : / mmHG Vent. Rate : 071 BPM Atrial Rate : 071 BPM P-R Int : 166 ms QRS Dur : 094 ms QT Int : 406 ms P-R-T Axes : 037 -51 047 degrees QTc Int : 441 ms NORMAL SINUS RHYTHM LEFT ANTERIOR FASCICULAR BLOCK CANNOT RULE OUT INFERIOR INFARCT (MASKED BY FASCICULAR BLOCK?) , AGE UNDETERMINED CANNOT RULE OUT ANTERIOR INFARCT (CITED ON OR BEFORE 03-MAR-2017) ABNORMAL ECG WHEN COMPARED WITH ECG OF 03-MAR-2017 18:00, QUESTIONABLE CHANGE IN INITIAL FORCES OF LATERAL LEADS NONSPECIFIC T WAVE ABNORMALITY NO LONGER EVIDENT IN ANTERIOR LEADS Confirmed by ADAM LOPEZ MD ([id number]) on 05/05/2019 11:07:51 AM Referred By: Confirmed By:ADAM LOPEZ MD
--- NOTE | 2019-05-05 11:07 | CON.ORTH ---
Consult Consult Specialty:: Ortho Reason for Consultation:: left shoulder fx, right hip s/p long gamma nail - Past Medical History COMPLIANCE OFFICER: Yes: CVA, Dementia (mild) Cardio/Vascular: Yes: CAD (s/p multiple prior PCI's--last oct 2013 MICHAEL to mLAD ( prior stents patent)), HTN, Hyperlipdemia Pulmonary: Yes: COPD Renal/: Yes: Renal Inusuff Endocrine: Yes: Diabetes Mellitus, Other (obesity) - Past Surgical History Past Surgical History: Yes: Appendectomy, Stent - Alcohol/Substance Use Hx Alcohol Use: No History of Substance Use: reports: None - Smoking History Smoking history: Never smoked Have you smoked in the past 12 months: No Aproximately how many cigarettes per day: 0 - Social History Usual Living Arrangement: With Spouse ADL: Family Assistance History of Recent Travel: No Home Medications - Allergies Allergies/Adverse Reactions: Allergies Allergy/AdvReac Type Severity Reaction Status Date / Time iodine [Iodine] Allergy Severe Swelling Verified 02/08/19 22:03 aspirin Allergy Mild ABD PAIN Verified 02/08/19 22:03 - Home Medications Home Medications: Ambulatory Orders Aa/Hydrolyzed Collagen, Whey [Lps 15-30 Liquid] 960 ml PO DAILY 03/03/17 Amlodipine Besylate 5 mg PO BID 03/03/17 Atorvastatin Ca [Lipitor] 20 mg PO HS 03/03/17 Carvedilol [Coreg -] 25 mg PO BID 03/03/17 Clonidine-Tts 0.3MG/24Hr Patch [Cdoenlms-Lxv-6] 1 patch NR WEEKLY 03/03/17 Cyanocobalamin (Vitamin B-12) [Vitamin B12] 2,500 mcg PO DAILY 03/03/17 Docusate Sodium [Colace -] 300 mg PO BID 03/03/17 Donepezil HCl [Aricept -] 5 mg PO DAILY 03/03/17 Duloxetine HCl [Cymbalta -] 30 mg PO DAILY 03/03/17 Enoxaparin [Lovenox -] 40 mg SQ DAILY 03/03/17 Folic Acid - 400 mcg PO DAILY 03/03/17 Furosemide [Lasix] 40 mg PO DAILY 03/03/17 Insulin (Levemir) [Levemir Vial] 12 unit SQ DAILY 03/03/17 Insulin Regular [Novolin R Vial -] 0 units SQ BIDAC 03/03/17 Isosorbide Mononitrate [Isosorbide Mononitrate ER] 60 mg PO HS 03/03/17 Magnesium Oxide [Mag-Ox -] 400 mg PO BID 03/03/17 Nystatin Cream [Mycostatin Cream -] 1 applic TP BID 03/03/17 Omeprazole 40 mg PO DAILY 03/03/17 Ondansetron HCl [Zofran] 4 mg PO TID PRN 03/03/17 Ranolazine [Ranexa] 500 mg PO BID 03/03/17 Valsartan [Diovan] 80 mg PO DAILY 03/03/17 Metoclopramide HCl [Reglan -] 5 mg PO TIDAC tablet 03/22/17 metroNIDAZOLE [Flagyl -] 500 mg PO TID tablet 03/22/17 Physical Exam for Ortho Vital Signs: Vital Signs Temperature 97.6 F 05/05/19 03:37 Pulse Rate 74 05/05/19 04:30 Respiratory Rate 16 05/05/19 04:30 Blood Pressure 156/67 05/05/19 04:30 O2 Sat by Pulse Oximetry (%) 95 05/05/19 04:30 Labs: CBC, BMP 05/04/19 18:08 05/04/19 18:08 INR, PTT INR 0.99 (0.83-1.09) 05/04/19 18:08 - Upper Extremity Shoulder: Yes: Left, Limited ROM, Pain, Swelling, Tenderness, Other (nvi) - Lower Extremity Hip: Yes: Right, Pain, Swelling, Other (nvi) Imaging - Results X-ray: Report Reviewed, Image Reviewed Assessment/Plan 83 y/o F, pmh of dementia, htn, dm, hld, cad, COPD, is BIBA from [facility] to the ED for upper left extremity pain s/p fall. Pt has dementia and is a poor historian. As per ED, pt's arm was put in a sling and transported to the ED. As per ED, pt's UA came back positive for UTI and was started on Ceftriaxone. Pt has a history of klebseilla sensitive to ceftriaxone. Pt denies fevers, chills, n/v, sob, headaches, chest pain, abdominal pain, dysuria, melena. a/p left proximal humerus fx, right hip pain s/p long IM gamma nail approx [address] scan of right hip pending No surgical intervention at this time left shoulder-- sling, NWB will advise further in regards to right hip after CT d/w Dr. Quintana
[2019-05-05 11:19] LABS: BASO % 0.4 % (0-2.0); EOS % 0.2 % (0-4.5); HEMATOCRIT 48.9 % (32.4-45.2); HEMOGLOBIN 15.2 GM/dL (10.7-15.3); LYMPH % 7.6 % (8-40); MCH 23.4 pg (25.7-33.7); MCHC 31.2 g/dl (32.0-36.0); MEAN PLT VOLUME 10.6 fl (7.5-11.1); MONO % 7.5 % (3.8-10.2); NEUT % 84.3 % (42.8-82.8); PLATELET COUNT 156 K/MM3 (134-434); RBC 6.51 M/mm3 (3.60-5.2); RDW 19.6 % (11.6-15.6)
[2019-05-05 11:50] LABS: ALBUMIN 2.4 g/dl (3.4-5.0); BILIRUBIN,TOTAL 0.4 mg/dL (0.2-1); BLOOD UREA NITROGEN 32.7 mg/dL (7-18); CALCIUM 9.4 mg/dL (8.5-10.1); CREATININE 1.4 mg/dL (0.55-1.3); POTASSIUM 4.2 mmol/L (3.5-5.1); TOT PROT 6.9 g/dl (6.4-8.2)
[2019-05-05 12:36] LABS: MAGNESIUM 3.2 mg/dL (1.8-2.4); PHOSPHOROUS 3.8 mg/dL (2.5-4.9)
[2019-05-05] MEDS ORDERED: cefTRIAXone SODIUM 1 GM VIAL ONE (13:14)
[2019-05-05] MEDS: CEFTRIAXONE 1 GM in DEXTROSE 5%-WATER - 50 ML IVPB SCH (13:16)
--- NOTE | 2019-05-05 14:35 | PN ---
Teaching Attending Note Name of Resident: Alfred Tse ATTENDING PHYSICIAN STATEMENT I saw and evaluated the patient. I reviewed the resident's note and discussed the case with the resident. I agree with the resident's findings and plan as documented with exceptions below. SUBJECTIVE: Patient seen and examined. responds to name. reports abdominal pain but limited ROS. OBJECTIVE: Vital Signs Period Temp Pulse Resp BP Sys/Bishop Pulse Ox Last 24 Hr 97.6 F-98.8 F 67-84 16-20 145-188/53-81 95-100 Intake & Output 05/02/19 05/03/19 05/04/19 05/05/19 23:59 23:59 23:59 23:59 Weight 140 lb 122 lb 3 oz General: lying in bed in no acute distress, dry skin and mucous membrane Neck: soft, supple, no JVD Chest: poor effort, no rales or wheezing appreciated Extremities: LUE sling, pos pulses, RLE shortened/abducted/externally rotated, pain when attempting to move, pos pulses, CVS:S1S2 regular Home Medications Medication Instructions Recorded Aa/Hydrolyzed Collagen, Whey [Lps 960 ml PO DAILY 03/03/17 15-30 Liquid] Amlodipine Besylate 5 mg PO BID 03/03/17 Atorvastatin Ca [Lipitor] 20 mg PO HS 03/03/17 Carvedilol [Coreg -] 25 mg PO BID 03/03/17 Clonidine-Tts 0.3MG/24Hr Patch 1 patch NR WEEKLY 03/03/17 [Ezfzaeru-Wyj-8] Cyanocobalamin (Vitamin B-12) 2,500 mcg PO DAILY 03/03/17 [Vitamin B12] Docusate Sodium [Colace -] 300 mg PO BID 03/03/17 Donepezil HCl [Aricept -] 5 mg PO DAILY 03/03/17 Duloxetine HCl [Cymbalta -] 30 mg PO DAILY 03/03/17 Enoxaparin [Lovenox -] 40 mg SQ DAILY 03/03/17 Folic Acid - 400 mcg PO DAILY 03/03/17 Furosemide [Lasix] 40 mg PO DAILY 03/03/17 Insulin (Levemir) [Levemir Vial] 12 unit SQ DAILY 03/03/17 Insulin Regular [Novolin R Vial -] 0 units SQ BIDAC 03/03/17 Isosorbide Mononitrate [Isosorbide 60 mg PO HS 03/03/17 Mononitrate ER] Magnesium Oxide [Mag-Ox -] 400 mg PO BID 03/03/17 Nystatin Cream [Mycostatin Cream -] 1 applic TP BID 03/03/17 Omeprazole 40 mg PO DAILY 03/03/17 Ondansetron HCl [Zofran] 4 mg PO TID PRN 03/03/17 Ranolazine [Ranexa] 500 mg PO BID 03/03/17 Valsartan [Diovan] 80 mg PO DAILY 03/03/17 Metoclopramide HCl [Reglan -] 5 mg PO TIDAC tablet 03/22/17 metroNIDAZOLE [Flagyl -] 500 mg PO TID tablet 03/22/17 Active Medications Acetaminophen (Tylenol -) 650 mg PO Q4H PRN PRN Reason: PAIN Amlodipine Besylate (Norvasc -) 5 mg PO BID [facility] Last Admin: 05/05/19 10:27 Dose: Not Given Atorvastatin Calcium (Lipitor -) 20 mg PO [facility] Carvedilol (Coreg -) 25 mg PO BID [facility] Last Admin: 05/05/19 10:27 Dose: Not Given Donepezil HCl (Aricept -) 5 mg PO DAILY [facility] Last Admin: 05/05/19 10:27 Dose: Not Given Duloxetine HCl (Cymbalta -) 30 mg PO DAILY [facility] Last Admin: 05/05/19 10:27 Dose: Not Given Sodium Chloride (Normal Saline -) 1,000 mls @ 42 mls/hr IV ASDIR [facility] Last Admin: 05/05/19 05:15 Dose: 42 mls/hr Piperacillin Sod/Tazobactam (Sod 3.375 gm/ Dextrose) 50 mls @ 100 mls/hr IVPB Q6H-IV [facility]; Protocol Ceftriaxone Sodium 1 gm/ (Dextrose) 50 mls @ 100 mls/hr IVPB DAILY [facility]; Protocol Last Admin: 05/05/19 13:16 Dose: 100 mls/hr Insulin Aspart (Novolog Vial Sliding Scale -) 0 vial SQ ACHS [facility]; Protocol Laboratory Results - last 24 hr 05/04/19 05/04/19 05/04/19 18:08 18:08 18:08 WBC 23.0 H RBC 6.52 H Hgb 15.2 Hct 48.5 H D MCV 74.3 L MCH 23.3 L MCHC 31.3 L RDW 19.8 H Plt Count 166 D MPV 10.1 Absolute Neuts (auto) 19.6 H Total Counted 100 Neutrophils % 85.4 H Neutrophils % (Manual) 88.8 H Band Neutrophils % 3.0 Lymphocytes % 6.8 L D Lymphocytes % (Manual) 4.1 L Monocytes % 6.8 Monocytes % (Manual) 4 Eosinophils % 0.1 D Eosinophils % (Manual) 0.0 Basophils % 0.9 Basophils % (Manual) 0.0 Myelocytes % (Man) 0 Promyelocytes % (Man) 0 Blast Cells % (Manual) 0 Nucleated RBC % 0 Metamyelocytes 0 Hypochromia 1+ Platelet Estimate Normal Platelet Comment Polychromasia 1+ Poikilocytosis 1+ Anisocytosis 2+ Microcytosis 1+ Macrocytosis 1+ Spherocytes 1+ Target Cells 1+ PT with INR 11.70 INR 0.99 PTT (Actin FS) 54.4 H Sodium 134 L Potassium 5.0 Chloride 100 Carbon Dioxide 27 Anion Gap 7 L BUN 34.6 H Creatinine 1.4 H Est GFR (CKD-EPI)AfAm 39.61 Est GFR (CKD-EPI)NonAf 34.18 Random Glucose 122 H Calcium 9.2 Phosphorus Magnesium Total Bilirubin 0.5 AST 34 ALT 17 Alkaline Phosphatase 114 Troponin I Total Protein 6.7 Albumin 2.3 L Urine Color Urine Appearance Urine pH Ur Specific [place] Urine Protein Urine Glucose (UA) Urine Ketones Urine Blood Urine Nitrite Urine Bilirubin Urine Urobilinogen Ur Leukocyte Esterase Urine WBC (Auto) Urine RBC (Auto) Urine Casts (Auto) U Epithel Cells (Auto) Urine Bacteria (Auto) Blood Type Antibody Screen 05/04/19 05/04/19 05/04/19 18:08 18:08 18:25 WBC RBC Hgb Hct MCV MCH MCHC RDW Plt Count MPV Absolute Neuts (auto) Total Counted Neutrophils % Neutrophils % (Manual) Band Neutrophils % Lymphocytes % Lymphocytes % (Manual) Monocytes % Monocytes % (Manual) Eosinophils % Eosinophils % (Manual) Basophils % Basophils % (Manual) Myelocytes % (Man) Promyelocytes % (Man) Blast Cells % (Manual) Nucleated RBC % Metamyelocytes Hypochromia Platelet Estimate Platelet Comment Polychromasia Poikilocytosis Anisocytosis Microcytosis Macrocytosis Spherocytes Target Cells PT with INR INR PTT (Actin FS) Sodium Potassium Chloride Carbon Dioxide Anion Gap BUN Creatinine Est GFR (CKD-EPI)AfAm Est GFR (CKD-EPI)NonAf Random Glucose Calcium Phosphorus Magnesium Total Bilirubin AST ALT Alkaline Phosphatase Troponin I < 0.02 Total Protein Albumin Urine Color Yellow Urine Appearance Clear Urine pH 6.5 D Ur Specific [place] 1.025 Urine Protein 3+ H Urine Glucose (UA) Trace Urine Ketones Negative Urine Blood 2+ H Urine Nitrite Negative Urine Bilirubin Negative Urine Urobilinogen 0.2 Ur Leukocyte Esterase 3+ H Urine WBC (Auto) 1454.3 Urine RBC (Auto) 18.1 Urine Casts (Auto) 63.2 U Epithel Cells (Auto) 12.1 Urine Bacteria (Auto) 4096 Blood Type O POSITIVE Antibody Screen Negative 05/05/19 05/05/19 10:45 10:45 WBC 19.0 H RBC 6.51 H Hgb 15.2 Hct 48.9 H MCV 75.0 L MCH 23.4 L MCHC 31.2 L RDW 19.6 H Plt Count 156 MPV 10.6 Absolute Neuts (auto) 16.1 H Total Counted Neutrophils % 84.3 H Neutrophils % (Manual) Band Neutrophils % Lymphocytes % 7.6 L Lymphocytes % (Manual) Monocytes % 7.5 Monocytes % (Manual) Eosinophils % 0.2 D Eosinophils % (Manual) Basophils % 0.4 Basophils % (Manual) Myelocytes % (Man) Promyelocytes % (Man) Blast Cells % (Manual) Nucleated RBC % 0 Metamyelocytes Hypochromia Platelet Estimate Platelet Comment Polychromasia Poikilocytosis Anisocytosis Microcytosis Macrocytosis Spherocytes Target Cells PT with INR INR PTT (Actin FS) Sodium 137 Potassium 4.2 Chloride 102 Carbon Dioxide 25 Anion Gap 9 BUN 32.7 H Creatinine 1.4 H Est GFR (CKD-EPI)AfAm 39.61 Est GFR (CKD-EPI)NonAf 34.18 Random Glucose 162 H Calcium 9.4 Phosphorus 3.8 Magnesium 3.2 H Total Bilirubin 0.4 AST 17 ALT 13 Alkaline Phosphatase 111 Troponin I Total Protein 6.9 Albumin 2.4 L Urine Color Urine Appearance Urine pH Ur Specific [place] Urine Protein Urine Glucose (UA) Urine Ketones Urine Blood Urine Nitrite Urine Bilirubin Urine Urobilinogen Ur Leukocyte Esterase Urine WBC (Auto) Urine RBC (Auto) Urine Casts (Auto) U Epithel Cells (Auto) Urine Bacteria (Auto) Blood Type Antibody Screen CT pelvis/Lower extremity results reviewed ASSESSMENT AND PLAN: 83 yof with PMhx of dementia, htn, dm, hld, cad, COPD sent from [facility] with fall , left humeral fracture, found with concerns for UTI and suspected proximal right femur shaft fracture -Lower uncomplicated UTI with sepsis -CYN, hypovolumia, r/o obstruction -Uncontrolled HTN, ?pain -Fall -Left humeral fracture -Suspected proximal right femur shaft fracture -Dehydration -HLD -IDDM -CAD -COPD -Dementia Plan: Ceftriaxone, follow up blood/urine cultures. Place [place] and strict I/Os. Increase IVF. Hold ARB Pain control, Tylenol for now. Orthopedic input noted. LUE sling. CT pelvis/LE results noted, follow up orthopedic recommendations. NWB RLE now. Start heparin for DVTPPx MOLST from residential reviewed. Per Ed notes, was rescinded by daughter and patient sent to the hospital palliative care consult to address goals of care. Continue Coreg/amlodipine. Resume ranexa Dispo back to Nursing pending goals of care, orthopedic recommendations and clinical improvement.
[2019-05-05] MEDS: SODIUM CHLORIDE 1,000 ML IV SCH (21:47)
[2019-05-05] MEDS: ATORVASTATIN CA 20 MG TABLET (FP) PO SCH (21:48)
[2019-05-05] MEDS: HEPARIN NA (PORCINE) 5,000 UNITS/ML 1ML VIAL SQ SCH (21:48)
[2019-05-05] MEDS: MAGNESIUM OXIDE 400 MG TABLET (FP) PO SCH (21:48)
[2019-05-05] MEDS: RANOLAZINE E.R. 500 MG TABLET (FP) PO SCH (21:48)
[2019-05-05] MEDS: DOCUSATE SODIUM 100 MG CAPSULE (FP) PO SCH (21:48)
[2019-05-06] MEDS: SODIUM CHLORIDE 1,000 ML IV SCH (06:08)
[2019-05-06] MEDS: HEPARIN NA (PORCINE) 5,000 UNITS/ML 1ML VIAL SQ SCH ×3 (06:09→21:30)
--- NOTE | 2019-05-06 07:28 | PN ---
Physical Exam: SUBJECTIVE: Patient seen and examined no acute events over night , no fever no chills, laying doen in bed , AAOx2 know place and self , denies any pain , RLE very tender upon any movement. seen by Ortho recommend conservative management for now OBJECTIVE: Vital Signs Period Temp Pulse Resp BP Sys/Bishop Pulse Ox Last 24 Hr 98.4 F-99.2 F 84-107 20-20 144-166/68-89 96-96 GENERAL: AOx2, in NAD EYES: LEV, EOMI , extraocular movements intact, NECK: supple LUNGS: Breath sounds equal, clear to auscultation bilaterally. No wheezes, and no crackles. HEART: Irregular rhythm, normal S1 and S2 without murmur, rub or gallop. ABDOMEN: Soft, ND.NT , normoactive bowel sounds, UPPER EXTREMITIES: 2+ pulses, warm, well-perfused. No cyanosis. No peripheral edema. LOWER EXTREMITIES: 2+ pulses, warm, well-perfused. No peripheral edema. right LE externally rotated and shorter than left NEUROLOGICAL: no facial assymetry , uvula mid line , gait not observed. PSYCHIATRIC: Cooperative. Laboratory Results - last 24 hr 05/05/19 05/05/19 05/05/19 10:45 10:45 18:21 WBC 19.0 H RBC 6.51 H Hgb 15.2 Hct 48.9 H MCV 75.0 L MCH 23.4 L MCHC 31.2 L RDW 19.6 H Plt Count 156 MPV 10.6 Absolute Neuts (auto) 16.1 H Total Counted 100 Neutrophils % 84.3 H Neutrophils % (Manual) 80.0 Lymphocytes % 7.6 L Lymphocytes % (Manual) 11.0 D Monocytes % 7.5 Monocytes % (Manual) 7 Eosinophils % 0.2 D Basophils % 0.4 Nucleated RBC % 0 Sodium 137 Potassium 4.2 Chloride 102 Carbon Dioxide 25 Anion Gap 9 BUN 32.7 H Creatinine 1.4 H Est GFR (CKD-EPI)AfAm 39.61 Est GFR (CKD-EPI)NonAf 34.18 POC Glucometer 197 Random Glucose 162 H Lactic Acid Calcium 9.4 Phosphorus 3.8 Magnesium 3.2 H Total Bilirubin 0.4 AST 17 ALT 13 Alkaline Phosphatase 111 Total Protein 6.9 Albumin 2.4 L 05/05/19 05/06/19 18:35 05:52 WBC RBC Hgb Hct MCV MCH MCHC RDW Plt Count MPV Absolute Neuts (auto) Total Counted Neutrophils % Neutrophils % (Manual) Lymphocytes % Lymphocytes % (Manual) Monocytes % Monocytes % (Manual) Eosinophils % Basophils % Nucleated RBC % Sodium Potassium Chloride Carbon Dioxide Anion Gap BUN Creatinine Est GFR (CKD-EPI)AfAm Est GFR (CKD-EPI)NonAf POC Glucometer 225 Random Glucose Lactic Acid 1.3 Calcium Phosphorus Magnesium Total Bilirubin AST ALT Alkaline Phosphatase Total Protein Albumin Active Medications Generic Name Dose Route Start Last Admin Trade Name Freq PRN Reason Stop Dose Admin Acetaminophen 650 mg 05/05/19 04:09 Tylenol - PO Q4H PRN PAIN Amlodipine Besylate 5 mg 05/05/19 10:00 05/05/19 21:48 Norvasc - PO 5 mg BID JOSE Administration Atorvastatin Calcium 20 mg 05/05/19 22:00 05/05/19 21:48 Lipitor - PO 20 mg HS JOSE Administration Carvedilol 25 mg 05/05/19 10:00 05/05/19 21:48 Coreg - PO 25 mg BID JOSE Administration Docusate Sodium 300 mg 05/05/19 22:00 05/05/19 21:48 Colace - PO 300 mg BID JOSE Administration Donepezil HCl 5 mg 05/05/19 10:00 05/05/19 10:27 Aricept - PO Not Given DAILY JOSE Duloxetine HCl 30 mg 05/05/19 10:00 05/05/19 10:27 Cymbalta - PO Not Given DAILY JOSE Folic Acid 1 mg 05/06/19 10:00 Folic Acid - PO DAILY [facility] Heparin Sodium (Porcine) 5,000 unit 05/05/19 22:00 05/06/19 06:09 Heparin - SQ 5,000 unit TID JOSE Administration Ceftriaxone Sodium 1 gm/ 50 mls @ 100 mls/hr 05/05/19 11:00 05/05/19 13:16 Dextrose IVPB 100 mls/hr DAILY JOSE Administration Protocol Sodium Chloride 1,000 mls @ 75 mls/hr 05/05/19 15:00 05/06/19 06:08 Normal Saline - IV 75 mls/hr ASDIR JOSE Administration Insulin Aspart 0 vial 05/05/19 07:00 Novolog Vial Sliding Scale - SQ ACHS [facility] Protocol Magnesium Oxide 400 mg 05/05/19 22:00 05/05/19 21:48 Mag-Ox - PO 400 mg BID JOSE Administration Ranolazine 500 mg 05/05/19 22:00 05/05/19 21:48 Ranexa - PO 500 mg BID JOSE Administration CBC, BMP 05/05/19 10:45 05/06/19 08:05 ASSESSMENT/PLAN: 83 y/o F, pmh of dementia, htn, dm, hld, cad, COPD, is BIBA to the ED for upper left extremity pain s/p fall #Fall 2/2 syncope 2/2 to UTI * UA positive for infection ,WBC trending down * IV ceftriaxone * f/u UCx for more targeted abx therapy * IVF NS at 75 cc/hr , hold for now # left humerus fx * X-ray shows fracture at neck of the left humerus * pain control w/ Tylenol for now * consult ortho recommend sling for now , conservative management for now #Right hip fracture * Right hip is external rotated and shorter than left LE * X-ray evident for possible fracture * CT right hip reviewd * Consult Ortho Dr Hughes, follow recommendation # CYN pre renal likely , repeat lab after hydration, follow renal bladder US #CAD * no EKG changes * stable * cont ranexa #HLD * continue atorvastatin #HTN * continue Carvedilol, amlodipine, Clonidine patch weekly and Imdur 60 daily #DM * BGM ACHS * ISS * Levemir 14 units Q AM #Alzheimer * continue home meds- Donepezil #DVT ppx * SCDs * Hep TID SQ # FEN: Dysphagia puree diet #Dispo:M/S # DNR/DNI discussed with Daughter Betty priest witnessed by Dr Mesa. Visit type - Emergency Visit Emergency Visit: Yes ED Registration Date: 05/05/19 Care time: The patient presented to the Emergency Department on the above date and was hospitalized for further evaluation of their emergent condition. - New Patient This patient is new to me today: No - Critical Care Critical Care patient: No ATTENDING PHYSICIAN STATEMENT I saw and evaluated the patient. I reviewed the resident's note and discussed the case with the resident. I agree with the resident's findings and plan as documented. SUBJECTIVE: OBJECTIVE: ASSESSMENT AND PLAN:
[2019-05-06] MEDS ORDERED: DEXTROSE 5%-WATER - 50 ML IVPB ONE (09:04)
[2019-05-06] MEDS ORDERED: cefTRIAXone SODIUM 1 GM VIAL ONE (09:04)
[2019-05-06 09:06] LABS: BILIRUBIN,TOTAL 0.4 mg/dL (0.2-1); BLOOD UREA NITROGEN 34.8 mg/dL (7-18); CALCIUM 8.9 mg/dL (8.5-10.1); CREATININE 1.5 mg/dL (0.55-1.3); MAGNESIUM 3.2 mg/dL (1.8-2.4); PHOSPHOROUS 3.5 mg/dL (2.5-4.9); POTASSIUM 3.9 mmol/L (3.5-5.1)
[2019-05-06] MEDS: FOLIC ACID 1 MG TABLET (FP) PO SCH (09:15)
[2019-05-06] MEDS: DOCUSATE SODIUM 100 MG CAPSULE (FP) PO SCH ×2 (09:15→21:31)
[2019-05-06] MEDS: CARVEDILOL 25 MG TABLET (FP) PO SCH ×2 (09:15→21:31)
[2019-05-06] MEDS: DULoxetine HCL 30 MG CAPSULE.DR PO SCH (09:15)
[2019-05-06] MEDS: DONEPEZIL HCL 5 MG TABLET (FP) PO SCH (09:15)
[2019-05-06] MEDS: amLODIPine BESYLATE 5 MG TABLET (FP) PO SCH ×2 (09:15→21:32)
[2019-05-06] MEDS: CEFTRIAXONE 1 GM in DEXTROSE 5%-WATER - 50 ML IVPB SCH (09:16)
[2019-05-06] MEDS: MAGNESIUM OXIDE 400 MG TABLET (FP) PO SCH ×2 (09:17→21:32)
[2019-05-06] MEDS: RANOLAZINE E.R. 500 MG TABLET (FP) PO SCH ×2 (09:21→21:32)
--- NOTE | 2019-05-06 09:59 | PN ---
Progress Note (short form) - Note Progress Note: Pt seen and examined. She is an 83 year old F pt s/p fall, with a left proximal humerus fracture, in a sling. She also c/o pain right femur, mild. CT scan of the right pelvis and femur show a subtle nondisplaced fracture of the right midshaft femur. Stable. Imp Doing fine. Rec Right femur - P.T., WBAT, no surgery indicated at this time. Left proximal humerus fracture - sling, light activities only. Full ROM of the elbow, forearm, wrist, fingers.
[2019-05-06] MEDS ORDERED: CEFTRIAXONE 1 GM in DEXTROSE 5%-WATER - 100 ML IVPB SCH (10:00)
[2019-05-06] MEDS: ACETAMINOPHEN 325 MG TABLET (FP) PO PRN (10:53)
--- NOTE | 2019-05-06 11:57 | PN ---
Teaching Attending Note Name of Resident: Alfred Tse ATTENDING PHYSICIAN STATEMENT I saw and evaluated the patient. I reviewed the resident's note and discussed the case with the resident. I agree with the resident's findings and plan as documented with exceptions below. SUBJECTIVE: Patient seen and examined. reports left arm pain. No other complaints. OBJECTIVE: Vital Signs Period Temp Pulse Resp BP Sys/Bishop Pulse Ox Last 24 Hr 98.4 F-99.2 F 84-107 18-20 144-166/67-89 94-96 Intake & Output 05/03/19 05/04/19 05/05/19 05/06/19 23:59 23:59 23:59 23:59 Intake Total 1286 1120 Output Total 250 250 Balance 1036 870 Weight 140 lb 122 lb 3 oz 123 lb 2 oz General: lying in bed in no acute distress Neck: soft, supple HEENT: moist mucous membrane today Chest: poor effort, unable to appreciate rales or wheezing Abdomen:soft, obese, NT Extremities: LUE sling, no edema, pos pulses, RLE external rotated, pain on movement, pos pulses, no edema noted Home Medications Medication Instructions Recorded Aa/Hydrolyzed Collagen, Whey [Lps 960 ml PO DAILY 03/03/17 15-30 Liquid] Amlodipine Besylate 10 mg PO DAILY 03/03/17 Atorvastatin Ca [Lipitor] 20 mg PO HS 03/03/17 Carvedilol [Coreg -] 25 mg PO BID 03/03/17 Clonidine-Tts 0.3MG/24Hr Patch 1 patch NR WEEKLY 03/03/17 [[id number]] Cyanocobalamin (Vitamin B-12) 2,500 mcg PO DAILY 03/03/17 [Vitamin B12] Docusate Sodium [Colace -] 300 mg PO BID 03/03/17 Donepezil HCl [Aricept -] 5 mg PO DAILY 03/03/17 Duloxetine HCl [Cymbalta -] 30 mg PO DAILY 03/03/17 Enoxaparin [Lovenox -] 40 mg SQ DAILY 03/03/17 Folic Acid - 400 mcg PO DAILY 03/03/17 Furosemide [Lasix] 40 mg PO DAILY 03/03/17 Insulin (Levemir) [Levemir Vial] 14 unit SQ DAILY 03/03/17 Insulin Regular [Novolin R Vial -] 1 units SQ ASDIR 03/03/17 Isosorbide Mononitrate [Isosorbide 60 mg PO HS 03/03/17 Mononitrate ER] Magnesium Oxide [Mag-Ox -] 400 mg PO BID 03/03/17 Nystatin Cream [Mycostatin Cream -] 1 applic TP BID 03/03/17 Omeprazole 40 mg PO DAILY 03/03/17 Ondansetron HCl [Zofran] 4 mg PO TID PRN 03/03/17 Ranolazine [Ranexa] 500 mg PO BID 03/03/17 Valsartan [Diovan] 80 mg PO DAILY 03/03/17 Metoclopramide HCl [Reglan -] 5 mg PO TIDAC tablet 03/22/17 metroNIDAZOLE [Flagyl -] 500 mg PO TID tablet 03/22/17 Aa/Hydrolyzed Collagen, Whey [Lps 30 ml PO DAILY 05/05/19 Neutral Flavor Liquid] Acetaminophen [Pain Relief] 1,000 mg PO Q8H PRN 05/05/19 Hydroxyurea 500 mg PO WEEKLY 05/05/19 Losartan 50Mg/Hctz 12.5MG [Hyzaar 50 mg PO DAILY 05/05/19 -] Mag Hydrox/Aluminum Hyd/Simeth 10 ml PO DAILY PRN 05/05/19 [Maalox Advanced Suspension] Pen Needle, Diabetic, Safety 1 each SQ Q6H 05/05/19 [Novofine Autocover] Ranitidine HCl [Zantac] 150 mg PO BID 05/05/19 Active Medications Acetaminophen (Tylenol -) 650 mg PO Q4H PRN PRN Reason: PAIN Last Admin: 05/06/19 10:53 Dose: 650 mg Amlodipine Besylate (Norvasc -) 5 mg PO BID [facility] Last Admin: 05/06/19 09:15 Dose: 5 mg Atorvastatin Calcium (Lipitor -) 20 mg PO [facility] Last Admin: 05/05/19 21:48 Dose: 20 mg Carvedilol (Coreg -) 25 mg PO BID [facility] Last Admin: 05/06/19 09:15 Dose: 25 mg Docusate Sodium (Colace -) 300 mg PO BID [facility] Last Admin: 05/06/19 09:15 Dose: 300 mg Donepezil HCl (Aricept -) 5 mg PO DAILY [facility] Last Admin: 05/06/19 09:15 Dose: 5 mg Duloxetine HCl (Cymbalta -) 30 mg PO DAILY [facility] Last Admin: 05/06/19 09:15 Dose: 30 mg Folic Acid (Folic Acid -) 1 mg PO DAILY [facility] Last Admin: 05/06/19 09:15 Dose: 1 mg Heparin Sodium (Porcine) (Heparin -) 5,000 unit SQ TID [facility] Last Admin: 05/06/19 06:09 Dose: 5,000 unit Ceftriaxone Sodium 1 gm/ (Dextrose) 50 mls @ 100 mls/hr IVPB DAILY JO[facility]; Protocol Last Admin: 05/06/19 09:16 Dose: 100 mls/hr Sodium Chloride (Normal Saline -) 1,000 mls @ 75 mls/hr IV ASDIR [facility] Last Admin: 05/06/19 06:08 Dose: 75 mls/hr Insulin Aspart (Novolog Vial Sliding Scale -) 0 vial SQ ACHS [facility]; Protocol Magnesium Oxide (Mag-Ox -) 400 mg PO BID [facility] Last Admin: 05/06/19 09:17 Dose: Not Given Ranolazine (Ranexa -) 500 mg PO BID [facility] Last Admin: 05/06/19 09:21 Dose: 500 mg Laboratory Results - last 24 hr 05/05/19 05/05/19 05/05/19 10:45 10:45 18:21 Total Counted 100 Neutrophils % (Manual) 80.0 Lymphocytes % (Manual) 11.0 D Monocytes % (Manual) 7 Sodium 137 Potassium 4.2 Chloride 102 Carbon Dioxide 25 Anion Gap 9 BUN 32.7 H Creatinine 1.4 H Est GFR (CKD-EPI)AfAm 39.61 Est GFR (CKD-EPI)NonAf 34.18 POC Glucometer 197 Random Glucose 162 H Lactic Acid Calcium 9.4 Phosphorus 3.8 Magnesium 3.2 H Total Bilirubin 0.4 AST 17 ALT 13 Alkaline Phosphatase 111 Total Protein 6.9 Albumin 2.4 L 05/05/19 05/06/19 05/06/19 18:35 05:52 08:05 Total Counted Neutrophils % (Manual) Lymphocytes % (Manual) Monocytes % (Manual) Sodium 140 Potassium 3.9 Chloride 107 Carbon Dioxide 25 Anion Gap 7 L BUN 34.8 H Creatinine 1.5 H Est GFR (CKD-EPI)AfAm 36.44 Est GFR (CKD-EPI)NonAf 31.44 POC Glucometer 225 Random Glucose 226 H Lactic Acid 1.3 Calcium 8.9 Phosphorus 3.5 Magnesium 3.2 H Total Bilirubin 0.4 AST 12 L ALT 11 L Alkaline Phosphatase 102 Total Protein 6.0 L Albumin 2.0 L Microbiology 05/04/19 18:25 Urine - Urine - Catheterized Urine Culture - Preliminary Pending Organism Pelvis/LE CT results reviewed ASSESSMENT AND PLAN: 83 yof with PMhx of dementia, htn, dm, hld, cad, COPD sent from [facility] with fall , left humeral fracture, found with concerns for UTI and suspected proximal right femur shaft fracture -Lower uncomplicated UTI with sepsis -CYN, hypovolumia, r/o obstruction -Uncontrolled HTN, ?pain+/- rebound from clonidine -Fall -Left humeral fracture -Suspected proximal right femur shaft fracture -Dehydration -HLD -IDDM -CAD -COPD -Dementia Plan: WBC improved, urine cx noted, ceftriaxone day 2, continue for now. Continue IVF, dysphagia pureed diet with aspiration precautions. CT pelvis/LE results noed. Orthopedic input noted. Non operative management. RLE WBAT and LUE sling. PT eval. dc ho when ambulatory with voiding trial. Hold ARB , Monitor renal function. Renal/baldder US. Confirm clonidine patch placement and resume accordingly. Continue coreg/ amlodipine/ranexa. Pain control, Tylenol for now. Heparin DVTPPX, continue MOLST from [place] reviewed, grand daughter Nela rescinded DNH. Discussed with her, confirms DNR/DNI. Palliative care consult to address goals of care, can be continued at the nursing. Dispo back to [facility] in 24-48 hours if WBC improved, urine cx available, pending PT eval and disposition arrangements.
[2019-05-06] MEDS ORDERED: INSULIN (LEVEMIR) 100 UNITS/ML UNITS SQ SCH (12:00)
[2019-05-06] MEDS ORDERED: INSULIN (LEVEMIR) 100 UNITS/ML UNITS SQ ONE (12:03)
[2019-05-06] MEDS ORDERED: INSULIN (NOVOLOG) ASPART 100 UNITS/ML 10ML VIAL ONE ×3 (12:13→21:19)
[2019-05-06] MEDS ORDERED: cloNIDine-TTS 0.3 MG /24 HRS PATCH.TDWK TD SCH (13:00)
[2019-05-06] MEDS: INSULIN SLIDING SCALE (NOVOLOG) 1 VIAL SQ SCH ×2 (16:01→21:32)
[2019-05-06 17:50] LABS: BASO % 0.4 % (0-2.0); EOS % 0.2 % (0-4.5); HEMATOCRIT 43.4 % (32.4-45.2); HEMOGLOBIN 13.4 GM/dL (10.7-15.3); LYMPH % 9.6 % (8-40); MCH 23.4 pg (25.7-33.7); MCHC 30.8 g/dl (32.0-36.0); MONO % 7.1 % (3.8-10.2); NEUT % 82.7 % (42.8-82.8); PLATELET COUNT 131 K/MM3 (134-434); RBC 5.72 M/mm3 (3.60-5.2); RDW 19.7 % (11.6-15.6); WHITE BLOOD COUNT 20.7 K/mm3 (4.0-10.0)
[2019-05-06] MEDS: RANITIDINE HCL 150 MG TABLET (FP) PO SCH (21:31)
[2019-05-06] MEDS: ATORVASTATIN CA 20 MG TABLET (FP) PO SCH (21:31)
[2019-05-06] MEDS: ISOSORBIDE MONONITRATE 60 MG TAB.SR.24H (FP) PO SCH (21:31)
[2019-05-06 22:15] LABS: ANISOCYTOSIS 1+; MACROCYTOSIS 1+
[2019-05-06 22:16] LABS: PLATELET ESTIMATE SLT DECREASE
[2019-05-07] MEDS: INSULIN SLIDING SCALE (NOVOLOG) 1 VIAL SQ SCH ×4 (06:59→21:39)
[2019-05-07] MEDS: HEPARIN NA (PORCINE) 5,000 UNITS/ML 1ML VIAL SQ SCH ×3 (07:00→21:39)
[2019-05-07] MEDS: INSULIN (LEVEMIR) 100 UNITS/ML UNITS SQ SCH (07:00)
--- NOTE | 2019-05-07 07:51 | PN ---
Physical Exam: SUBJECTIVE: Patient seen and examined presented [facility] , left shoulder in sling , right LE externally rotated , alerto oriented x2 place and self , not able to provide story OBJECTIVE: Vital Signs Period Temp Pulse Resp BP Sys/Bishop Pulse Ox Last 24 Hr 98.5 F-99.1 F 75-87 18-20 139-158/62-88 94-94 GENERAL: AOx2, in NAD EYES: LEV, EOMI , extraocular movements intact, NECK: supple LUNGS: Breath sounds equal, clear to auscultation bilaterally. No wheezes, and no crackles. HEART: Irregular rhythm, normal S1 and S2 without murmur, rub or gallop. ABDOMEN: Soft, ND.NT , normoactive bowel sounds, UPPER EXTREMITIES: 2+ pulses, warm, well-perfused. No cyanosis. No peripheral edema. LOWER EXTREMITIES: 2+ pulses, warm, well-perfused. No peripheral edema. right LE externally rotated and shorter than left NEUROLOGICAL: Unable to perform, pt confused PSYCHIATRIC: Cooperative. Laboratory Results - last 24 hr 05/06/19 05/06/19 05/06/19 08:05 11:47 15:49 WBC RBC Hgb Hct MCV MCH MCHC RDW Plt Count MPV Absolute Neuts (auto) Total Counted Neutrophils % Neutrophils % (Manual) Band Neutrophils % Lymphocytes % Lymphocytes % (Manual) Monocytes % Monocytes % (Manual) Eosinophils % Basophils % Myelocytes % (Man) Nucleated RBC % Differential Comment Hypochromia Platelet Estimate Platelet Comment Polychromasia Anisocytosis Macrocytosis Sodium 140 Potassium 3.9 Chloride 107 Carbon Dioxide 25 Anion Gap 7 L BUN 34.8 H Creatinine 1.5 H Est GFR (CKD-EPI)AfAm 36.44 Est GFR (CKD-EPI)NonAf 31.44 POC Glucometer 392 370 Random Glucose 226 H Calcium 8.9 Phosphorus 3.5 Magnesium 3.2 H Total Bilirubin 0.4 AST 12 L ALT 11 L Alkaline Phosphatase 102 Total Protein 6.0 L Albumin 2.0 L 05/06/19 05/06/19 05/07/19 17:00 21:10 05:33 WBC 20.7 H RBC 5.72 H Hgb 13.4 Hct 43.4 MCV 76.0 L MCH 23.4 L MCHC 30.8 L RDW 19.7 H Plt Count 131 L MPV 10.0 Absolute Neuts (auto) 17.1 H Total Counted 100 Neutrophils % 82.7 Neutrophils % (Manual) 78.0 Band Neutrophils % 3.0 Lymphocytes % 9.6 D Lymphocytes % (Manual) 11.0 Monocytes % 7.1 Monocytes % (Manual) 7 Eosinophils % 0.2 Basophils % 0.4 Myelocytes % (Man) 1 D Nucleated RBC % 0 Differential Comment Man diff performed Hypochromia 1+ Platelet Estimate Slt decrease Platelet Comment Polychromasia 1+ Anisocytosis 1+ Macrocytosis 1+ Sodium Potassium Chloride Carbon Dioxide Anion Gap BUN Creatinine Est GFR (CKD-EPI)AfAm Est GFR (CKD-EPI)NonAf POC Glucometer 246 91 Random Glucose Calcium Phosphorus Magnesium Total Bilirubin AST ALT Alkaline Phosphatase Total Protein Albumin Active Medications Generic Name Dose Route Start Last Admin Trade Name Freq PRN Reason Stop Dose Admin Acetaminophen 650 mg 05/05/19 04:09 05/06/19 10:53 Tylenol - PO 650 mg Q4H PRN Administration PAIN Amlodipine Besylate 5 mg 05/05/19 10:00 05/06/19 21:32 Norvasc - PO 5 mg BID JO[facility] Administration Atorvastatin Calcium 20 mg 05/05/19 22:00 05/06/19 21:31 Lipitor - PO 20 mg HS JOSE Administration Carvedilol 25 mg 05/05/19 10:00 05/06/19 21:31 Coreg - PO 25 mg BID JO[facility] Administration Clonidine HCl 0.3 mg 05/06/19 13:00 05/06/19 15:40 Catapres Tts Patch - TD 0.3 mg Tu JOSE Administration Docusate Sodium 300 mg 05/05/19 22:00 05/06/19 21:31 Colace - PO 300 mg BID JOSE Administration Donepezil HCl 5 mg 05/05/19 10:00 05/06/19 09:15 Aricept - PO 5 mg DAILY JO[facility] Administration Duloxetine HCl 30 mg 05/05/19 10:00 05/06/19 09:15 Cymbalta - PO 30 mg DAILY [facility] Administration Folic Acid 1 mg 05/06/19 10:00 05/06/19 09:15 Folic Acid - PO 1 mg DAILY [facility] Administration Heparin Sodium (Porcine) 5,000 unit 05/05/19 22:00 05/07/19 07:00 Heparin - SQ 5,000 unit TID JO[facility] Administration Ceftriaxone Sodium 1 gm/ 50 mls @ 100 mls/hr 05/05/19 11:00 05/06/19 09:16 Dextrose IVPB 100 mls/hr DAILY [facility] Administration Protocol Insulin Aspart 1 vial 05/06/19 16:30 05/07/19 06:59 Novolog Vial Sliding Scale - SQ Not Given ACHS [facility] Protocol Insulin Detemir 14 units 05/07/19 07:00 05/07/19 07:00 Levemir Vial SQ Not Given AM JOSE Isosorbide Mononitrate 60 mg 05/06/19 22:00 05/06/19 21:31 Imdur - PO 60 mg HS [facility] Administration Magnesium Oxide 400 mg 05/05/19 22:00 05/06/19 21:32 Mag-Ox - PO Not Given BID JOSE Ranitidine HCl 150 mg 05/06/19 22:00 05/06/19 21:31 Zantac - PO 150 mg BID [facility] Administration Ranolazine 500 mg 05/05/19 22:00 05/06/19 21:32 Ranexa - PO 500 mg BID [facility] Administration CBC, BMP 05/07/19 06:51 05/07/19 06:51 ASSESSMENT/PLAN: 83 y/o F, pmh of dementia, htn, dm, hld, cad, COPD, is BIBA to the ED for upper left extremity pain s/p fall #Fall 2/2 syncope 2/2 to UTI UA positive for infiction n,WBC elevated IV ceftriaxone f/u UCx for more targeted abx therapy, strep agalactia group D IVF NS at 42cc/hr follow Ct A/p chest for source of infection as wbc increasing despite abx # left humerus fx X-ray shows fracture at neck of the left humerus pain control w/ Tylenol for now consult ortho recommend sling for now #Right hip fracture Right hip is external rotated and shorter than left LE X-ray evident for possible fracture CT right hip reviewd Consult Ortho Dr Hughes, follow recommendation #CAD No EKG changes stable cont ranexa #HLD continue atorvastatin #HTN continue Carvedilol, amlodipine #DM BGM ACHS ISS #Alzheimer continue home meds- Donepezil #DVT ppx SCDs Hep TID SQ # FEN: NS @ 42 cc/hr , monitor lytes ,Dysphagia puree diet #Dispo:M/S f/u white count and UCx, pain control, f/u ortho recommendations # DNR/DNI discussed with Daughter Betty priest witnessed by Dr Mesa. Visit type - Emergency Visit Emergency Visit: Yes ED Registration Date: 05/05/19 Care time: The patient presented to the Emergency Department on the above date and was hospitalized for further evaluation of their emergent condition. - New Patient This patient is new to me today: No - Critical Care Critical Care patient: No - Discharge Referral Referred to [facility] No ATTENDING PHYSICIAN STATEMENT I saw and evaluated the patient. I reviewed the resident's note and discussed the case with the resident. I agree with the resident's findings and plan as documented. SUBJECTIVE: OBJECTIVE: ASSESSMENT AND PLAN:
[2019-05-07 08:07] LABS: BASO % 1.3 % (0-2.0); EOS % 0.4 % (0-4.5); HEMATOCRIT 41.8 % (32.4-45.2); HEMOGLOBIN 12.8 GM/dL (10.7-15.3); LYMPH % 10.3 % (8-40); MCH 23.4 pg (25.7-33.7); MCHC 30.6 g/dl (32.0-36.0); MEAN CELL VOLUME 76.3 fl (80-96); PLATELET COUNT 117 K/MM3 (134-434); RBC 5.49 M/mm3 (3.60-5.2); RDW 19.9 % (11.6-15.6); WHITE BLOOD COUNT 21.5 K/mm3 (4.0-10.0)
[2019-05-07 08:08] LABS: BLOOD UREA NITROGEN 36.7 mg/dL (7-18); CALCIUM 8.5 mg/dL (8.5-10.1); CREATININE 1.6 mg/dL (0.55-1.3); MAGNESIUM 3.1 mg/dL (1.8-2.4); PHOSPHOROUS 2.9 mg/dL (2.5-4.9); POTASSIUM 3.9 mmol/L (3.5-5.1)
[2019-05-07] MEDS ORDERED: cefTRIAXone SODIUM 1 GM VIAL ONE (09:07)
[2019-05-07] MEDS ORDERED: DEXTROSE 5%-WATER - 50 ML IVPB ONE (09:07)
[2019-05-07] MEDS: RANOLAZINE E.R. 500 MG TABLET (FP) PO SCH ×2 (09:19→21:38)
[2019-05-07] MEDS: RANITIDINE HCL 150 MG TABLET (FP) PO SCH ×2 (09:20→21:38)
[2019-05-07] MEDS: DOCUSATE SODIUM 100 MG CAPSULE (FP) PO SCH ×2 (09:20→21:39)
[2019-05-07] MEDS: ACETAMINOPHEN 325 MG TABLET (FP) PO PRN (09:20)
[2019-05-07] MEDS: CARVEDILOL 25 MG TABLET (FP) PO SCH ×2 (09:20→21:38)
[2019-05-07] MEDS: MAGNESIUM OXIDE 400 MG TABLET (FP) PO SCH ×2 (09:20→21:39)
[2019-05-07] MEDS: amLODIPine BESYLATE 5 MG TABLET (FP) PO SCH ×2 (09:20→21:38)
[2019-05-07] MEDS: FOLIC ACID 1 MG TABLET (FP) PO SCH (09:20)
[2019-05-07] MEDS: DONEPEZIL HCL 5 MG TABLET (FP) PO SCH (09:20)
[2019-05-07] MEDS: DULoxetine HCL 30 MG CAPSULE.DR PO SCH (09:20)
[2019-05-07] MEDS: CEFTRIAXONE 1 GM in DEXTROSE 5%-WATER - 50 ML IVPB SCH (09:21)
--- NOTE | 2019-05-07 11:27 | PN ---
Progress Note (short form) - Note Progress Note: Ortho Pt seen and examined s/p left proximal humerus fx and right nondisplaced femoral shaft fx with previous IM janes Selected Entries 05/07/19 02:00 Temperature 98.5 F Pulse Rate 75 Respiratory 18 Rate Blood Pressure 154/88 Laboratory Tests 05/07/19 06:51 WBC 21.5 H Hgb 12.8 Hct 41.8 Plt Count 117 L left shoulder- + ttp, decr rom, sling in place, nvi right femur- + ttp, decr rom, nvi a/p PT wbat RLE dvt ppx pain control d/w Dr. Lwoe
[2019-05-07] MEDS ORDERED: SODIUM CHLORIDE 500 ML IV STA (11:54)
[2019-05-07] MEDS ORDERED: INSULIN (NOVOLOG) ASPART 100 UNITS/ML 10ML VIAL ONE (12:08)
--- NOTE | 2019-05-07 12:13 | PN ---
Teaching Attending Note Name of Resident: Alfred Tse ATTENDING PHYSICIAN STATEMENT I saw and evaluated the patient. I reviewed the resident's note and discussed the case with the resident. I agree with the resident's findings and plan as documented with exceptions below. SUBJECTIVE: Patient seen and examined. reports left arm and right leg pain. No dyspnea or concerns otherwise, oriented to self. OBJECTIVE: Vital Signs Period Temp Pulse Resp BP Sys/Bishop Pulse Ox Last 24 Hr 98.5 F-99.1 F 75-88 18-20 139-160/62-88 94-95 Intake & Output 05/04/19 05/05/19 05/06/19 05/07/19 23:59 23:59 23:59 23:59 Intake Total 1286 2150 595 Output Total 250 1050 400 Balance 1036 1100 195 Weight 140 lb 122 lb 3 oz 123 lb 2 oz 122 lb 6 oz General: lying in bed in no acute distress neck: soft, supple Chest: poor effort, unable to appreciate rales or wheezing Abdomen:soft, NT, ND, pos bowel sounds Extremities: LUE sling, pos pulses, no edema, Right thigh tenderness, pain with movement of right thigh, no swelling, pos DP pulses Home Medications Medication Instructions Recorded Amlodipine Besylate 10 mg PO DAILY 03/03/17 Atorvastatin Ca [Lipitor] 20 mg PO HS 03/03/17 Carvedilol [Coreg -] 25 mg PO BID 03/03/17 Clonidine-Tts 0.3MG/24Hr Patch 1 patch NR WEEKLY 03/03/17 [[id number]-2] Docusate Sodium [Colace -] 300 mg PO BID 03/03/17 Enoxaparin [Lovenox -] 40 mg SQ DAILY 03/03/17 Furosemide [Lasix] 40 mg PO DAILY 03/03/17 Insulin (Levemir) [Levemir Vial] 14 unit SQ DAILY 03/03/17 Insulin Regular [Novolin R Vial -] 1 units SQ ASDIR 03/03/17 Isosorbide Mononitrate [Isosorbide 60 mg PO HS 03/03/17 Mononitrate ER] Magnesium Oxide [Mag-Ox -] 400 mg PO BID 03/03/17 Ondansetron HCl [Zofran] 4 mg PO TID PRN 03/03/17 Ranolazine [Ranexa] 500 mg PO BID 03/03/17 Aa/Hydrolyzed Collagen, Whey [Lps 30 ml PO DAILY 05/05/19 Neutral Flavor Liquid] Acetaminophen [Pain Relief] 1,000 mg PO Q8H PRN 05/05/19 Hydroxyurea 500 mg PO WEEKLY 05/05/19 Losartan 50Mg/Hctz 12.5MG [Hyzaar 50 mg PO DAILY 05/05/19 -] Mag Hydrox/Aluminum Hyd/Simeth 10 ml PO DAILY PRN 05/05/19 [Maalox Advanced Suspension] Pen Needle, Diabetic, Safety 1 each SQ Q6H 05/05/19 [Novofine Autocover] Ranitidine HCl [Zantac] 150 mg PO BID 05/05/19 Active Medications Acetaminophen (Tylenol -) 650 mg PO Q4H PRN PRN Reason: PAIN Last Admin: 05/07/19 09:20 Dose: 650 mg Amlodipine Besylate (Norvasc -) 5 mg PO BID [facility] Last Admin: 05/07/19 09:20 Dose: 5 mg Atorvastatin Calcium (Lipitor -) 20 mg PO HS [facility] Last Admin: 05/06/19 21:31 Dose: 20 mg Carvedilol (Coreg -) 25 mg PO BID [facility] Last Admin: 05/07/19 09:20 Dose: 25 mg Clonidine HCl (Catapres Tts Patch -) 0.3 mg TD [facility] Last Admin: 05/06/19 15:40 Dose: 0.3 mg Docusate Sodium (Colace -) 300 mg PO BID [facility] Last Admin: 05/07/19 09:20 Dose: 300 mg Donepezil HCl (Aricept -) 5 mg PO DAILY [facility] Last Admin: 05/07/19 09:20 Dose: 5 mg Duloxetine HCl (Cymbalta -) 30 mg PO DAILY [facility] Last Admin: 05/07/19 09:20 Dose: 30 mg Folic Acid (Folic Acid -) 1 mg PO DAILY [facility] Last Admin: 05/07/19 09:20 Dose: 1 mg Heparin Sodium (Porcine) (Heparin -) 5,000 unit SQ TID [facility] Last Admin: 05/07/19 07:00 Dose: 5,000 unit Ceftriaxone Sodium 1 gm/ (Dextrose) 50 mls @ 100 mls/hr IVPB DAILY [facility]; Protocol Last Admin: 05/07/19 09:21 Dose: 100 mls/hr Sodium Chloride (Normal Saline -) 500 mls @ 500 mls/hr IV ASDIR STA Stop: 05/07/19 12:53 Sodium Chloride (Normal Saline -) 1,000 mls @ 42 mls/hr IV ASDIR JOSE Insulin Aspart (Novolog Vial Sliding Scale -) 1 vial SQ ACHS [facility]; Protocol Last Admin: 05/07/19 06:59 Dose: Not Given Insulin Detemir (Levemir Vial) 14 units SQ AM [facility] Last Admin: 05/07/19 07:00 Dose: Not Given Isosorbide Mononitrate (Imdur -) 60 mg PO HS [facility] Last Admin: 05/06/19 21:31 Dose: 60 mg Magnesium Oxide (Mag-Ox -) 400 mg PO BID [facility] Last Admin: 05/07/19 09:20 Dose: Not Given Ranitidine HCl (Zantac -) 150 mg PO BID [facility] Last Admin: 05/07/19 09:20 Dose: 150 mg Ranolazine (Ranexa -) 500 mg PO BID [facility] Last Admin: 05/07/19 09:19 Dose: 500 mg Laboratory Results - last 24 hr 05/06/19 05/06/19 05/06/19 15:49 17:00 21:10 WBC 20.7 H RBC 5.72 H Hgb 13.4 Hct 43.4 MCV 76.0 L MCH 23.4 L MCHC 30.8 L RDW 19.7 H Plt Count 131 L MPV 10.0 Absolute Neuts (auto) 17.1 H Total Counted 100 Neutrophils % 82.7 Neutrophils % (Manual) 78.0 Band Neutrophils % 3.0 Lymphocytes % 9.6 D Lymphocytes % (Manual) 11.0 Monocytes % 7.1 Monocytes % (Manual) 7 Eosinophils % 0.2 Basophils % 0.4 Myelocytes % (Man) 1 D Nucleated RBC % 0 Differential Comment Man diff performed Hypochromia 1+ Platelet Estimate Slt decrease Platelet Comment Polychromasia 1+ Anisocytosis 1+ Macrocytosis 1+ Sodium Potassium Chloride Carbon Dioxide Anion Gap BUN Creatinine Est GFR (CKD-EPI)AfAm Est GFR (CKD-EPI)NonAf POC Glucometer 370 246 Random Glucose Calcium Phosphorus Magnesium 05/07/19 05/07/19 05/07/19 05:33 06:51 06:51 WBC 21.5 H RBC 5.49 H Hgb 12.8 Hct 41.8 MCV 76.3 L MCH 23.4 L MCHC 30.6 L RDW 19.9 H Plt Count 117 L MPV 10.0 Absolute Neuts (auto) 16.5 H Total Counted Neutrophils % 77.0 Neutrophils % (Manual) Band Neutrophils % Lymphocytes % 10.3 Lymphocytes % (Manual) Monocytes % 11.0 H Monocytes % (Manual) Eosinophils % 0.4 D Basophils % 1.3 D Myelocytes % (Man) Nucleated RBC % 0 Differential Comment Hypochromia Platelet Estimate Platelet Comment Polychromasia Anisocytosis Macrocytosis Sodium 143 Potassium 3.9 Chloride 109 H Carbon Dioxide 26 Anion Gap 8 BUN 36.7 H Creatinine 1.6 H Est GFR (CKD-EPI)AfAm 33.70 Est GFR (CKD-EPI)NonAf 29.08 POC Glucometer 91 Random Glucose 76 Calcium 8.5 Phosphorus 2.9 Magnesium 3.1 H 05/07/19 11:23 WBC RBC Hgb Hct MCV MCH MCHC RDW Plt Count MPV Absolute Neuts (auto) Total Counted Neutrophils % Neutrophils % (Manual) Band Neutrophils % Lymphocytes % Lymphocytes % (Manual) Monocytes % Monocytes % (Manual) Eosinophils % Basophils % Myelocytes % (Man) Nucleated RBC % Differential Comment Hypochromia Platelet Estimate Platelet Comment Polychromasia Anisocytosis Macrocytosis Sodium Potassium Chloride Carbon Dioxide Anion Gap BUN Creatinine Est GFR (CKD-EPI)AfAm Est GFR (CKD-EPI)NonAf POC Glucometer 357 Random Glucose Calcium Phosphorus Magnesium ASSESSMENT AND PLAN: 83 yof with PMhx of dementia, htn, dm, hld, cad, COPD sent from [facility] with fall , left humeral fracture, found with concerns for UTI and suspected proximal right femur shaft fracture -Lower uncomplicated UTI with sepsis -CYN, hypovolumia, r/o obstruction -Uncontrolled HTN, ?pain+/- rebound from clonidine -Fall -Left humeral fracture -Suspected proximal right femur shaft fracture -Dehydration -Thrombocytopenia, ?sepsis -HLD -IDDM -CAD -COPD -Dementia Plan: WBC risig, ua/cxr noted. Ceftriaxone day 3. Check CT chest/A/P to r/o occult process. Orthopedic input noted. Conservative management, LUE Sling, and RLE WBAT. PT eval, OOB as tolerated. Pain control with tylenol, additional meds if significant pain concerns with activity. Cr rising. continue ho, trial with IVF. Renal/Bladder US results noted. CT A/ P as above. Hold ARB. Dysphagia pureed diet with aspiration precautions. Continue coreg/amlodipine/ranexa/clonidine patch. Heparin DVTPPX, trend platelets for ow. MOLST from NH reviewed, DNR/DNI/DNH. Per ED records, DNH was revoked. As per discussion with daughter, DNR/DNI. Palliative care to address overall goals of care. Address NH with hosp[facility] vs [facility] for pain control/symptom management based on goals of care. Prognosis guarded currently. Discussed with nursing and social work.
[2019-05-07] MEDS: SODIUM CHLORIDE 1,000 ML IV SCH ×2 (13:14→23:51)
[2019-05-07 13:23] LABS: ANISOCYTOSIS 1+; MACROCYTOSIS 1+; TEAR DROP CELLS 1+
[2019-05-07] MEDS: ATORVASTATIN CA 20 MG TABLET (FP) PO SCH (21:38)
[2019-05-07] MEDS: ISOSORBIDE MONONITRATE 60 MG TAB.SR.24H (FP) PO SCH (21:38)
[2019-05-07] MEDS ORDERED: INSULIN (LEVEMIR) 100 UNITS/ML UNITS SQ SCH (22:00)
[2019-05-08] MEDS: HEPARIN NA (PORCINE) 5,000 UNITS/ML 1ML VIAL SQ SCH ×3 (06:27→21:29)
[2019-05-08] MEDS: INSULIN (LEVEMIR) 100 UNITS/ML UNITS SQ SCH (06:27)
[2019-05-08] MEDS: INSULIN SLIDING SCALE (NOVOLOG) 1 VIAL SQ SCH ×4 (06:31→21:30)
[2019-05-08] MEDS ORDERED: INSULIN (NOVOLOG) ASPART 100 UNITS/ML 10ML VIAL ONE ×3 (06:43→21:02)
--- NOTE | 2019-05-08 08:58 | PN ---
Progress Note (short form) - Note Progress Note: Ortho Pt seen and examined s/p left proximal humerus fx and right nondisplaced femoral shaft fx with previous IM janes Selected Entries 05/08/19 05:21 Temperature 98.5 F Pulse Rate 80 Respiratory 18 Rate Blood Pressure 156/68 Laboratory Tests 05/07/19 06:51 WBC 21.5 H Hgb 12.8 Hct 41.8 Plt Count 117 L left shoulder- + ttp, decr rom, sling in place, nvi right femur- + ttp, decr rom, nvi a/p PT wbat RLE dvt ppx pain control d/w Dr. Quintana
[2019-05-08] MEDS ORDERED: cefTRIAXone SODIUM 1 GM VIAL ONE (09:50)
[2019-05-08] MEDS ORDERED: DEXTROSE 5%-WATER - 50 ML IVPB ONE (09:50)
[2019-05-08] MEDS: CEFTRIAXONE 1 GM in DEXTROSE 5%-WATER - 50 ML IVPB SCH (09:53)
[2019-05-08] MEDS: DULoxetine HCL 30 MG CAPSULE.DR PO SCH (09:54)
[2019-05-08] MEDS: RANOLAZINE E.R. 500 MG TABLET (FP) PO SCH ×2 (09:54→21:28)
[2019-05-08] MEDS: MAGNESIUM OXIDE 400 MG TABLET (FP) PO SCH ×3 (09:54→21:30)
[2019-05-08] MEDS: DONEPEZIL HCL 5 MG TABLET (FP) PO SCH (09:54)
[2019-05-08] MEDS: RANITIDINE HCL 150 MG TABLET (FP) PO SCH ×2 (09:54→21:28)
[2019-05-08] MEDS: DOCUSATE SODIUM 100 MG CAPSULE (FP) PO SCH ×2 (09:54→21:28)
[2019-05-08] MEDS: FOLIC ACID 1 MG TABLET (FP) PO SCH (09:55)
[2019-05-08] MEDS: CARVEDILOL 25 MG TABLET (FP) PO SCH ×2 (09:55→21:28)
[2019-05-08] MEDS: amLODIPine BESYLATE 5 MG TABLET (FP) PO SCH ×2 (09:55→21:28)
[2019-05-08 12:06] LABS: EOS % 0.3 % (0-4.5); HEMATOCRIT 40.2 % (32.4-45.2); HEMOGLOBIN 12.4 GM/dL (10.7-15.3); MCH 23.5 pg (25.7-33.7); MCHC 30.9 g/dl (32.0-36.0); MEAN CELL VOLUME 76.1 fl (80-96); MEAN PLT VOLUME 11.3 fl (7.5-11.1); MONO % 4.8 % (3.8-10.2); NEUT % 86.9 % (42.8-82.8); PLATELET COUNT 131 K/MM3 (134-434); RBC 5.28 M/mm3 (3.60-5.2); WHITE BLOOD COUNT 20.8 K/mm3 (4.0-10.0)
--- NOTE | 2019-05-08 12:24 | PN ---
Physical Exam: SUBJECTIVE: Patient seen and examined. She has no complaints. OBJECTIVE: Vital Signs Period Temp Pulse Resp BP Sys/Bishop Pulse Ox Last 24 Hr 98.2 F-98.6 F 80-93 18-19 123-162/63-86 95 GENERAL: The patient is awake, alert, in no acute distress. LUNGS: Breath sounds equal, clear to auscultation bilaterally, no wheezes, no crackles, no accessory muscle use. HEART: Regular rate and rhythm, S1, S2 without murmur, rub or gallop. ABDOMEN: Soft, nontender, nondistended, normoactive bowel sounds, no guarding, no rebound, no hepatosplenomegaly, no masses. EXTREMITIES: 2+ pulses, warm, well-perfused, no edema. Left arm in sling. Laboratory Results - last 24 hr 05/07/19 05/07/19 05/07/19 06:51 16:03 21:26 WBC RBC Hgb Hct MCV MCH MCHC RDW Absolute Neuts (auto) Neutrophils % Neutrophils % (Manual) 84.8 H Band Neutrophils % 1.0 Lymphocytes % Lymphocytes % (Manual) 5.1 L D Monocytes % Monocytes % (Manual) 6 Eosinophils % Eosinophils % (Manual) 1.0 D Basophils % Basophils % (Manual) 1.0 D Myelocytes % (Man) 0 D Promyelocytes % (Man) 0 Blast Cells % (Manual) 0 Nucleated RBC % Metamyelocytes 0 Anisocytosis 1+ Microcytosis 1+ Macrocytosis 1+ Tear Drop Cells 1+ POC Glucometer 304 257 05/08/19 05/08/19 05/08/19 05:24 10:27 11:38 WBC 20.8 H RBC 5.28 H Hgb 12.4 Hct 40.2 MCV 76.1 L MCH 23.5 L MCHC 30.9 L RDW 20.0 H Absolute Neuts (auto) 18.1 H Neutrophils % 86.9 H Neutrophils % (Manual) Band Neutrophils % Lymphocytes % 7.0 L D Lymphocytes % (Manual) Monocytes % 4.8 Monocytes % (Manual) Eosinophils % 0.3 Eosinophils % (Manual) Basophils % 1.0 Basophils % (Manual) Myelocytes % (Man) Promyelocytes % (Man) Blast Cells % (Manual) Nucleated RBC % 0 Metamyelocytes Anisocytosis Microcytosis Macrocytosis Tear Drop Cells POC Glucometer 231 304 Active Medications Generic Name Dose Route Start Last Admin Trade Name Parish PRN Reason Stop Dose Admin Acetaminophen 650 mg 05/05/19 04:09 05/07/19 09:20 Tylenol - PO 650 mg Q4H PRN Administration PAIN Amlodipine Besylate 5 mg 05/05/19 10:00 05/08/19 09:55 Norvasc - PO 5 mg BID JOSE Administration Atorvastatin Calcium 20 mg 05/05/19 22:00 05/07/19 21:38 Lipitor - PO 20 mg HS JOSE Administration Carvedilol 25 mg 05/05/19 10:00 05/08/19 09:55 Coreg - PO 25 mg BID JOSE Administration Clonidine HCl 0.3 mg 05/06/19 13:00 05/06/19 15:40 Catapres Tts Patch - TD 0.3 mg Tu [facility] Administration Docusate Sodium 300 mg 05/05/19 22:00 05/08/19 09:54 Colace - PO 300 mg BID JOSE Administration Donepezil HCl 5 mg 05/05/19 10:00 05/08/19 09:54 Aricept - PO 5 mg DAILY JOSE Administration Duloxetine HCl 30 mg 05/05/19 10:00 05/08/19 09:54 Cymbalta - PO 30 mg DAILY JOSE Administration Folic Acid 1 mg 05/06/19 10:00 05/08/19 09:55 Folic Acid - PO 1 mg DAILY JOSE Administration Heparin Sodium (Porcine) 5,000 unit 05/05/19 22:00 05/08/19 06:27 Heparin - SQ 5,000 unit TID JOSE Administration Ceftriaxone Sodium 1 gm/ 50 mls @ 100 mls/hr 05/05/19 11:00 05/08/19 09:53 Dextrose IVPB 100 mls/hr DAILY JOSE Administration Protocol Sodium Chloride 1,000 mls @ 42 mls/hr 05/07/19 12:00 05/07/19 23:51 Normal Saline - IV 42 mls/hr ASDIR JOSE Administration Insulin Aspart 1 vial 05/06/19 16:30 05/08/19 11:42 Novolog Vial Sliding Scale - SQ 8 units ACHS [facility] Administration Protocol Insulin Detemir 14 units 05/07/19 07:00 05/08/19 06:27 Levemir Vial SQ 14 units AM JOSE Administration Isosorbide Mononitrate 60 mg 05/06/19 22:00 05/07/19 21:38 Imdur - PO 60 mg HS JOSE Administration Magnesium Oxide 400 mg 05/05/19 22:00 05/08/19 09:58 Mag-Ox - PO Not Given BID JOSE Ranitidine HCl 150 mg 05/06/19 22:00 05/08/19 09:54 Zantac - PO 150 mg BID JOSE Administration Ranolazine 500 mg 05/05/19 22:00 05/08/19 09:54 Ranexa - PO 500 mg BID JOSE Administration ASSESSMENT/PLAN: This is an 83 year old woman with a history of HTN, hyperlipidemia, CAD, type 2 DM, dementia, COPD who was sent to the ED from [facility] after a fall. 1. Sepsis secondary to UTI 2. Acute kidney injury secondary to hypovolemia/dehydration 3. Uncontrolled HTN 4. s/p fall 5. Left humerus fracture 6. Suspected proximal right femur shaft fracture 7. Thrombocytopenia 8. Hyperlipidemia 9. Type 2 DM 10. CAD 11. COPD 12. Dementia Plan: WBC risig, ua/cxr noted. Ceftriaxone day 3. Check CT chest/A/P to r/o occult process. Orthopedic input noted. Conservative management, LUE Sling, and RLE WBAT. PT eval, OOB as tolerated. Pain control with tylenol, additional meds if significant pain concerns with activity. Cr rising. continue ho, trial with IVF. Renal/Bladder US results noted. CT A/ P as above. Hold ARB. Dysphagia pureed diet with aspiration precautions. Continue coreg/amlodipine/ranexa/clonidine patch. Heparin DVTPPX, trend platelets for ow. GIANFRANCO from [place] reviewed, DNR/DNI/DNH. Per ED records, DNH was revoked. As per discussion with daughter, DNR/DNI. Palliative care to address overall goals of care. Address NH with hosp[facility] vs [facility] for pain control/symptom management based on goals of care. Prognosis guarded currently. Discussed with nursing and social work.
[2019-05-08 12:31] LABS: BILIRUBIN,TOTAL 0.3 mg/dL (0.2-1); BLOOD UREA NITROGEN 33.8 mg/dL (7-18); CALCIUM 8.6 mg/dL (8.5-10.1); CREATININE 1.6 mg/dL (0.55-1.3); PHOSPHOROUS 2.6 mg/dL (2.5-4.9); POTASSIUM 4.3 mmol/L (3.5-5.1)
[2019-05-08] MEDS: SODIUM CHLORIDE 1,000 ML IV SCH (16:52)
[2019-05-08] MEDS: ATORVASTATIN CA 20 MG TABLET (FP) PO SCH (21:28)
[2019-05-08] MEDS: ISOSORBIDE MONONITRATE 60 MG TAB.SR.24H (FP) PO SCH (21:29)
[2019-05-09] MEDS ORDERED: INSULIN (NOVOLOG) ASPART 100 UNITS/ML 10ML VIAL ONE ×2 (06:14→12:03)
[2019-05-09] MEDS: INSULIN (LEVEMIR) 100 UNITS/ML UNITS SQ SCH (06:44)
[2019-05-09] MEDS: HEPARIN NA (PORCINE) 5,000 UNITS/ML 1ML VIAL SQ SCH ×2 (06:45→14:34)
[2019-05-09] MEDS: INSULIN SLIDING SCALE (NOVOLOG) 1 VIAL SQ SCH ×3 (06:45→16:55)
[2019-05-09] MEDS: SODIUM CHLORIDE 1,000 ML IV SCH ×2 (07:16→16:47)
[2019-05-09 08:37] LABS: BLOOD UREA NITROGEN 25.1 mg/dL (7-18); CALCIUM 8.6 mg/dL (8.5-10.1); CREATININE 1.3 mg/dL (0.55-1.3); POTASSIUM 3.9 mmol/L (3.5-5.1)
[2019-05-09 08:48] LABS: BASO % 1.8 % (0-2.0); EOS % 0.2 % (0-4.5); HEMATOCRIT 44.2 % (32.4-45.2); HEMOGLOBIN 13.6 GM/dL (10.7-15.3); MCH 23.8 pg (25.7-33.7); MCHC 30.9 g/dl (32.0-36.0); MEAN CELL VOLUME 77.1 fl (80-96); MEAN PLT VOLUME 9.9 fl (7.5-11.1); MONO % 10.2 % (3.8-10.2); NEUT % 78.8 % (42.8-82.8); RBC 5.73 M/mm3 (3.60-5.2); RDW 20.5 % (11.6-15.6); WHITE BLOOD COUNT 22.3 K/mm3 (4.0-10.0)
[2019-05-09] MEDS ORDERED: cefTRIAXone SODIUM 1 GM VIAL ONE (10:03)
[2019-05-09] MEDS ORDERED: DEXTROSE 5%-WATER - 50 ML IVPB ONE (10:03)
[2019-05-09] MEDS: CEFTRIAXONE 1 GM in DEXTROSE 5%-WATER - 50 ML IVPB SCH (10:09)
[2019-05-09 10:16] VITALS: TEMP 99.2
[2019-05-09] MEDS: DONEPEZIL HCL 5 MG TABLET (FP) PO SCH (10:17)
[2019-05-09] MEDS: RANITIDINE HCL 150 MG TABLET (FP) PO SCH (10:17)
[2019-05-09] MEDS: amLODIPine BESYLATE 5 MG TABLET (FP) PO SCH (10:17)
[2019-05-09] MEDS: FOLIC ACID 1 MG TABLET (FP) PO SCH (10:17)
[2019-05-09] MEDS: CARVEDILOL 25 MG TABLET (FP) PO SCH (10:17)
[2019-05-09] MEDS: RANOLAZINE E.R. 500 MG TABLET (FP) PO SCH (10:17)
[2019-05-09] MEDS: DULoxetine HCL 30 MG CAPSULE.DR PO SCH (10:17)
[2019-05-09] MEDS: DOCUSATE SODIUM 100 MG CAPSULE (FP) PO SCH (10:17)
[2019-05-09] MEDS: MAGNESIUM OXIDE 400 MG TABLET (FP) PO SCH (10:20)
--- NOTE | 2019-05-09 11:33 | DS ---
Physical Exam: SUBJECTIVE: Patient seen and examined. She has no complaints. OBJECTIVE: Vital Signs Period Temp Pulse Resp BP Sys/Bishop Pulse Ox Last 24 Hr 99.1 F-99.5 F 90-106 18-19 161-166/75-92 96 PHYSICAL EXAM GENERAL: The patient is awake, alert, in no acute distress. LUNGS: Breath sounds equal, clear to auscultation bilaterally, no wheezes, no crackles, no accessory muscle use. HEART: Regular rate and rhythm, S1, S2, (+) 2/6 SM. ABDOMEN: Soft, nontender, nondistended, normoactive bowel sounds, no guarding, no rebound, no hepatosplenomegaly, no masses. EXTREMITIES: 2+ pulses, warm, well-perfused, no edema. LUE in sling. LABS Laboratory Results - last 24 hr 05/08/19 05/08/19 05/08/19 10:27 10:27 11:38 WBC 20.8 H RBC 5.28 H Hgb 12.4 Hct 40.2 MCV 76.1 L MCH 23.5 L MCHC 30.9 L RDW 20.0 H Plt Count 131 L MPV 11.3 H D Absolute Neuts (auto) 18.1 H Total Counted 100 Neutrophils % 86.9 H Neutrophils % (Manual) 82.0 Lymphocytes % 7.0 L D Lymphocytes % (Manual) 9.0 D Monocytes % 4.8 Monocytes % (Manual) 9 Eosinophils % 0.3 Basophils % 1.0 Nucleated RBC % 0 Sodium 140 Potassium 4.3 Chloride 108 H Carbon Dioxide 22 Anion Gap 10 BUN 33.8 H Creatinine 1.6 H Est GFR (CKD-EPI)AfAm 33.70 Est GFR (CKD-EPI)NonAf 29.08 POC Glucometer 304 Random Glucose 302 H* Calcium 8.6 Phosphorus 2.6 Magnesium 3.0 H Total Bilirubin 0.3 AST 14 L ALT 10 L Alkaline Phosphatase 99 Total Protein 6.0 L Albumin 2.0 L 05/08/19 05/08/19 05/09/19 16:45 20:43 05:26 WBC RBC Hgb Hct MCV MCH MCHC RDW Plt Count MPV Absolute Neuts (auto) Total Counted Neutrophils % Neutrophils % (Manual) Lymphocytes % Lymphocytes % (Manual) Monocytes % Monocytes % (Manual) Eosinophils % Basophils % Nucleated RBC % Sodium Potassium Chloride Carbon Dioxide Anion Gap BUN Creatinine Est GFR (CKD-EPI)AfAm Est GFR (CKD-EPI)NonAf POC Glucometer 194 330 160 Random Glucose Calcium Phosphorus Magnesium Total Bilirubin AST ALT Alkaline Phosphatase Total Protein Albumin 05/09/19 05/09/19 06:40 06:45 WBC 22.3 H RBC 5.73 H Hgb 13.6 Hct 44.2 MCV 77.1 L MCH 23.8 L MCHC 30.9 L RDW 20.5 H Plt Count MPV Absolute Neuts (auto) 17.6 H Total Counted Neutrophils % 78.8 Neutrophils % (Manual) Lymphocytes % 9.0 D Lymphocytes % (Manual) Monocytes % 10.2 D Monocytes % (Manual) Eosinophils % 0.2 Basophils % 1.8 Nucleated RBC % 0 Sodium 144 Potassium 3.9 Chloride 114 H Carbon Dioxide 23 Anion Gap 7 L BUN 25.1 H Creatinine 1.3 Est GFR (CKD-EPI)AfAm 43.32 Est GFR (CKD-EPI)NonAf 37.38 POC Glucometer Random Glucose 169 H Calcium 8.6 Phosphorus Magnesium Total Bilirubin AST ALT Alkaline Phosphatase Total Protein Albumin HOSPITAL COURSE: Date of Admission:05/05/19 Date of Discharge: 05/09/19 Minutes to complete discharge: 35 Discharge Summary Reason For Visit: LEFT SHOULDER FRACTURE Current Active Problems Dementia (Chronic) Type 2 diabetes mellitus (Chronic) CAD (coronary artery disease) (Chronic) Thrombocytopenia (Acute) Sepsis (Acute) Fall (Acute) Renal insufficiency (Acute) Hip fracture, right (Acute) UTI (urinary tract infection) (Acute) Hypertension (Chronic) Hyperlipidemia (Chronic) COPD (chronic obstructive pulmonary disease) (Chronic) Humerus surgical neck fracture (Acute) Condition: Stable - Instructions Diet, Activity, Other Instructions: You were admitted to [facility] on May 04 after falling and developing left shoulder pain. You were found to have a fracture of your left humerus and a urinary tract infection. The fracture was treated with a shoulder sling. The urinary tract infection was treated with an antibiotic, ceftriaxone, x 5 days. You were noted to have pain in your right hip and CT scan showed a fracture of the femur. You were seen by an orthopedist and surgery was not recommended for either the humerus or the femur fractures. Physical therapy was started. You may bear weight on your right leg. You are being discharged to [facility] on May 09. You will continue with physical therapy while there. Disposition: HALFWAY FACILITY - Home Medications Comprehensive Discharge Medication List: Ambulatory Orders Amlodipine Besylate 10 mg PO DAILY 03/03/17 Atorvastatin Ca [Lipitor] 20 mg PO HS 03/03/17 Carvedilol [Coreg -] 25 mg PO BID 03/03/17 Clonidine-Tts 0.3MG/24Hr Patch [[id number]-4] 1 patch NR WEEKLY 03/03/17 Docusate Sodium [Colace -] 300 mg PO BID 03/03/17 Enoxaparin [Lovenox -] 40 mg SQ DAILY 03/03/17 Furosemide [Lasix] 40 mg PO DAILY 03/03/17 Insulin (Levemir) [Levemir Vial] 14 unit SQ DAILY 03/03/17 Insulin Regular [Novolin R Vial -] 1 units SQ ASDIR 03/03/17 Isosorbide Mononitrate [Isosorbide Mononitrate ER] 60 mg PO HS 03/03/17 Magnesium Oxide [Mag-Ox -] 400 mg PO BID 03/03/17 Ondansetron HCl [Zofran] 4 mg PO TID PRN 03/03/17 Ranolazine [Ranexa] 500 mg PO BID 03/03/17 Aa/Hydrolyzed Collagen, Whey [Lps Neutral Flavor Liquid] 30 ml PO DAILY Acetaminophen [Pain Relief] 1,000 mg PO Q8H PRN 05/05/19 Hydroxyurea 500 mg PO WEEKLY 05/05/19 Losartan 50Mg/Hctz 12.5MG [Hyzaar -] 50 mg PO DAILY 05/05/19 Mag Hydrox/Aluminum Hyd/Simeth [Maalox Advanced Suspension] 10 ml PO DAILY PRN 05/05/19 Pen Needle, Diabetic, Safety [Novofine Autocover] 1 each SQ Q6H 05/05/19 Ranitidine HCl [Zantac] 150 mg PO BID 05/05/19 Donepezil HCl [Aricept -] 5 mg PO DAILY tablet 05/09/19 Duloxetine HCl [Cymbalta -] 30 mg PO DAILY capsule. 05/09/19 Folic Acid - 1 mg PO DAILY tablet 05/09/19 Nystatin Oral Suspension - [Nystatin Oral Susp 652644 Units/5 ML -] 500,000 units PO Q6HPO cup 05/09/19 Ranolazine [Ranexa -] 500 mg PO BID tab 05/09/19 This patient is new to me today: No Emergency Visit: Yes ED Registration Date: 05/05/19 Care time: The patient presented to the Emergency Department on the above date and was hospitalized for further evaluation of their emergent condition. Critical Care patient: No - Discharge Referral Referred to [facility] Med P.C.: No
--- NOTE | 2019-05-09 12:06 | PN ---
Progress Note (short form) - Note Progress Note: Ortho Pt seen and examined s/p left proximal humerus fx and right nondisplaced femoral shaft fx with previous IM janes left shoulder- + ttp, decr rom, sling in place, nvi right femur- + ttp, decr rom, nvi a/p PT wbat RLE dvt ppx pain control d/w Dr. Quintana
--- NOTE | 2019-05-09 12:07 | PN ---
Progress Note (short form) - Note Progress Note: Ortho Pt seen and examined s/p left proximal humerus fx and right nondisplaced femoral shaft fx with previous IM janes Selected Entries 05/09/19 10:15 Temperature 99.2 F Pulse Rate 98 H Respiratory 18 Rate Blood Pressure 161/81 Laboratory Tests 05/09/19 06:45 WBC 22.3 H Hgb 13.6 Hct 44.2 Plt Count Pending left shoulder- + ttp, decr rom, sling in place, nvi right femur- + ttp, decr rom, nvi a/p PT wbat RLE dvt ppx pain control d/c planning d/w Dr. Quintana
[2019-05-09 12:40] LABS: ANISOCYTOSIS 1+; MACROCYTOSIS 0; OVALOCYTE 1+; PLATELET ESTIMATE DECREASED; TARGET CELLS 1+; TEAR DROP CELLS 1+
[2019-05-09 12:47] VITALS: BMI 21.1
[2019-05-09 12:55] LABS: PLATELET COUNT 106 K/MM3 (134-434)
[2019-05-09 13:21] VITALS: BP 159/82; PULSE 97
[2019-05-09] MEDS ORDERED: NYSTATIN 500,000 UNITS/5 ML SUSPENSION PO SCH (18:14)
== END 2019-05-09 17:30 | DRG 871 ==
LOC: JER 17:18 → JERBED 05-05 04:09 → J6S 05-05 08:17
PROVIDERS: ADMIT Internal Medicine; ATTEND Internal Medicine
DX: A41.9 Sepsis, unspecified organism (principal); S72.301A Unspecified fracture of shaft of right femur, initial encounter for closed fracture; S42.202A Unspecified fracture of upper end of left humerus, initial encounter for closed fracture; N39.0 Urinary tract infection, site not specified; N17.9 Acute kidney failure, unspecified; I50.9 Heart failure, unspecified; R56.9 Unspecified convulsions; J45.909 Unspecified asthma, uncomplicated; D72.829 Elevated white blood cell count, unspecified; I44.4 Left anterior fascicular block; I25.10 Atherosclerotic heart disease of native coronary artery without angina pectoris; G30.9 Alzheimer's disease, unspecified; E86.0 Dehydration; E78.5 Hyperlipidemia, unspecified; E11.9 Type 2 diabetes mellitus without complications; D69.6 Thrombocytopenia, unspecified; F02.80 Dementia in other diseases classified elsewhere, unspecified severity, without behavioral disturbance, psychotic disturbance, mood disturbance, and anxiety; J44.9 Chronic obstructive pulmonary disease, unspecified; R55 Syncope and collapse; W19.XXXA Unspecified fall, initial encounter; Y93.9 Activity, unspecified; Y92.89 Other specified places as the place of occurrence of the external cause; Y99.9 Unspecified external cause status; I12.9 Hypertensive chronic kidney disease with stage 1 through stage 4 chronic kidney disease, or unspecified chronic kidney disease; N18.9 Chronic kidney disease, unspecified
CPT/HCPCS: 36415; 70450-TC; 71046-TC-FY; 71250-TC; 72125-TC; 72192-TC; 73030-TC-LT-FY; 73060-TC-LT-FY; 73523-TC-FY; 73560-TC-RT-FY; 73700-TC-RT; 74176-TC; 76775-TC; 76856-TC; 80048; 80053; 81003; 82962; 83605; 83735; 84100; 84484; 85025; 85610; 85730; 86850; 86900; 86901; 87040; 87077; 87086; 93005; 93010; 97116-GP; 97161-GP; 99285-25; J1644; J7030

== ENCOUNTER 2019-09-05 11:30 | Inpatient (IN) | payer OTHER ==
--- NOTE | 2019-09-05 11:55 | PDOC ---
History of Present Illness - General Chief Complaint: SIRS, Suspected/Possible Stated Complaint: SHORTNESS OF BREATH Time Seen by Provider: 09/05/19 11:53 History Source: Intermediate Records, Old Records Exam Limitations: Dementia - History of Present Illness Initial Comments: HPI: 84 y/o female presenting to [facility] ER from [facility]. Pt is demented, baseline not documented in transfer. Unable to participate in the interview. Transfer paperwork from [facility] indicate the pt was tachycardic to 128 and hypoxic to 89-90 %. Afebrile at time of transfer. Resident is a full code. Medical Hx: - Dementia - Htn - Dm - Hld - CAD - COPD Review of Systems: Unable to obtain secondary to clinical condition vs demented baseline Physical Examination: Vital signs and nursing notes reviewed. Constitutional- Ill appearing elderly adult female in no acute distress. Found semi-fowlers on hospital bed. Head- Normocephalic. No obvious external signs of trauma. Eyes- Pupils 3mm and PERRL. Sclerae white. Conjunctiva moist and not injected. Cardiovascular / Chest- Tachycardic rate with regular rhythm. No murmur, rubs, clicks, or gallops. Peripheral pulses- radial pulses full. Respiratory- Breathing tachypenic. Equal chest rise and fall. Trace end expiratory wheezing. No rales or rhonchi. Gastrointestinal- abdomen is soft and non-distended. No pulsatile masses. Neuro- Opens eyes to repeated verbal stimuli. Unable to unwilling to follow commands. Skin- Feverish, dry, and intact. MDM: 84 y/o female presenting with presumed altered mental status. Unclear prodromal events. Febrile at triage; given Acetaminophen. Vitals remarkable for tachycardia and hypoxia without hypotension. Hypoxia improved with supplemental oxygen via nasal cannula. Physical exam as described above. Labs revealed leukocytosis and elevated lactic acid suspected to be secondary to acute infection overyling possible hematologic CA (persistently elevated WBC over past several admissions). Polycythemia suspected to be secondary to hemoconcentration overlying h/o polycythemia given [facility] documented trend [facility]. Noted acute renal failure. UA remarkable for leukocyte esterase and pyuria. Suspect this is the possible source of infection. Constellation of symptoms concerning for urosepsis with end organ dysfunction including acute renal failure, liver dysfunction (elevated PTT), elevated troponin, and altered mental status. [facility] and h/o DM. Ordered LR IVFB. Did not administered full 30cc /kg given h/o of CHF. Mildly acidotic with elevated CO2. Ordered DuoNeb because of COPD history. Low suspicion for cause of acute symptoms. Discussed pts status with her daughter, Betty. She is unable to come to the bedside because she is currently in [place]. Reports she last saw the pt approx. 1 month ago. The pt was disoriented to person, place, time, and events at that time. Betty is the healthcare POA. Would like the pt to remain full code. 05 Sep 2019 14:51 PM Telephone discussion with resident Dr. Diaz. Verbally appraised of the pts HPI, ED course, and current plan of management. Will evaluate the pt for ICU placement. Microblog sent to [facility] Hospitilist service for admission. Awaiting call back. 05 Sep 2019 15:00 PM Telephone discussion with resident Dr. Samuel. Verbally appraised of the pts HPI, ED course, and current plan of management. Will admit pt to ICU for attending Dr. Haider. As pt was in the process of being transferred to ICU, I was alerted by Dr. Smith of cardiology service, that the pts RV was severely dilated concerning for a PE. Ordered emergent CTA of the pts chest, which revealed a central PE. ICU resident requested a central line be placed before the pt was brought upstairs. Right IJ central line was placed. See procedure section. ED Attending discussed case with Dr. Bassett of IR. Declined to intervene. Pt admitted to the ICU. Emmanuel Garcia M.D., PGY2 Emergency Medicine Resident Past History - Past Medical History Allergies/Adverse Reactions: Allergies Allergy/AdvReac Type Severity Reaction Status Date / Time iodine [Iodine] Allergy Severe Swelling Verified 09/05/19 11:51 aspirin Allergy Mild ABD PAIN Verified 09/05/19 11:51 Home Medications: Ambulatory Orders Amlodipine Besylate 10 mg PO DAILY 03/03/17 Atorvastatin Ca [Lipitor] 20 mg PO HS 03/03/17 Carvedilol [Coreg -] 25 mg PO BID 03/03/17 Clonidine-Tts 0.3MG/24Hr Patch [[id number]-Ljc-1] 1 patch NR WEEKLY 03/03/17 Docusate Sodium [Colace -] 300 mg PO HS 03/03/17 Insulin (Levemir) [Levemir Vial] 14 unit SQ DAILY 03/03/17 Ondansetron HCl [Zofran] 4 mg PO TID PRN 03/03/17 Aa/Hydrolyzed Collagen, Whey [Lps Neutral Flavor Liquid] 30 ml PO DAILY Acetaminophen [Pain Relief] 1,000 mg PO Q8H PRN 05/05/19 Hydroxyurea 500 mg PO WEEKLY 05/05/19 Mag Hydrox/Aluminum Hyd/Simeth [Maalox Advanced Suspension] 10 ml PO DAILY PRN 05/05/19 Ranitidine HCl [Zantac] 150 mg PO BID 05/05/19 Folic Acid - 1 mg PO DAILY tablet 05/09/19 Ranolazine [Ranexa -] 500 mg PO BID tab 05/09/19 Albuterol 2.5/Ipratropium 0.5 [Duoneb -] 1 neb IH QID PRN 09/05/19 Donepezil HCl [Aricept -] 5 mg PO HS 09/05/19 Famotidine [Pepcid -] 40 mg PO HS 09/05/19 Heparin - 5,000 unit SQ BID 09/05/19 Hydrochlorothiazide [Hctz -] 12.5 mg PO DAILY 09/05/19 Insulin Aspart [Novolog] See Protocol SQ ASDIR 09/05/19 Isosorbide Mononitrate [Isosorbide Mononitrate ER] 60 mg PO HS 09/05/19 Mirtazapine [Remeron -] 30 mg PO DAILY 09/05/19 Valsartan 160 mg PO DAILY 09/05/19 Zinc Oxide 20% Topical Oint 454 gm NR DAILY PRN 09/05/19 Anemia: No Asthma: Yes Cancer: No Cardiac Disorders: Yes (CAD) CVA: Yes (2006, TIA) COPD: Yes (uses BIPAP at night) CHF: Yes Dementia: No Diabetes: Yes GI Disorders: Yes Disorders: No HTN: Yes Hypercholesterolemia: Yes Liver Disease: No Seizures: Yes Thyroid Disease: No - Surgical History Abdominal Surgery: Yes Appendectomy: Yes Cardiac Surgery: Yes (STENTS X 8.) Cholecystectomy: No Lung Surgery: No Neurologic Surgery: Yes Orthopedic Surgery: Yes - Immunization History Td Vaccination: (unknown) TDAP Vaccination: (unknown) Immunization Up to Date: (unknown) - Psycho Social/Smoking Cessation Hx Smoking Status: No Smoking History: Unknown if ever smoked Have you smoked in the past 12 months: No Number of Cigarettes Smoked Daily: 0 Cigars Per Day: 0 Hx Alcohol Use: No Drug/Substance Use Hx: No Substance Use Type: None Hx Substance Use Treatment: No *Physical Exam - Vital Signs Last Vital Signs Temp Pulse Resp BP Pulse Ox 102.6 F H 129 H 28 H 127/61 89 L 09/05/19 11:48 09/05/19 11:48 09/05/19 11:48 09/05/19 11:48 09/05/19 11:48 Vital Signs - Vital Signs #1 Time: 14:28 Blood Pressure: 105/57 BP Location: Left Arm Blood Pressure Position: Sitting Pulse Rate: 115 Respiratory Rate: 22 O2 Sat by Pulse Oximetry (%): 93 Oxygen Delivery Method: Nasal Cannula Oxygen Flow Rate: 4 Repeat PE for Septic Shock - Vital Signs Vital Signs: Vital Signs Temperature 102.3 F H 09/05/19 14:17 Pulse Rate 115 H 09/05/19 14:28 Respiratory Rate 22 H 09/05/19 14:28 Blood Pressure 105/57 L 09/05/19 14:28 O2 Sat by Pulse Oximetry (%) 93 L 09/05/19 14:28 I have reviewed the most recent vital signs: Yes - PE CV for Spetic Shock: Other (Tachycardic) Lungs: Lungs Clear, Wheezing (Trace end-expiratory) Vascular: Right Radial: 2+ Capillary Refill: <3 seconds Skin exam: Dry, Other (Feverish) - Impression Impression: Vasopressors not indicated, pt still hypovolemic (Receiving IVFB and broad spectrum abx at this time.) Procedures - Central Line Central Line Lumen: triple Amount of anesthesia (ccs): 5 - Additional Procedures Progress: PROCEDURE NOTE: Internal jugular central line placement under ultrasound guidance PROCEDURE WOODS LABORER: Emmanuel Garcia M.D., PGY2 ATTENDING PHYSICIAN: Dr. Mcbride In Attendance: Yes INDICATION: Tachycardia, Central Pulmonary Embolism CONSENT: Written consent was obtained from the pts granddaughter prior to the procedure. Indications, risks, and benefits were explained at length. PROCEDURE SUMMARY: A time out was performed. My hands were washed immediately prior to the procedure. I wore a surgical cap, mask with protective eyewear, sterile gown and sterile gloves throughout the procedure. The patient was placed in supine position. The right chest region was prepped using chlorhexidine scrub and draped in sterile fashion. The medial and lateral heads of the sternocleidomastoid muscle, as well as the carotid pulse were identified. The internal jugular vein was identified using dynamic ultrasound. Anesthesia was achieved using Lidocaine 1 percent without epinephrine. Using real-time out of plane guidance, the introducer needle was inserted into the internal jugular vein under direct ultrasound visualization. Venous blood was withdrawn. The syringe was removed and a guidewire was advanced into the introducer needle. The guidewire was visualized in the internal jugular vein by ultrasound. A small incision was made at the skin surface with a scalpel and the introducer needle was exchanged for a dilator over the guidewire. After appropriate dilation was obtained, the dilator was exchanged over the wire for a triple lumen central venous catheter. The wire was removed and the catheter was sutured in place at 15 cm. A biopatch and a sterile tegaderm were placed over the catheter at the insertion site. At time of procedure completion, all ports aspirated and flushed properly. The patient tolerated the procedure without any hemodynamic compromise. Post-procedure chest x-ray is pending at this time. Estimated blood loss is <5 cc. ED Treatment Course - LABORATORY CBC & Chemistry Diagram: 09/05/19 12:10 09/05/19 12:10 - RADIOLOGY Radiology Studies Ordered: Category Date Time Status CHEST X-RAY PORTABLE* [RAD] Stat Radiology 09/05/19 11:53 Ordered Medical Decision Making - Critical Care Time Total Critical Care Time (minutes): 60 Critical Care Statement: The care of this patient involved high complexity decision making to prevent further life threatening deterioration of the patient 's condition and/or to evaluate & treat vital organ system(s) failure or risk of failure. Discharge - Discharge Information Problems reviewed: Yes Clinical Impression/Diagnosis: Tachycardia, Elevated troponin, Elevated lactic acid level, Hypoxia Sepsis Qualifiers: Sepsis type: sepsis due to unspecified organism Sepsis acute organ dysfunction status: with acute organ dysfunction Severe sepsis acute organ dysfunction type : acute renal failure Acute renal failure type: unspecified Severe sepsis shock status: without septic shock Qualified Code(s): A41.9 - Sepsis, unspecified organism; R65.20 - Severe sepsis without septic shock; N17.9 - Acute kidney failure, unspecified Fever Qualifiers: Fever type: unspecified Qualified Code(s): R50.9 - Fever, unspecified Acute cystitis Qualifiers: Hematuria presence: without hematuria Qualified Code(s): N30.00 - Acute cystitis without hematuria Pulmonary embolism Qualifiers: Pulmonary embolism type: septic Chronicity: unspecified Acute cor pulmonale presence: with acute cor pulmonale Qualified Code(s): I26.01 - Septic pulmonary embolism with acute cor pulmonale Condition: Guarded - Admission Yes - Follow up/Referral - Patient Discharge Instructions - Post Discharge Activity
[2019-09-05] MEDS ORDERED: LACTATED RINGERS SOLUTION 1000 ML INFUS.BAG IV ONE ×4 (12:18→15:18)
[2019-09-05] MEDS ORDERED: ACETAMINOPHEN 1000 MG/100 ML VIAL (NON FORMULARY) IVPB ONE (12:18)
[2019-09-05] MEDS ORDERED: ACETAMINOPHEN INJECTION 100 ML IVPB ONE (12:21)
[2019-09-05] MEDS ORDERED: PIPERACILLIN/TAZOB 4.5 GM 4.5 GM in DEXTROSE 5%-WATER 100 ML IVPB ONE (12:22)
[2019-09-05] MEDS ORDERED: VANCOMYCIN 1,000 MG in DEXTROSE 5%-WATER - 250 ML IVPB ONE (12:22)
[2019-09-05 12:41] LABS: VENOUS PC02 54.4 mmHg (38-52)
[2019-09-05 12:44] LABS: VENOUS PO2 < 49 mmHg (28-48)
[2019-09-05] MEDS ORDERED: ALBUTEROL SO4 2.5/IPRATROPIUM 0.5 INH SOL 3 ML VIAL.NEB. NEB ONE ×2 (12:52→12:55)
[2019-09-05] MEDS ORDERED: PIPERACILLIN/TAZOB 4.5 GM 4.5 GM/100 ML BAG IVPB ONE (12:55)
[2019-09-05 12:59] LABS: BASO % 0.6 % (0-2.0); HEMATOCRIT 69.7 % (32.4-45.2); LYMPH % 11.3 % (8-40); MCH 23.7 pg (25.7-33.7); MCHC 30.4 g/dl (32.0-36.0); MEAN CELL VOLUME 77.9 fl (80-96); MONO % 5.5 % (3.8-10.2); NEUT % 82.6 % (42.8-82.8); RDW 22.8 % (11.6-15.6)
[2019-09-05 13:02] LABS: RBC 8.94 M/mm3 (3.60-5.2)
[2019-09-05 13:03] LABS: HEMOGLOBIN 21.2 GM/dL (10.7-15.3); WHITE BLOOD COUNT 32.8 K/mm3 (4.0-10.0)
[2019-09-05 13:18] LABS: ALBUMIN 2.5 g/dl (3.4-5.0); BILIRUBIN,TOTAL 0.7 mg/dL (0.2-1); BLOOD UREA NITROGEN 73.6 mg/dL (7-18); CALCIUM 10.9 mg/dL (8.5-10.1); POTASSIUM 4.2 mmol/L (3.5-5.1); TOT PROT 7.9 g/dl (6.4-8.2)
[2019-09-05 13:42] LABS: ANISOCYTOSIS 2+; PLATELET ESTIMATE DECREASED
[2019-09-05 13:44] LABS: MEAN PLT VOLUME 10.2 fl (7.5-11.1); PLATELET COUNT 112 K/MM3 (134-434)
[2019-09-05 13:47] LABS: EPI CELLS 14.4 /HPF (0-5/HPF); HYALINE CASTS 47 /lpf (0-8); URINE APPEARANCE TURBID; URINE BILIRUBIN NEGATIVE (NEGATIVE); URINE COLOR DK YELLOW; URINE GLUCOSE (UA) 1+ (NEGATIVE); URINE KETONE NEGATIVE (NEGATIVE); URINE LEUK ESTERASE 3+ (NEGATIVE); URINE NITRITE NEGATIVE (NEGATIVE); URINE PROTEIN 3+ (NEGATIVE); URINE UROBILINOGEN 0.2 mg/dL (0.2-1.0); URINE WBC 2472 /hpf (0-5)
[2019-09-05 14:15] LABS: URINE RBC 52.6 /hpf (0-4)
[2019-09-05 14:16] LABS: YEAST NEGATIVE (NEGATIVE)
[2019-09-05 14:22] LABS: INR 1.07 (0.83-1.09)
[2019-09-05 14:44] LABS: ACTIVATED PTT > 400.0 SECONDS (25.2-36.5)
--- NOTE | 2019-09-05 14:45 | PDOC ---
Attending Attestation - Resident Resident Name: Emmanuel Garcia - ED Attending Attestation I have performed the following: I have examined & evaluated the patient, The case was reviewed & discussed with the resident, I agree w/resident's findings & plan, Exceptions are as noted - HPI HPI: 09/05/19 14:42 84 F presenting from [facility] with lethargy and fever. Pt unable to contribute any history. - Physicial Exam PE: 09/05/19 14:43 GENERAL: lethargic, in no acute distress. HEAD: No signs of trauma EYES: PERRLA, EOMI, sclera anicteric, conjunctiva clear ENT: Auricles normal inspection, hearing grossly normal, nares patent, oropharynx clear without exudates. Moist mucosa NECK: Nontender, no stepoffs, Normal ROM, supple, no lymphadenopathy, JVD, or masses LUNGS: Breath sounds equal, clear to auscultation bilaterally. No wheezes, and no crackles HEART: Regular rate and rhythm, normal S1 and S2, no murmurs, rubs or gallops ABDOMEN: Soft, nontender, normoactive bowel sounds. No guarding, no rebound. No masses EXTREMITIES: Normal range of motion, no edema. No clubbing or cyanosis. No cords, erythema, or tenderness NEUROLOGICAL: Moves all extremities SKIN: Warm, Dry, normal turgor, no rashes or lesions noted. - Critical Care Time Total Critical Care Time: 120 Critical Care Statement: The care of this patient involved high complexity decision making to prevent further life threatening deterioration of the patient 's condition and/or to evaluate & treat vital organ system(s) failure or risk of failure. - Medical Decision Making 09/05/19 14:43 84 F with severe sepsis, likely 2/2 urinary source. - Labs, cultures - CXR, UA - IVF, abx - Admit ICU 09/05/19 17:34 Bedside echo shows R heart strain CTA obtained, showing central PE Discussed with Dr. Dc, who does not recommend IR intervention given pt's many comorbidities and risk factors.
--- NOTE | 2019-09-05 16:16 | HP ---
Hospitalist Medicine Admission 84 y/o F from [facility] with hx CHF, T2DM, CAD, thrombocytopenia, HTN, HLD, COPD , hx CVA, gram (-) bacteremia, myeloproliferative d/o (now on hydroxyurea), who presents from [facility] for AMS and tachycardia. Per [facility], this AM pt was less alert, but was responsive to voice. Was subsequently found to have cold, clammy skin and was in respiratory distress. Was placed on 2L NC 02. VS at time : temp 98F, 111/77, pulse 128bpm, RR 27/min. Per nurse, pt had poor PO intake over the last few days, refusing to eat. On assessment, pt is drowsy and lethargic, arousable via sternal rub. With mild accessory m usage. Per daughter, mother has lived at [facility] for the past 3 yrs. Is unable to ambulate, and usually does not follow commands. In ED, pt febrile to 102F, tachycardic, and with labile BP. Received IV tylenol, bolused with 500cc IVF x 2 , given vanc, zosyn, IV tylenol. ECHO done at bedside, with severely dilated RV. Stat CTA ordered. PMH: as above PsxH: R hip sx meds: per chart allergies: iodine, aspirin FH: unable to gain from pt, d/t mental status SH: unable to gain from pt, d/t mental status Allergies iodine [Iodine] Allergy (Severe, Verified 09/05/19 11:51) Swelling aspirin Allergy (Mild, Verified 09/05/19 11:51) ABD PAIN HOME MEDICATIONS: Home Medications Medication Instructions Recorded Amlodipine Besylate 10 mg PO DAILY 03/03/17 Atorvastatin Ca [Lipitor] 20 mg PO HS 03/03/17 Carvedilol [Coreg -] 25 mg PO BID 03/03/17 Clonidine-Tts 0.3MG/24Hr Patch 1 patch NR WEEKLY 03/03/17 [[id number]] Docusate Sodium [Colace -] 300 mg PO BID 03/03/17 Insulin (Levemir) [Levemir Vial] 14 unit SQ DAILY 03/03/17 Ondansetron HCl [Zofran] 4 mg PO TID PRN 03/03/17 Aa/Hydrolyzed Collagen, Whey [Lps 30 ml PO DAILY 05/05/19 Neutral Flavor Liquid] Acetaminophen [Pain Relief] 1,000 mg PO Q8H PRN 05/05/19 Hydroxyurea 500 mg PO WEEKLY 05/05/19 Mag Hydrox/Aluminum Hyd/Simeth 10 ml PO DAILY PRN 05/05/19 [Maalox Advanced Suspension] Ranitidine HCl [Zantac] 150 mg PO BID 05/05/19 Donepezil HCl [Aricept -] 5 mg PO DAILY tablet 05/09/19 Folic Acid - 1 mg PO DAILY tablet 05/09/19 Ranolazine [Ranexa -] 500 mg PO BID tab 05/09/19 Albuterol 2.5/Ipratropium 0.5 1 neb IH QID PRN 09/05/19 [Duoneb -] Famotidine [Pepcid -] 40 mg PO HS 09/05/19 Heparin - 5,000 unit SQ BID 09/05/19 Hydrochlorothiazide [Hctz -] 12.5 mg PO DAILY 09/05/19 Insulin Aspart [Novolog] 0 unit SQ ASDIR 09/05/19 Mirtazapine [Remeron -] 30 mg PO DAILY 09/05/19 Valsartan 160 mg PO DAILY 09/05/19 PHYSICAL EXAMINATION Vital Signs - 24 hr 09/05/19 09/05/19 09/05/19 14:55 15:05 15:45 Temperature Pulse Rate Pulse Rate [#1] 115 H Pulse Rate [ 111 H 106 H Apical] Respiratory 26 H 22 H Rate Respiratory 22 H Rate [#1] Blood Pressure Blood Pressure 105/57 L [#1] Blood Pressure 101/59 L 96/60 [Right Arm] O2 Sat by Pulse 94 L 93 L Oximetry (%) O2 Sat by Pulse 93 L Oximetry (%) [ #1] General: lethargic, arousable to sternal rub. AAOx0 HEENT: NCAT, PERRLA neck: supple, no JVD noted cardio: +tachy rate, no r/m/g pulm: decreased breath sounds, mild accessory m usage abdomen: soft, nontender, nondistended LE: 2+ pulses, no edema. +gangrenous L toenail neuro: arousable to sternal rub. AAO x 0 . 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 does not follow commands Laboratory Tests 09/05/19 09/05/19 09/05/19 12:10 12:10 12:10 WBC 32.8 H* Hgb 21.2 H* Hct 69.7 H Plt Count 112 L PTT (Actin FS) VBG pH POC VBG pCO2 POC VBG pO2 VBG O2 Sat (Blanco) Sodium 149 H Potassium 4.2 Chloride 115 H BUN 73.6 H Creatinine 2.0 H Random Glucose 274 H Lactic Acid 3.5 H* Calcium 10.9 H AST 39 H Alkaline Phosphatase 150 H Troponin I 1.07 H* Urine Protein Urine Glucose (UA) Urine Blood Ur Leukocyte Esterase Urine WBC (Auto) Urine Casts (Auto) Influenza A (Rapid) Influenza B (Rapid) 09/05/19 09/05/19 09/05/19 12:20 12:30 13:30 WBC Hgb Hct Plt Count PTT (Actin FS) VBG pH 7.30 L POC VBG pCO2 54.4 H POC VBG pO2 < 49 H VBG O2 Sat (Blanco) 40.0 L Sodium Potassium Chloride BUN Creatinine Random Glucose Lactic Acid Calcium AST Alkaline Phosphatase Troponin I Urine Protein 3+ H Urine Glucose (UA) 1+ H Urine Blood 2+ H Ur Leukocyte Esterase 3+ H Urine WBC (Auto) 2472 Urine Casts (Auto) 47 Influenza A (Rapid) Negative Influenza B (Rapid) Negative 09/05/19 09/05/19 13:50 16:00 WBC Hgb Hct Plt Count PTT (Actin FS) > 400.0 H VBG pH POC VBG pCO2 POC VBG pO2 VBG O2 Sat (Blanco) Sodium Potassium Chloride BUN Creatinine Random Glucose Lactic Acid 3.0 H* Calcium AST Alkaline Phosphatase Troponin I Urine Protein Urine Glucose (UA) Urine Blood Ur Leukocyte Esterase Urine WBC (Auto) Urine Casts (Auto) Influenza A (Rapid) Influenza B (Rapid) 09/05 CXR: weak inspiration, sharp angles, large heart, unfolded aorta, prominent hilar markings. an acute chest process is not seen. no change o adverse nature since previous. 09/05 ECHO:regional wall motion abnormalities can't be ruled out. septal motion consistent with conduction abnormality. RV is moderate to severely dilated. LVSF is severely reduced. moderate mitral annular calcification. mild to mod mitral valve thickening. mild MR, mild TR, 09/05 CTA: acute central PE straddling main pulmonary artery bifurcation. acute emboli also visualized within the upper and lower lobe lobar pulm aa. bilaterally. dilation of RV seen. interval development of mild R lower lobe subpleural opacity on basis of telectasis or edema associated with pulmonary infarction. extensive atherosclerotic vascular calcifications. moderate chronic L2 vertebral body fx. EKG: +sinus tach, PAC's ASSESSMENT/PLAN: 84 y/o F from [facility] with hx CHF, T2DM, CAD, thrombocytopenia, HTN, HLD, COPD , hx CVA, gram (-) bacteremia, myeloproliferative d/o (now on hydroxyurea), who presents from [facility] for AMS and tachycardia. #Submassive PE>massive PE -likely as pt is hypercoaguable. JAK2+ increases hypercoaguability -d/w heme, will start hep gtt -resp support as needed, on NC. nebs PRN -pressor support as needed. line currently being placed -ECHO w/ evidence of RH strain, RV dilation -also w/ tropinemia (1.07). will c/t trend -d/w IR: hx CVA contraindication, too high risk for thrombectomy, catheter directed thrombolysis -ICU team d/w CT sx - high risk -heme/onc: Dr. Maloney, Dr. Pascual -IR: Dr. Carr -CT sx: Dr. Henderson -Cardio: Dr. Verde #myeloproliferative d/o -JAK2+ -c/w hydroxyurea, however will await heme recs. will need to determine when last dose -d/w heme, will not phlebotomize currently as hypotensive -if able to maintain BP, will try to phlebotomize for polycythemia q48h #severe sepsis / poss septic shock 2/2 UTI -past hx klebsiella previously -UA+, with lactic 3.5>3. cont to trend -pressor support as needed -c/w vanc, zosyn (renally dosed) for now -f/u ucx, blood cx, urine legionella ag -ID: Dr. Martinez #hx CAD #hx CHF -hold home meds for now; pt NPO -at home on ranexa, imdur #HTN -hold anti-HTN as hypotensive -hold valsartan,, amlodipine, coreg #HLD -hold lipitor; NPO #F/E/N cont to follow lytes NPO #PPX DVT: on hep gtt #code status ICU team and health technical writer d/w daughter - full code until travels from [place] this evening resuscitation discussions started #Dispo admit to ICU; however recommend transfer to tertiary care center Visit type - Emergency Visit Emergency Visit: Yes ED Registration Date: 09/05/19 Care time: The patient presented to the Emergency Department on the above date and was hospitalized for further evaluation of their emergent condition. - New Patient This patient is new to me today: Yes Date on this admission: 09/05/19 - Critical Care Critical Care patient: Yes Total Critical Care Time (in minutes): 45 Critical Care Statement: The care of this patient involved high complexity decision making to prevent further life threatening deterioration of the patient 's condition and/or to evaluate & treat vital organ system(s) failure or risk of failure.
--- NOTE | 2019-09-05 16:21 | ECHO ---
Name: TERRENCE JOHANSEN Exam:Adult Echocardiogram Study Date: 09/05/2019 03:42 PM Age: 84 yrs Height: 64 in Weight: 112 lb BSA: 1.5 m2 MMode/2D Measurements & Calculations IVSd: 1.1 cm Ao root diam: 2.7 cm LVIDd: 3.1 cm LA dimension: 3.2 cm LVIDs: 2.1 cm LVPWd: 1.0 cm LVPWs: 1.3 cm EDV(Teich): 37.1 ml ESV(Teich): 15.2 ml Doppler Measurements & Calculations MV E max shirin: 75.2 cm/sec Ao V2 max: 159.8 cm/sec MV A max shirin: 133.9 cm/sec Ao max P.2 mmHg MV E/A: 0.56 MV dec time: 0.13 sec LV V1 max P.1 mmHg TR max shirin: 221.3 cm/sec LV V1 max: 123.0 cm/sec TR max P.6 mmHg Procedure The study was technically difficult with many images being suboptimal in quality. Left Ventricle There is mild concentric left ventricular hypertrophy. Left ventricular systolic function is grossly normal. The transmitral spectral Doppler flow pattern is suggestive of impaired LV relaxation. Regional wall motion abnormalities cannot be excluded due to limited visualization. Septal motion is consistent with condu ction abnormality. Right Ventricle The right ventricle is moderate to severely dilated. The right ventricular systolic function is sever leatha reduced. Mitral Valve There is moderate mitral annular calcification. There is mild to moderate mitral valve thickening. Th ere is mild mitral regurgitation. Tricuspid Valve The tricuspid valve is not well visualized, but is grossly normal. There is mild tricuspid regurgitat ion. Aortic Valve There is moderate aortic sclerosis.;. No hemodynamically significant valvular aortic stenosis. No aor tic regurgitation is present. Pulmonic Valve The pulmonic valve is not well visualized. Great Vessels The aortic root is normal size. Pericardium/Pleura There is no pericardial effusion. Interpretation Summary The study was technically difficult with many images being suboptimal in quality. Regional wall motion abnormalities cannot be excluded due to limited visualization. Septal motion is consistent with conduction abnormality. Left ventricular systolic function is grossly normal. The right ventricle is moderate to severely dilated. The right ventricular systolic function is severely reduced. There is moderate mitral annular calcification. There is mild to moderate mitral valve thickening. There is mild mitral regurgitation. There is mild tricuspid regurgitation. There is moderate aortic sclerosis.; The aortic root is normal size. There is no pericardial effusion. MD Sanchez *Yonatan 09/05/2019 04:21 PM
--- NOTE | 2019-09-05 16:21 | CONSULT ---
Consultation: REQUESTING PROVIDER: Dr. Blue CONSULT REQUEST: We have been asked to medically evaluate this patient for septic shock. HISTORY OF PRESENT ILLNESS: 84F with PMH of Dementia, HTN, HLD, DM, CAD, CHF, COPD who presents from [facility] due to altered mental status and shortness of breath. Patient is not normally on oxygen while at [facility], and is usually alert. Patient was not at her baseline mental status at facility, and they felt she had cold and clammy skin so she was sent over for evaluation. Today patient is having difficulty responding to examiner questions and commands. Patient was given 2L of LR, Zoysn 4.5 gram, and Vancomycin 1 gram while in the Emergency Department. Patient was noted to have a new diagnosis of CHF so echo was done which showed severely reduced right ventricular function as well as mod to severely dilated RV. Patient had CTA of chest which showed embolus at the bifurcation of the pulmonary arteries. Patient labs resulted with tropinemia, leukocytosis, and elevated hemoglobin. Patient was started on heparin drip. REVIEW OF SYSTEMS: Patient unable to communicate, unable to complete ROS. PHYSICAL EXAMINATION Vital Signs - 24 hr 09/05/19 09/05/19 09/05/19 11:48 12:00 12:30 Temperature 102.6 F H 102.6 F H Pulse Rate 129 H Pulse Rate [#1] Pulse Rate [ Apical] Respiratory 28 H Rate Respiratory Rate [#1] Blood Pressure 127/61 Blood Pressure [#1] Blood Pressure [Right Arm] O2 Sat by Pulse 89 L 93 L 94 L Oximetry (%) O2 Sat by Pulse Oximetry (%) [ #1] 09/05/19 09/05/19 09/05/19 13:00 14:08 14:17 Temperature 102.3 F H Pulse Rate Pulse Rate [#1] Pulse Rate [ 116 H 114 H Apical] Respiratory 24 H 24 H Rate Respiratory Rate [#1] Blood Pressure Blood Pressure [#1] Blood Pressure 122/100 106/51 L [Right Arm] O2 Sat by Pulse 94 L Oximetry (%) O2 Sat by Pulse Oximetry (%) [ #1] 09/05/19 09/05/19 09/05/19 14:55 15:05 15:45 Temperature Pulse Rate Pulse Rate [#1] 115 H Pulse Rate [ 111 H 106 H Apical] Respiratory 26 H 22 H Rate Respiratory 22 H Rate [#1] Blood Pressure Blood Pressure 105/57 L [#1] Blood Pressure 101/59 L 96/60 [Right Arm] O2 Sat by Pulse 94 L 93 L Oximetry (%) O2 Sat by Pulse 93 L Oximetry (%) [ #1] GENERAL: Awake, arousable with sternal rub. HEAD: Normal with no signs of trauma. nasal cannula set to 4L. EYES: Pupils equal, round and reactive to light. EARS, NOSE, THROAT: Ears normal, nares patent, oropharynx clear without exudates. Moist mucous membranes. NECK: Right sided central line in place with dressing. LUNGS: B/l crackles present at bases. HEART: Regular rate and rhythm, normal S1 and S2 without murmur, rub or gallop. ABDOMEN: Soft, nontender, not distended, normoactive bowel sounds, no guarding, no rebound, no masses. MUSCULOSKELETAL: Normal range of motion at all joints. No bony deformities or tenderness. No CVA tenderness. UPPER EXTREMITIES: 2+ pulses, warm, well-perfused. No cyanosis. No clubbing. Cap refill <2 seconds. No peripheral edema. LOWER EXTREMITIES: 2+ pulses, warm, well-perfused. No calf tenderness. No peripheral edema. SKIN: Warm, dry, normal turgor, no rashes or lesions noted. Laboratory Results - last 24 hr 09/05/19 09/05/19 09/05/19 12:10 12:10 12:10 WBC 32.8 H* RBC 8.94 H Hgb 21.2 H* Hct 69.7 H MCV 77.9 L MCH 23.7 L MCHC 30.4 L RDW 22.8 H Plt Count 112 L MPV 10.2 Absolute Neuts (auto) 27.0 H Neutrophils % 82.6 Neutrophils % (Manual) 80.3 Band Neutrophils % 2.6 Lymphocytes % 11.3 D Lymphocytes % (Manual) 2.7 L D Monocytes % 5.5 Monocytes % (Manual) 3 L Eosinophils % 0.0 D Eosinophils % (Manual) 1.3 D Basophils % 0.6 Basophils % (Manual) 1.3 D Myelocytes % (Man) 0 Promyelocytes % (Man) 0 Blast Cells % (Manual) 0 Nucleated RBC % 0 Metamyelocytes 0 Platelet Estimate Decreased Polychromasia 1+ Anisocytosis 2+ PT with INR INR PTT (Actin FS) VBG pH POC VBG pCO2 POC VBG pO2 VBG HCO3 VBG O2 Sat (Blanco) VBG Base Excess Sodium 149 H Potassium 4.2 Chloride 115 H Carbon Dioxide 24 Anion Gap 10 BUN 73.6 H Creatinine 2.0 H Est GFR (CKD-EPI)AfAm 25.55 Est GFR (CKD-EPI)NonAf 22.05 Random Glucose 274 H Lactic Acid 3.5 H* Calcium 10.9 H Total Bilirubin 0.7 AST 39 H ALT 40 Alkaline Phosphatase 150 H Troponin I 1.07 H* Total Protein 7.9 Albumin 2.5 L Urine Color Urine Appearance Urine pH Ur Specific Anderson Urine Protein Urine Glucose (UA) Urine Ketones Urine Blood Urine Nitrite Urine Bilirubin Urine Urobilinogen Ur Leukocyte Esterase Urine WBC (Auto) Urine RBC (Auto) Urine Casts (Auto) U Pathogenic Cast Auto U Epithel Cells (Auto) Urine Bacteria (Auto) Urine Yeast (Auto) Influenza A (Rapid) Influenza B (Rapid) 09/05/19 09/05/19 09/05/19 12:20 12:30 13:30 WBC RBC Hgb Hct MCV MCH MCHC RDW Plt Count MPV Absolute Neuts (auto) Neutrophils % Neutrophils % (Manual) Band Neutrophils % Lymphocytes % Lymphocytes % (Manual) Monocytes % Monocytes % (Manual) Eosinophils % Eosinophils % (Manual) Basophils % Basophils % (Manual) Myelocytes % (Man) Promyelocytes % (Man) Blast Cells % (Manual) Nucleated RBC % Metamyelocytes Platelet Estimate Polychromasia Anisocytosis PT with INR INR PTT (Actin FS) VBG pH 7.30 L POC VBG pCO2 54.4 H POC VBG pO2 < 49 H VBG HCO3 26.1 VBG O2 Sat (Blanco) 40.0 L VBG Base Excess -1.8 Sodium Potassium Chloride Carbon Dioxide Anion Gap BUN Creatinine Est GFR (CKD-EPI)AfAm Est GFR (CKD-EPI)NonAf Random Glucose Lactic Acid Calcium Total Bilirubin AST ALT Alkaline Phosphatase Troponin I Total Protein Albumin Urine Color Dk yellow Urine Appearance Turbid Urine pH 5.0 D Ur Specific Anderson 1.024 Urine Protein 3+ H Urine Glucose (UA) 1+ H Urine Ketones Negative Urine Blood 2+ H Urine Nitrite Negative Urine Bilirubin Negative Urine Urobilinogen 0.2 Ur Leukocyte Esterase 3+ H Urine WBC (Auto) 2472 Urine RBC (Auto) 52.6 Urine Casts (Auto) 47 U Pathogenic Cast Auto Positive U Epithel Cells (Auto) 14.4 Urine Bacteria (Auto) 1274.0 Urine Yeast (Auto) Negative Influenza A (Rapid) Negative Influenza B (Rapid) Negative 09/05/19 13:50 WBC RBC Hgb Hct MCV MCH MCHC RDW Plt Count MPV Absolute Neuts (auto) Neutrophils % Neutrophils % (Manual) Band Neutrophils % Lymphocytes % Lymphocytes % (Manual) Monocytes % Monocytes % (Manual) Eosinophils % Eosinophils % (Manual) Basophils % Basophils % (Manual) Myelocytes % (Man) Promyelocytes % (Man) Blast Cells % (Manual) Nucleated RBC % Metamyelocytes Platelet Estimate Polychromasia Anisocytosis PT with INR 12.60 INR 1.07 PTT (Actin FS) > 400.0 H VBG pH POC VBG pCO2 POC VBG pO2 VBG HCO3 VBG O2 Sat (Blanco) VBG Base Excess Sodium Potassium Chloride Carbon Dioxide Anion Gap BUN Creatinine Est GFR (CKD-EPI)AfAm Est GFR (CKD-EPI)NonAf Random Glucose Lactic Acid Calcium Total Bilirubin AST ALT Alkaline Phosphatase Troponin I Total Protein Albumin Urine Color Urine Appearance Urine pH Ur Specific Anderson Urine Protein Urine Glucose (UA) Urine Ketones Urine Blood Urine Nitrite Urine Bilirubin Urine Urobilinogen Ur Leukocyte Esterase Urine WBC (Auto) Urine RBC (Auto) Urine Casts (Auto) U Pathogenic Cast Auto U Epithel Cells (Auto) Urine Bacteria (Auto) Urine Yeast (Auto) Influenza A (Rapid) Influenza B (Rapid) Active Medications Generic Name Dose Route Start Last Admin Trade Name Freq PRN Reason Stop Dose Admin Chlorhexidine Gluconate 1 applic 09/05/19 22:00 Hibiclens For Decolonization - TP [facility] Mupirocin 1 applic 09/05/19 22:00 Bactroban Ointment (For Decolonization) - NS 09/10/19 21:59 BID [facility] ASSESSMENT/PLAN: 84 F PMH of Dementia, HTN, HLD, DM, CAD, CHF, COPD, myeloproliferative d/o who presents to [facility] with AMS and tachycardia. Imaging shows that patient has pulmonary embolus at bifurcation of pulmonary arteries. Neuro Patient has dementia. Was not at baseline at nursing facility as per conversation with raymond. Given leukocytosis and AMS, likely patient has acute metabolic encephalopathy -Will hold donepezil, remeron until patient is more stable. -Will continue to monitor Cardiovascular Patient has history of CHF, HTN, HLD, and CAD. Echo shows that patient has severely dilated right ventricle, right ventricular systolic function is severely reduced, moderate mitral annular calcification, mild to moderate valve thickening, mild mitral regurgitation, mild tricuspid regurgitation, moderate aortic sclerosis. CTA shows that patient has central pulmonary embolism, and acute emboli are visualized in upper and lower lobar pulmonary arteries bilaterally. Patient has Massive PE. Troponin of 1.07 on admission -2.5L of LR given. LR @100 ml/hr -Patient started on heparin drip -Central line in place, if pressors needed -Holding Carvedilol, Isosorbiside mononitrate, valsartan, hydrochlorothiazide, ranexa, and amlodipine until pressures stabilize. -Trend troponin -Cardiology consulted, appreciate recs -Interventional radiology consulted, not a candidate for procedure at this time -Cardiothoracic surgery consulted; advise transfer to tertiary care facility. -Spoke with ICU team at [facility], patient is accepted and awaiting bed. Pulm Hx of COPD Chest X-Ray did not show acute pathology -Albuterol nebulizer as needed -On Nasal Cannula 4L saturating at 96% Renal Patient has U/A with 1274 bacteria, positive for protein, glucose, blood, and leukocyte esterase. -Creatinine elevated to 2.0 -Urine culture pending -Given Zoysn and Vancomycin; renally dose all meds -Continue Vancomycin, random Vanc level in AM given kidney function ID Patient presented with 102.6 F temperature, tachycardic to 129 BPM, with BP of 96/60. Patient is septic, source is likely UTI. However patient's septic presentation is concurrent with patient's massive PE. Leukocytosis of 32.8 with absolute neutrophil count of 27.0 Lactate of 3.5 trending down to 3.0 -Zoysn given -Vancomycin given -Continue Zoysn and vancomycin -F/U Urine and Blood cultures -ID consulted Heme Hx of Myeloproliferative Disorder - KAMALA-2 positive Hgb of 21.2 on admission -Holding home dose of hydroxyurea -Evaluated by heme, recommend starting heparin drip. Once HD stable, consider phlebotomize 250 cc every other day. GI No GI issues, currently stable. Will continue to monitor FEN -LR @ 100 -recheck lytes -NPO DVT Prophylaxis: Heparin Drip Spoke to daughter, Betty, at length about goals of care. She is currently en route from [place] where she resides and wants aggressive measures to be done. Pt is full code. During encounter, pt's granddaughter (daughter of Betty) was present and relayed information to Betty and the rest of their family. Explained need for transfer to tertiary care facility for higher level of care. They verbalized understanding and were in agreement with plan. Dispo: Patient accepted for transfer to [facility] under the care of Dr. Ferrari. Visit type - Emergency Visit Emergency Visit: Yes ED Registration Date: 09/05/19 Care time: The patient presented to the Emergency Department on the above date and was hospitalized for further evaluation of their emergent condition. - New Patient This patient is new to me today: Yes Date on this admission: 09/05/19 - Critical Care Critical Care patient: Yes Total Critical Care Time (in minutes): 75 Critical Care Statement: The care of this patient involved high complexity decision making to prevent further life threatening deterioration of the patient 's condition and/or to evaluate & treat vital organ system(s) failure or risk of failure. ATTENDING PHYSICIAN STATEMENT I saw and evaluated the patient. I reviewed the resident's note and discussed the case with the resident. I agree with the resident's findings and plan as documented. SUBJECTIVE: OBJECTIVE: ASSESSMENT AND PLAN:
[2019-09-05] MEDS ORDERED: HEPARIN NA (PORCINE) 5,000 UNITS/ML 1ML VIAL IVPUSH PRN ×2 (17:21)
[2019-09-05] MEDS ORDERED: HEPARIN SOD,PORK IN 0.45% NACL 25,000 UNIT/500 ML INFUS.BAG IVPB SCH (17:30)
[2019-09-05] MEDS ORDERED: ALBUTEROL SO4 0.083% IH SOL 2.5 MG/3 ML VIAL.NEB. NEB PRN (17:52)
[2019-09-05] MEDS ORDERED: PIPERACILLIN/TAZOB 2.25 GM 2.25 GM in DEXTROSE 5%-WATER - 50 ML IVPB SCH (18:00)
[2019-09-05] MEDS ORDERED: LACTATED RINGERS SOLUTION 1,000 ML/1,000 ML INFUS.BAG IV SCH (18:45)
--- NOTE | 2019-09-05 18:47 | CONSULT ---
Consult - Past Medical History GAS TESTER: Yes: CVA, Dementia (mild) Cardio/Vascular: Yes: CAD (s/p multiple prior PCI's--last oct 2013 MICHAEL to mLAD ( prior stents patent)), HTN, Hyperlipdemia Pulmonary: Yes: COPD Renal/: Yes: Renal Inusuff Endocrine: Yes: Diabetes Mellitus, Other (obesity) - Past Surgical History Past Surgical History: Yes: Appendectomy, Stent - Alcohol/Substance Use Hx Alcohol Use: No History of Substance Use: reports: None - Smoking History Smoking history: Unknown if ever smoked Have you smoked in the past 12 months: No Aproximately how many cigarettes per day: 0 - Social History Usual Living Arrangement: With Spouse ADL: Family Assistance History of Recent Travel: No Home Medications - Allergies Allergies/Adverse Reactions: Allergies Allergy/AdvReac Type Severity Reaction Status Date / Time iodine [Iodine] Allergy Severe Swelling Verified 09/05/19 11:51 aspirin Allergy Mild ABD PAIN Verified 09/05/19 11:51 - Home Medications Home Medications: Ambulatory Orders Amlodipine Besylate 10 mg PO DAILY 03/03/17 Atorvastatin Ca [Lipitor] 20 mg PO HS 03/03/17 Carvedilol [Coreg -] 25 mg PO BID 03/03/17 Clonidine-Tts 0.3MG/24Hr Patch [[id number]] 1 patch NR WEEKLY 03/03/17 Docusate Sodium [Colace -] 300 mg PO HS 03/03/17 Insulin (Levemir) [Levemir Vial] 14 unit SQ DAILY 03/03/17 Ondansetron HCl [Zofran] 4 mg PO TID PRN 03/03/17 Aa/Hydrolyzed Collagen, Whey [Lps Neutral Flavor Liquid] 30 ml PO DAILY Acetaminophen [Pain Relief] 1,000 mg PO Q8H PRN 05/05/19 Hydroxyurea 500 mg PO WEEKLY 05/05/19 Mag Hydrox/Aluminum Hyd/Simeth [Maalox Advanced Suspension] 10 ml PO DAILY PRN 05/05/19 Ranitidine HCl [Zantac] 150 mg PO BID 05/05/19 Folic Acid - 1 mg PO DAILY tablet 05/09/19 Ranolazine [Ranexa -] 500 mg PO BID tab 05/09/19 Albuterol 2.5/Ipratropium 0.5 [Duoneb -] 1 neb IH QID PRN 09/05/19 Donepezil HCl [Aricept -] 5 mg PO HS 09/05/19 Famotidine [Pepcid -] 40 mg PO HS 09/05/19 Heparin - 5,000 unit SQ BID 09/05/19 Hydrochlorothiazide [Hctz -] 12.5 mg PO DAILY 09/05/19 Insulin Aspart [Novolog] See Protocol SQ ASDIR 09/05/19 Isosorbide Mononitrate [Isosorbide Mononitrate ER] 60 mg PO HS 09/05/19 Mirtazapine [Remeron -] 30 mg PO DAILY 09/05/19 Valsartan 160 mg PO DAILY 09/05/19 Zinc Oxide 20% Topical Oint 454 gm NR DAILY PRN 09/05/19 Physical Exam Vital Signs: Vital Signs Temperature 100.2 F H 09/05/19 16:54 Pulse Rate 115 H 09/05/19 18:04 Respiratory Rate 22 H 09/05/19 18:04 Blood Pressure 105/57 L 09/05/19 18:04 O2 Sat by Pulse Oximetry (%) 93 L 09/05/19 18:04 Labs: CBC, BMP 09/05/19 12:10 09/05/19 12:10 Assessment/Plan Patient seen and examined Presents with SOB. 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 HBP HPL DM COPD Dementia No history obtainable Last Vital Signs Temp Pulse Resp BP Pulse Ox 100.2 F H 115 H 22 H 105/57 L 93 L 09/05/19 16:54 09/05/19 18:04 09/05/19 18:04 09/05/19 18:04 09/05/19 18:04 HEENT: anisocoria Oropharynx: No thrush, No mucositis Breasts: Without masses Cor: RSR, No murmurs, No gallops Lungs:diminished Abd: Soft, Normal bowel sounds, No organomegaly Ext:No significant edema Skin: No rashes, Integument intact CBC, BMP 09/05/19 12:10 09/05/19 12:10 Current Medications Generic Name Dose Route Start Last Admin Trade Name Freq PRN Reason Stop Dose Admin Albuterol Sulfate 1 amp 09/05/19 17:52 Ventolin 0.083% Nebulizer Soln - NEB Q4H PRN SHORT OF BREATH/WHEEZING Chlorhexidine Gluconate 1 applic 09/05/19 22:00 Hibiclens For Decolonization - TP HS JOSE Heparin Sodium (Porcine) 1,000 unit 09/05/19 17:21 Heparin - IVPUSH PRN PRN Heparin Heparin Sodium (Porcine) 5,000 unit 09/05/19 17:21 09/05/19 18:15 Heparin - IVPUSH 5,000 unit PRN PRN Administration Heparin HEPARIN SOD,PORK IN 0.45% NACL 25,000 unit in 500 mls @ 16 mls/hr 09/05/19 17: 30 09/05/19 18:15 Heparin-1/2ns 25,000 Units/500 IVPB 800 units/hr TITR JOSE 16 mls/hr Administration Protocol 800 UNITS/HR Piperacillin Sod/Tazobactam 50 mls @ 100 mls/hr 09/05/19 18:00 Sod 2.25 gm/ Dextrose IVPB Q8H-IV JOSE Protocol Vancomycin HCl 750 mg/ 150 mls @ 150 mls/hr 09/06/19 10:00 Dextrose IVPB Q24H JOSE Protocol Piperacillin Sod/Tazobactam 50 mls @ 100 mls/hr 09/05/19 18:00 Sod 2.25 gm/ Dextrose IVPB 09/06/19 10:29 Q8H-IV JOSE Protocol Vancomycin HCl 750 mg/ 250 mls @ 250 mls/hr 09/06/19 14:00 Dextrose IVPB 09/06/19 14:59 Q24H JOSE Protocol Lactated Ringer's 1,000 ml in 1,000 mls @ 100 mls/hr 09/05/19 18:45 Lactated Ringers Solution IV ASDIR JOSE Mupirocin 1 applic 09/05/19 22:00 Bactroban Ointment (For Decolonization) - NS 09/10/19 21:59 BID JOSE Impression: Acute pulmonary embolus with RLL infarct and right heart strain 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 [place] Hct of 45 % may not be feasible Currently family wants full aggressive measures- would consider transfer to tertiary care center if medically stable. Un-united left humeral fx
[2019-09-05] MEDS ORDERED: PIPERACILLIN/TAZOBACTAM 2.25 GM VIAL IVPB ONE (19:06)
[2019-09-05] MEDS ORDERED: DEXTROSE 5%-WATER - 50 ML IVPB ONE (19:07)
[2019-09-05 20:00] LABS: ARTERIAL BLD GAS O2 SATURATION 92.3 % (95-98); ARTERIAL BLOOD GAS BASE EXCESS -0.3 meq/l (-2-2); ARTERIAL BLOOD GAS PO2 67.5 mmHg (80-100); CARBOXYHEMOGLOBIN 0.8 % (0-2)
[2019-09-05 20:03] LABS: ALLENS TEST POSITIVE
[2019-09-05] MEDS ORDERED: MUPIROCIN 2% TOPICAL OINTMENT FOR DECOLONIZATION NS SCH (22:00)
[2019-09-05] MEDS ORDERED: CHLORHEXIDINE GLUCONATE 4% CLEANSER FOR DECOLONIZATION TP SCH (22:00)
[2019-09-05 23:59] VITALS: BMI 21.2
[2019-09-06 00:04] VITALS: PULSE 96; TEMP 99.2
[2019-09-06 00:31] VITALS: BP 106/68
[2019-09-06] MEDS ORDERED: VANCOMYCIN 750 MG in DEXTROSE 5%-WATER - 150 ML IVPB SCH (10:00)
[2019-09-06] MEDS ORDERED: VANCOMYCIN 750 MG in DEXTROSE 5%-WATER - 250 ML IVPB SCH (14:00)
--- NOTE | 2019-09-06 14:27 | EKG ---
Test Reason : Blood Pressure : / mmHG Vent. Rate : 128 BPM Atrial Rate : 128 BPM P-R Int : 122 ms QRS Dur : 080 ms QT Int : 304 ms P-R-T Axes : 013 -83 030 degrees QTc Int : 443 ms SINUS TACHYCARDIA WITH PREMATURE ATRIAL COMPLEXES LEFT AXIS DEVIATION LOW VOLTAGE QRS INFERIOR INFARCT (CITED ON OR BEFORE 04-MAY-2019) POSSIBLE ANTEROLATERAL INFARCT , AGE UNDETERMINED ABNORMAL ECG WHEN COMPARED WITH ECG OF 05-MAY-2019 05:41, SIGNIFICANT CHANGES HAVE OCCURRED Confirmed by FORTUNATO SIBLEY MD ([id number]) on 09/06/2019 2:27:32 PM Referred By: Confirmed By:FORTUNATO SIBLEY MD
== END 2019-09-05 23:08 | disposition short-term general hospital (02) | DRG 871 ==
LOC: JER 11:30 → JERBED 14:40 → JICU 18:25
PROVIDERS: ADMIT Internal Medicine; ATTEND Internal Medicine
DX: A41.01 Sepsis due to Methicillin susceptible Staphylococcus aureus (principal); I26.01 Septic pulmonary embolism with acute cor pulmonale; R65.21 Severe sepsis with septic shock; G93.41 Metabolic encephalopathy; C94.6 Myelodysplastic disease, not elsewhere classified; N39.0 Urinary tract infection, site not specified; M48.56XA Collapsed vertebra, not elsewhere classified, lumbar region, initial encounter for fracture; F03.90 Unspecified dementia, unspecified severity, without behavioral disturbance, psychotic disturbance, mood disturbance, and anxiety; E11.9 Type 2 diabetes mellitus without complications; E78.5 Hyperlipidemia, unspecified; I25.10 Atherosclerotic heart disease of native coronary artery without angina pectoris; J44.9 Chronic obstructive pulmonary disease, unspecified; R00.0 Tachycardia, unspecified; R50.9 Fever, unspecified; R09.02 Hypoxemia; D69.6 Thrombocytopenia, unspecified; R41.82 Altered mental status, unspecified; I11.0 Hypertensive heart disease with heart failure; I50.9 Heart failure, unspecified; D72.829 Elevated white blood cell count, unspecified; Z86.73 Personal history of transient ischemic attack (TIA), and cerebral infarction without residual deficits
CPT/HCPCS: 36415; 36600; 71045-TC-FY; 71275-TC; 80053; 81003; 82375; 82803; 82977; 83050; 83605; 83930; 84484; 85025; 85610; 85730; 87040; 87086; 87186; 87804; 93005; 93010; 93306-TC; 99285-25; J0131; J1644; Q9967